=== PATIENT | female | born 1960 | race Caucasian/White ===

== ENCOUNTER 2016-04-30 11:23 | Observation (INO) | payer OTHER ==
[~2016-04-30] VITALS: Ht 152.4 cm; Wt 53.2 kg
[2016-04-30 11:53] LABS: BASO % 0.5 % (0.0-1.0); EOS # 0.1 K/mm3 (0.0-0.50); EOS % 1.7 % (0.0-3.0); LARGE UNSTAINED CELL # 0.1 K/mm3 (0.0-0.4); LARGE UNSTAINED CELL % 1.4 % (0.0-4.0); LYMPH # 1.2 K/mm3 (1.5-4.5); LYMPH % 18.7 % (24.0-44.0); MEAN CORPUSCULAR HEMOGLOBIN 29.9 pg (27.0-33.0); MEAN CORPUSCULAR HGB CONC 32.4 g/dl (32.0-36.5); MEAN CORPUSCULAR VOLUME 92.2 fl (80.0-96.0); MONO # 0.3 K/mm3 (0.0-0.8); MONO % 5.1 % (0.0-5.0); NEUTROPHILS # 4.5 K/mm3 (1.8-7.7); NEUTROPHILS % 72.6 % (36.0-66.0); PLATELET COUNT, AUTOMATED 282 k/mm3 (150-450); RED CELL DISTRIBUTION WIDTH 12.4 % (11.5-14.5); WHITE BLOOD COUNT 6.1 K/mm3 (4.0-10.0)
[2016-04-30 12:00] LABS: INR 0.95
--- NOTE | 2016-04-30 12:12 | REP ---
Clinical: Symptoms related to acute cerebrovascular accident . Comparison: 10/06/2014 . Findings: The ventricles, sulci, and cisterns are normal in position and appearance. Badillo-white differentiation is maintained. No acute intracranial hemorrhage, mass/mass effect, pathology or trauma/injury. No evidence for acute infarction. No extra-axial fluid collection. Calvarium is intact. Paranasal sinuses and mastoid air cells are clear. Impression: Normal noncontrast head CT. No evidence for acute intracranial pathology or trauma/injury. Signed by Sam Finch MD 04/30/2016 12:03 P
--- NOTE | 2016-04-30 12:14 | REP ---
Clinical: Acute cerebrovascular accident . Comparison: 05/12/2011 . Findings: The mediastinum and cardiac silhouette are stable and within normal limits for portable technique. The lung taylor are clear without acute consolidation, effusion, or pneumothorax. Skeletal structures are intact. Impression: Normal portable chest x-ray Signed by Sam Finch MD 04/30/2016 12:06 P
[2016-04-30 12:22] LABS: ANION GAP 7 MEQ/L (8-16); BLOOD UREA NITROGEN 17 MG/DL (7-18); CALCIUM LEVEL 9.5 MG/DL (8.5-10.1); CARBON DIOXIDE LEVEL 32 MEQ/L (21-32); CHLORIDE LEVEL 105 MEQ/L (98-107); CREATININE FOR GFR 0.88 MG/DL (0.55-1.02); GLOMERULAR FILTRATION RATE > 60.0 (>51); GLUCOSE, FASTING 80 MG/DL (70-105); SODIUM LEVEL 144 MEQ/L (136-145)
[2016-04-30 12:34] LABS: ALBUMIN 4.4 GM/DL (3.2-5.2); ALBUMIN/GLOBULIN RATIO 1.38 (1.00-1.93); ALKALINE PHOSPHATASE 96 U/L (45-117); ALT/SGPT 23 U/L (12-78); AST/SGOT 14 U/L (15-37); BILIRUBIN,DIRECT < 0.1 MG/DL (0.0-0.2); BILIRUBIN,TOTAL 0.3 MG/DL (0.2-1.0); TOTAL PROTEIN 7.6 GM/DL (6.4-8.2)
[2016-04-30] MEDS ORDERED: ACETAMINOPHEN 325 MG TAB As Ordered ONE (12:38)
[2016-04-30] MEDS ORDERED: METOCLOPRAMIDE INJ 10MG/2ML VIAL (J2765) As Ordered ONE (12:38)
[2016-04-30] MEDS ORDERED: FERR325T PO (13:23)
[2016-04-30] MEDS ORDERED: ASPI1TAB PO (13:23)
[2016-04-30] MEDS ORDERED: VITA-112 PO (13:23)
[2016-04-30] MEDS ORDERED: SALI0.653 (13:23)
[2016-04-30] MEDS ORDERED: AMLO5TAB2 PO (13:23)
[2016-04-30] MEDS ORDERED: LAMO25TA2 PO (13:23)
[2016-04-30] MEDS ORDERED: CLOP75TA2 PO (13:23)
[2016-04-30] MEDS ORDERED: PROB1TAB PO (13:23)
[2016-04-30] MEDS ORDERED: IBUPOTC PO (13:23)
[2016-04-30] MEDS ORDERED: OMEP20CA3 PO (13:23)
[2016-04-30] MEDS ORDERED: VITMTA PO (13:23)
[2016-04-30] MEDS ORDERED: NAPR220T8 PO (13:23)
[2016-04-30] MEDS ORDERED: TRAZ100T4 PO (13:23)
[2016-04-30] MEDS ORDERED: LISI40TAB PO (13:23)
[2016-04-30] MEDS ORDERED: BUPR300T34 PO (13:23)
[2016-04-30] MEDS ORDERED: DULO1CAP3 PO (13:23)
[2016-04-30] MEDS ORDERED: ACETAMINOPHEN 500 MG TAB PO PRN (13:30)
[2016-04-30] MEDS ORDERED: BISACODYL 5 MG TAB PO PRN (13:30)
[2016-04-30] MEDS ORDERED: ONDANSETRON 4MG/2ML VIAL (J2405) IV PRN (13:30)
--- NOTE | 2016-04-30 15:07 | REP ---
Clinical: Transient ischemic attack. Comparison: 01/18/2015. . Technique: Badillo scale and color Doppler evaluation using linear high frequency transducer Findings: Two-dimensional badillo scale and color images demonstrates intimal thickening and mild plaquing along the bilateral common carotid arteries extending to the carotid bulbs where moderate to significant mixed atheromatous plaque is appreciated extending into the bilateral internal carotid arteries and external carotid arteries. Appreciable narrowing is visualized on color images. Color Doppler interrogation demonstrates normal arterial wave patterns with moderate to significant spectral broadening and areas of elevated velocities. Normal flow direction is appreciated in the bilateral vertebral arteries. RIGHT (cm/s) LEFT (cm/s) ICA peak systolic velocity 205.9 103.2 ICA diastolic velocity 77.9 29.9 ECA peak systolic velocity 91.7 282.7 CCA peak systolic velocity 98.7 57.8 ICA/CCA ratio 2.1 1.8 Impression: Based on full osseous and set standards as well as visualization of atheromatous plaquing and spectral broadening: Narrowing of the right internal carotid artery is in the 50-69% range. Narrowing of the left internal carotid artery is at the 50% range. Narrowing of the left external carotid artery is at greater than 70% range. Signed by Sam Finch MD 04/30/2016 02:58 P
--- NOTE | 2016-04-30 15:18 | EDDOCDS ---
Nurse's Notes [facility] Name: Lucille Washington Age: 56 yrs Sex: Female : 1960 Arrival Date: 04/30/2016 Time: 11:23 Bed 1 Private MD: Veronica Khalil S Diagnosis: Transient cerebral ischemic attack, unspecified Presentation: 04/30 11:34 Presenting complaint: Patient states: right sided weakness started approximately 30 min ttb ago. No obvious weakness noted. Pt states hx of TIA's in the past. Started with pain in the back of her neck while looking at tablet. Risk Factors pt states "fuzzy feeling" and numb feeling. Adult Sepsis Screening: The patient does not have new or worsening altered mentation. Patient's respiratory rate is less than 22. Systolic blood pressure is greater than 100. Patient has a qSOFA score of 0- Negative Sepsis Screen. Suicide/Homicide risk assessment- the patient denies having any suicidal and/or homicidal ideations and does not present with any other emotional, behavioral or mental health complaints. Status: Patient is not a fast food services manager or dependent. Transition of care: patient was not received from another setting of care. 11:34 Acuity: CARLOS EDUARDO Level 2 ttb 11:34 Method Of Arrival: Walkin/Carried/Asstd ttb 11:35 Red Flag criteria, patient assessed and taken directly to a bed. ttb Triage Assessment: 11:34 HIV screening NA for this visit Offered previously. ttb 15:12 Musculoskeletal: Reports numbness in right side of face, right hand, right arm. aa3 Historical: - Allergies: no known allergies; - Home Meds: 1. Plavix 75 mg Oral tab 1 tab once daily 2. multivitamin Oral tab daily 3. naproxen sodium 220 mg Oral cap twice a day 4. ferrous sulfate 325 mg (65 mg iron) Oral cpER daily 5. amlodipine 5 mg Oral tab 1 tab once daily 6. omeprazole 20 mg Oral cpDR 1 cap once daily 7. Vitamin D Oral 1,000 unit daily 8. trazodone 50 mg Oral tab 2 times per day 9. aspirin 81 mg Oral TbEC 1 tab once daily 10. lisinopril 40 mg Oral tab 1 tab once daily 11. bupropion HCl 300 mg Oral Tb24 1 tab once daily 12. duloxetine 60 mg Oral cpDR 1 cap once daily 13. lamotrigine 25 mg Oral tab 2 tabs 2 times per day - PMHx: TIA's; Depression; Hypertension; - PSHx: Skin Graft; endarterectomy L-carotid; - Social history: Smoking status: Patient states was never smoker of tobacco. Patient/guardian denies using alcohol, street drugs, No barriers to communication noted, The patient speaks fluent Nigerian, Speaks appropriately for age. - Family history: Not pertinent. - : The pt / caregiver states he / she is on anticoagulants: Plavix. Home medication list is obtained from the patient. - Exposure Risk Screening:: None identified. Screenin:48 Screening information is obtained from the patient. Fall risk: No risks identified. aa3 Assistance ADL's: requires no assistance with activities of daily living. Abuse/DV Screen: The patient / caregiver reports he/she is: not in a situation that causes fear, pain or injury. Nutritional screening: No deficits noted. Advance Directives: Currently, there is a health care proxy, Zhou [place] [phone]. There is no active DNR order. There is no living will. home support is adequate. Assessment: 12:08 General: Appears in no apparent distress, comfortable, Behavior is appropriate for age, aa3 cooperative, Appears in no apparent distress, comfortable. Pain: Location: neck Pain currently is 7 out of 10 on a pain scale. Neurological: Level of Consciousness is awake, alert, Oriented to person, place, time, Hairspring Assembler are equal bilaterally Moves all extremities. Speech is normal, Facial symmetry appears normal, Reports numbness numbness in right hand. Cardiovascular: Capillary refill < 3 seconds Rhythm is sinus rhythm Chest pain is denied. Respiratory: Airway is patent Respiratory effort is even, unlabored, Respiratory pattern is regular, symmetrical. GI: Abdomen is non- distended. Derm: Skin is intact, is healthy with good turgor, Skin is pink, warm & dry. 12:25 Adult Sepsis Screening: The patient does not have new or worsening altered mentation. aa3 Patient's respiratory rate is less than 22. Systolic blood pressure is greater than 100. Patient has a qSOFA score of 0- Negative Sepsis Screen. 12:25 Neurological: No deficits noted. aa3 12:46 Neurological: No deficits noted. aa3 13:46 General: Appears in no apparent distress, comfortable, Behavior is appropriate for age, aa3 cooperative, Appears. Neurological: Level of Consciousness is awake, alert, Oriented to person, place, time, Hairspring Assembler are equal bilaterally Moves all extremities. Speech is normal, Facial symmetry appears normal. Respiratory: Airway is patent Respiratory effort is even, unlabored, Respiratory pattern is regular, symmetrical. Derm: Skin is intact, Skin is pink, warm & dry. 15:10 General: Appears in no apparent distress, comfortable, Behavior is appropriate for age, aa3 cooperative. Pain: Location: neck and head Pain currently is 3 out of 10 on a pain scale. Neurological: Level of Consciousness is awake, alert, Oriented to person, place, time, Hairspring Assembler are equal bilaterally Moves all extremities. Facial symmetry appears normal, no neurological deficit noted. Cardiovascular: Capillary refill < 3 seconds. Respiratory: Airway is patent Respiratory effort is even, unlabored, Respiratory pattern is regular, symmetrical. Derm: Skin is intact, is healthy with good turgor, Skin is pink, warm & dry. Vital Signs: 11:26 BP 155 / 70; Pulse 65; Resp 18; Temp 96.7(T); Pulse Ox 100% on R/A; Weight 52.16 kg jrd (R); Height 5 ft. 0 in. (152.40 cm) (R); Pain 5/10; 11:39 Weight 50.44 kg; aa3 12:03 BP 143 / 65 (auto/); aa3 12:05 Pulse 68 MON; Pulse Ox 100% ; aa3 12:14 Pulse 67 MON; Pulse Ox 100% ; aa3 12:15 BP 149 / 68 (auto/); aa3 12:29 Pulse 68 MON; Pulse Ox 99% ; aa3 12:30 BP 139 / 63 (auto/); aa3 12:43 Pulse 68 MON; Pulse Ox 100% ; aa3 12:44 Pulse 68 MON; Pulse Ox 99% ; aa3 12:45 BP 148 / 71 (auto/); aa3 12:59 Pulse 68 MON; Pulse Ox 100% ; aa3 13:00 BP 133 / 64 (auto/); aa3 13:14 Pulse 66 MON; Pulse Ox 98% ; aa3 13:15 BP 132 / 63 (auto/); aa3 13:29 Pulse 66 MON; Pulse Ox 99% ; aa3 13:30 BP 130 / 61 (auto/); aa3 13:41 Pulse 71 MON; Pulse Ox 97% ; aa3 13:45 BP 148 / 68 (auto/); aa3 13:59 Pulse 71 MON; aa3 14:00 BP 129 / 63 (auto/); aa3 14:01 Pulse 68 MON; aa3 14:15 BP 127 / 61 (auto/); aa3 14:30 BP 120 / 57 (auto/); aa3 14:30 Pulse 67 MON; Pulse Ox 84% ; aa3 14:44 Pulse 68 MON; Pulse Ox 98% ; aa3 14:45 BP 115 / 55 (auto/); aa3 14:59 Pulse 70 MON; Pulse Ox 99% ; aa3 15:00 BP 129 / 61 (auto/); Pulse 72; Resp 16; Temp 97.8(O); Pulse Ox 95% on R/A; Pain 4/10; aa3 11:39 Body Mass Index 21.72 (50.44 kg, 152.40 cm) aa3 Vitals: 11:26 Log In Time: April 30, 2016 at 11:20. jrd ED Course: 11:25 Patient visited by Edwin Proctor PCA. jrd 11:25 Patient moved to Waiting jrd 11:26 Veronica Khalil is Private Physician. jrd 11:28 Patient visited by Edwin Proctor PCA. jrd 11:28 Patient moved to Pre RCE jrd 11:35 Triage Initiated ttb 11:36 Patient moved to 1 ttb 11:38 Mary Carmen Dukes,RN is Primary Nurse. aa3 11:48 The patient / caregiver is instructed regarding the plan of care and ED course. Cardiac aa3 monitor on. Pulse ox on. NIBP on. 11:48 Inserted peripheral IV: 20gauge IV in right antecubital area Patient tolerated the aa3 procedure well. Labs drawn. (by ED staff). Sent per order to lab. EKG done. (by ED staff). 11:49 Patient visited by Mary Carmen Dukes RN. aa3 11:49 Basic Metabolic Profile Sent. aa3 11:49 CBC with Diff Sent. aa3 11:49 Partial Thromboplastin Time Sent. aa3 11:49 Prothrombin Time Profile\\E\\INR Sent. aa3 11:49 Type & Screen Sent. aa3 11:54 Patient visited by Mary Carmen Dukes RN. aa3 11:55 EKG done. (by ED staff). Reviewed by Casey Cobb MD. rn1 12:01 [facility] Ram[facility] Arrington [facility]. ke 12:01 Patient visited by Jose Ramon Arrington FNP. ke 12:01 Patient visited by Jose Ramon Arrington FNP. ke 12:10 Patient visited by Mary Carmen Dukes RN. aa3 12:10 Liver Profile Sent. aa3 12:19 Fingerstick Blood Sugar Sent. aa3 12:25 Patient visited by Mary Carmen Dukes RN. aa3 12:31 CT Head Without Contrast Returned. EDMS 12:31 Chest, 1 View Returned. EDMS 12:46 Patient visited by Mary Carmen Dukes RN. aa3 12:48 Betsey Maurice is Hospitalizing Provider. ke 13:47 Patient visited by Mary Carmen Dukes RN. aa3 14:04 [facility] [place] Payment Agreement was scanned into [employer] and attached to record. jp5 15:10 No procedures done that require assistance. aa3 Administered Medications: 12:45 Drug: Metoclopramide 10 mg [metoclopramide 5 mg/mL injection solution] Route: IV; Rate: aa3 40 mg/hr; Infused Over: 15 mins; Site: right antecubital; 13:13 Follow up: IV Status: Completed infusion kc3 12:45 Drug: Acetaminophen 975 mg [acetaminophen 325 mg tablet (3 tabs)] Route: PO; aa3 Point of Care Testing: Blood Glucose: 12:05 Blood Glucose: 90 mg/dL; aa3 Ranges: Order Results: Lab Order: Basic Metabolic Profile; SPEC'M 04/30/16 11:46 Test: GLUCOSE, FASTING; Value: 80; Range: 70-105; Units: MG/DL; Status: F Test: BLOOD UREA NITROGEN; Value: 17; Range: 7-18; Units: MG/DL; Status: F Test: CREATININE FOR GFR; Value: 0.88; Range: 0.55-1.02; Units: MG/DL; Status: F Test: GLOMERULAR FILTRATION RATE; Value: > 60.0; Range: >51; Status: F Test: SODIUM LEVEL; Value: 144; Range: 136-145; Units: MEQ/L; Status: F Test: POTASSIUM SERUM; Value: 4.0; Range: 3.5-5.1; Units: MEQ/L; Status: F Test: CHLORIDE LEVEL; Value: 105; Range: 98-107; Units: MEQ/L; Status: F Test: CARBON DIOXIDE LEVEL; Value: 32; Range: 21-32; Units: MEQ/L; Status: F Test: ANION GAP; Value: 7; Range: 8-16; Abnormal: Below low normal; Units: MEQ/L; Status: F Test: CALCIUM LEVEL; Value: 9.5; Range: 8.5-10.1; Units: MG/DL; Status: F Test Note: ; Units are mL/min/1.73 m2 Chronic Kidney Disease Staging per NKF: Stage I & II GFR >=60 Normal to Mildly Decreased Stage III GFR 30-59 Moderately Decreased Stage IV GFR 15-29 Severely Decreased Stage V GFR <15 Very Little GFR Left ESRD GFR <15 on [facility] Lab Order: CBC with Diff; SPEC'M 04/30/16 11:46 Test: WHITE BLOOD COUNT; Value: 6.1; Range: 4.0-10.0; Units: K/mm3; Status: F Test: RED BLOOD COUNT; Value: 4.54; Range: 4.00-5.40; Units: M/mm3; Status: F Test: HEMOGLOBIN; Value: 13.6; Range: 12.0-16.0; Units: g/dl; Status: F Test: HEMATOCRIT; Value: 41.9; Range: 36.0-47.0; Units: %; Status: F Test: MEAN CORPUSCULAR VOLUME; Value: 92.2; Range: 80.0-96.0; Units: fl; Status: F Test: MEAN CORPUSCULAR HEMOGLOBIN; Value: 29.9; Range: 27.0-33.0; Units: pg; Status: F Test: MEAN CORPUSCULAR HGB CONC; Value: 32.4; Range: 32.0-36.5; Units: g/dl; Status: F Test: RED CELL DISTRIBUTION WIDTH; Value: 12.4; Range: 11.5-14.5; Units: %; Status: F Test: PLATELET COUNT, AUTOMATED; Value: 282; Range: 150-450; Units: k/mm3; Status: F Test: NEUTROPHILS %; Value: 72.6; Range: 36.0-66.0; Abnormal: Above high normal; Units: %; Status: F Test: LYMPH %; Value: 18.7; Range: 24.0-44.0; Abnormal: Below low normal; Units: %; Status: F Test: MONO %; Value: 5.1; Range: 0.0-5.0; Abnormal: Above high normal; Units: %; Status: F Test: EOS %; Value: 1.7; Range: 0.0-3.0; Units: %; Status: F Test: BASO %; Value: 0.5; Range: 0.0-1.0; Units: %; Status: F Test: LARGE UNSTAINED CELL %; Value: 1.4; Range: 0.0-4.0; Units: %; Status: F Test: NEUTROPHILS #; Value: 4.5; Range: 1.8-7.7; Units: K/mm3; Status: F Test: LYMPH #; Value: 1.2; Range: 1.5-4.5; Abnormal: Below low normal; Units: K/mm3; Status: F Test: MONO #; Value: 0.3; Range: 0.0-0.8; Units: K/mm3; Status: F Test: EOS #; Value: 0.1; Range: 0.0-0.50; Units: K/mm3; Status: F Test: BASO #; Value: 0.0; Range: 0.0-0.2; Units: K/mm3; Status: F Test: LARGE UNSTAINED CELL #; Value: 0.1; Range: 0.0-0.4; Units: K/mm3; Status: F Lab Order: Partial Thromboplastin Time; SPEC'M 04/30/16 11:46 Test: PARTIAL THROMBOPLASTIN TIME; Value: 26.7; Range: 26.6-37.1; Units: SECONDS; Status: F Lab Order: Prothrombin Time Profile\\E\\INR; SPEC'M 04/30/16 11:46 Test: PROTHROMBIN TIME; Value: 12.8; Range: 12.3-14.5; Units: SECONDS; Status: F Test: INR; Value: 0.95; Status: F Test Note: ; THERAPUTIC HUMAN INR VALUES INDICATIONS NORMAL RANGES PROPHYLAXIS/TREATMENT OF: VENOUS THROMBOSIS 2.0-3.0 PULMONARY EMBOLISM 2.0-3.0 PREVENTION OF SYSTEMIC EMBOLISM FROM: TISSUE HEART VALVES 2.0-3.0 ACUTE MYOCARDIAL INFARCTION 2.0-3.0 VALVULAR HEART DISEASE 2.0-3.0 ATRIAL FIBRILLATION 2.0-3.0 MECHANICAL VALVES(HIGH RISK) 2.5-3.5 RECURRENT MYOCARDIAL INFARCTION 2.5-3.5 Lab Order: Type & Screen; [facility] 04/30/16 11:46 Test: BLOOD TYPE; Value: B NEG; Status: F Test: AB SCREEN (INDIRECT SHANNAN)VIS; Value: NEGATIVE; Status: F Lab Order: Liver Profile; [facility] 04/30/16 11:46 Test: AST/SGOT; Value: 14; Range: 15-37; Abnormal: Below low normal; Units: U/L; Status: F Test: ALT/SGPT; Value: 23; Range: 12-78; Units: U/L; Status: F Test: ALKALINE PHOSPHATASE; Value: 96; Range: 45-117; Units: U/L; Status: F Test: BILIRUBIN,TOTAL; Value: 0.3; Range: 0.2-1.0; Units: MG/DL; Status: F Test: BILIRUBIN,DIRECT; Value: < 0.1; Range: 0.0-0.2; Units: MG/DL; Status: F Test: TOTAL PROTEIN; Value: 7.6; Range: 6.4-8.2; Units: GM/DL; Status: F Test: ALBUMIN; Value: 4.4; Range: 3.2-5.2; Units: GM/DL; Status: F Test: ALBUMIN/GLOBULIN RATIO; Value: 1.38; Range: 1.00-1.93; Status: F Lab Order: Fingerstick Blood Sugar; [facility] 04/30/16 12:07 Test: BEDSIDE GLUCOSE; Value: 90; Range: 70-105; Units: MG/DL; Status: F Radiology Order: CT Head Without Contrast Test: CT Head Without Contrast REASON FOR EXAMINATION: CVA <4.5hrs; Clinical: Symptoms related to acute cerebrovascular accident .; ; Comparison: 10/06/2014 .; ; Findings:; The ventricles, sulci, and cisterns are normal in position and appearance.; Badillo-white differentiation is maintained. No acute intracranial hemorrhage,; mass/mass effect, pathology or trauma/injury. No evidence for acute infarction.; No extra-axial fluid collection. Calvarium is intact. Paranasal sinuses and; mastoid air cells are clear.; ; Impression:; Normal noncontrast head CT.; No evidence for acute intracranial pathology or trauma/injury.; ; ; Signed by; Sam Finch MD 04/30/2016 12:03 P; Radiology Order: Chest, 1 View Test: Chest, 1 View REASON FOR EXAMINATION: CVA <4.5hrs; Clinical: Acute cerebrovascular accident .; ; Comparison: 05/12/2011 .; ; Findings:; The mediastinum and cardiac silhouette are stable and within normal limits for; portable technique. The lung taylor are clear without acute consolidation,; effusion, or pneumothorax. Skeletal structures are intact.; ; Impression:; Normal portable chest x-ray; ; ; Signed by; Sam Finch MD 04/30/2016 12:06 P; Outcome: 12:48 Decision to Hospitalize by Provider. ke 15:10 Discharge Assessment: Patient awake and alert. Oriented to person, place and time. aa3 Patient verbalized understanding of disposition instructions. Patient has no functional deficits. patient administered narcotics - no. The following High Risk Discharge criteria are identified: None. Admitted to PCU accompanied by nurse, accompanied by tech, on monitor, with chart. Condition: good. CT Study completed. MRI Study completed. Admission hand-off: Report called to Marika Gray. Property :Personal belongings accompany Pt. 15:18 Patient left the ED. aa3 Signatures: Dispatcher [employer] EDJose Ramon Lai, Angelica Meeks RN RN ttb Mary Carmen DukesRN RN aa3 Edwin Proctor PCA PCA jrd Newman, Robert rn1 Graciela Price jp5 Salome Irving,MOHSEN RN kc3 MTDD
--- NOTE | 2016-04-30 15:18 | EDDOCDS ---
Physician Documentation [facility] Name: Lucille Washington Age: 56 yrs Sex: Female : 1960 Arrival Date: 04/30/2016 Time: 11:23 Bed 1 Private MD: Veronica Khalil S Disposition: 04/30/16 12:48 Hospitalization ordered by Bestey Maurice for Inpatient Admission. Preliminary diagnosis is Transient cerebral ischemic attack, unspecified. - Bed requested for PCU. - Status is Inpatient Admission. aa3 - Condition is Stable. - Problem is an acute exacerbation. - Symptoms have improved. Historical: - Allergies: no known allergies; - Home Meds: 1. Plavix 75 mg Oral tab 1 tab once daily 2. multivitamin Oral tab daily 3. naproxen sodium 220 mg Oral cap twice a day 4. ferrous sulfate 325 mg (65 mg iron) Oral cpER daily 5. amlodipine 5 mg Oral tab 1 tab once daily 6. omeprazole 20 mg Oral cpDR 1 cap once daily 7. Vitamin D Oral 1,000 unit daily 8. trazodone 50 mg Oral tab 2 times per day 9. aspirin 81 mg Oral TbEC 1 tab once daily 10. lisinopril 40 mg Oral tab 1 tab once daily 11. bupropion HCl 300 mg Oral Tb24 1 tab once daily 12. duloxetine 60 mg Oral cpDR 1 cap once daily 13. lamotrigine 25 mg Oral tab 2 tabs 2 times per day - PMHx: TIA's; Depression; Hypertension; - PSHx: Skin Graft; endarterectomy L-carotid; - Social history: Smoking status: Patient states was never smoker of tobacco. Patient/guardian denies using alcohol, street drugs, No barriers to communication noted, The patient speaks fluent Arabic, Speaks appropriately for age. - Family history: Not pertinent. - : The pt / caregiver states he / she is on anticoagulants: Plavix. Home medication list is obtained from the patient. - Exposure Risk Screening:: None identified. Vital Signs: 04/30 11:26 BP 155 / 70; Pulse 65; Resp 18; Temp 96.7(T); Pulse Ox 100% on R/A; Weight 52.16 kg / jrd 114.99 lbs (R); Height 5 ft. 0 in. (152.40 cm) (R); Pain 5/10; 11:39 Weight 50.44 kg / 111.2 lbs; aa3 12:03 BP 143 / 65 (auto/); aa3 12:05 Pulse 68 MON; Pulse Ox 100% ; aa3 12:14 Pulse 67 MON; Pulse Ox 100% ; aa3 12:15 BP 149 / 68 (auto/); aa3 12:29 Pulse 68 MON; Pulse Ox 99% ; aa3 12:30 BP 139 / 63 (auto/); aa3 12:43 Pulse 68 MON; Pulse Ox 100% ; aa3 12:44 Pulse 68 MON; Pulse Ox 99% ; aa3 12:45 BP 148 / 71 (auto/); aa3 12:59 Pulse 68 MON; Pulse Ox 100% ; aa3 13:00 BP 133 / 64 (auto/); aa3 13:14 Pulse 66 MON; Pulse Ox 98% ; aa3 13:15 BP 132 / 63 (auto/); aa3 13:29 Pulse 66 MON; Pulse Ox 99% ; aa3 13:30 BP 130 / 61 (auto/); aa3 13:41 Pulse 71 MON; Pulse Ox 97% ; aa3 13:45 BP 148 / 68 (auto/); aa3 13:59 Pulse 71 MON; aa3 14:00 BP 129 / 63 (auto/); aa3 14:01 Pulse 68 MON; aa3 14:15 BP 127 / 61 (auto/); aa3 14:30 BP 120 / 57 (auto/); aa3 14:30 Pulse 67 MON; Pulse Ox 84% ; aa3 14:44 Pulse 68 MON; Pulse Ox 98% ; aa3 14:45 BP 115 / 55 (auto/); aa3 14:59 Pulse 70 MON; Pulse Ox 99% ; aa3 15:00 BP 129 / 61 (auto/); Pulse 72; Resp 16; Temp 97.8(O); Pulse Ox 95% on R/A; Pain 4/10; aa3 11:39 Body Mass Index 21.72 (50.44 kg, 152.40 cm) aa3 MDM: 11:38 RN interventions must not delay CT ordered. br1 11:38 Dealer Sales Rep/Pulse Ox/q 15 min VS ordered. br1 11:38 Accucheck ordered. br1 11:38 IV Saline Lock ordered. br1 11:38 Neuro VS q 15 Minutes ordered. br1 11:38 Patient must be on CC stretcher and weighed via bed scale ordered. br1 11:38 Rhythm Strip to chart ordered. br1 11:39 Type & Screen Ordered. EDMS 11:40 Basic Metabolic Profile Ordered. EDMS 11:40 CBC with Diff Ordered. EDMS 11:40 Partial Thromboplastin Time Ordered. EDMS 11:40 Prothrombin Time Profile\E\INR Ordered. EDMS 11:40 Chest, 1 View Ordered. EDMS 11:40 CT Head Without Contrast Ordered. EDMS 11:40 ECG WITH READING ER PHYS+CARDIAG ordered. EDMS 12:09 Liver Profile Ordered. EDMS 12:18 Fingerstick Blood Sugar Ordered. EDMS 12:27 Basic Metabolic Profile Reviewed. ke 12:27 CBC with Diff Reviewed. ke 12:27 Partial Thromboplastin Time Reviewed. ke 12:27 Prothrombin Time Profile\E\INR Reviewed. ke 12:27 Fingerstick Blood Sugar Reviewed. ke 12:27 BED REQUEST+ADM ordered. EDMS 12:35 Metoclopramide 10 mg IV at 40 mg/hr once over 15 mins ordered. ke 12:35 Acetaminophen Tablet 975 mg PO once ordered. ke 12:46 Liver Profile Reviewed. ke 12:46 Type & Screen Reviewed. ke 12:46 CT Head Without Contrast Reviewed. ke 12:46 Chest, 1 View Reviewed. ke 13:21 Admission / Observation Status ordered. EDMS 13:21 REGULAR DIET ordered. EDMS 13:22 MRI Brain without Contrast Ordered. EDMS 13:22 Duplex,carotid (complete) Ordered. EDMS 14:04 [facility] Payment Agreement was scanned into [employer] and attached to record. jp5 14:04 Financial registration complete. jp5 Point of Care Testing: Blood Glucose: 12:05 Blood Glucose: 90 mg/dL; aa3 Ranges: Administered Medications: 12:45 Drug: Metoclopramide 10 mg [metoclopramide 5 mg/mL injection solution] Route: IV; Rate: aa3 40 mg/hr; Infused Over: 15 mins; Site: right antecubital; 13:13 Follow up: IV Status: Completed infusion kc3 12:45 Drug: Acetaminophen 975 mg [acetaminophen 325 mg tablet (3 tabs)] Route: PO; aa3 Signatures: Dispatcher [employer] EDMS Farrah Crawford, Anesthesiologists' Assistant Unit deg Elsner, Jose Ramon, WARD ATTENDANT WARD ATTENDANT Casey Brown MD MD br1 Angelica Manzanares, RN RN ttb Mary Carmen Dukes RN RN aa3 Graciela Price jp5 Salome Irving RN kc3 The chart was reviewed and I authenticate all verbal orders and agree with the evaluation and treatment provided.Attachments: 14:04 [facility] Payment Agreement jp5 MTDD
[2016-04-30 16:00] VITALS: BP 139/68
--- NOTE | 2016-04-30 17:29 | REP ---
Clinical: Transient ischemic attack. Technique: Standard noncontrast axial T1 and T2-weighted sequences with sagittal T1 sequence and Diffusion/ADC mapping sequence. Findings: Mild age-related atrophy and microvascular ischemic changes are suggested. There is no evidence for acute intracranial hemorrhage, mass or mass effect. No evidence for acute infarction. No extra-axial collection. Midbrain and midline structures are intact and symmetric. Orbits and sinuses are normal. Impression: Mild age-related changes. No evidence for acute intracranial hemorrhage, mass/mass effect or infarction. Signed by Sam Finch MD 04/30/2016 05:20 P
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
[2016-04-30 20:22] VITALS: BP 115/56
[2016-04-30] MEDS: SENOKOT S TAB PO SCH (20:34)
[2016-04-30] MEDS: lamoTRIgine 25 MG TAB PO SCH (20:34)
[2016-04-30] MEDS ORDERED: LISINOPRIL 40 MG TAB PO SCH (21:00)
[2016-04-30] MEDS ORDERED: traZODone 100 MG TAB PO SCH (21:00)
[2016-04-30] MEDS ORDERED: ASPIRIN 81 MG ENTERIC TAB PO SCH (21:00)
[2016-04-30] MEDS ORDERED: CLOPIDOGREL 75 MG TAB PO SCH (21:00)
[2016-05-01 00:20] VITALS: BP 124/62
[2016-05-01] MEDS ORDERED: SLF 3 ML SYR IV PRN (01:00)
[2016-05-01 05:25] VITALS: BP 127/59
[2016-05-01 05:36] LABS: BASO % 0.3 % (0.0-1.0); EOS # 0.1 K/mm3 (0.0-0.50); EOS % 2.5 % (0.0-3.0); LARGE UNSTAINED CELL # 0.2 K/mm3 (0.0-0.4); LARGE UNSTAINED CELL % 3.7 % (0.0-4.0); LYMPH # 1.3 K/mm3 (1.5-4.5); LYMPH % 29.3 % (24.0-44.0); MEAN CORPUSCULAR HEMOGLOBIN 29.6 pg (27.0-33.0); MEAN CORPUSCULAR HGB CONC 32.4 g/dl (32.0-36.5); MEAN CORPUSCULAR VOLUME 91.2 fl (80.0-96.0); MONO # 0.3 K/mm3 (0.0-0.8); MONO % 5.7 % (0.0-5.0); NEUTROPHILS # 2.7 K/mm3 (1.8-7.7); NEUTROPHILS % 58.5 % (36.0-66.0); PLATELET COUNT, AUTOMATED 220 k/mm3 (150-450); RED CELL DISTRIBUTION WIDTH 12.1 % (11.5-14.5); WHITE BLOOD COUNT 4.6 K/mm3 (4.0-10.0)
[2016-05-01] MEDS ORDERED: SLF 3 ML SYR IV SCH (06:00)
[2016-05-01 06:04] LABS: ANION GAP 8 MEQ/L (8-16); BLOOD UREA NITROGEN 16 MG/DL (7-18); CALCIUM LEVEL 8.6 MG/DL (8.5-10.1); CARBON DIOXIDE LEVEL 30 MEQ/L (21-32); CHLORIDE LEVEL 108 MEQ/L (98-107); CHOLESTEROL LEVEL 183 MG/DL (<200); CREATININE FOR GFR 0.98 MG/DL (0.55-1.02); GLOMERULAR FILTRATION RATE > 60.0 (>51); GLUCOSE, FASTING 88 MG/DL (70-105); POTASSIUM SERUM 4.2 MEQ/L (3.5-5.1); SODIUM LEVEL 146 MEQ/L (136-145); TRIGLYCERIDES LEVEL 76 MG/DL (<150)
--- NOTE | 2016-05-01 07:45 | ECGEPIP ---
Stationary ECG Study [facility] - ED Test Date: 2016-04-30 Pat Name: ELÍAS CARRASCO Department: Room: [place] [address] Gender: F Senior Oracle Developer: rn : 1960 Requested By: LENA Roman Order Number: [id number] Reading MD: Candace Cloud Measurements Intervals [place] Rate: 66 P: -3 SD: 140 QRS: 83 QRSD: 124 T: 13 QT: 407 QTc: 429 Interpretive Statements SINUS RHYTHM RIGHT BUNDLE BRANCH BLOCK DECREASED RATE 05/12/11 Electronically Signed On 05-01-2016 7:45:49 EST by Candace Cloud
[2016-05-01 08:00] VITALS: BP 155/80
[2016-05-01 08:55] VITALS: BP 155/80
[2016-05-01] MEDS: SENOKOT S TAB PO SCH (08:55)
[2016-05-01] MEDS: lamoTRIgine 25 MG TAB PO SCH (08:55)
[2016-05-01] MEDS ORDERED: amLODIPine 5 MG TAB PO SCH (09:00)
[2016-05-01] MEDS ORDERED: OMEPRAZOLE 20 MG CAP PO SCH (09:00)
[2016-05-01] MEDS ORDERED: FERROUS SULFATE 325MG TAB PO SCH (09:00)
[2016-05-01] MEDS ORDERED: ENOXAPARIN 40 MG/0.4 ML SYRINGE (J1650) SC SCH (09:00)
[2016-05-01] MEDS ORDERED: DULoxetine 30 MG CAP (CYMBALTA) PO SCH (09:00)
[2016-05-01] MEDS ORDERED: buPROPion **XL** TABLET 150MG (WELLBUTRIN XL) PO SCH (09:00)
[2016-05-01] MEDS ORDERED: ATOR1TAB21 PO (10:16)
[2016-05-01 12:00] VITALS: BP 138/63
--- NOTE | 2016-05-01 14:28 | DSES ---
DATE OF ADMISSION: 04/30/2016 DATE OF DISCHARGE: 05/01/2016 PRIMARY CARE PROVIDER: Veronica Khalil NEUROLOGIST: Dr. Bowen NEUROSCIENTIST: Dr. Lai VASCULAR SURGEON: Dr. Tillman FINAL DIAGNOSES: 1. Transient ischemic attack (TIA). 2. Carotid artery stenosis. 3. Hypertension. 4. Anxiety and depression. 5. Gastroesophageal reflux disease (GERD). 6. Degenerative disc disease. 7. Fibromyalgia. 8. Osteoarthritis. HISTORY OF PRESENT ILLNESS: This is a 56-year-old female patient with underlying medical history of TIA, history of carotid artery disease with left sided carotid endarterectomy, hypertension, anxiety, depression, gastroesophageal reflux disease, degenerative disc disease, fibromyalgia, and osteoarthritis who was in her usual state of health until the day before admission when she woke up in the morning with headache and neck pain at about 7:00 a.m. Around 10:30 a.m. when she noticed sudden onset of numbness of right upper extremity as well as right lower extremity and also right side of the patient's mouth. She described the sensation after she is given Novocain injection by her dentist. She did not have any weakness or any difficulty ambulating. She did not have any difficulty with speech or swallowing. She came to the emergency room. CT scan of the head was done. The patient was subsequently admitted for TIA. HOSPITAL COURSE: The patient was admitted for TIA. MRI was appreciated. Carotid Doppler was appreciated. CT of the head was appreciated. The patient was monitored overnight on telemetry. Carotid Doppler shows left external carotid artery was greater than 70% stenosis and left internal carotid was 50% and right internal carotid was 50-69%. The case was discussed with Dr. Rose who was covering for Dr. Bowen. Given patient's symptoms have resolved and able to ambulate as by nursing staff without any problems and tolerating oral and reported back to baseline, the patient could be discharged for further followup and care as an outpatient. The patient currently tolerating oral and able to ambulate. Reported back to baseline. No significant distress. Lipid panel appreciated. Lipitor has been added to the patient's regimen as well as aspirin and Plavix. Telemetry has been appreciated. VITAL SIGNS: Temperature 99.6, pulse 66, respirations 20, blood pressure 138/63, pulse oximetry 99% on room air. LABORATORY: WBC 4.6, hemoglobin and hematocrit (H and H) 11.2 over 34.5, platelets 220. Chemistries: Sodium 146, potassium 4.2, chloride 108, bicarbonate 30, BUN 16, creatinine 0.98. DISCHARGE MEDICATIONS: - Lipitor 40 mg by mouth at bedtime - Norvasc 5 mg by mouth daily - aspirin 81 mg by mouth daily - bupropion 300 mg by mouth daily - vitamin D 1000 units by mouth daily - Plavix 75 mg by mouth at bedtime - duloxetine 60 mg by mouth daily - ferrous sulfate 325 mg by mouth daily - ibuprofen 200 mg by mouth as needed - lamotrigine 25 mg by mouth twice a day - lisinopril 40 mg by mouth at bedtime - multivitamin one tablet by mouth twice a day - naproxen 220 mg by mouth twice a day - omeprazole 20 mg by mouth daily - Probiotics one tablet by mouth twice a day - nasal saline as needed - tramadol 100 mg by mouth at bedtime DISCHARGE INSTRUCTIONS: The patient is instructed to follow up with primary care provider in 7 days, urologist in 7-1- days and vascular surgeon Dr. Tillman in 7-10 days as well. Return to the hospital if symptoms return or worsen.
[2016-05-01] MEDS ORDERED: ATORVASTATIN 20 MG TAB PO SCH (21:00)
--- NOTE | 2016-05-02 16:20 | EDDOCDS ---
Physician Documentation [facility] Name: Lucille Washington Age: 56 yrs Sex: Female : 1960 Arrival Date: 04/30/2016 Time: 11:23 Bed 1 Private MD: Veronica Khalil S Disposition: 04/30/16 12:48 Hospitalization ordered by Betsey Maurice for Inpatient Admission. Preliminary diagnosis is Transient cerebral ischemic attack, unspecified. - Bed requested for PCU. - Status is Inpatient Admission. aa3 - Condition is Stable. - Problem is an acute exacerbation. - Symptoms have improved. Historical: - Allergies: no known allergies; - Home Meds: 1. Plavix 75 mg Oral tab 1 tab once daily 2. multivitamin Oral tab daily 3. naproxen sodium 220 mg Oral cap twice a day 4. ferrous sulfate 325 mg (65 mg iron) Oral cpER daily 5. amlodipine 5 mg Oral tab 1 tab once daily 6. omeprazole 20 mg Oral cpDR 1 cap once daily 7. Vitamin D Oral 1,000 unit daily 8. trazodone 50 mg Oral tab 2 times per day 9. aspirin 81 mg Oral TbEC 1 tab once daily 10. lisinopril 40 mg Oral tab 1 tab once daily 11. bupropion HCl 300 mg Oral Tb24 1 tab once daily 12. duloxetine 60 mg Oral cpDR 1 cap once daily 13. lamotrigine 25 mg Oral tab 2 tabs 2 times per day - PMHx: TIA's; Depression; Hypertension; - PSHx: Skin Graft; endarterectomy L-carotid; - Social history: Smoking status: Patient states was never smoker of tobacco. Patient/guardian denies using alcohol, street drugs, No barriers to communication noted, The patient speaks fluent Sami, Speaks appropriately for age. - Family history: Not pertinent. - : The pt / caregiver states he / she is on anticoagulants: Plavix. Home medication list is obtained from the patient. - Exposure Risk Screening:: None identified. Vital Signs: 04/30 11:26 BP 155 / 70; Pulse 65; Resp 18; Temp 96.7(T); Pulse Ox 100% on R/A; Weight 52.16 kg / jrd 114.99 lbs (R); Height 5 ft. 0 in. (152.40 cm) (R); Pain 5/10; 11:39 Weight 50.44 kg / 111.2 lbs; aa3 12:03 BP 143 / 65 (auto/); aa3 12:05 Pulse 68 MON; Pulse Ox 100% ; aa3 12:14 Pulse 67 MON; Pulse Ox 100% ; aa3 12:15 BP 149 / 68 (auto/); aa3 12:29 Pulse 68 MON; Pulse Ox 99% ; aa3 12:30 BP 139 / 63 (auto/); aa3 12:43 Pulse 68 MON; Pulse Ox 100% ; aa3 12:44 Pulse 68 MON; Pulse Ox 99% ; aa3 12:45 BP 148 / 71 (auto/); aa3 12:59 Pulse 68 MON; Pulse Ox 100% ; aa3 13:00 BP 133 / 64 (auto/); aa3 13:14 Pulse 66 MON; Pulse Ox 98% ; aa3 13:15 BP 132 / 63 (auto/); aa3 13:29 Pulse 66 MON; Pulse Ox 99% ; aa3 13:30 BP 130 / 61 (auto/); aa3 13:41 Pulse 71 MON; Pulse Ox 97% ; aa3 13:45 BP 148 / 68 (auto/); aa3 13:59 Pulse 71 MON; aa3 14:00 BP 129 / 63 (auto/); aa3 14:01 Pulse 68 MON; aa3 14:15 BP 127 / 61 (auto/); aa3 14:30 BP 120 / 57 (auto/); aa3 14:30 Pulse 67 MON; Pulse Ox 84% ; aa3 14:44 Pulse 68 MON; Pulse Ox 98% ; aa3 14:45 BP 115 / 55 (auto/); aa3 14:59 Pulse 70 MON; Pulse Ox 99% ; aa3 15:00 BP 129 / 61 (auto/); Pulse 72; Resp 16; Temp 97.8(O); Pulse Ox 95% on R/A; Pain 4/10; aa3 11:39 Body Mass Index 21.72 (50.44 kg, 152.40 cm) aa3 MDM: 11:38 RN interventions must not delay CT ordered. br1 11:38 Shoder Filler/Pulse Ox/q 15 min VS ordered. br1 11:38 Accucheck ordered. br1 11:38 IV Saline Lock ordered. br1 11:38 Neuro VS q 15 Minutes ordered. br1 11:38 Patient must be on CC stretcher and weighed via bed scale ordered. br1 11:38 Rhythm Strip to chart ordered. br1 11:39 Type & Screen Ordered. EDMS 11:40 Basic Metabolic Profile Ordered. EDMS 11:40 CBC with Diff Ordered. EDMS 11:40 Partial Thromboplastin Time Ordered. EDMS 11:40 Prothrombin Time Profile\E\INR Ordered. EDMS 11:40 Chest, 1 View Ordered. EDMS 11:40 CT Head Without Contrast Ordered. EDMS 11:40 ECG WITH READING ER PHYS+CARDIAG ordered. EDMS 12:09 Liver Profile Ordered. EDMS 12:18 Fingerstick Blood Sugar Ordered. EDMS 12:27 Basic Metabolic Profile Reviewed. ke 12:27 CBC with Diff Reviewed. ke 12:27 Partial Thromboplastin Time Reviewed. ke 12:27 Prothrombin Time Profile\E\INR Reviewed. ke 12:27 Fingerstick Blood Sugar Reviewed. ke 12:27 BED REQUEST+ADM ordered. EDMS 12:35 Metoclopramide 10 mg IV at 40 mg/hr once over 15 mins ordered. ke 12:35 Acetaminophen Tablet 975 mg PO once ordered. ke 12:46 Liver Profile Reviewed. ke 12:46 Type & Screen Reviewed. ke 12:46 CT Head Without Contrast Reviewed. ke 12:46 Chest, 1 View Reviewed. ke 13:21 Admission / Observation Status ordered. EDMS 13:21 REGULAR DIET ordered. EDMS 13:22 MRI Brain without Contrast Ordered. EDMS 13:22 Duplex,carotid (complete) Ordered. EDMS 14:04 [facility] Payment Agreement was scanned into [employer] and attached to record. jp5 14:04 Financial registration complete. jp5 05/01 09:28 T-Sheet-- Draft Copy was scanned into [employer] and attached to record. gb 16:25 ECG/EKG was scanned into [employer] and attached to record. gb 16:25 Trend VS was scanned into [employer] and attached to record. gb Point of Care Testing: Blood Glucose: 04/30 12:05 Blood Glucose: 90 mg/dL; aa3 Ranges: Administered Medications: 12:45 Drug: Metoclopramide 10 mg [metoclopramide 5 mg/mL injection solution] Route: IV; Rate: aa3 40 mg/hr; Infused Over: 15 mins; Site: right antecubital; 13:13 Follow up: IV Status: Completed infusion kc3 12:45 Drug: Acetaminophen 975 mg [acetaminophen 325 mg tablet (3 tabs)] Route: PO; aa3 Signatures: Dispatcher [employer] EDMS Farrah Crawford, Director Of [employer] Unit deg SyedtonyjayyChrissie sequeira, Reg Reg gb Jose Ramon Arrington, AIRCRAFT ARMORER [employer]CRA[employer] ARMORER Casey Brown MD MD br1 Angelica Manzanares RN RN ttb Mary Carmen Dukes RN RN aa3 Graciela Price jp5 Salome Irving RN kc3 The chart was reviewed and I authenticate all verbal orders and agree with the evaluation and treatment provided.Attachments: 14:04 [facility] Payment Agreement jp5 05/01 09:28 T-Sheet-- Draft Copy gb 16:25 ECG/EKG gb Chart Complete MTDD
--- NOTE | 2016-05-02 16:20 | EDDOCDS ---
Nurse's Notes [facility] Name: Lucille Washington Age: 56 yrs Sex: Female : 1960 Arrival Date: 04/30/2016 Time: 11:23 Bed 1 Private MD: Veronica Khalil S Diagnosis: Transient cerebral ischemic attack, unspecified Presentation: 04/30 11:34 Presenting complaint: Patient states: right sided weakness started approximately 30 min ttb ago. No obvious weakness noted. Pt states hx of TIA's in the past. Started with pain in the back of her neck while looking at tablet. Risk Factors pt states "fuzzy feeling" and numb feeling. Adult Sepsis Screening: The patient does not have new or worsening altered mentation. Patient's respiratory rate is less than 22. Systolic blood pressure is greater than 100. Patient has a qSOFA score of 0- Negative Sepsis Screen. Suicide/Homicide risk assessment- the patient denies having any suicidal and/or homicidal ideations and does not present with any other emotional, behavioral or mental health complaints. Status: Patient is not a service order dispatcher chief or dependent. Transition of care: patient was not received from another setting of care. 11:34 Acuity: CARLOS EDUARDO Level 2 ttb 11:34 Method Of Arrival: Walkin/Carried/Asstd ttb 11:35 Red Flag criteria, patient assessed and taken directly to a bed. ttb Triage Assessment: 11:34 HIV screening NA for this visit Offered previously. ttb 15:12 Musculoskeletal: Reports numbness in right side of face, right hand, right arm. aa3 Historical: - Allergies: no known allergies; - Home Meds: 1. Plavix 75 mg Oral tab 1 tab once daily 2. multivitamin Oral tab daily 3. naproxen sodium 220 mg Oral cap twice a day 4. ferrous sulfate 325 mg (65 mg iron) Oral cpER daily 5. amlodipine 5 mg Oral tab 1 tab once daily 6. omeprazole 20 mg Oral cpDR 1 cap once daily 7. Vitamin D Oral 1,000 unit daily 8. trazodone 50 mg Oral tab 2 times per day 9. aspirin 81 mg Oral TbEC 1 tab once daily 10. lisinopril 40 mg Oral tab 1 tab once daily 11. bupropion HCl 300 mg Oral Tb24 1 tab once daily 12. duloxetine 60 mg Oral cpDR 1 cap once daily 13. lamotrigine 25 mg Oral tab 2 tabs 2 times per day - PMHx: TIA's; Depression; Hypertension; - PSHx: Skin Graft; endarterectomy L-carotid; - Social history: Smoking status: Patient states was never smoker of tobacco. Patient/guardian denies using alcohol, street drugs, No barriers to communication noted, The patient speaks fluent Polish, Speaks appropriately for age. - Family history: Not pertinent. - : The pt / caregiver states he / she is on anticoagulants: Plavix. Home medication list is obtained from the patient. - Exposure Risk Screening:: None identified. Screenin:48 Screening information is obtained from the patient. Fall risk: No risks identified. aa3 Assistance ADL's: requires no assistance with activities of daily living. Abuse/DV Screen: The patient / caregiver reports he/she is: not in a situation that causes fear, pain or injury. Nutritional screening: No deficits noted. Advance Directives: Currently, there is a health care proxy, Zhou Washington [phone]. There is no active DNR order. There is no living will. home support is adequate. Assessment: 12:08 General: Appears in no apparent distress, comfortable, Behavior is appropriate for age, aa3 cooperative, Appears in no apparent distress, comfortable. Pain: Location: neck Pain currently is 7 out of 10 on a pain scale. Neurological: Level of Consciousness is awake, alert, Oriented to person, place, time, Paper Ruler are equal bilaterally Moves all extremities. Speech is normal, Facial symmetry appears normal, Reports numbness numbness in right hand. Cardiovascular: Capillary refill < 3 seconds Rhythm is sinus rhythm Chest pain is denied. Respiratory: Airway is patent Respiratory effort is even, unlabored, Respiratory pattern is regular, symmetrical. GI: Abdomen is non- distended. Derm: Skin is intact, is healthy with good turgor, Skin is pink, warm & dry. 12:25 Adult Sepsis Screening: The patient does not have new or worsening altered mentation. aa3 Patient's respiratory rate is less than 22. Systolic blood pressure is greater than 100. Patient has a qSOFA score of 0- Negative Sepsis Screen. 12:25 Neurological: No deficits noted. aa3 12:46 Neurological: No deficits noted. aa3 13:46 General: Appears in no apparent distress, comfortable, Behavior is appropriate for age, aa3 cooperative, Appears. Neurological: Level of Consciousness is awake, alert, Oriented to person, place, time, Paper Ruler are equal bilaterally Moves all extremities. Speech is normal, Facial symmetry appears normal. Respiratory: Airway is patent Respiratory effort is even, unlabored, Respiratory pattern is regular, symmetrical. Derm: Skin is intact, Skin is pink, warm & dry. 15:10 General: Appears in no apparent distress, comfortable, Behavior is appropriate for age, aa3 cooperative. Pain: Location: neck and head Pain currently is 3 out of 10 on a pain scale. Neurological: Level of Consciousness is awake, alert, Oriented to person, place, time, Paper Ruler are equal bilaterally Moves all extremities. Facial symmetry appears normal, no neurological deficit noted. Cardiovascular: Capillary refill < 3 seconds. Respiratory: Airway is patent Respiratory effort is even, unlabored, Respiratory pattern is regular, symmetrical. Derm: Skin is intact, is healthy with good turgor, Skin is pink, warm & dry. Vital Signs: 11:26 BP 155 / 70; Pulse 65; Resp 18; Temp 96.7(T); Pulse Ox 100% on R/A; Weight 52.16 kg jrd (R); Height 5 ft. 0 in. (152.40 cm) (R); Pain 5/10; 11:39 Weight 50.44 kg; aa3 12:03 BP 143 / 65 (auto/); aa3 12:05 Pulse 68 MON; Pulse Ox 100% ; aa3 12:14 Pulse 67 MON; Pulse Ox 100% ; aa3 12:15 BP 149 / 68 (auto/); aa3 12:29 Pulse 68 MON; Pulse Ox 99% ; aa3 12:30 BP 139 / 63 (auto/); aa3 12:43 Pulse 68 MON; Pulse Ox 100% ; aa3 12:44 Pulse 68 MON; Pulse Ox 99% ; aa3 12:45 BP 148 / 71 (auto/); aa3 12:59 Pulse 68 MON; Pulse Ox 100% ; aa3 13:00 BP 133 / 64 (auto/); aa3 13:14 Pulse 66 MON; Pulse Ox 98% ; aa3 13:15 BP 132 / 63 (auto/); aa3 13:29 Pulse 66 MON; Pulse Ox 99% ; aa3 13:30 BP 130 / 61 (auto/); aa3 13:41 Pulse 71 MON; Pulse Ox 97% ; aa3 13:45 BP 148 / 68 (auto/); aa3 13:59 Pulse 71 MON; aa3 14:00 BP 129 / 63 (auto/); aa3 14:01 Pulse 68 MON; aa3 14:15 BP 127 / 61 (auto/); aa3 14:30 BP 120 / 57 (auto/); aa3 14:30 Pulse 67 MON; Pulse Ox 84% ; aa3 14:44 Pulse 68 MON; Pulse Ox 98% ; aa3 14:45 BP 115 / 55 (auto/); aa3 14:59 Pulse 70 MON; Pulse Ox 99% ; aa3 15:00 BP 129 / 61 (auto/); Pulse 72; Resp 16; Temp 97.8(O); Pulse Ox 95% on R/A; Pain 4/10; aa3 11:39 Body Mass Index 21.72 (50.44 kg, 152.40 cm) aa3 Vitals: 11:26 Log In Time: April 30, 2016 at 11:20. jrd ED Course: 11:25 Patient visited by Edwin Proctor PCA. jrd 11:25 Patient moved to Waiting jrd 11:26 Veronica Khalil is Private Physician. jrd 11:28 Patient visited by Edwin Proctor PCA. jrd 11:28 Patient moved to Pre RCE jrd 11:35 Triage Initiated ttb 11:36 Patient moved to 1 ttb 11:38 Mary Carmen Dukes,RN is Primary Nurse. aa3 11:48 The patient / caregiver is instructed regarding the plan of care and ED course. Cardiac aa3 monitor on. Pulse ox on. NIBP on. 11:48 Inserted peripheral IV: 20gauge IV in right antecubital area Patient tolerated the aa3 procedure well. Labs drawn. (by ED staff). Sent per order to lab. EKG done. (by ED staff). 11:49 Patient visited by Mary Carmen Dukes RN. aa3 11:49 Basic Metabolic Profile Sent. aa3 11:49 CBC with Diff Sent. aa3 11:49 Partial Thromboplastin Time Sent. aa3 11:49 Prothrombin Time Profile\\E\\INR Sent. aa3 11:49 Type & Screen Sent. aa3 11:54 Patient visited by Mary Carmen Dukes RN. aa3 11:55 EKG done. (by ED staff). Reviewed by Casey Cobb MD. rn1 12:01 Jose Ramon Arrington FNP is PHCP. ke 12:01 Patient visited by Jose Ramon Arrington FNP. ke 12:01 Patient visited by Jose Ramon Arrington FNP. ke 12:10 Patient visited by Mary Carmen Dukes RN. aa3 12:10 Liver Profile Sent. aa3 12:19 Fingerstick Blood Sugar Sent. aa3 12:25 Patient visited by Mary Carmen Dukes RN. aa3 12:31 CT Head Without Contrast Returned. EDMS 12:31 Chest, 1 View Returned. EDMS 12:46 Patient visited by Mary Carmen Dukes RN. aa3 12:48 Betsey Maurice is Hospitalizing Provider. ke 13:47 Patient visited by Mary Carmen Dukes RN. aa3 14:04 [facility] [place] Agreement was scanned into [employer] and attached to record. jp5 15:10 No procedures done that require assistance. aa3 15:25 Duplex,carotid (complete) Returned. EDMS 05/01 09:28 T-Sheet-- Draft Copy was scanned into [employer] and attached to record. gb 16:25 ECG/EKG was scanned into [employer] and attached to record. gb 16:25 Trend VS was scanned into [employer] and attached to record. gb Administered Medications: 04/30 12:45 Drug: Metoclopramide 10 mg [metoclopramide 5 mg/mL injection solution] Route: IV; Rate: aa3 40 mg/hr; Infused Over: 15 mins; Site: right antecubital; 13:13 Follow up: IV Status: Completed infusion kc3 12:45 Drug: Acetaminophen 975 mg [acetaminophen 325 mg tablet (3 tabs)] Route: PO; aa3 Attachments: 16:25 Trend VS gb Point of Care Testing: Blood Glucose: 04/30 12:05 Blood Glucose: 90 mg/dL; aa3 Ranges: Order Results: Lab Order: Basic Metabolic Profile; SPEC'M 04/30/16 11:46 Test: GLUCOSE, FASTING; Value: 80; Range: 70-105; Units: MG/DL; Status: F Test: BLOOD UREA NITROGEN; Value: 17; Range: 7-18; Units: MG/DL; Status: F Test: CREATININE FOR GFR; Value: 0.88; Range: 0.55-1.02; Units: MG/DL; Status: F Test: GLOMERULAR FILTRATION RATE; Value: > 60.0; Range: >51; Status: F Test: SODIUM LEVEL; Value: 144; Range: 136-145; Units: MEQ/L; Status: F Test: POTASSIUM SERUM; Value: 4.0; Range: 3.5-5.1; Units: MEQ/L; Status: F Test: CHLORIDE LEVEL; Value: 105; Range: 98-107; Units: MEQ/L; Status: F Test: CARBON DIOXIDE LEVEL; Value: 32; Range: 21-32; Units: MEQ/L; Status: F Test: ANION GAP; Value: 7; Range: 8-16; Abnormal: Below low normal; Units: MEQ/L; Status: F Test: CALCIUM LEVEL; Value: 9.5; Range: 8.5-10.1; Units: MG/DL; Status: F Test Note: ; Units are mL/min/1.73 m2 Chronic Kidney Disease Staging per NKF: Stage I & II GFR >=60 Normal to Mildly Decreased Stage III GFR 30-59 Moderately Decreased Stage IV GFR 15-29 Severely Decreased Stage V GFR <15 Very Little GFR Left ESRD GFR <15 on ELECTRICAL CONTROLS ASSEMBLER Lab Order: CBC with Diff; SPEC'M 04/30/16 11:46 Test: WHITE BLOOD COUNT; Value: 6.1; Range: 4.0-10.0; Units: K/mm3; Status: F Test: RED BLOOD COUNT; Value: 4.54; Range: 4.00-5.40; Units: M/mm3; Status: F Test: HEMOGLOBIN; Value: 13.6; Range: 12.0-16.0; Units: g/dl; Status: F Test: HEMATOCRIT; Value: 41.9; Range: 36.0-47.0; Units: %; Status: F Test: MEAN CORPUSCULAR VOLUME; Value: 92.2; Range: 80.0-96.0; Units: fl; Status: F Test: MEAN CORPUSCULAR HEMOGLOBIN; Value: 29.9; Range: 27.0-33.0; Units: pg; Status: F Test: MEAN CORPUSCULAR HGB CONC; Value: 32.4; Range: 32.0-36.5; Units: g/dl; Status: F Test: RED CELL DISTRIBUTION WIDTH; Value: 12.4; Range: 11.5-14.5; Units: %; Status: F Test: PLATELET COUNT, AUTOMATED; Value: 282; Range: 150-450; Units: k/mm3; Status: F Test: NEUTROPHILS %; Value: 72.6; Range: 36.0-66.0; Abnormal: Above high normal; Units: %; Status: F Test: LYMPH %; Value: 18.7; Range: 24.0-44.0; Abnormal: Below low normal; Units: %; Status: F Test: MONO %; Value: 5.1; Range: 0.0-5.0; Abnormal: Above high normal; Units: %; Status: F Test: EOS %; Value: 1.7; Range: 0.0-3.0; Units: %; Status: F Test: BASO %; Value: 0.5; Range: 0.0-1.0; Units: %; Status: F Test: LARGE UNSTAINED CELL %; Value: 1.4; Range: 0.0-4.0; Units: %; Status: F Test: NEUTROPHILS #; Value: 4.5; Range: 1.8-7.7; Units: K/mm3; Status: F Test: LYMPH #; Value: 1.2; Range: 1.5-4.5; Abnormal: Below low normal; Units: K/mm3; Status: F Test: MONO #; Value: 0.3; Range: 0.0-0.8; Units: K/mm3; Status: F Test: EOS #; Value: 0.1; Range: 0.0-0.50; Units: K/mm3; Status: F Test: BASO #; Value: 0.0; Range: 0.0-0.2; Units: K/mm3; Status: F Test: LARGE UNSTAINED CELL #; Value: 0.1; Range: 0.0-0.4; Units: K/mm3; Status: F Lab Order: Partial Thromboplastin Time; SPEC'M 04/30/16 11:46 Test: PARTIAL THROMBOPLASTIN TIME; Value: 26.7; Range: 26.6-37.1; Units: SECONDS; Status: F Lab Order: Prothrombin Time Profile\\E\\INR; [facility] 04/30/16 11:46 Test: PROTHROMBIN TIME; Value: 12.8; Range: 12.3-14.5; Units: SECONDS; Status: F Test: INR; Value: 0.95; Status: F Test Note: ; THERAPUTIC HUMAN INR VALUES INDICATIONS NORMAL RANGES PROPHYLAXIS/TREATMENT OF: VENOUS THROMBOSIS 2.0-3.0 PULMONARY EMBOLISM 2.0-3.0 PREVENTION OF SYSTEMIC EMBOLISM FROM: TISSUE HEART VALVES 2.0-3.0 ACUTE MYOCARDIAL INFARCTION 2.0-3.0 VALVULAR HEART DISEASE 2.0-3.0 ATRIAL FIBRILLATION 2.0-3.0 MECHANICAL VALVES(HIGH RISK) 2.5-3.5 RECURRENT MYOCARDIAL INFARCTION 2.5-3.5 Lab Order: Type & Screen; [facility] 04/30/16 11:46 Test: BLOOD TYPE; Value: B NEG; Status: F Test: AB SCREEN (INDIRECT SHANNAN)VIS; Value: NEGATIVE; Status: F Lab Order: Liver Profile; [facility] 04/30/16 11:46 Test: AST/SGOT; Value: 14; Range: 15-37; Abnormal: Below low normal; Units: U/L; Status: F Test: ALT/SGPT; Value: 23; Range: 12-78; Units: U/L; Status: F Test: ALKALINE PHOSPHATASE; Value: 96; Range: 45-117; Units: U/L; Status: F Test: BILIRUBIN,TOTAL; Value: 0.3; Range: 0.2-1.0; Units: MG/DL; Status: F Test: BILIRUBIN,DIRECT; Value: < 0.1; Range: 0.0-0.2; Units: MG/DL; Status: F Test: TOTAL PROTEIN; Value: 7.6; Range: 6.4-8.2; Units: GM/DL; Status: F Test: ALBUMIN; Value: 4.4; Range: 3.2-5.2; Units: GM/DL; Status: F Test: ALBUMIN/GLOBULIN RATIO; Value: 1.38; Range: 1.00-1.93; Status: F Lab Order: Fingerstick Blood Sugar; [facility] 04/30/16 12:07 Test: BEDSIDE GLUCOSE; Value: 90; Range: 70-105; Units: MG/DL; Status: F Radiology Order: CT Head Without Contrast Test: CT Head Without Contrast REASON FOR EXAMINATION: CVA <4.5hrs; Clinical: Symptoms related to acute cerebrovascular accident .; ; Comparison: 10/06/2014 .; ; Findings:; The ventricles, sulci, and cisterns are normal in position and appearance.; Badillo-white differentiation is maintained. No acute intracranial hemorrhage,; mass/mass effect, pathology or trauma/injury. No evidence for acute infarction.; No extra-axial fluid collection. Calvarium is intact. Paranasal sinuses and; mastoid air cells are clear.; ; Impression:; Normal noncontrast head CT.; No evidence for acute intracranial pathology or trauma/injury.; ; ; Signed by; Sam Finch MD 04/30/2016 12:03 P; Radiology Order: Chest, 1 View Test: Chest, 1 View REASON FOR EXAMINATION: CVA <4.5hrs; Clinical: Acute cerebrovascular accident .; ; Comparison: 05/12/2011 .; ; Findings:; The mediastinum and cardiac silhouette are stable and within normal limits for; portable technique. The lung taylor are clear without acute consolidation,; effusion, or pneumothorax. Skeletal structures are intact.; ; Impression:; Normal portable chest x-ray; ; ; Signed by; Sam Finch MD 04/30/2016 12:06 P; Radiology Order: Duplex,carotid (complete) Test: Duplex,carotid (complete) REASON FOR EXAMINATION: tia; Clinical: Transient ischemic attack.; ; Comparison: 01/18/2015. .; ; Technique: Badillo scale and color Doppler evaluation using linear high frequency; transducer; ; Findings:; Two-dimensional badillo scale and color images demonstrates intimal thickening and; mild plaquing along the bilateral common carotid arteries extending to the; carotid bulbs where moderate to significant mixed atheromatous plaque is; appreciated extending into the bilateral internal carotid arteries and external; carotid arteries. Appreciable narrowing is visualized on color images. Color; Doppler interrogation demonstrates normal arterial wave patterns with moderate to; significant spectral broadening and areas of elevated velocities. Normal flow; direction is appreciated in the bilateral vertebral arteries.; ; RIGHT (cm/s) LEFT (cm/s); ; ICA peak systolic velocity 205.9 103.2; ICA diastolic velocity 77.9 29.9; ECA peak systolic velocity 91.7 282.7; CCA peak systolic velocity 98.7 57.8; ICA/CCA ratio 2.1 1.8; ; Impression:; Based on full osseous and set standards as well as visualization of atheromatous; plaquing and spectral broadening:; Narrowing of the right internal carotid artery is in the 50-69% range.; Narrowing of the left internal carotid artery is at the 50% range.; Narrowing of the left external carotid artery is at greater than 70% range.; ; ; Signed by; Sam Finch MD 04/30/2016 02:58 P; Outcome: 12:48 Decision to Hospitalize by Provider. ke 15:10 Discharge Assessment: Patient awake and alert. Oriented to person, place and time. aa3 Patient verbalized understanding of disposition instructions. Patient has no functional deficits. patient administered narcotics - no. The following High Risk Discharge criteria are identified: None. Admitted to PCU accompanied by nurse, accompanied by tech, on monitor, with chart. Condition: good. CT Study completed. MRI Study completed. Admission hand-off: Report called to Marika Gray. Property :Personal belongings accompany Pt. 15:18 Patient left the ED. aa3 Signatures: Dispatcher [employer] EDMS Chrissie Hines, Jose Ramon Buckley, NUMERICAL CONTROL LATHE OPERATOR NUMERICAL CONTROL LATHE OPERATOR Angelica Pinzon, RN RN ttb Mary Carmen Dukes,RN RN aa3 Edwin Proctor, PROFESSIONAL ORGANIZER PROFESSIONAL ORGANIZER Kobe Bhardwaj rn1 Graciela Price jp5 Salome Irving,RN RN kc3 Chart Complete [facility]
--- NOTE | 2016-05-02 16:20 | EDDOCDS ---
Physician Documentation [facility] Name: Lucille Washington Age: 56 yrs Sex: Female : 1960 Arrival Date: 04/30/2016 Time: 11:23 Bed 1 Private MD: Veronica Khalil S Disposition: 04/30/16 12:48 Hospitalization ordered by Betsey Maurice for Inpatient Admission. Preliminary diagnosis is Transient cerebral ischemic attack, unspecified. - Bed requested for PCU. - Status is Inpatient Admission. aa3 - Condition is Stable. - Problem is an acute exacerbation. - Symptoms have improved. Historical: - Allergies: no known allergies; - Home Meds: 1. Plavix 75 mg Oral tab 1 tab once daily 2. multivitamin Oral tab daily 3. naproxen sodium 220 mg Oral cap twice a day 4. ferrous sulfate 325 mg (65 mg iron) Oral cpER daily 5. amlodipine 5 mg Oral tab 1 tab once daily 6. omeprazole 20 mg Oral cpDR 1 cap once daily 7. Vitamin D Oral 1,000 unit daily 8. trazodone 50 mg Oral tab 2 times per day 9. aspirin 81 mg Oral TbEC 1 tab once daily 10. lisinopril 40 mg Oral tab 1 tab once daily 11. bupropion HCl 300 mg Oral Tb24 1 tab once daily 12. duloxetine 60 mg Oral cpDR 1 cap once daily 13. lamotrigine 25 mg Oral tab 2 tabs 2 times per day - PMHx: TIA's; Depression; Hypertension; - PSHx: Skin Graft; endarterectomy L-carotid; - Social history: Smoking status: Patient states was never smoker of tobacco. Patient/guardian denies using alcohol, street drugs, No barriers to communication noted, The patient speaks fluent Polish, Speaks appropriately for age. - Family history: Not pertinent. - : The pt / caregiver states he / she is on anticoagulants: Plavix. Home medication list is obtained from the patient. - Exposure Risk Screening:: None identified. Vital Signs: 04/30 11:26 BP 155 / 70; Pulse 65; Resp 18; Temp 96.7(T); Pulse Ox 100% on R/A; Weight 52.16 kg / jrd 114.99 lbs (R); Height 5 ft. 0 in. (152.40 cm) (R); Pain 5/10; 11:39 Weight 50.44 kg / 111.2 lbs; aa3 12:03 BP 143 / 65 (auto/); aa3 12:05 Pulse 68 MON; Pulse Ox 100% ; aa3 12:14 Pulse 67 MON; Pulse Ox 100% ; aa3 12:15 BP 149 / 68 (auto/); aa3 12:29 Pulse 68 MON; Pulse Ox 99% ; aa3 12:30 BP 139 / 63 (auto/); aa3 12:43 Pulse 68 MON; Pulse Ox 100% ; aa3 12:44 Pulse 68 MON; Pulse Ox 99% ; aa3 12:45 BP 148 / 71 (auto/); aa3 12:59 Pulse 68 MON; Pulse Ox 100% ; aa3 13:00 BP 133 / 64 (auto/); aa3 13:14 Pulse 66 MON; Pulse Ox 98% ; aa3 13:15 BP 132 / 63 (auto/); aa3 13:29 Pulse 66 MON; Pulse Ox 99% ; aa3 13:30 BP 130 / 61 (auto/); aa3 13:41 Pulse 71 MON; Pulse Ox 97% ; aa3 13:45 BP 148 / 68 (auto/); aa3 13:59 Pulse 71 MON; aa3 14:00 BP 129 / 63 (auto/); aa3 14:01 Pulse 68 MON; aa3 14:15 BP 127 / 61 (auto/); aa3 14:30 BP 120 / 57 (auto/); aa3 14:30 Pulse 67 MON; Pulse Ox 84% ; aa3 14:44 Pulse 68 MON; Pulse Ox 98% ; aa3 14:45 BP 115 / 55 (auto/); aa3 14:59 Pulse 70 MON; Pulse Ox 99% ; aa3 15:00 BP 129 / 61 (auto/); Pulse 72; Resp 16; Temp 97.8(O); Pulse Ox 95% on R/A; Pain 4/10; aa3 11:39 Body Mass Index 21.72 (50.44 kg, 152.40 cm) aa3 MDM: 11:38 RN interventions must not delay CT ordered. br1 11:38 Snowmaker/Pulse Ox/q 15 min VS ordered. br1 11:38 Accucheck ordered. br1 11:38 IV Saline Lock ordered. br1 11:38 Neuro VS q 15 Minutes ordered. br1 11:38 Patient must be on CC stretcher and weighed via bed scale ordered. br1 11:38 Rhythm Strip to chart ordered. br1 11:39 Type & Screen Ordered. EDMS 11:40 Basic Metabolic Profile Ordered. EDMS 11:40 CBC with Diff Ordered. EDMS 11:40 Partial Thromboplastin Time Ordered. EDMS 11:40 Prothrombin Time Profile\E\INR Ordered. EDMS 11:40 Chest, 1 View Ordered. EDMS 11:40 CT Head Without Contrast Ordered. EDMS 11:40 ECG WITH READING ER PHYS+CARDIAG ordered. EDMS 12:09 Liver Profile Ordered. EDMS 12:18 Fingerstick Blood Sugar Ordered. EDMS 12:27 Basic Metabolic Profile Reviewed. ke 12:27 CBC with Diff Reviewed. ke 12:27 Partial Thromboplastin Time Reviewed. ke 12:27 Prothrombin Time Profile\E\INR Reviewed. ke 12:27 Fingerstick Blood Sugar Reviewed. ke 12:27 BED REQUEST+ADM ordered. EDMS 12:35 Metoclopramide 10 mg IV at 40 mg/hr once over 15 mins ordered. ke 12:35 Acetaminophen Tablet 975 mg PO once ordered. ke 12:46 Liver Profile Reviewed. ke 12:46 Type & Screen Reviewed. ke 12:46 CT Head Without Contrast Reviewed. ke 12:46 Chest, 1 View Reviewed. ke 13:21 Admission / Observation Status ordered. EDMS 13:21 REGULAR DIET ordered. EDMS 13:22 MRI Brain without Contrast Ordered. EDMS 13:22 Duplex,carotid (complete) Ordered. EDMS 14:04 [facility] Payment Agreement was scanned into [employer] and attached to record. jp5 14:04 Financial registration complete. jp5 05/01 09:28 T-Sheet-- Draft Copy was scanned into [employer] and attached to record. gb 16:25 ECG/EKG was scanned into [employer] and attached to record. gb 16:25 Trend VS was scanned into [employer] and attached to record. gb Point of Care Testing: Blood Glucose: 04/30 12:05 Blood Glucose: 90 mg/dL; aa3 Ranges: Administered Medications: 12:45 Drug: Metoclopramide 10 mg [metoclopramide 5 mg/mL injection solution] Route: IV; Rate: aa3 40 mg/hr; Infused Over: 15 mins; Site: right antecubital; 13:13 Follow up: IV Status: Completed infusion kc3 12:45 Drug: Acetaminophen 975 mg [acetaminophen 325 mg tablet (3 tabs)] Route: PO; aa3 Signatures: Dispatcher [employer] EDMS Farrah Crawford, Field Marketing Specialist Unit deg SyedtonyjayyChrissie sequeira, Reg Reg gb Jose Ramon Arrington, ELECTRICAL AND INSTRUMENT TECHNICIAN ELECTRICAL AND INSTRUMENT TECHNICIAN Casey Brown MD MD br1 Angelica Manzanares RN RN ttb Mary Carmen Dukes RN RN aa3 Graciela Price jp5 Salome Irving RN kc3 The chart was reviewed and I authenticate all verbal orders and agree with the evaluation and treatment provided.Attachments: 14:04 [facility] Payment Agreement jp5 05/01 09:28 T-Sheet-- Draft Copy gb 16:25 ECG/EKG gb Chart Complete [facility]TDD
== END 2016-05-01 13:48 | disposition home or self-care (01) ==
LOC: M ED 11:23 → M ED INP 13:17 → M PCU 13:17
PROVIDERS: ADMIT Internal Medicine Nephrology; ATTEND Internal Medicine
DX: G45.9 Transient cerebral ischemic attack, unspecified (principal); I10 Essential (primary) hypertension; F41.9 Anxiety disorder, unspecified; F32.9 Major depressive disorder, single episode, unspecified; K21.9 Gastro-esophageal reflux disease without esophagitis; M51.9 Unspecified thoracic, thoracolumbar and lumbosacral intervertebral disc disorder; M79.7 Fibromyalgia; M19.90 Unspecified osteoarthritis, unspecified site; Z79.899 Other long term (current) drug therapy; Z79.82 Long term (current) use of aspirin; Z79.1 Long term (current) use of non-steroidal anti-inflammatories (NSAID)
CPT/HCPCS: 36415; 70450; 70551; 71010; 80048; 80061; 80076; 85025; 85610; 85730; 86850; 86900; 86901; 93005; 93041; 93880; 96365; 96372; 99285; J1650; J2765

== ENCOUNTER → 2016-09-12 | Outpatient (REF) | payer OTHER ==
[~2016-09-12] MED LIST: AMLO5TAB2 PO; ASPI1TAB PO; ATOR1TAB21 PO; BUPR300T34 PO; CLOP75TA2 PO; DULO1CAP3 PO; FERR1TAB8 PO; IBUPOTC PO; LAMO25TA2 PO; LISI40TAB PO; NAPR1TAB41 PO; OMEP20CA3 PO; PROB1TAB PO; SALI0.6523; TRAZ-136 PO; VITA-112 PO; VITMTA PO
[2016-09-12 13:00] LABS: MEAN CORPUSCULAR HEMOGLOBIN 31.6 pg (27.0-33.0); MEAN CORPUSCULAR HGB CONC 33.9 g/dl (32.0-36.5); WHITE BLOOD COUNT 5.3 K/mm3 (4.0-10.0)
[2016-09-12 13:49] LABS: CALCIUM LEVEL 9.2 MG/DL (8.5-10.1); CREATININE FOR GFR 1.12 MG/DL (0.55-1.02); GLOMERULAR FILTRATION RATE 53.4 (>51); POTASSIUM SERUM 4.1 MEQ/L (3.5-5.1)
== END ==
LOC: M LAB REF 12:34
PROVIDERS: ATTEND Nurse Practitioner Family
DX: I77.9 Disorder of arteries and arterioles, unspecified (principal); E55.9 Vitamin D deficiency, unspecified; Z86.73 Personal history of transient ischemic attack (TIA), and cerebral infarction without residual deficits

== ENCOUNTER → 2016-12-12 | Outpatient (REF) | payer OTHER ==
[2016-12-12 14:35] LABS: ANION GAP 3 MEQ/L (8-16); BLOOD UREA NITROGEN 18 MG/DL (7-18); CALCIUM LEVEL 9.3 MG/DL (8.5-10.1); CARBON DIOXIDE LEVEL 34 MEQ/L (21-32); CHLORIDE LEVEL 106 MEQ/L (98-107); CHOLESTEROL LEVEL 130 MG/DL (<200); CREATININE FOR GFR 0.93 MG/DL (0.55-1.02); GLOMERULAR FILTRATION RATE > 60.0 (>51); GLUCOSE, FASTING 91 MG/DL (70-105); POTASSIUM SERUM 4.2 MEQ/L (3.5-5.1); SODIUM LEVEL 143 MEQ/L (136-145); TRIGLYCERIDES LEVEL 58 MG/DL (<150)
== END ==
LOC: M LAB REF 12:47
PROVIDERS: ATTEND Nurse Practitioner Family
DX: E78.00 Pure hypercholesterolemia, unspecified (principal)

== ENCOUNTER → 2017-02-05 | Outpatient (REF) | payer OTHER | LOC: M LAB REF 13:26 | PROVIDERS: ATTEND Physician Assistant Medical | DX: H60.92 Unspecified otitis externa, left ear (principal) ==

== ENCOUNTER → 2017-07-18 | Outpatient (REF) | payer OTHER ==
[2017-07-18 13:03] LABS: BASO % 0.7 % (0.0-1.0); EOS # 0.1 10^3/uL (0.0-0.50); EOS % 1.3 % (0.0-3.0); HEMATOCRIT 43.7 % (36.0-47.0); HEMOGLOBIN 14.5 g/dl (12.0-15.5); IMMATURE GRANULOCYTE % 0.2 % (0-3.0); LYMPH # 1.5 10^3/uL (1.5-4.5); LYMPH % 26.7 % (24.0-44.0); MEAN CORPUSCULAR HEMOGLOBIN 29.7 pg (27.0-33.0); MEAN CORPUSCULAR HGB CONC 33.2 g/dl (32.0-36.5); MEAN CORPUSCULAR VOLUME 89.4 fl (80.0-96.0); MONO # 0.4 10^3/uL (0.0-0.8); MONO % 7.9 % (0.0-5.0); NEUTROPHILS # 3.5 10^3/uL (1.8-7.7); NEUTROPHILS % 63.2 % (36.0-66.0); PLATELET COUNT, AUTOMATED 263 10^3/uL (150-450); RED BLOOD COUNT 4.89 10^6/uL (4.00-5.40); RED CELL DISTRIBUTION WIDTH 12.5 % (11.5-14.5); WHITE BLOOD COUNT 5.6 10^3/uL (4.0-10.0)
[2017-07-18 13:23] LABS: TOTAL 25(OH) VITAMIN D 35.6 NG/ML (30.0-100.0)
[2017-07-18 13:28] LABS: ALBUMIN 4.5 GM/DL (3.2-5.2); ALBUMIN/GLOBULIN RATIO 1.32 (1.00-1.93); ALKALINE PHOSPHATASE 112 U/L (45-117); ALT/SGPT 30 U/L (12-78); ANION GAP 6 MEQ/L (8-16); AST/SGOT 22 U/L (7-37); BILIRUBIN,TOTAL 0.4 MG/DL (0.2-1.0); BLOOD UREA NITROGEN 18 MG/DL (7-18); CALCIUM LEVEL 9.9 MG/DL (8.5-10.1); CARBON DIOXIDE LEVEL 30 MEQ/L (21-32); CHLORIDE LEVEL 107 MEQ/L (98-107); CREATININE FOR GFR 1.07 MG/DL (0.55-1.30); GLOMERULAR FILTRATION RATE 56.1 (>51); GLUCOSE, FASTING 102 MG/DL (70-100); POTASSIUM SERUM 4.3 MEQ/L (3.5-5.1); SODIUM LEVEL 143 MEQ/L (136-145); TOTAL PROTEIN 7.9 GM/DL (6.4-8.2)
[2017-07-18 14:06] LABS: ESTIMATED AVERAGE GLUCOSE 108 MG/DL (60-110); HEMOGLOBIN A1c 5.4 %
== END ==
LOC: M LAB REF 12:17
DX: I10 Essential (primary) hypertension (principal)
CPT/HCPCS: 84443

== ENCOUNTER → 2018-01-09 | Outpatient (REF) | payer OTHER ==
[2018-01-09 13:25] LABS: BASO % 0.8 % (0.0-1.0); EOS # 0.1 10^3/uL (0.0-0.50); EOS % 1.4 % (0.0-3.0); HEMATOCRIT 40.3 % (36.0-47.0); HEMOGLOBIN 13.2 g/dl (12.0-15.5); LYMPH # 1.2 10^3/uL (1.5-4.5); LYMPH % 24.3 % (24.0-44.0); MEAN CORPUSCULAR HGB CONC 32.8 g/dl (32.0-36.5); MEAN CORPUSCULAR VOLUME 91.6 fl (80.0-96.0); MONO # 0.4 10^3/uL (0.0-0.8); MONO % 7.2 % (0.0-5.0); NEUTROPHILS # 3.3 10^3/uL (1.8-7.7); NEUTROPHILS % 66.3 % (36.0-66.0); PLATELET COUNT, AUTOMATED 263 10^3/uL (150-450); RED CELL DISTRIBUTION WIDTH 12.4 % (11.5-14.5)
[2018-01-09 13:41] LABS: ALBUMIN 3.9 GM/DL (3.2-5.2); ALBUMIN/GLOBULIN RATIO 1.26 (1.00-1.93); ALKALINE PHOSPHATASE 107 U/L (45-117); ALT/SGPT 39 U/L (12-78); ANION GAP 6 MEQ/L (8-16); AST/SGOT 24 U/L (7-37); BILIRUBIN,TOTAL 0.3 MG/DL (0.2-1.0); BLOOD UREA NITROGEN 16 MG/DL (7-18); CALCIUM LEVEL 8.8 MG/DL (8.5-10.1); CARBON DIOXIDE LEVEL 29 MEQ/L (21-32); CHLORIDE LEVEL 107 MEQ/L (98-107); CHOLESTEROL LEVEL 137 MG/DL (<200); CHOLESTEROL RISK RATIO 2.174 (<5); CREATININE FOR GFR 0.87 MG/DL (0.55-1.30); GLOMERULAR FILTRATION RATE > 60.0 (>51); GLUCOSE, FASTING 86 MG/DL (70-100); HDL CHOLESTEROL 63 MG/DL (>40); LDL CHOLESTEROL 61 MG/DL (<100); NON-HDL-C 74 MG/DL; POTASSIUM SERUM 4.4 MEQ/L (3.5-5.1); SODIUM LEVEL 142 MEQ/L (136-145); TRIGLYCERIDES LEVEL 63 MG/DL (<150)
[2018-01-09 14:00] LABS: ESTIMATED AVERAGE GLUCOSE 117 MG/DL (60-110); HEMOGLOBIN A1c 5.7 %
== END ==
LOC: M LAB REF 12:41
DX: E78.5 Hyperlipidemia, unspecified (principal); I10 Essential (primary) hypertension

== ENCOUNTER → 2018-06-27 | Outpatient (REF) | payer OTHER ==
[~2018-06-27] MED LIST changes: -AMLO5TAB2 PO; +AMLO5TAB6 PO; -ASPI1TAB PO; +ASPI81TA26 PO; -LAMO25TA2 PO; +LAMO25TA4 PO; +LISI40TA PO; -LISI40TAB PO; -SALI0.6523; +SALI0.6528; -TRAZ-136 PO; +TRAZ-163 PO
[2018-06-27 18:11] LABS: BASO % 0.5 % (0.0-1.0); EOS # 0.1 10^3/uL (0.0-0.50); EOS % 0.9 % (0.0-3.0); HEMATOCRIT 40.1 % (36.0-47.0); HEMOGLOBIN 13.1 g/dl (12.0-15.5); LYMPH # 1.1 10^3/uL (1.5-4.5); LYMPH % 19.1 % (24.0-44.0); MEAN CORPUSCULAR HEMOGLOBIN 29.8 pg (27.0-33.0); MEAN CORPUSCULAR HGB CONC 32.7 g/dl (32.0-36.5); MEAN CORPUSCULAR VOLUME 91.1 fl (80.0-96.0); MONO # 0.3 10^3/uL (0.0-0.8); MONO % 5.6 % (0.0-5.0); NEUTROPHILS # 4.2 10^3/uL (1.8-7.7); NEUTROPHILS % 73.7 % (36.0-66.0); PLATELET COUNT, AUTOMATED 248 10^3/uL (150-450); WHITE BLOOD COUNT 5.7 10^3/uL (4.0-10.0)
[2018-06-27 18:19] LABS: HEMOGLOBIN A1c 5.8 %
[2018-06-27 18:35] LABS: ALBUMIN 4.1 GM/DL (3.2-5.2); ALT/SGPT 26 U/L (12-78); BILIRUBIN,TOTAL 0.3 MG/DL (0.2-1.0); BLOOD UREA NITROGEN 21 MG/DL (7-18); CALCIUM LEVEL 8.8 MG/DL (8.5-10.1); CARBON DIOXIDE LEVEL 30 MEQ/L (21-32); CHLORIDE LEVEL 108 MEQ/L (98-107); CHOLESTEROL LEVEL 149 MG/DL (<200); CHOLESTEROL RISK RATIO 2.709 (<5); CREATININE FOR GFR 0.86 MG/DL (0.55-1.30); FERRITIN 14 NG/ML (8-252); GLOMERULAR FILTRATION RATE > 60.0 (>51); GLUCOSE, FASTING 91 MG/DL (70-100); HDL CHOLESTEROL 55 MG/DL (>40); IRON (FE) 76 UG/DL (50-170); LDL CHOLESTEROL 72.4 MG/DL (<100); NON-HDL-C 94 MG/DL; SODIUM LEVEL 141 MEQ/L (136-145); TRIGLYCERIDES LEVEL 108 MG/DL (<150)
[2018-06-27 18:37] LABS: VITAMIN B12 LEVEL 813 PG/ML
[2018-06-27 18:38] LABS: FOLATE > 24.0 NG/ML
== END ==
LOC: M LAB REF 17:11
PROVIDERS: ATTEND Nurse Practitioner Family
DX: I10 Essential (primary) hypertension (principal); E78.5 Hyperlipidemia, unspecified

== ENCOUNTER 2018-08-04 13:44 | Observation (INO) | payer OTHER ==
[~2018-08-04] VITALS: Ht 152.4 cm; Wt 59.3 kg
[2018-08-04] MEDS ORDERED: D3 H10002 PO (14:03)
[2018-08-04] MEDS ORDERED: ACETAMINOPHEN TAB 650MG DOSE (2X325MG) PO ONE (15:15)
[2018-08-04] MEDS ORDERED: ADACEL/BOOSTRIX VACCINE (DIPHTH/PERTUSS/ACELL/TETANUS)0.5ML SYR (90715) IM ONE (15:45)
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
[2018-08-04 18:03] LABS: BASO % 0.3 % (0.0-1.0); EOS % 0.3 % (0.0-3.0); HEMATOCRIT 36.2 % (36.0-47.0); HEMOGLOBIN 11.9 g/dl (12.0-15.5); LYMPH # 1.2 10^3/uL (1.5-4.5); LYMPH % 12.6 % (24.0-44.0); MEAN CORPUSCULAR HEMOGLOBIN 30.2 pg (27.0-33.0); MEAN CORPUSCULAR HGB CONC 32.9 g/dl (32.0-36.5); MEAN CORPUSCULAR VOLUME 91.9 fl (80.0-96.0); MONO # 0.6 10^3/uL (0.0-0.8); MONO % 6.6 % (0.0-5.0); NEUTROPHILS # 7.8 10^3/uL (1.8-7.7); NEUTROPHILS % 79.9 % (36.0-66.0); PLATELET COUNT, AUTOMATED 224 10^3/uL (150-450); RED BLOOD COUNT 3.94 10^6/uL (4.00-5.40); WHITE BLOOD COUNT 9.8 10^3/uL (4.0-10.0)
[2018-08-04 18:13] LABS: INR 1.01; PROTHROMBIN TIME 13.4 SECONDS (12.1-14.4)
[2018-08-04 18:14] LABS: PARTIAL THROMBOPLASTIN TIME 27.1 SECONDS (25.4-37.6)
[2018-08-04 18:30] LABS: ALBUMIN 3.5 GM/DL (3.2-5.2); ALT/SGPT 27 U/L (12-78); AMYLASE 98 U/L (25-115); BILIRUBIN,DIRECT < 0.1 MG/DL (0.0-0.2); BILIRUBIN,TOTAL 0.3 MG/DL (0.2-1.0); BLOOD UREA NITROGEN 15 MG/DL (7-18); CALCIUM LEVEL 8.4 MG/DL (8.5-10.1); CARBON DIOXIDE LEVEL 27 MEQ/L (21-32); CHLORIDE LEVEL 109 MEQ/L (98-107); CPK CREATINE PHOSPHOKINASE 130 U/L (26-192); CREATININE FOR GFR 0.67 MG/DL (0.55-1.30); GLOMERULAR FILTRATION RATE > 60.0 (>51); GLUCOSE, FASTING 98 MG/DL (70-100); LIPASE 185 U/L (73-393); MB/CK RELATIVE INDEX 1.38 (< OR =4); POTASSIUM SERUM 3.9 MEQ/L (3.5-5.1); SODIUM LEVEL 143 MEQ/L (136-145); TOTAL PROTEIN 6.8 GM/DL (6.4-8.2); TROPONIN I < 0.02 NG/ML (< 0.10)
--- NOTE | 2018-08-04 19:51 | ECGEPIP ---
[facility] - ED Test Date: 2018-08-04 Pat Name: ELÍAS CARRASCO Department: Room: - Gender: Female Adoption Counselor: : 1960 Requested By: Solo Moffett Order Number: [id number] Reading MD: Solo Moffett Measurements Intervals [place] Rate: 63 P: 14 AR: 149 QRS: 76 QRSD: 122 T: 16 QT: 422 QTc: 434 Interpretive Statements SINUS RHYTHM RIGHT BUNDLE BRANCH BLOCK 04/30/16 RATE DECREASED Electronically Signed on 08-04-2018 19:51:25 EDT by Solo Moffett
[2018-08-04] MEDS ORDERED: LISINOPRIL 40 MG TAB PO SCH (21:00)
[2018-08-04] MEDS ORDERED: CLOPIDOGREL 75 MG TAB PO SCH (21:00)
[2018-08-04] MEDS ORDERED: ATORVASTATIN 20 MG TAB PO SCH (21:00)
[2018-08-04] MEDS ORDERED: ASPIRIN 81 MG ENTERIC TAB PO SCH (21:00)
[2018-08-04] MEDS ORDERED: traZODone 100 MG TAB PO SCH (21:00)
[2018-08-04] MEDS ORDERED: MAALOX 30 ML SUSP *UDC PO PRN (21:45)
[2018-08-04] MEDS ORDERED: ACETAMINOPHEN TAB 650MG DOSE (2X325MG) PO PRN (21:45)
[2018-08-04] MEDS ORDERED: MOM 30ML SUSPENSION UDC PO PRN (21:45)
[2018-08-04] MEDS ORDERED: VITA200021 PO (21:59)
[2018-08-04] MEDS ORDERED: DULO30CA9 PO (21:59)
[2018-08-04] MEDS ORDERED: ATOR1TAB21 PO (21:59)
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
[2018-08-04 23:00] VITALS: BP 115/57
[2018-08-04] MEDS: HEPARIN SOD (PORCINE) 5000 UNITS/ML VIAL SC SCH (23:23)
[2018-08-04] MEDS: NAPROXEN 250 MG TAB PO SCH (23:24)
[2018-08-05 06:00] VITALS: BP 130/53
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
[2018-08-05] MEDS: HEPARIN SOD (PORCINE) 5000 UNITS/ML VIAL SC SCH (08:34)
[2018-08-05] MEDS: NAPROXEN 250 MG TAB PO SCH (08:35)
[2018-08-05 08:36] VITALS: BP 130/53
[2018-08-05] MEDS: PERCOCET 5MG/325MG TAB PO PRN ×2 (08:37→16:28)
[2018-08-05] MEDS ORDERED: amLODIPine 5 MG TAB PO SCH (09:00)
[2018-08-05] MEDS ORDERED: FERROUS SULFATE 325MG TAB PO SCH (09:00)
[2018-08-05] MEDS ORDERED: DULoxetine 30 MG CAP (CYMBALTA) PO SCH (09:00)
[2018-08-05] MEDS ORDERED: MULTIVITAMINS/MINERALS THERAP 1 TAB PO SCH (09:00)
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
[2018-08-05 14:00] VITALS: BP 107/53
== END 2018-08-05 18:20 | disposition home or self-care (01) ==
LOC: EDBD 13:44 → M ED 13:44 → M ED INP 21:36 → M MS5PR 23:05
PROVIDERS: ADMIT Internal Medicine; ATTEND Internal Medicine
DX: S82.002A Unspecified fracture of left patella, initial encounter for closed fracture (principal); M25.462 Effusion, left knee; S27.321A Contusion of lung, unilateral, initial encounter; V43.62XA Car passenger injured in collision with other type car in traffic accident, initial encounter; Y92.410 Unspecified street and highway as the place of occurrence of the external cause; I10 Essential (primary) hypertension; F41.9 Anxiety disorder, unspecified; F32.9 Major depressive disorder, single episode, unspecified; M50.30 Other cervical disc degeneration, unspecified cervical region; M79.7 Fibromyalgia; M19.90 Unspecified osteoarthritis, unspecified site; Z86.73 Personal history of transient ischemic attack (TIA), and cerebral infarction without residual deficits; I65.29 Occlusion and stenosis of unspecified carotid artery; R73.03 Prediabetes; K21.9 Gastro-esophageal reflux disease without esophagitis; Z79.899 Other long term (current) drug therapy; Z79.82 Long term (current) use of aspirin; Z79.02 Long term (current) use of antithrombotics/antiplatelets; Z79.1 Long term (current) use of non-steroidal anti-inflammatories (NSAID)

== ENCOUNTER 2018-08-12 16:33 | Emergency (ER) | payer OTHER ==
[~2018-08-12] VITALS: Ht 152.4 cm; Wt 61.4 kg
[~2018-08-12 16:33] MED LIST changes: +D3 H10002 PO; +DULO30CA9 PO; +VITA200021 PO
[2018-08-12 17:28] LABS: BASO # 0.1 10^3/uL (0.0-0.2); BASO % 0.5 % (0.0-1.0); EOS # 0.1 10^3/uL (0.0-0.50); EOS % 0.8 % (0.0-3.0); HEMATOCRIT 34.3 % (36.0-47.0); HEMOGLOBIN 11.2 g/dl (12.0-15.5); LYMPH # 0.5 10^3/uL (1.5-4.5); MEAN CORPUSCULAR HEMOGLOBIN 29.9 pg (27.0-33.0); MEAN CORPUSCULAR HGB CONC 32.7 g/dl (32.0-36.5); MEAN CORPUSCULAR VOLUME 91.5 fl (80.0-96.0); MONO # 0.6 10^3/uL (0.0-0.8); MONO % 5.7 % (0.0-5.0); NEUTROPHILS # 9.3 10^3/uL (1.8-7.7); NEUTROPHILS % 87.7 % (36.0-66.0); PLATELET COUNT, AUTOMATED 341 10^3/uL (150-450); RED BLOOD COUNT 3.75 10^6/uL (4.00-5.40); WHITE BLOOD COUNT 10.6 10^3/uL (4.0-10.0)
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
[2018-08-12 17:40] LABS: INR 0.99; PROTHROMBIN TIME 13.2 SECONDS (12.1-14.4)
[2018-08-12 17:41] LABS: PARTIAL THROMBOPLASTIN TIME 26.1 SECONDS (25.4-37.6)
[2018-08-12 17:54] LABS: ALBUMIN 3.2 GM/DL (3.2-5.2); ALT/SGPT 21 U/L (12-78); BILIRUBIN,DIRECT 0.2 MG/DL (0.0-0.2); BILIRUBIN,TOTAL 0.4 MG/DL (0.2-1.0); BLOOD UREA NITROGEN 19 MG/DL (7-18); CALCIUM LEVEL 8.7 MG/DL (8.5-10.1); CARBON DIOXIDE LEVEL 29 MEQ/L (21-32); CHLORIDE LEVEL 105 MEQ/L (98-107); CK-MB VALUE MASS < 1.0 NG/ML (<3.6); CPK CREATINE PHOSPHOKINASE 53 U/L (26-192); CREATININE FOR GFR 1.06 MG/DL (0.55-1.30); FREE T4 0.89 NG/DL (0.76-1.46); GLOMERULAR FILTRATION RATE 56.5 (>51); GLUCOSE, FASTING 173 MG/DL (70-100); MB/CK RELATIVE INDEX 1.89 (< OR =4); POTASSIUM SERUM 4.5 MEQ/L (3.5-5.1); SODIUM LEVEL 141 MEQ/L (136-145); TOTAL PROTEIN 7.2 GM/DL (6.4-8.2); TROPONIN I < 0.02 NG/ML (< 0.10)
[2018-08-12] MEDS ORDERED: NS 1,000 ML IV SCH (18:21)
[2018-08-12] MEDS ORDERED: ISOVUE-370 76% 100ML VIAL (Q9967) As Ordered ONE (18:25)
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
[2018-08-12 20:43] VITALS: BP 134/69
--- NOTE | 2018-08-13 08:09 | ECGEPIP ---
[facility] - ED Test Date: 2018-08-12 Pat Name: ELÍAS CARRASCO Department: Room: - Gender: Female Lead Ios Developer: : 1960 Requested By: LENA Roman Order Number: [id number] Reading MD: Eugenio Whitaker Measurements Intervals [place] Rate: 66 P: CA: 148 QRS: 68 QRSD: 126 T: 8 QT: 412 QTc: 434 Interpretive Statements SINUS RHYTHM RIGHT BUNDLE BRANCH BLOCK SIMILAR TO 08/04/18 Electronically Signed on 08-13-2018 8:09:36 EDT by Eugenio Whitaker
== END 2018-08-12 21:28 | disposition home or self-care (01) ==
LOC: EDBD 16:33 → M ED 16:33
DX: D86.0 Sarcoidosis of lung (principal); I45.10 Unspecified right bundle-branch block; I10 Essential (primary) hypertension; F33.9 Major depressive disorder, recurrent, unspecified; F41.9 Anxiety disorder, unspecified; K21.9 Gastro-esophageal reflux disease without esophagitis; M79.7 Fibromyalgia; M19.90 Unspecified osteoarthritis, unspecified site; Z79.899 Other long term (current) drug therapy; Z79.82 Long term (current) use of aspirin
CPT/HCPCS: 36415; 70450; 71046; 71260; 72125; 74177; 80048; 80076; 82550; 82553; 84439; 84443; 84484; 85025; 85610; 85730; 93005; 93041; 94760; 99285; Q9967

== ENCOUNTER → 2018-10-03 | Outpatient (CLI) | payer OTHER ==
[~2018-10-03] MED LIST changes: -DULO1CAP3 PO; +DULO1CAP6 PO; -OMEP20CA3 PO; +OMEP20CA4 PO
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
== END ==
LOC: M RAD 11:17
PROVIDERS: ATTEND Nurse Practitioner Family
DX: Z12.31 Encounter for screening mammogram for malignant neoplasm of breast (principal)

== ENCOUNTER → 2018-11-25 | Outpatient (REF) | payer OTHER ==
[2018-11-25 20:15] LABS: ALBUMIN 3.7 GM/DL (3.2-5.2); ALT/SGPT 23 U/L (12-78); BILIRUBIN,TOTAL 0.3 MG/DL (0.2-1.0); BLOOD UREA NITROGEN 15 MG/DL (7-18); CALCIUM LEVEL 9.4 MG/DL (8.5-10.1); CARBON DIOXIDE LEVEL 30 MEQ/L (21-32); CHLORIDE LEVEL 109 MEQ/L (98-107); CHOLESTEROL LEVEL 133 MG/DL (<200); CHOLESTEROL RISK RATIO 2.015 (<5); CREATININE FOR GFR 0.89 MG/DL (0.55-1.30); FERRITIN 16 NG/ML (8-252); GLOMERULAR FILTRATION RATE > 60.0 (>51); GLUCOSE, FASTING 90 MG/DL (70-100); HDL CHOLESTEROL 66 MG/DL (>40); IRON (FE) 46 UG/DL (50-170); LDL CHOLESTEROL 55 MG/DL (<100); MAGNESIUM LEVEL 2.3 MG/DL (1.8-2.4); NON-HDL-C 67 MG/DL; POTASSIUM SERUM 4.3 MEQ/L (3.5-5.1); SODIUM LEVEL 145 MEQ/L (136-145); TOTAL PROTEIN 6.5 GM/DL (6.4-8.2); TRIGLYCERIDES LEVEL 58 MG/DL (<150)
[2018-11-25 20:17] LABS: BASO % 0.5 % (0.0-1.0); EOS # 0.1 10^3/uL (0.0-0.5); EOS % 1.3 % (0.0-3.0); HEMATOCRIT 37.8 % (36.0-47.0); HEMOGLOBIN 12.1 g/dl (12.0-15.5); LYMPH # 1.4 10^3/uL (1.5-5.0); LYMPH % 22.4 % (24.0-44.0); MEAN CORPUSCULAR HEMOGLOBIN 29.9 pg (27.0-33.0); MEAN CORPUSCULAR VOLUME 93.3 fl (80.0-96.0); MONO # 0.3 10^3/uL (0.0-0.8); MONO % 5.2 % (0.0-5.0); NEUTROPHILS # 4.3 10^3/uL (1.5-8.5); NEUTROPHILS % 70.4 % (36.0-66.0); PLATELET COUNT, AUTOMATED 288 10^3/uL (150-450); RED BLOOD COUNT 4.05 10^6/uL (4.00-5.40); WHITE BLOOD COUNT 6.1 10^3/uL (4.0-10.0)
[2018-11-25 20:21] LABS: VITAMIN B12 LEVEL 950 PG/ML
[2018-11-25 20:23] LABS: FOLATE > 24.0 NG/ML
[2018-11-25 20:27] LABS: HEMOGLOBIN A1c 5.4 %
== END ==
LOC: M LAB REF 19:36
PROVIDERS: ATTEND Nurse Practitioner Family
DX: D64.9 Anemia, unspecified (principal); I10 Essential (primary) hypertension

== ENCOUNTER 2019-05-17 13:52 | Emergency (ER) | payer OTHER ==
[~2019-05-17] VITALS: Ht 152.4 cm; Wt 60.4 kg
[~2019-05-17 13:52] MED LIST changes: -BUPR300T34 PO; +BUPR300T92 PO; +OMEP1CAP73 PO; -OMEP20CA4 PO; -TRAZ-163 PO; +TRAZ-257 PO
[2019-05-17 15:57] VITALS: BP 154/86
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
== END 2019-05-17 16:00 | disposition home or self-care (01) ==
LOC: M ED 13:52
DX: S60.221A Contusion of right hand, initial encounter (principal); W22.09XA Striking against other stationary object, initial encounter; Y92.098 Other place in other non-institutional residence as the place of occurrence of the external cause; I10 Essential (primary) hypertension; M79.7 Fibromyalgia; Z86.73 Personal history of transient ischemic attack (TIA), and cerebral infarction without residual deficits; Z79.899 Other long term (current) drug therapy; Z79.02 Long term (current) use of antithrombotics/antiplatelets; Z79.1 Long term (current) use of non-steroidal anti-inflammatories (NSAID); Z79.82 Long term (current) use of aspirin

== ENCOUNTER → 2019-07-16 | Outpatient (REF) | payer OTHER ==
[2019-07-16 12:44] LABS: BASO % 0.7 % (0.0-1.0); EOS # 0.1 10^3/uL (0.0-0.5); EOS % 1.8 % (0.0-3.0); HEMOGLOBIN 13.3 g/dl (12.0-15.5); LYMPH # 1.2 10^3/uL (1.5-5.0); LYMPH % 27.4 % (24.0-44.0); MEAN CORPUSCULAR HEMOGLOBIN 30.4 pg (27.0-33.0); MEAN CORPUSCULAR HGB CONC 32.4 g/dl (32.0-36.5); MEAN CORPUSCULAR VOLUME 93.6 fl (80.0-96.0); MONO # 0.4 10^3/uL (0.0-0.8); MONO % 9.1 % (0.0-5.0); NEUTROPHILS # 2.7 10^3/uL (1.5-8.5); NEUTROPHILS % 60.8 % (36.0-66.0); PLATELET COUNT, AUTOMATED 250 10^3/uL (150-450); RED BLOOD COUNT 4.38 10^6/uL (4.00-5.40); WHITE BLOOD COUNT 4.5 10^3/uL (4.0-10.0)
[2019-07-16 12:51] LABS: ALBUMIN 3.8 GM/DL (3.2-5.2); ALT/SGPT 25 U/L (12-78); BILIRUBIN,TOTAL 0.4 MG/DL (0.2-1.0); BLOOD UREA NITROGEN 17 MG/DL (7-18); CALCIUM LEVEL 9.4 MG/DL (8.8-10.2); CARBON DIOXIDE LEVEL 31 MEQ/L (21-32); CHLORIDE LEVEL 107 MEQ/L (98-107); CHOLESTEROL LEVEL 246 MG/DL (<200); CHOLESTEROL RISK RATIO 4.392 (<5); CREATININE FOR GFR 0.96 MG/DL (0.55-1.30); FERRITIN 21 NG/ML (8-252); GLOMERULAR FILTRATION RATE > 60.0 (>45); GLUCOSE, FASTING 95 MG/DL (70-100); HDL CHOLESTEROL 56 MG/DL (>40); IRON (FE) 135 UG/DL (50-170); LDL CHOLESTEROL 165 MG/DL (<100); NON-HDL-C 190 MG/DL; PERCENT SATURATION 43.1 % (13.2-45.0); POTASSIUM SERUM 4.5 MEQ/L (3.5-5.1); SODIUM LEVEL 142 MEQ/L (136-145); TOTAL IRON BINDING CAPACITY 313 UG/DL (250-450); TOTAL PROTEIN 6.7 GM/DL (6.4-8.2); TRIGLYCERIDES LEVEL 124 MG/DL (<150)
[2019-07-16 12:57] LABS: FOLATE > 24.0 NG/ML; VITAMIN B12 LEVEL 1138 PG/ML
[2019-07-16 14:17] LABS: HEMOGLOBIN A1c 5.5 %
== END ==
LOC: M LAB REF 12:12
PROVIDERS: ATTEND Nurse Practitioner Family
DX: Z13.9 Encounter for screening, unspecified (principal); R73.03 Prediabetes; E78.5 Hyperlipidemia, unspecified; M19.90 Unspecified osteoarthritis, unspecified site; F41.9 Anxiety disorder, unspecified; F32.9 Major depressive disorder, single episode, unspecified; D64.9 Anemia, unspecified; I10 Essential (primary) hypertension

== ENCOUNTER → 2019-10-14 | Outpatient (REF) | payer OTHER ==
[~2019-10-14] MED LIST changes: +AMLO1TAB24 PO; -AMLO5TAB6 PO
[2019-11-16 10:39] LABS: BASO % 0.8 % (0.0-1.0); EOS # 0.1 10^3/uL (0.0-0.5); EOS % 1.6 % (0.0-3.0); HEMATOCRIT 40.1 % (36.0-47.0); HEMOGLOBIN 12.9 g/dl (12.0-15.5); LYMPH # 1.4 10^3/uL (1.5-5.0); LYMPH % 28.2 % (24.0-44.0); MEAN CORPUSCULAR HEMOGLOBIN 30.2 pg (27.0-33.0); MEAN CORPUSCULAR HGB CONC 32.2 g/dl (32.0-36.5); MEAN CORPUSCULAR VOLUME 93.9 fl (80.0-96.0); MONO # 0.4 10^3/uL (0.0-0.8); MONO % 8.3 % (0.0-5.0); NEUTROPHILS # 3.1 10^3/uL (1.5-8.5); NEUTROPHILS % 60.9 % (36.0-66.0); PLATELET COUNT, AUTOMATED 237 10^3/uL (150-450); RED BLOOD COUNT 4.27 10^6/uL (4.00-5.40)
[2019-12-09 03:55] LABS: HEMOGLOBIN A1c 5.2 %
[2019-12-09 03:59] LABS: FERRITIN 26 NG/ML (8-252); FOLATE > 24.0 NG/ML (>5.4); IRON (FE) 123 UG/DL (50-170); VITAMIN B12 LEVEL 1033 PG/ML (247-911)
== END ==
LOC: M LAB REF 15:00
PROVIDERS: ATTEND Nurse Practitioner Family
DX: Z13.9 Encounter for screening, unspecified (principal); R73.03 Prediabetes; E78.5 Hyperlipidemia, unspecified; I10 Essential (primary) hypertension; D64.9 Anemia, unspecified

== ENCOUNTER → 2020-01-12 | Outpatient (REF) | payer OTHER ==
[2020-01-12 13:32] LABS: BASO % 0.8 % (0.0-1.0); EOS # 0.1 10^3/uL (0.0-0.5); EOS % 1.4 % (0.0-3.0); HEMATOCRIT 41.5 % (36.0-47.0); HEMOGLOBIN 12.8 g/dl (12.0-15.5); LYMPH # 1.3 10^3/uL (1.5-5.0); LYMPH % 25.9 % (24.0-44.0); MEAN CORPUSCULAR HEMOGLOBIN 29.2 pg (27.0-33.0); MEAN CORPUSCULAR HGB CONC 30.8 g/dl (32.0-36.5); MEAN CORPUSCULAR VOLUME 94.7 fl (80.0-96.0); MONO # 0.4 10^3/uL (0.0-0.8); MONO % 8.6 % (0.0-5.0); NEUTROPHILS # 3.1 10^3/uL (1.5-8.5); NEUTROPHILS % 62.9 % (36.0-66.0); PLATELET COUNT, AUTOMATED 252 10^3/uL (150-450); RED BLOOD COUNT 4.38 10^6/uL (4.00-5.40); WHITE BLOOD COUNT 4.9 10^3/uL (4.0-10.0)
[2020-01-12 14:24] LABS: ALBUMIN 4.1 GM/DL (3.2-5.2); ALT/SGPT 32 U/L (12-78); BILIRUBIN,TOTAL 0.4 MG/DL (0.2-1.0); BLOOD UREA NITROGEN 15 MG/DL (7-18); CALCIUM LEVEL 9.4 MG/DL (8.8-10.2); CARBON DIOXIDE LEVEL 31 MEQ/L (21-32); CHLORIDE LEVEL 104 MEQ/L (98-107); CHOLESTEROL LEVEL 159 MG/DL (<200); CHOLESTEROL RISK RATIO 2.271 (<5); CREATININE FOR GFR 0.88 MG/DL (0.55-1.30); GLOMERULAR FILTRATION RATE > 60.0 (>45); GLUCOSE, FASTING 94 MG/DL (70-100); HDL CHOLESTEROL 70 MG/DL (>40); LDL CHOLESTEROL 78 MG/DL (<100); NON-HDL-C 89 MG/DL; POTASSIUM SERUM 4.3 MEQ/L (3.5-5.1); SODIUM LEVEL 141 MEQ/L (136-145); TOTAL PROTEIN 7.3 GM/DL (6.4-8.2); TRIGLYCERIDES LEVEL 55 MG/DL (<150)
[2020-01-12 15:28] LABS: HEMOGLOBIN A1c 5.3 %
== END ==
LOC: M LAB REF 12:17
PROVIDERS: ATTEND Nurse Practitioner Family
DX: R73.03 Prediabetes (principal); D64.9 Anemia, unspecified; E78.5 Hyperlipidemia, unspecified; I10 Essential (primary) hypertension

== ENCOUNTER → 2020-01-19 | Outpatient (REF) | payer OTHER ==
[2020-01-19 14:00] LABS: FREE T4 0.83 NG/DL (0.76-1.46); THYROID STIMULATING HORMONE 2.99 uIU/ML (0.358-3.740)
== END ==
LOC: M LAB REF 12:25
PROVIDERS: ATTEND Nurse Practitioner Family
DX: I10 Essential (primary) hypertension (principal); F32.9 Major depressive disorder, single episode, unspecified; R73.03 Prediabetes

== ENCOUNTER 2020-03-25 11:21 | Inpatient (IN) | payer OTHER ==
[~2020-03-25] VITALS: Ht 152.4 cm; Wt 61.8 kg
[~2020-03-25 11:21] MED LIST changes: -LISI40TA PO; +LISI40TA4 PO
--- OUTSIDE RECORDS SUMMARY | 2020-03-25 11:29 | CCD ---
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 Role Phone Valery Mccabe Unavailable Unavailable Allergies Code Code System Name Reaction Severity Status Onset NKDA Medications Name Status Start Date Stop Date Afluria Qd (36 mos up)(PF)60 mcg (15 mcg x4)/0.5 mL IM s yringe Active Not available amlodipine 5 mg tablet TK 1 T PO D Active Not available amoxicillin 500 mg tablet TK 4 TS PO 1 HOUR PRIOR TO PROCEDURE Completed atorvastatin 40 mg tablet TK 1 T PO QHS Active Not available clopidogrel 75 mg tablet TK 1 T PO HS Active Not available duloxetine 30 mg capsule,delayed release TK 1 C PO QD Active Not available ferrous sulfate 325 mg (65 mg iron) tabl et TK 1 T PO BID Active Not available lisinopril 40 mg tablet TK 1 T PO D Active Not available Shingrix (PF) 50 mcg/0.5 mL intramuscula r suspension, kit ADM 0.5ML IM UTD Active Not available trazodone 150 mg tablet TK 1 T PO HS Active Not available Problems Name Status Onset Date Source Vitamin D Deficiency Active 12/23/2012 History Depressive Disorder Active 12/23/2012 History Finding of Neck Region Active 12/23/2012 History Hyperlipidemia Active 01/22/2013 History Fibromyalgia Active 07/04/2013 History Heart Murmur Active 10/09/2013 History Clinical Finding Active 05/22/2014 History Anemia Active 03/02/2015 History Influenza Vaccine Needed Active 03/02/2015 History Body Measurement Finding Active 01/13/2016 History Disorder of Artery Active 05/09/2016 History At Risk - Finding Active 09/19/[address] Concept Active 01/03/2017 History Moderate Recurrent Major Depression Active 04/08/2018 History Prediabetes Active 06/27/2018 History Low Blood Pressure Active 08/12/2018 History Fracture of Patella Active 08/12/2018 History Breast Neoplasm Screening Status Active 09/26/2018 History Nasal Congestion Active 12/10/2018 History Cough Active 12/10/2018 History Patient Asked to Attend Active 07/23/2019 History Procedure by Method Active 07/23/2019 History Severe Recurrent Major Depression without Psychotic Features Act maria a 08/20/2019 History Mild Recurrent Major Depression Active 10/08/2019 History Hypertensive Disorder Active History Arthropathy Active History SNOMED CT Concept Active History Procedures Date Name Performed by Grafting to Skin of Extremit y Notes: left arm Information not available Results Lab Results Date Name Specimen Result Interpretation Description Value Range Status Address 01/12/2020 CBC W/ Auto Diff Blood venous Normal White Blood C ount 4.9 10 4.0-10.[address] [facility]: 83 0 [facility] Blood venous Normal Red Blood Count 4.38 10 4.00- 5.[address] [facility]: [address] [facility] Blood venous Normal Hemoglobin 12.8 g/dL 12.0-15. 5 g/dL [facility]: [address] [facility] Blood venous Normal Hematocrit 41.5 % 36.0-47.0 % [facility]: [address] [facility] Blood venous Normal Mean Corpuscular Volume 94.7 fL 80.0-96.[address] [facility]: [address] [facility] Blood venous Normal Mean Corpuscular Hemoglob in 29.2 pg 27.0-33.[address] [facility]: [address] [facility] Blood venous Low Mean Corpuscular HGB Conc 30.8 g/dL 32.0-36.5 g/dL [facility]: [address] [facility] Blood venous Normal Red Cell Distribution Wid th 12.4 % 11.5-14.5 % [facility]: [address] [facility] Blood venous Normal Platelet Count, Automated 252 10 150-[address] [facility]: [address] [facility] Blood venous Normal Neutrophils % 62.9 % 36.0-66. 0 % [facility]: [address] [facility] Blood venous Normal Lymph % 25.9 % 24.0-44.0 % Fi nal [facility]: [address] [place] [address] Blood venous High Long % 8.6 % 0.0-5.0 % [facility]: [address] [place] [address] Blood venous Normal Eos % 1.4 % 0.0-3.0 % [facility]: [address] [place] [address] Blood venous Normal Baso % 0.8 % 0.0-1.0 % [facility]: [address] [place] [address] Blood venous Normal Immature Granulocyte % 0.4 % 0-3.0 % [facility]: [address] [place] [address] Blood venous Normal Nucleated Red Blood Cell % 0. 0 % 0-0 % [facility]: [address] [place] [address] Blood venous Normal Neutrophils # 3.1 10 1.5-8.[address] [facility]: [address] [place] [address] Blood venous Low Lymph # 1.3 10 1.5-5.0 10 [facility]: [address] [place] [address] Blood venous Normal Long # 0.4 10 0.0-0.8 10 [facility]: [address] [place] [address] Blood venous Normal Eos # 0.1 10 0.0-0.[address] [facility]: [address] [place] [address] Blood venous Normal Baso # 0.0 10 0.0-0.2 10 [facility]: [address] [place] [address] 01/12/2020 CMP, Serum or Plasma Blood venous Normal Glu cose, Fasting 94 mg/dL 70-100 mg/dL [facility]: [address] [place] [address] Blood venous Normal Blood Urea Nitrogen 15 mg/dL 7-18 mg/dL [facility]: [address] [place] [address] Blood venous Normal Creatinine for GFR 0.88 mg/dL 0.55-1.30 mg/dL [facility]: [address] [place] [address] Blood venous Normal Glomerular Filtration Rate > 60.[address] >45 [facility]: [address] [place] [address] Blood venous Normal Sodium Level 141 mEq/L 136-14 5 mEq/L [facility]: [address] [facility] Blood venous Normal Potassium Serum 4.3 mEq/L 3.5 -5.1 mEq/L [facility]: 0 [facility] Blood venous Normal Chloride Level 104 mEq/L 98-1 07 mEq/L [facility]: [address] [place] [address] Blood venous Normal Carbon Dioxide Level 31 mEq/L 21-32 mEq/L [facility]: [address] [place] [address] Blood venous Low Anion Gap 6 mEq/L 8-16 mEq/L [facility]: [address] [place] [address] Blood venous Normal Calcium Level 9.4 mg/dL 8.8-1 0.2 mg/dL [facility]: [address] [place] [address] Blood venous Normal AST/SGOT 22 U/L 7-37 U/L [facility]: [address] [place] [address] Blood venous Normal ALT/SGPT 32 U/L 12-78 U/L [facility]: [address] [place] [address] Blood venous Normal Alkaline Phosphatase 95 U/L 4 5-117 U/L [facility]: 0 [facility] Blood venous Normal Bilirubin,total 0.4 mg/dL 0.2 -1.0 mg/dL [facility]: [address] [place] [address] Blood venous Normal Total Protein 7.3 gm/dL 6.4-8 .2 gm/dL [facility]: [address] [place] [address] Blood venous Normal Albumin 4.1 gm/dL 3.2-5.2 gm/ dL [facility]: [address] [place] [address] Blood venous Normal Albumin/globulin Ratio 1.3 1.2-2.2 [facility]: [address] [place] [address] 01/12/2020 Lipid Panel, Blood Blood venous Normal Trigl ycerides Level 55 mg/dL <150 mg/dL [facility]: [address] [place] [address] Blood venous Normal Cholesterol Level 159 mg/dL < 200 mg/dL [facility]: [address] [facility] Blood venous Normal HDL Cholesterol 70 mg/dL >40 mg/dL [facility]: [address] [facility] Blood venous Normal LDL Cholesterol 78 mg/dL <100 mg/dL [facility]: [address] [facility] Blood venous Normal Non-hdl-c 89 mg/dL Fin al [facility]: [address] [facility] Blood venous Normal Cholesterol Risk Ratio 2.[address] <5 [facility]: [address] [facility] 01/12/2020 HbA1C (Hemoglobin a1C), Blood Blood venous Normal Hemoglobin a1C 5.3 % [facility]: [address] [facility] Blood venous Normal Estimated Average Glucose 105 mg/dL 60-110 mg/dL [facility]: [address] [facility] Past Encounters 01/19/2020 Moderate Recurrent Major Depression; Hyperlipidemia; Patient Asked to Attend; Prediabetes; Hypertensive Disorder [facility]-: [address] [place] [address], Ph. 01/12/2020 [facility] [address] [place] [address], Ph. Social History Tobacco Smoking Status Never Smoker Vaccine List Vaccine Type Influenza, injectable, MDCK, preservativ e free, quadrivalent 03/20/20180.5 mL influenza, seasonal, injectable 03/02/20150.5 mL 04/23/20170.5 mL pneumococcal polysaccharide PPV23 03/02/20150.5 mL Notes: Pt states already had Flu vaccine and Shingles shot at [facility] Plan of Care Patient Instructions Lab results reviewed with you today . Please continue medication as prescribed. Please continue healthy diet and physical activities. Blood pressure at goal today. Please continue medications as prescribed. Please continue lifestyle changes to include healthy diet and physical activities. Please try to avoid processed foods. Please try to avoid added sodium in your diet. Reminders Provider Appointments None recorded. Lab None recorded. Referral None recorded. Procedures None recorded. Surgeries None recorded. Imaging None recorded. Vitals 01/19/2020 09:00AM ESTABLISHED [id number] Height Weight BMI Blood Pressure 60 in 136 lbs 2 oz 26.6 kg/m2 107/73 mm[Hg] 10/21/2019 Height Weight Blood Pressure 60 in 132 lbs 2.08 oz 106/56 mm[Hg] 07/23/2019 Height Weight Blood Pressure 60 in 131 lbs 3.04 oz 114/65 mm[Hg] 03/26/2019 Height Weight Blood Pressure 60 in 128 lbs 4 oz 122/77 mm[Hg] 12/10/2018 Height Weight Blood Pressure 60 in 129 lbs 92/58 mm[Hg] 11/07/2018 Height Weight Blood Pressure 60 in 130 lbs 132/70 mm[Hg] 09/26/2018 Height Weight Blood Pressure 60 in 128 lbs 2.08 oz 95/61 mm[Hg] 08/12/2018 Height Blood Pressure 60 in 69/45 mm[Hg] 06/27/2018 Height Weight Blood Pressure 60 in 132 lbs 4 oz 126/73 mm[Hg] 03/20/2018 Height Weight Blood Pressure 60 in 123 lbs 123/65 mm[Hg]
--- OUTSIDE RECORDS SUMMARY | 2020-03-25 11:29 | CCD ---
Author Author [facility] Organization [facility] Address Unknown Phone Unavailable Care Team Providers Care Speech Language Pathology Assistant Name Role Phone Dalia MccabeP Unavailable Unavailable Dalia MccabeP Unavailable Unavailable Eliot, A Valery THREAD GRINDER Unavailable Unavailable Eliot, A Valery THREAD GRINDER Unavailable Unavailable Sweetser, A Valeyr THREAD GRINDER Unavailable Unavailable Sweetser, A Valery THREAD GRINDER Unavailable Unavailable Sweetser, A Vaelry THREAD GRINDER Unavailable Unavailable Sweetser, A Valery THREAD GRINDER Unavailable Unavailable Sweetser, A Valery THREAD GRINDER Unavailable Unavailable Sweetser, A Valery THREAD GRINDER Unavailable Unavailable Sweetser, A Valery THREAD GRINDER Unavailable Unavailable Sweetser, A Valery THREAD GRINDER Unavailable Unavailable Sweetser, A Valery THREAD GRINDER Unavailable Unavailable Sweetser, A Valery THREAD GRINDER Unavailable Unavailable Sweetser, A Valery THREAD GRINDER Unavailable Unavailable Sweetser, A Valery THREAD GRINDER Unavailable Unavailable Sweetser, A Valery THREAD GRINDER Unavailable Unavailable Sweetser, A Valery THREAD GRINDER Unavailable Unavailable Sweetser, A Valery THREAD GRINDER Unavailable Unavailable Sweetser, A Valrey THREAD GRINDER Unavailable Unavailable Sweetser, A Valery THREAD GRINDER Unavailable Unavailable Sweetser, A Valery THREAD GRINDER Unavailable Unavailable Sweetser, A Valery THREAD GRINDER Unavailable Unavailable Sweetser, A Valery THREAD GRINDER Unavailable Unavailable Sweetser, A Valery THREAD GRINDER Unavailable Unavailable Sweetser, A Valery THREAD GRINDER Unavailable Unavailable Sweetser, A Valery THREAD GRINDER Unavailable Unavailable Sweetser, A Valery THREAD GRINDER Unavailable Unavailable Sweetser, A Valery THREAD GRINDER Unavailable Unavailable Sweetser, A Valery THREAD GRINDER Unavailable Unavailable Sweetser, A Valery THREAD GRINDER Unavailable Unavailable Sweetser, A Valery THREAD GRINDER Unavailable Unavailable Sweetser, A Valery THREAD GRINDER Unavailable Unavailable Sweetser, A Valery THREAD GRINDER Unavailable Unavailable Sweetser, A Valery THREAD GRINDER Unavailable Unavailable Sweetser, A Valery THREAD GRINDER Unavailable Unavailable Sweetser, A Valery THREAD GRINDER Unavailable Unavailable Sweetser, A Valery THREAD GRINDER Unavailable Unavailable Sweetser, A Valery THREAD GRINDER Unavailable Unavailable Sweetser, A Valery THREAD GRINDER Unavailable Unavailable Sweetser, A Valery THREAD GRINDER Unavailable Unavailable Sweetser, A Valery THREAD GRINDER Unavailable Unavailable Sweetser, A Valery THREAD GRINDER Unavailable Unavailable Sweetser, A Valery THREAD GRINDER Unavailable Unavailable Sweetser, A Valery THREAD GRINDER Unavailable Unavailable Sweetser, A Valery THREAD GRINDER Unavailable Unavailable Sweetser, A Valery THREAD GRINDER Unavailable Unavailable Sweetser, A Valery THREAD GRINDER Unavailable Unavailable Sweetser, A Valery THREAD GRINDER Unavailable Unavailable Sweetser, A Valery THREAD GRINDER Unavailable Unavailable Sweetser, A Valery THREAD GRINDER Unavailable Unavailable Sweetser, A Valery THREAD GRINDER Unavailable Unavailable Sweetser, A Valery THREAD GRINDER Unavailable Unavailable Eliot, A Valery THREAD GRINDER Unavailable Unavailable Johnson, C Aby PA Unavailable Unavailable Johnson, C Aby PA Unavailable Unavailable Johnson, C Aby PA Unavailable Unavailable Johnson, C Aby PA Unavailable Unavailable Johnson, C Aby PA Unavailable Unavailable Johnson, C Aby PA Unavailable Unavailable Johnson, C Aby PA Unavailable Unavailable Johnson, C Aby PA Unavailable Unavailable Johnson, C Aby PA Unavailable Unavailable Johnson, C Aby PA Unavailable Unavailable Johnson, C Aby PA Unavailable Unavailable Johnson, C Aby PA Unavailable Unavailable Johnson, C Aby PA Unavailable Unavailable Johnson, C Aby PA Unavailable Unavailable Johnson, C Aby PA Unavailable Unavailable Johnson, C Aby PA Unavailable Unavailable Johnson, C Aby PA Unavailable Unavailable Johnson, C Aby PA Unavailable Unavailable Johnson, C Aby PA Unavailable Unavailable Johnson, C Bay PA Unavailable Unavailable Johnson, C Aby PA Unavailable Unavailable Johnson, C Aby PA Unavailable Unavailable Johnson, C Aby PA Unavailable Unavailable Johnson, C Aby PA Unavailable Unavailable Johnson, C Aby PA Unavailable Unavailable Johnson, C Aby PA Unavailable Unavailable Johnson, C Aby PA Unavailable Unavailable Johnson, C Aby PA Unavailable Unavailable Johnson, C Aby PA Unavailable Unavailable Johnson, C Aby PA Unavailable Unavailable Johnson, C Aby PA Unavailable Unavailable Johnson, C Aby PA Unavailable Unavailable Johnson, C Aby PA Unavailable Unavailable Johnson, C Aby PA Unavailable Unavailable Johnson, C Aby PA Unavailable Unavailable Johnson, C Aby PA Unavailable Unavailable Johnson, C Aby PA Unavailable Unavailable Johnson, C Aby PA Unavailable Unavailable Johnson, C Aby PA Unavailable Unavailable Johnson, C Aby PA Unavailable Unavailable Johnson, C Aby PA Unavailable Unavailable Johnson, C Aby PA Unavailable Unavailable Johnson, C Aby PA Unavailable Unavailable Johnson, C Aby PA Unavailable Unavailable Johnson, C Aby PA Unavailable Unavailable Johnson, C Aby PA Unavailable Unavailable Johnson, C Aby PA Unavailable Unavailable Eliot, Valery THREAD GRINDER THREAD GRINDER Unavailable Unavailable Re-disclosure Warning The records that you are about to access may contain information from federally-assisted alcohol or drug abuse programs. If such information is present, then the following federally mandated warning applies: This information has been disclosed to you from records protected by federal confidentiality rules (42 CFR part 2). The federal rules prohibit you from making any further disclosure of this information unless further disclosure is expressly permitted by the written consent of the person to whom it pertains or as otherwise permitted by 42 CFR part 2. A general authorization for the release of medical or other information is NOT sufficient for this purpose. The Federal rules restrict any use of the information to criminally investigate or prosecute any alcohol or drug abuse patient.The records that you are about to access may contain highly sensitive health information, the redisclosure of which is protected by Article 27-F of the [facility] Public Health law. If you continue you may have access to information: Regarding HIV / AIDS; Provided by facilities licensed or operated by the [facility] Office of Mental Health; or Provided by the [facility] Office for People With Developmental Disabilities. If such information is present, then the following [facility] mandated warning applies: This information has been disclosed to you from confidential records which are protected by state law. State law prohibits you from making any further disclosure of this information without the specific written consent of the person to whom it pertains, or as otherwise permitted by law. Any unauthorized further disclosure in violation of state law may result in a fine or senior care sentence or both. A general authorization for the release of medical or other information is NOT sufficient authorization for further disc losure. Family History Family Member Name Family Member Gender Family Member Status Date o f Status Description Data Source(s) Unknown Unknown Problem [facility] ([facility], ) Encounters Encounter Providers Location Date Indications Data Source(s ) ZACH Perry: [address] [place] [address], Ph. Attender: Valery [facility]ENNAN [facility] Medical 01/19/2020 12:00:00 AM JOSEPHINE MICHAEL ([facility] [address] [place] [address], Ph. Attender: Valery BRENNAN [facility] Medical 01/12/2020 12:00:00 AM EST FERNANDA ([facility]) Outpatient Attender: MIKA BRENNAN FP 12/20/2019 03:09:01 P M EDT [facility] Outpatient Attender: Valery BRENNAN FP 12/20/2019 03:0 9:00 PM EDT [facility] Outpatient Attender: Valery BRENNAN FP 12/12/2019 11:3 3:03 AM EDT [facility] Outpatient Attender: Valery BRENNAN FP 12/06/2019 12:4 5:03 PM EDT [facility] Outpatient Attender: Valery BRENNAN FP 11/28/2019 04:4 5:03 PM EDT [facility] Outpatient Attender: Valery BRENNAN FP 11/23/2019 02:2 0:01 PM EDT [facility] Outpatient Attender: MIKA BRENNAN FP 11/23/2019 02:20:00 P M EDT [facility] Outpatient Attender: MIKA BRENNAN FP 11/05/2019 08:01:03 P M EDT [facility] Outpatient Attender: MIKA BRENNAN FP 11/05/2019 10:17:01 A M EDT [facility] Outpatient Attender: MIKA BRENNAN FP 11/05/2019 09:04:01 A M EDT [facility] Outpatient Attender: Valery BRENNAN FP 11/05/2019 08:5 1:01 AM EDT [facility] Outpatient Attender: MIKA BRENNAN FP 11/05/2019 08:51:00 A M EDT [facility] Outpatient Attender: Valery BRENNAN FP 10/28/2019 10:5 9:03 AM EDT [facility] Outpatient Attender: MIKA BRENNAN FP 10/22/2019 08:01:06 P M EDT [facility] Outpatient Attender: MIKA BRENNAN FP 10/22/2019 09:56:00 A M EDT [facility] Outpatient Attender: MIKA BRENNAN FP 10/21/2019 11:53:01 A M EDT [facility] Outpatient Attender: Valery Mccabe THREAD GRINDER FP 10/21/2019 11:3 7:01 AM EDT [facility] Outpatient Attender: MIKA Mccabe THREAD GRINDER FP 10/21/2019 10:12:00 A M EDT [facility] Outpatient Attender: Valery Mccabe THREAD GRINDER FP 10/15/2019 12:0 2:36 AM EDT [facility] Outpatient Attender: MIKA Mccabe THREAD GRINDER FP 10/14/2019 08:44:01 A M EDT [facility] Outpatient Attender: MIKA Mccabe THREAD GRINDER FP 10/09/2019 08:01:04 P M EDT [facility] Outpatient Attender: MIKA Mccabe THREAD GRINDER FP 10/08/2019 08:01:02 P M EDT [facility] Outpatient Attender: MIKA Mccabe THREAD GRINDER FP 09/18/2019 08:01:01 P M EDT [facility] Outpatient Attender: MIKA Mccabe THREAD GRINDER FP 09/18/2019 02:54:00 P M EDT [facility] Outpatient Attender: MIKA Mccabe THREAD GRINDER FP 09/03/2019 08:01:01 P M EDT [facility] Outpatient Attender: MIKA Mccabe THREAD GRINDER FP 09/03/2019 09:08:00 A M EDT [facility] Outpatient Attender: MIKA Mccabe THREAD GRINDER FP 09/02/2019 02:54:00 P M EDT [facility] Outpatient Attender: Valery Mccabe THREAD GRINDER FP 08/24/2019 04:4 1:00 PM EDT [facility] Outpatient Attender: MIKA Mccabe THREAD GRINDER FP 08/20/2019 08:01:01 P M EDT [facility] Outpatient Attender: Valery TALLEYP FP 08/20/2019 09:4 5:40 AM EDT [facility] Outpatient Attender: MIKA TALLEYP FP 08/20/2019 09:14:06 A M EDT [facility] Outpatient Attender: MIKA TALLEYP FP 08/20/2019 08:19:57 A M EDT [facility] Outpatient Attender: Valery TALLEYP FP 08/17/2019 09:1 6:01 PM EDT [facility] Outpatient Attender: Valery TALLEYP FP 07/28/2019 10:2 4:59 PM EDT [facility] Outpatient Attender: MIKA TALLEYP FP 07/24/2019 02:50:00 P M EDT [facility] Outpatient Attender: Valery TALLEYP FP 07/23/2019 12:3 4:01 PM EDT [facility]patient Attender: Valery TALLEYP FP 07/23/2019 12:3 3:02 PM EDT [facility] Outpatient Attender: MIKA TALLEYP FP 07/23/2019 12:33:01 P M EDT [facility] Outpatient Attender: MIKA TALLEYP FP 07/23/2019 12:32:03 P M EDT [facility] Outpatient Attender: Valery TALLEYP FP 07/23/2019 12:3 2:01 PM EDT [facility] Outpatient Attender: MIKA Mccabe THREAD GRINDER FP 07/23/2019 12:32:01 P M EDT [facility] Outpatient Attender: MIKA Mccabe THREAD GRINDER FP 07/16/2019 08:01:01 P M EDT [facility] Outpatient Attender: MIKA Mccabe THREAD GRINDER FP 07/16/2019 03:26:00 P M EDT [facility] Outpatient Attender: MIKA Mccbae THREAD GRINDER FP 07/16/2019 07:55:01 A M EDT [facility] Outpatient Attender: MIKA Mccabe THREAD GRINDER FP 07/10/2019 08:26:00 A M EDT [facility] Outpatient Attender: MIKA Mccabe THREAD GRINDER FP 06/17/2019 07:51:00 A M EDT [facility] Outpatient Referrer: Aby HERNANDEZ 06/11/2019 04:37:00 AM EDT [facility] Outpatient Attender: MIKA TALLEYP FP 06/04/2019 11:23:00 A M EDT [facility] Outpatient Attender: MIKA TALLEYP FP 06/03/2019 03:16:01 P M EDT [facility] Outpatient Attender: MIKA TALLEYP FP 06/02/2019 02:25:00 P M EDT [facility] Outpatient Attender: MIKA TALLEYP FP 05/30/2019 10:19:01 A M EDT [facility] Outpatient Attender: Valery TALLEYP FP 05/18/2019 12:3 0:00 PM EDT [facility] Outpatient Attender: MIKA TALLEYP FP 05/14/2019 08:01:03 P M EDT [facility] Outpatient Attender: Valery TALLEYP FP 05/14/2019 12:0 0:05 PM EDT [facility] Outpatient Attender: MIKA TALLEYP FP 05/14/2019 10:52:01 A M EDT [facility] Outpatient Attender: Valery TALLEYP FP 05/14/2019 08:3 9:01 AM EDT [facility] Outpatient Attender: MIKA TALLEYP FP 04/24/2019 11:42:00 A M [facility] Outpatient Attender: Valery TALLEYP FP 04/23/2019 02:5 0:01 PM [facility] Outpatient Attender: MIKA Mccabe THREAD GRINDER FP 04/18/2019 11:36:03 A M [facility] Outpatient Attender: Valery TALLEYP FP 04/18/2019 09:2 3:00 AM [facility] Outpatient Attender: MIKA Mccabe THREAD GRINDER FP 04/15/2019 08:01:03 P M [facility] Outpatient Attender: MIKA TALLEYP FP 04/15/2019 09:22:02 A M [facility] Outpatient Attender: MIKA Mccaeb THREAD GRINDER FP 04/15/2019 07:46:00 A M [facility] Outpatient Attender: MIKA Mccabe THREAD GRINDER FP 04/15/2019 07:44:00 A M [facility] Outpatient Attender: Valery TALLEYP FP 04/07/2019 03:4 1:02 PM [facility] Outpatient Attender: Valery TALLEYP FP 04/04/2019 08:1 6:01 AM [facility] Outpatient Attender: Valery TALLEYP FP 03/26/2019 08:0 1:07 PM [facility] Outpatient Attender: MIKA TALLEYP FP 03/26/2019 08:01:06 P M [facility] Outpatient Attender: MIKA TALLEYP FP 03/26/2019 12:38:00 P M [facility] Outpatient Attender: MIKA TALLEYP FP 03/26/2019 12:34:[address] [facility] Outpatient Attender: Valery BRENNAN FP 03/26/2019 11:1 5:03 AM [facility] Outpatient Attender: MIKA Eliot THREAD GRINDER FP 03/26/2019 10:25:03 A M [facility] Outpatient Attender: MIKA Eliot THREAD GRINDER FP 03/24/2019 12:26:[address] [facility] Outpatient Attender: MIKA TALLEYP FP 03/24/2019 10:44:01 A M [facility] Outpatient Attender: Valery BRENNAN FP 03/24/2019 10:4 2:59 AM [facility] Outpatient Attender: MIKA BRENNAN FP 03/24/2019 10:42:[address] [facility] Outpatient Attender: MIKA BRENNAN 03/16/2019 09:01:[address] [facility] Outpatient Attender: Valery BRENNAN 03/04/2019 07:5 8:01 AM [facility] Outpatient Attender: MIKA Mccabe THREAD GRINDER FP 02/20/2019 01:01:[address] [facility] Outpatient Attender: Valery Eliot TALLEYP FP 02/16/2019 06:4 7:00 PM [facility] Medications Medication Brand Name Start Date Product Form Dose Route Admi nistrative Instructions Pharmacy Instructions Status Indications Reaction Description Data Source(s) Amoxicillin 500 MG Oral Tablet amoxicill in 500 mg tablet TK 4 TS PO 1 HOUR PRIOR TO PROCEDURE amoxicillin 500 mg tablet TK 4 TS PO 1 HOUR PRIOR TO PROCEDURE completed amoxicillin 500 MG Ora l Tablet FER[facility]NDA ([facility]) Insurance Providers Payer name Policy type / Coverage type Policy ID Covered republican ID Covered republican's relationship to vargas Policy Vargas Plan Information [facility] [id number] SP [id number] [facility] P [id number] S [id number] [facility] [id number] S [id number] TATUM [id number] SP [id number] [facility] P [id number] S [id number] [facility] P [id number] S [id number] [place] [address] P [id number] S [id number] [place] S [id number] S [id number] GEICO INS NO FAULT [id number] SP [id number] GEICO INS NO FAULT [id number] SP [id number] Geico P [id number] S [id number] Cigna P [id number] S [id number] Cigna P [id number] S [id number] Cigna S [id number] S [id number] CIGNA HE[employer]CARE [id number] SP [id number] Cigna P [id number] S [id number] AETNA US HEALTHCARE [place] O [id number] P [id number] CIGNA/CONN GEN/MVP [id number] SP [id number] Cigna P [id number] S [id number] Cigna/Conn Gen/MVP Commercial [id number] Self [id number] Aetna PPO P [id number] S [id number] Cigna S UNAVAILABLE S UNAVAILA BLE AETNA US HEALTHCARE [place] [id number] [id number] Aetna PPO P [id number] S [id number] Self Pay O UNAVAILABLE S UNAVAILA BLE AETNA US HEALTHCARE [place] [id number] Aetna Commercial Family Dependent AETNA US HEALTHCARE [place] O [id number] P [id number] AARP S [id number] S [id number] Excellus BCYO S [id number] M HPE [id number] [place] BC/BS Exclusive Ppo Medigap Part B Family D ependent Aetna Commercial Family Dependent Blue Cross Blue Shield [place] P [id number] S [id number] EXCELLUS BCBS P [id number] S [id number] EXCELLUS BCBS [id number] Spo HPE [id number] Blue Cross Blue Shield [place] P [id number] S [id number] Blue Cross Blue Shield [place] P [id number] S [id number] [facility] 040 [id number] HU2 [id number] EXCELLUS BCBS P [id number] S [id number] OTHER WORKERS COMPENSATI P [id number] S [id number] Blue Cross Blue Shield [place] P [id number] S [id number] Blue Cross Blue Shield [place] P [id number] S [id number] Blue Cross Blue [facility] P [id number] S [id number] MAYTE W/C CLAIMS CLM#[id number] SP CLM#[id number] MAYTE W/C CLAIMS CLM#[id number] SP CLM#[id number] OTHER WORKERS COMPENSATION [id number] SP [id number] [facility] 040 [id number] HU2 [id number] Problems, Conditions, and Diagnoses Code Display Name Description Problem Type Effective Dates Data Source(s) 088302369 SNOMED CT Concept SNOMED CT Concept Problem 12/17 06:20:04 PM EDT [place] ([facility]) [id number] Arthropathy Arthropathy Problem 12/18/2019 06:20:04 PM EDT [facility]) 48530704 Hypertensive disorder Hypertensive Disorder Problem 12/18/2019 06:20:04 PM EDT [place] ([facility]) [id number] Mild recurrent major depression Mild Recurrent M ajor Depression Problem 10/08/2019 12:00:00 AM EDT [place] ([facility]) [id number] Severe recurrent major depression withou t psychotic features Severe Recurrent Major Depression without Psychotic Features Problem 08/20/2019 12:00:00 AM EDT [place] ([facility]) V70.0 Encounter for general adult medical exam ination with abnormal findings Encounter for general adult medical examination with abnormal findings 07/23/2019 12:31:20 PM EDT [facility] V65.8 Person consulting for explanation of exa mination or test findings Person consulting for explanation of examination or test findings 07/23/2019 12:31:20 PM EDT [facility] [id number] Procedure by method Procedure by Method Problem 0 07/23/2019 12:00:00 AM EDT [place] ([facility]) [id number] Patient asked to attend Patient Asked to Attend Proble 07/23/2019 12:00:00 AM EDT [place] ([facility]) Results ID Date Data Source [id number] 01/12/2020 08:00:00 AM EST [facility]DA ([facility]) Name Value Range Interpretation Code Description Data Sammie rce(s) Supporting Document(s) Hemoglobin A1c/Hemoglobin.total in Blood 5.3 % normal Hemoglobin a1C [facility] ([facility]) estimated average glucose 105 mg/dL 60-110 normal Estimated Average Glucose [place] ([facility]) ID Date Data Source [id number] 01/12/2020 08:00:00 AM EST [facility] ([facility]) Name Value Range Interpretation Code Description Data Sammie rce(s) Supporting Document(s) HDL cholesterol 70 mg/dL >40 normal HDL Cholesterol ATHE NA ([facility]) triglycerides level 55 mg/dL <150 normal Triglycerides Le tonya [facility] ([facility]) Cholesterol in LDL [Mass/volume] in Serum or Plasma 78 mg/dL <1 00 normal LDL Cholesterol [place] ([facility]) cholesterol level 159 mg/dL <200 normal Cholesterol Level [place] ([facility]) cholesterol risk ratio <5 normal Cholesterol R isk Ratio [place] ([facility]) non-HDL-C 89 mg/dL normal Non-hdl-c [place] ([facility]) ID Date Data Source [id number] 01/12/2020 08:00:00 AM EST [facility] ([facility]) Name Value Range Interpretation Code Description Data Sammie rce(s) Supporting Document(s) glucose, fasting 94 mg/dL 70-100 normal Glucose, Fasting AT [facility] ([facility]) creatinine for GFR 0.88 mg/dL 0.55-1.30 normal Creatinine for GF R [place] ([facility]) blood urea nitrogen 15 mg/dL 7-18 normal Blood Urea Nitro gen [facility] ([facility]) sodium level 141 mEq/L 136-145 normal Sodium Level [facility] ([facility]) glomerular filtration rate > 60.0 >45 normal Glomerula r Filtration Rate [facility] ([facility]) chloride level 104 mEq/L 98-107 normal Chloride Level [facility] ([facility]) potassium serum 4.3 mEq/L 3.5-5.1 normal Potassium Serum ATHE NA ([facility]) ALT/SGPT 32 U/L 12-78 normal ALT/SGPT [place] ([facility]) calcium level 9.4 mg/dL 8.8-10.2 normal Calcium Level [facility] ( [facility]) carbon dioxide level 31 mEq/L 21-32 normal Carbon Dioxide Level [facility] ([facility]) AST/SGOT 22 U/L 7-37 normal AST/SGOT [facility] ([facility]) anion gap 6 mEq/L 8-16 Below low normal Anion Gap [facility] ( [facility]) bilirubin,total 0.4 mg/dL 0.2-1.0 normal Bilirubin,total AT[facility] ([facility]) alkaline phosphatase 95 U/L 45-117 normal Alkaline Phosph atase [place] ([facility]) albumin 4.1 gm/dL 3.2-5.2 normal Albumin [facility] ([facility]) total protein 7.3 gm/dL 6.4-8.2 normal Total Protein [facility] ( [facility]) albumin/globulin ratio 1.2-2.2 normal Albumin/globu mary Ratio [facility] ([facility]) ID Date Data Source [id number] 01/12/2020 08:00:00 AM EST FERNANDA ([facility]) Name Value Range Interpretation Code Description Data Sammie rce(s) Supporting Document(s) white blood count 4.9 10 4.0-10.0 normal White Blood Count FERNANDA ([facility]) hemoglobin 12.8 g/dL 12.0-15.5 normal Hemoglobin FER[facility]NDA ([facility]) hematocrit 41.5 % 36.0-47.0 normal Hematocrit FERNANDA ([facility]) red blood count 4.38 10 4.00-5.40 normal Red Blood Count ATHE NA ([facility]) mean corpuscular volume 94.7 fL 80.0-96.0 normal Mean Corpusc ular Volume FERNANDA ([facility]) mean corpuscular HGB conc 30.8 g/dL 32.0-36.5 Below low pete l Mean Corpuscular HGB Conc FERNANDA ([facility]) mean corpuscular hemoglobin 29.2 pg 27.0-33.0 normal Mean Corpuscular Hemoglobin FERNANDA ([facility]) neutrophils % 62.9 % 36.0-66.0 normal Neutrophils % FERNANDA ( [facility]) red cell distribution width 12.4 % 11.5-14.5 normal Red Cell Distribution Width FERNANDA ([facility]) platelet count, automated 252 10 150-450 normal Platelet C ount, Automated FERNANDA ([facility]) lymph % 25.9 % 24.0-44.0 normal Lymph % FER[facility]NDA ([facility]) eos % 1.4 % 0.0-3.0 normal Eos % FERNANDA ([facility]) mono % 8.6 % 0.0-5.0 Above high normal [place] % FERNANDA ([facility]) baso % 0.8 % 0.0-1.0 normal Baso % FERNANDA ([facility]) neutrophils # 3.1 10 1.5-8.5 normal Neutrophils # FERNANDA ( [facility]) immature granulocyte % 0.4 % 0-3.0 normal Immature Gran ulocyte % FERNANDA ([facility]) lymph # 1.3 10 1.5-5.0 Below low normal Lymph # FERNANDA ( [facility]) nucleated red blood cell % 0.0 % 0-0 normal Nucleated Red Blood Cell % FER[facility]NDA ([facility]) mono # 0.4 10 0.0-0.8 normal [place] # FERNANDA ([facility]) eos # 0.1 10 0.0-0.5 normal Eos # FER[facility]DA ([facility]) baso # 0.0 10 0.0-0.2 normal Baso # FERNANDA ([facility]) ID Date Data Source [id number] 11/05/2019 08:50:13 AM EDT [facility] Name Value Range Interpretation Code Description Data Sammie rce(s) Supporting Document(s) HGBA1C 5.2 % [facility] ID Date Data Source [id number] 10/21/2019 10:44:45 AM EDT [facility] Measurements & CalculationsHeight: 60 inches (5 ft. 0 in.) 152.40 cm Weight: 132 pounds 2 oz. 60.06 kg Body Mass Index (BMI): 25.90BMI Interpretation: OverweightBody Surface Area (BSA): 1.57Weight Management Education Done (Nutrition/Physical Activity)Vital SignsTemperature: 98.4FPulse Rate: 71 beats/minuteRespiratory Rate: 14 respirations/minuteBlood Pressure: 106/56 O2 Saturation: 97% Vital Signs performed by: Ronit Arana LPN, October 21, 2019 10:45 AMVital Signs performed by: Ronit Arana LPN, October 21, 2019 10:45 AMInitial Intake Information From: patientRoom #: 12Infectious Disease / Travel ScreeningRecent travel for you or any close contacts? NoHave you had any close contact with anyone diagnosed with or under investigation for COVID-19 (coronavirus)? NoFever? NoRespiratory symptoms: cough, cold, congestion, shortness of breath, difficulty breathing? NoLoss of smell? NoLoss of taste? NoSmoking, Tobacco, Vaping or Smoke Exposure StatusSmoke Status: never smokerTobacco Use: NoDo you vape? NoPassive Smoke Exposure: NoMenstrual HistoryAny possibility of ? NoComments: menopauseHealthcare HistorySin ce your last office visit...Have you been admitted to the hospital? NoHave you been to an emergency room (ER) or urgent care clinic? NoHave you seen another healthcare provider? NoHave you seen a dentist? Yes - DR Turk Intake performed by: Ronit Arana LPN, October 21, 2019 10:48 AMRate Your HealthIn general, would you say your health is? GoodPain AssessmentAre you currently having any pain which... You would like your provider to address? No Affects your activity level? NoDepression Screening - PHQ-2Over the last two weeks, have you... Had little interest or pleasure in doing things? Not at all Been feeling down, depressed, or hopeless? Not at all PHQ-2 Score: 0Anxiety Screening - HARPREET-2Over the last two weeks, have you been... Feeling nervous, anxious, or on edge? Not at all Unable to stop or control worrying? Not at all HARPREET-2 Score: 0Food InsecurityWithin the past year...Did you worry whether your food would run out before you got money to buy more? NoWas there a time when the food you bought didn't last and you didn't have money to get more? NoScreening, Brief Intervention, & Referral to Treatment (SBIRT)Pre-Screening Questions How many times have you have 4 or more drinks in a day? 0How many times have you used an illegal drug or used a prescription medication for a non- medical reason? 0Performed by: Ronit Arana LPN, October 21, 2019 10:53 AMPatient History Medical History:Anxiety DisorderChronic Renal FailureHypertensionOsteoarthritisU T I-RecurrentFibromyalgiacarotid ectomy-mesh fractured left patella Surgical History:skin graft (L) armFamily History:Family History of AlcoholismFH of AnxietyFH DepressionFH DiabetesFH Heart DiseaseFH HypertensionFH High CholesterolFH StrokeFamily History Coronary Heart Disease male < 55Family History of MelanomaFH Psychiatric CareFH Weight DisorderFH P M SSocial/Personal History:Smoking History:Patient has never smoked. Chief Complaintfollow-up visit lab results room 12History of Present Illness (HPI)59 YO female here forfollow up visit and review of lab results. Pt states taking medications as prescribed. Pt states healthy diet and physical activities.Pt denies pain. Pt states feeling well. HPI performed by: Valery BRENNAN, October 21, 2019 11:37 AMTransitions of Care InboundProblem ReviewProblem List was reviewed and/or updated during this visit.Medication Reconciliation & ReviewMedication List was reviewed and/or updated during this visit, including review of any [id number] medications, herbal therapies, and/or supplements.Allergy ReviewAllergy List was reviewed and/or updated during this visit. Patient has no known allergies.Adult Preventive CareProvider Calculated and Reviewed all Clinical Protocols for patient today. Labs/Meds/Other Counseling-Nutrition and Physical Activity:BMI Interpretation: Overweight (10/21/2019) Counseling: Done (10/21/2019) Physical Activity: Done (10/21/2019)Cancer Screening Mammogram Reviewed: Previous Comments: Pt states she got one done at [facility] 2019 (07/23/2019)Today's Comments: Done at [facility] 2018Pap Smear/HPV TestingReviewed: Previous Comments: says not due for one right now (06/27/2018)Today's Comments: States not due Review of Systems General: Denies loss of appetite, chills, dizziness, fatigue, fever, continued fever, headache, feeling ill, sweats, night sweats, sleep disturbances, weight loss. Eyes: Denies blurring of vision, double vision, irritation, discharge, vision loss, eye pain, eye swelling, droopy eyelid, sensitivity to light, redness, itching. Ears/Nose/Throat: Denies earache, ear discharge, ringing in ears, decreased hearing, nasal congestion, nosebleeds, runny nose, sore throat, hoarseness, difficulty swallowing, dry mouth, tooth pain, bleeding gums, swollen glands. Cardiovascular: Denies chest pain, palpitations, feeling faint, trouble breathing w/exertion, SOB upon lying down, SOB at night, peripheral edema, elevated blood pressure, decreased heart rate. Respiratory: Denies cough, difficulty breathing, shortness of breath, excessive sputum, coughing up blood, wheezing, chest pain. Breast: Denies discoloration, tenderness, breast changes, breast lump, nipple discharge. Gastrointestinal: Denies nausea, vomiting, blee ding, burning, itching, irritation, cramps, diarrhea, constipation. Genitourinary: Denies urinary incontinence, pain with urination, burning with urination, urinary frequency, urinary hesitancy, urinary urgency, urinary urgency at night, incomplete emptying, blood in urine. Musculoskeletal: Denies back pain, joint pain, leg pain, other pain-see comments, joint swelling, body aches, muscle aches, muscle cramps, muscle weakness, stiffness, recent injury. Skin: Denies rash, hives, redness, itching, dryness, nail changes, suspicious lesions, athlete's foot, rash on palms, rash on bottom of feet. Neurologic: Denies muscle impairment, weakness, numbness/tingling, seizures, slurred speech, feeling faint, tremors, vertigo, paralysis on one side, paralysis on both sides. Psychiatric: Denies depression, anxiety, memory loss, mental disturbance, suicidal ideation, homicidal ideation, hallucinations, paranoia, feeling stressed, hearing voices. Endocrine: Denies cold intolerance, heat intolerance, excessive thirst, excessive hunger, excessive urination, weight loss, weight gain. Heme/Lymphatic: Denies abnormal bruising, bleeding, enlarged lymph nodes. Physical ExamGeneral Appearance: well nourished, well hydrated, no acute distressEyes, External: conjunctivae and lids normal, EOMIRespiratory, Auscultation: clear to auscultation bilaterally; no rales, rhonchi, or wheezesRespiratory, Effort: no intercostal retractions or use of accessory musclesCardiovascular, Auscultation: S1, S2 audible; no murmur, rub, or gallop; RRRPeripheral Circulation: no clubbing, cyanosis, edema, or varicositiesAbdomen: soft, non-tender, no masses, bowel sounds normalGait & Station: normalSkin, Inspection: left leg bruiseOrientation: oriented to time, place, and personMood & Affect: no depression, anxiety, or agitationJudgment & Insight: intactCare Management Plan Transitions of CareInboundRate Your HealthIn general, would you say your health is? GoodAssessment & Plan Problems:Assessed:Person consulting for explanation of examination or test findings (ICD-V65.8) (KDJ33-Q57.2) Assessment: Instructions: We have reviewed your lab results with you today.Please continue medications as prescribed. Please continue healthy diet and physical activities. Please try to maintain adequate intake of water daily.Anemia (ICD-285.9) (BCS88-U78.9) Assessment: Instructions: Iron levels improving appropriately. Please continue medications as prescribed. Please try to maintain good nutrition and adequate hydration.HYPERTENSION (ICD- 401.9) (AKA32-T74) Assessment: Instructions: Your Blood pressure is at goal today. Shaun continue medications as prescribed. Please continue lifestyle changes to include healthy diet and physical activities. Please try to avoid added sodium in your diet.Assessment not Saved Anemia (DQA72-I72.9): Patient Instructions/Care Plan: Person consulting for explanation of examination or test findings: We have reviewed your lab results with you today.Please continue medications as prescribed. Please continue healthy diet and physical activities. Please try to maintain adequate intake of water daily.Anemia: Iron levels improving appropriately. Please continue medications as prescribed. Please try to maintain good nutrition and adequate hydration.HYPERTENSION: Your Blood pressure is at goal today. Shaun continue medications as prescribed. Please continue lifestyle changes to include healthy diet and physical activities. Please try to avoid added sodium in your diet. Plan developed in collaboration with patient and/or familyMedications:D 1000 1000 UNIT ORAL TABLE TCLOPIDOGREL BISULFATE 75 MG ORAL TABLETFEOSOL 325 (65 Fe) MG ORAL TABLETATORVASTATIN CALCIUM 40 MG ORAL TABLETNORVASC 5 MG ORAL TABLETLISINOPRIL 40 MG ORAL TABLETASPIR-81 81 MG ORAL TABLET DELAYED RELEASEDULOXETINE HCL 30 MG ORAL CAPSULE DELAYED RELEASE PARTICLESTRAZODONE HCL 150 MG ORAL TABLETALEVE 220 MG ORAL CAPSULEMEGA MULTIVITAMIN FOR WOMEN ORAL TABLETAllergies:No Known Allergies (updated 10/21/2019) Orders:COMP METABOLIC PANEL [CPT-78286] CBC W/DIFF [CPT-94221] HgBA1c [CPT-63197] LIPID PANEL [CPT-36838] Adult - Ofc Vst, EST, Level IV [CPT-53076] Follow-Up Return to clinic: 3 months for follow up Clinical Visit Summary Completed Name Value Range Interpretation Code Description Data Sammie rce(s) Supporting Document(s) ID Date Data Source [id number] 10/14/2019 09:15:12 AM EDT [facility] Labs In-House Urine TestsDate/Time Colle cted: October 14, 2019 9:00 AMTest Result Reference Range Normal ValueLucille Bailey, October 14, 2019 9:15 AMBlood TestsDate/Time Collected: October 14, 2019 9:00 AMTest Result Reference Range Normal ValueComments: taken from right ac, tolerated well.Lucille Bailey, October 14, 2019 9:15 AMAssessment & Plan Orders:[id number] Vst-Est Level I [CPT-04196] 87294 - Venipuncture [CPT- 74246] Name Value Range Interpretation Code Description Data Sammie rce(s) Supporting Document(s) ID Date Data Source [id number] 10/14/2019 08:05:00 AM EDT [facility] Name Value Range Interpretation Code Description Data Sammie rce(s) Supporting Document(s) HGBA1C 5.2 % N [facility] ID Date Data Source [id number] 10/14/2019 08:05:00 AM EDT [facility] Name Value Range Interpretation Code Description Data Sammie rce(s) Supporting Document(s) BG FASTING TNP MG/DL mg/dL 70-100 N [facility] ID Date Data Source [id number] 10/14/2019 08:05:00 AM EDT [facility] Name Value Range Interpretation Code Description Data Sammie rce(s) Supporting Document(s) HCT 40.1 % 36.0-47.0 N [facility] HGB 12.9 g/dL 12.0-15.5 N [facility] MCH 32.2 G/DL pg 32.0-36.5 N [facility] MCHC 30.2 PG % 27.0-33.0 N [facility] PLATELETS 237 10 10*3/mm3 150-450 N [facility] RBC 4.27 10 10*6/mm3 4.00-5.40 [facility] RDW 12.3 % 11.5-14.5 N [facility] WBC TOTAL 5.0 4.0-10.0 N [facility] ID Date Data Source [id number] 07/23/2019 10:24:24 AM EDT [facility] Measurements & CalculationsHeight: 60 inches (5 ft. 0 in.) 152.40 cm Weight: 131 pounds 3 oz. 59.63 kg Body Mass Index (BMI): 25.71BMI Interpretation: OverweightBody Surface Area (BSA): 1.56Weight Management Education Done (Nutrition/Physical Activity)Vital SignsTemperature: 97.7F oral Pulse Rate: 72 beats/minuteRespiratory Rate: 18 respirations/minuteBlood Pressure: 114/65 left arm sitting automaticO2 Saturation: 98% room airVital Signs performed by: Emmanuel Mayer MA, July 23, 2019 10:42 AMInitial Intake Information From: patientRoom #: 14Infectious Disease / Travel ScreeningRecent travel for you or any close contacts? NoHave you had any close contact with anyone diagnosed with or under investigation for COVID-19 (coronavirus)? NoFever? NoRespiratory symptoms: cough, cold, congestion, shortness of breath, difficulty breathing? NoLoss of smell? NoLoss of taste? NoSmoking, Tobacco, Vaping or Smoke Exposure StatusSmoke Status: never smokerTobacco Use: NoDo you vape? NoPassive Smoke Exposure: NoMenstrual HistoryAge at Menopause: 47Any possibility of ? NoComments: Menopause Healthcare HistorySince your last office visit...Have you been admitted to the hospital? NoHave you been to an emergency room (ER) or urgent care clinic? NoHave you seen another healthcare provider? NoHave you seen a dentist? Yes - Dr. Causey Intake performed by: Emmanuel Mayer MA, July 23, 2019 10:29 AMRate Your HealthIn general, would you say your health is? GoodPain AssessmentAre you currently having any pain which... You would like your provider to address? Yes Affects your activity level? YesDepression Screening - PHQ-2Over the last two weeks, have you... Had little interest or pleasure in doing things? More than half the days Been feeling down, depressed, or hopeless? More than half the days PHQ-2 Score: 4Anxiety Screening - HARPREET-2Over the last two weeks, have you been... Feeling nervous, anxious, or on edge? More than half the days Unable to stop or control worrying? More than half the days HARPREET-2 Score: 4Food InsecurityWithin the past year...Did you worry whether your food would run out before you got money to buy more? NoWas there a time when the food you bought didn't last and you didn't have money to get more? NoGeneralized Anxiety Disorder 7-Item Screening (HARPREET-7)Answer Guide:0 = Not at all1 = Several days2 = Over half the days3 = Nearly every dayOver the last 2 weeks, how often have you been bothered by the following problems?Feeling nervous, anxious, or on edge: 2Not being able to stop or control worryinWorrying too much about different things: 2Trouble relaxinBeing so restless that it's hard to sit still: 0Becoming easily annoyed or irritable: 1Feeling afraid as if something awful might happen: 0Answer Guide:0 = Not difficult at all1 = Somewhat difficult2 = Very difficult3 = Extremely difficultHow difficult have these made it for you to do your work, take care of things at home, or get along with other people? 1GAD- 7 Screening Results HARPREET-2 Score: 4GAD-7 Score: 7Functional Impairment: Somewhat difficultRecommendation: Mild anxietyPHQ-9 1. Over the last 2 weeks, patient reports the following frequency of symptoms: a. Little interest or pleasure in doing things -More than half the days b. Feeling down, depressed, or hopeless -More than half the days c. Trouble falling asleep, staying asleep, or sleeping too much -Not at all d. Feeling tired or having little energy -More than half the days e. Poor appetite or overeating -Not at all f. Feeling bad about yourself, feeling that you are a failure, or feeling that you have let yourself or your family down -Several days g. Trouble concentrating on things such as reading the newspaper or watching television -Nearly every day h. Moving or speaking so slowly that other people could have noticed. Or being so fidgety or restless that you have been moving around a lot more than usual -Not at all i. Thinking that you would be better off or that you want to hurt yourself in some way -Not at all2. If you checked off any problems, how difficult have these problems made it for you to do your work, take care of things at home, or get along with other people? -Somewhat DifficultToday's PHQ-9 Results Score: 10 Severity: Moderate Diagnosis Recommendation: Other Depression Functional Impairment: Somewhat DifficultToday's Follow-Up Action Depression follow-up done. Follow-Up Action: already in therapy. going wellPain AssessmentPain ScaleNumeric Rating Scale: 10Location: neck Duration: chronicFrequency: daily Character/Quality: aching, pressure and pinchingIs the pain radiating? NoPRAPARE Sociodemographic Characteristics Race: White Ethnicity: Not or Preferred Language: EnglishFamily and Home Address: [address] [place] [address] What is your housing situation today? I have housing Are you worried about losing your housing? NoMoney and Resources What is the highest level of school that you have finished? associate's degree Employed? No Are you seeking work? No [facility]In the past year, have you or any family members you live with been unable to get any of the following when it was really needed? Denies Insecurity: food, utilities, clothing, child psychometrist, phone, legal services, otherWithin the past year did you worry whether your food would run out before you got money to buy more? NoWithin the past year was there a time when the food you bought didn't last and you didn't have money to get more? NoIn the past year, have you had trouble affording costs associated with health insurance (such as deductibles, co-payments, etc.)? NoSocial and Emotional Health How often do you see or talk to people that you care about and feel close to? More than 5 times a week How stressed are you? A little bitAdditional Optional Domains In the past 3 months, have you spent more than 2 nights in a row in a senior care, care home, halfway center or juvenile correctional facility? No Has lack of transportation kept you from medical appointments or from getting your medications? NoIn the past year, have you had trouble getting any of the following when it was really needed (check all that apply)?noneIn the past year, have you had trouble paying the costs associated with health care or medicine (such as co-payments, costs for services, prices of medicines)? NoHow confident are you that you can control and manage most of your health problems? Somewhat confident Are you a refugee? No (Country of origin: [facility]) Do you feel physically and emotionally safe where you live? Yes In the past year, have you been afraid of a partner, ex-partner? NoScreening, Brief Intervention, & Referral to Treatment (SBIRT)Pre-Screening Questions How many times have you have 4 or more drinks in a day? 0How many times have you used an illegal drug or used a prescription medication for a non- medical reason? 0Performed by: Emmanuel Mayer MA, July 23, 2019 10:33 AMPatient History Medical History:Anxiety DisorderChronic Renal FailureHypertensionOsteoarthritisU T I-RecurrentFibromyalgiacarotid ectomy-mesh fractured left patella Surgical History:skin graft (L) armFamily History:Family History of AlcoholismFH of AnxietyFH DepressionFH DiabetesFH Heart DiseaseFH HypertensionFH High CholesterolFH StrokeFamily History Coronary Heart Disease male < 55Family History of MelanomaFH Psychiatric CareFH Weight DisorderFH P M SSocial/Personal History:Smoking History:Patient has never smoked. Chief Complaintannual exam RM 14 History of Present Illness (HPI)59 yr old female PT here today for an annual exam. Pt states she is currently having neck pain that she states is chronic. PT states she is taking her medications with no issues or side effects. Pt states was off her Lipitor for about one month. 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 Pt stattes Therapy is going well. HPI performed by: Valery BRENNAN, July 23, 2019 12:08 PMTransitions of Care InboundProblem ReviewProblem List was reviewed and/or updated during this visit.Medication Reconciliation & ReviewMedication List was reviewed and/or updated during this visit, including review of any [id number] medications, herbal therapies, and/or supplements.Allergy ReviewAllergy List was reviewed and/or updated during this visit.Adult Preventive CareProvider Calculated and Reviewed all Clinical Protocols for patient today. Labs/Meds/Other Counseling-Nutrition and Physical Activity:BMI Interpretation: Overweight (07/23/2019) Counseling: Done (07/23/2019) Physical Activity: Done (07/23/2019)Cancer Screening Mammogram Reviewed: Previous Comments: Pt states she had one done 10/2018 @ [facility] (03/26/2019)Today's Comments: Pt states she got one done at [facility] 2019Review of Systems General: Denies loss of appetite, chills, dizziness, fatigue, fever, continued fever, headache, feeling ill, sweats, night sweats, sleep disturbances, weight loss. Eyes: Denies blurring of vision, double vision, irritation, discharge, vision loss, eye pain, eye swelling, droopy eyelid, sensi tivity to light, redness, itching. Ears/Nose/Throat: Denies earache, ear discharge, ringing in ears, decreased hearing, nasal congestion, nosebleeds, runny nose, sore throat, hoarseness, difficulty swallowing, dry mouth, tooth pain, bleeding gums, swollen glands. Cardiovascular: Denies chest pain, palpitations, feeling faint, trouble breathing w/exertion, SOB upon lying down, SOB at night, peripheral edema, elevated blood pressure, decreased heart rate. Respiratory: Denies cough, difficulty breathing, shortness of breath, excessive sputum, coughing up blood, wheezing, chest pain. Breast: Denies discoloration, tenderness, breast changes, breast lump, nipple discharge. Gastrointestinal: Denies nausea, vomiting, bleeding, burning, itching, irritation, cramps, diarrhea. Genitourinary: Denies urinary incontinence, pain with urination, burning with urination, urinary frequency, urinary hesitancy, urinary urgency, urinary urgency at night, incomplete emptying, blood in urine. Musculoskeletal: Denies back pain, joint pain, leg pain, other pain-see comments, joint swelling, body aches, muscle aches, muscle cramps, muscle weakness, stiffness, recent injury. Skin: Denies rash, hives, redness, itching, dryness, nail changes, suspicious lesions, athlete's foot, rash on palms, rash on bottom of feet. Neurologic: Denies muscle impairment, weakness, numbness/tingling, seizures, slurred speech, feeling faint, tremors, vertigo, paralysis on one side, paralysis on both sides. Psychiatric: Denies depression, anxiety, memory loss, mental disturbance, suicidal ideation, homicidal ideation, hallucinations, paranoia, feeling stressed, hearing voices. Endocrine: Denies cold intolerance, heat intolerance, excessive thirst, excessive hunger, excessive urination, weight loss, weight gain. Physical ExamGeneral Appearance: well nourished, well hydrated, no acute distressEyes, External: conjunctivae and lids normal, EOMIRespiratory, Auscultation: clear to auscultation bilaterally; no rales, rhonchi, or wheezesRespiratory, Effort: no intercostal retractions or use of accessory musclesCardiovascular, Auscultation: S1, S2 audible; no murmur, rub, or gallop; RRRPeripheral Circulation: no clubbing, cyanosis, edema, or varicositiesAbdomen: soft, non-tender, no masses, bowel sounds normalGait & Station: normalSkin, Inspection: no rashes, lesions, or ulcerationsOrientation: oriented to time, place, and personMood & Affect: no depression, anxiety, or agitationJudgment & Insight: intactCare Management Plan Transitions of CareInboundRate Your HealthIn general, would you say your health is? GoodAss essment & Plan Problems:Added: Person consulting for explanation of examination or test findings (ICD-V65.8) (NGJ76-K64.2) Assessment: Instructions: We have reviewed your lab results with you today.Encounter for general adult medical examination with abnormal findings (ICD-V70.0) (GLF62-N22.01) Assessment: Instructions: You have had your annual physical exam done today. Please continue medications as prescribed. Please continue healthy diet and physical activities. Please try to maintain adequate intake of water daily. Shingles vaccines are available at your local pharmacy. Please make an appointment to have one done.Assessed:Prediabetes (NWB14-T73.03) Assessment: Instructions: Your blood glucose is within normal range.Hyperlipidemia (ICD- 272.4) (KCN12-B38.5) Assessment: Instructions: Please continue medication as prescribed. Please continue lifestyle changes to nclude healthy diet and physical activities. Please try to avoid processed foods.Anemia (ICD-285.9) (BLT60-D24.9) Assessment: Instructions: Please continue medications as prescribed. Please try to maintain good nutrition and adequate hydration.Health Screening (ICD-V70.0) (EBO62-I91.9) Assessment: Instructions: Fasting labs ordered today.Patient Instructions/Care Plan: Person consulting for explanation of examination or test findings: We have reviewed your lab results with you today.Encounter for general adult medical examination with abnormal findings: You have had your annual physical exam done today. Please continue medications as prescribed. Please continue healthy diet and physical activities. Please try to maintain adequate intake of water daily. Shingles vaccines are available at your local pharmacy. Please make an appointment to have one done.Prediabetes: Your blood glucose is within normal range.Hyperlipidemia: Please continue medication as prescribed. Please continue lifestyle changes to nclude healthy diet and physical activities. Please try to avoid processed foods.Anemia: Pleas e continue medications as prescribed. Please try to maintain good nutrition and adequate hydration.Health Screening: Fasting labs ordered today. Plan developed in collaboration with patient and/or familyMedications:D 1000 1000 UNIT ORAL TABLETCLOPIDOGREL BISULFATE 75 MG ORAL TABLETFEOSOL 325 (65 Fe) MG ORAL TABLETATORVASTATIN CALCIUM 40 MG ORAL TABLETNORVASC 5 MG ORAL TABLETLISINOPRIL 40 MG ORAL TABLETASPIR-81 81 MG ORAL TABLET DELAYED RELEASEDULOXETINE HCL 30 MG ORAL CAPSULE DELAYED RELEASE PARTICLESTRAZODONE HCL 150 MG ORAL TABLETALEVE 220 MG ORAL CAPSULEMEGA MULTIVITAMIN FOR WOMEN ORAL T ABLETAllergies:No Known Allergies (updated 07/23/2017) Orders:COMP METABOLIC PANEL [CPT-30997] CBC W/DIFF [CPT-98961] LIPID PANEL [CPT-65049] URINALYSIS [CPT-56059] IRON [CPT-71283] VITAMIN B-12 [CPT-35012] FERRITIN [CPT-37076] Folate (Folic Acid Serum) [CPT-55841] HgBA1c [CPT-32185] Adult - Ofc Vst, EST, Level IV [CPT-24531] Follow-Up Return to clinic: 3 months for follow up Clinical Visit Summary CompletedVaccines Administered/Entered:Vaccination Group: InfluenzaHistorical Source: Historical information - from patientSeries: 1 NOT GIVENVaccination: Flucelvax Quadrivalent PF (4y+) AdultReason Not Given: Patient decisionEntered Date: 07/23/2019 12:00 AMComments: Pt recieved at pharmacyEntered by: Emmanuel Mayer MA Name Value Range Interpretation Code Description Data Sammie rce(s) Supporting Document(s) ID Date Data Source [id number] 07/16/2019 08:01:41 AM EDT [facility] In-House Blood TestsDate/Time Colle cted: July 16, 2019 8:02 AMTest Result Reference Range Normal ValueComments: blood draw done in offcie done in the right ac tolerated well John Trejo MA, July 16, 2019 8:02 AMAssessment & Plan Orders:[id number] Vst-Est Level I [CPT-74801] 05491 - Venipuncture [CPT-13521] Name Value Range Interpretation Code Description Data Sammie rce(s) Supporting Document(s) ID Date Data Source [id number] 07/16/2019 08:00:00 AM EDT [facility] Name Value Range Interpretation Code Description Data Sammie rce(s) Supporting Document(s) HGBA1C 5.5 % N [facility] ID Date Data Source [id number] 07/16/2019 08:00:00 AM EDT [facility] Name Value Range Interpretation Code Description Data Sammie rce(s) Supporting Document(s) HCT 41.0 % 36.0-47.0 N [facility] HGB 13.3 g/dL 12.0-15.5 N [facility] MCH 32.4 G/DL pg 32.0-36.5 N [facility] MCHC 30.4 PG % 27.0-33.0 N [facility] PLATELETS 250 10 10*3/mm3 150-450 N [facility] RBC 4.38 10 10*6/mm3 4.00-5.40 N [facility] RDW 11.9 % 11.5-14.5 N [facility] WBC TOTAL 4.5 4.0-10.0 N [facility] ID Date Data Source [id number] 07/16/2019 08:00:00 AM EDT [facility] Name Value Range Interpretation Code Description Data Sammie rce(s) Supporting Document(s) BG FASTING 95 mg/dL 70-100 N [facility] ID Date Data Source [id number] 03/26/2019 10:30:09 AM EST [facility] Measurements & CalculationsHeight: 60 inches (5 ft. 0 in.) 152.40 cm Weight: 128 pounds 4 oz. 58.30 kg Body Mass Index (BMI): 25.14BMI Interpretation: OverweightBody Surface Area (BSA): 1.55Weight Management Education Done (Nutrition/Physical Activity)Vital SignsTemperature: 97.5F oral Pulse Rate: 64 beats/minuteRespiratory Rate: 16 respirations/minuteBlood Pressure: 122/77 left arm sitting automaticO2 Saturation: 99% room airVital Signs performed by: Steve Vargas LPN, March 26, 2019 10:40 AMInitial Intake Information from: patientRoom #: 13Infectious Disease- Travel Have you or your sexual partner travelled outside of the country recently? NoSmoking, Tobacco or Smoke Exposure StatusSmoke Status: never smokerTobacco Use: NoPassive Smoke Exposure: NoMenstrual HistoryAny possibility of ? NoComments: MenopauseHealthcare HistorySince your last office visit...Have you been admitted to the hospital? NoHave you been to an emergency room (ER) or urgent care clinic? NoHave you seen another healthcare provider? NoHave you seen a dentist? Yes - Dr. Francis performed by: Steve Vargas LPN, March 26, 2019 10:31 AMRate Your HealthIn general, would you say your health is? FairPain AssessmentAre you currently having any pain which... You would like your provider to address? No Affects your activity level? NoDepression Screening - PHQ-2Over the last two weeks, have you... Had little interest or pleasure in doing things? Not at all Been feeling down, depressed, or hopeless? Not at all PHQ-2 Score: 0Anxiety Screening - HARPREET-2Over the last two weeks, have you been... Feeling nervous, anxious, or on edge? Not at all Unable to stop or control worrying? Not at all HARPREET-2 Score: 0Infectious Disease- Travel Cont. Any possibility of ? NoScreening, Brief Intervention, & Referral to Treatment (SBIRT)Pre-Screening Questions How many times have you have 4 or more drinks in a day? 0How many times have you used an illegal drug or used a prescription medication for a non-medical reason? 0Performed by: Steve Vargas LPN, March 26, 2019 10:31 AMPatient History Medical History:Anxiety DisorderChronic Renal FailureHypertensionOsteoarthritisU T I- RecurrentFibromyalgiacarotid ectomy-mesh fractured left patella Surgical History:skin graft (L) armFamily History:Family History of AlcoholismFH of AnxietyFH DepressionFH DiabetesFH Heart DiseaseFH HypertensionFH High CholesterolFH StrokeFamily History Coronary Heart Disease male < 55Family History of MelanomaFH Psychiatric CareFH Weight DisorderFH P M SSocial/Personal History:Smoking History:Patient has never smoked. Smoking Status: never smokerChief Complaint3 mo f/u General health History of Present Illness (HPI)59 yo female here today for three months follow up visit. Pt staes mediation compliance. Pt states healthy diet and physical activities. Pt states have b een feeling a little down lately. Pt states had some renovation done at home so a bit of financial stress. Pt states have seen Sarah for therapy in the past. Pt states would like to be set up for therapy again. Pt states no other concerns today. HPI performed by: Valery TALLEYP, March 26, 2019 10:50 AMTransitions of Care InboundProblem ReviewProblem List was reviewed and/or updated during this visit.Medication Reconciliation & ReviewMedication List was reviewed and/or updated during this visit, including review of any [id number] medications, herbal therapies, and/or supplements.Allergy ReviewAllergy List was reviewed and/or updated during this visit.Adult Preventive CareProvider Calculated and Reviewed all Clinical Protocols for patient today. Labs/Meds/Other Counseling-Nutrition and Physical Activity:BMI Interpretation: Overweight (03/26/2019) Counseling: Done (03/26/2019) Physical Activity: Done (03/26/2019)Cancer Screening Mammogram Reviewed: Previous Comments: Pt states she had one done 10/03/18 @ [facility] (11/07/2018)Today's Comments: [facility] General: Denies loss of appetite, chills, dizziness, fatigue, fever, continued fever, headache, feeling ill, sweats, night sweats, sleep disturbances, weight loss. Eyes: Denies blurring of vision, double vision, irritation, discharge, vision loss, eye pain, eye swelling, droopy eyelid, sensitivity to light, redness, itching. Ears/Nose/Throat: Denies earache, ear discharge, ringing in ears, decreased hearing, nasal congestion, nosebleeds, runny nose, sore throat, hoarseness, difficulty swallowing, dry mouth, tooth pain, bleeding gums, swollen glands. Cardiovascular: Denies chest pain, palpitations, feeling faint, trouble breathing w/exertion, SOB upon lying down, SOB at night, peripheral edema, elevated blood pressure, decreased heart rate. Respiratory: Denies cough, difficulty breathing, shortness of breath, excessive sputum, coughing up blood, wheezing, chest pain. Gastrointestinal: Denies nausea, vomiting, bleeding, burning, itching, irritation, cramps, diarrhea, constipation. Genitourinary: Denies urinary incontinence, pain with urination, burning with urination, urinary frequency, urinary hesitancy, urinary urgency, urinary urgency at night, incomplete emptying, blood in urine, pelvic pain. Musculoskeletal: Denies back pain, joint pain, leg pain, joint swelling, body aches, muscle aches, muscle cramps, muscle weakness, stiffness, recent injury. Skin: Denies rash, hives, redness, itching, dryness, nail changes, suspicious lesions, athlete's foot, rash on palms, rash on bottom of feet. Neurologic: Denies muscle impairment, weakness, numbness/tingling, seizures, slurred speech, feeling faint, tremors, vertigo, paralysis on one side, paralysis on both sides. Psychiatric: Complains of depression, feeling stressed. Denies anxiety, memory loss, mental disturbance, suicidal ideation, homicidal ideation, hallucinations, paranoia, hearing voices. Endocrine: Denies cold intolerance, heat intolerance, excessive thirst, excessive hunger, excessive urination, weight loss, weight gain. Physical ExamGeneral Appearance: well nourished, well hydrated, no acute distressEyes, External: conjunctivae and lids normal, EOMIRespiratory, Auscultation: clear to auscultation bilaterally; no rales, rhonchi, or wheezesRespiratory, Effort: no intercostal retractions or use of accessory muscl esCardiovascular, Auscultation: S1, S2 audible; no murmur, rub, or gallop; RRRPeripheral Circulation: no clubbing, cyanosis, edema, or varicositiesAbdomen: soft, non-tender, no masses, bowel sounds normalGait & Station: normalSkin, Inspection: no rashes, lesions, or ulcerationsOrientation: oriented to time, place, and personMood & Affect: no depression, anxiety, or agitationJudgment & Insight: intactCare Management Plan Transitions of CareInboundRate Your HealthIn general, would you say your health is? FairAssessment & Plan Problems:Assessed:HYPERTENSION (ICD-401.9) (TLS57-I58) Assessment: Instructions: Your Blood pressure is at goal today. Wendell continue medications as prescribed. Please continue lifestyle changes to include healthy diet and physical activities. Please try to avoid added sodium in your diet.Health Screening (ICD-V70.0) (QMK16-C18.9) Assessment: Instructions: We have ordered fasting labs for you today.DEPRESSION (ICD-311) (OXI60-Y89.9) Assessment: Instructions: We have made a referral for you today. We will contact you to set this up.Please continue medications as prescribed. Please continue to monitor and avoid triggers causing increased depression.Anemia (ICD- 285.9) (LDA16-H50.9) Assessment: Instructions: Please continue medications as prescribed. Please try to maintain good nutrition and adequate hydration.Hyperlipidemia (ICD-272.4) (OAO05-T96.5) Assessment: Instructions: Please continue medication as prescribed. Please continue lifestyle changes to nclude healthy diet and physical activities. Please try to avoid processed foods.Patient Instructions/Care Plan: HYPERTENSION: Your Blood pressure is at goal today. Wendell continue medications as prescribed. Please continue lifestyle changes to include healthy diet and physical activities. Please try to avoid added sodium in your diet.Health Screening: We have ordered fasting labs for you today.DEPRESSION: We have made a referral for you today. We will contact you to set this up.Please continue medications as prescribed. Please continue to monitor and avoid triggers causing increased depression.Anemia: Please continue medications as prescribed. Please try to maintain good nutrition and adequate hydration.Hyperlipidemia: Please continue medication as prescribed. Please continue lifestyle changes to nclude healthy diet and physical activities. Please try to avoid processed foods. Plan developed in collaboration with patient and/or familyMedications:D 1000 1000 UNIT ORAL TABLETCLOPIDOGREL BISULFATE 75 MG ORAL TABLETFEOSOL 325 (65 Fe) MG ORAL TABLETATORVASTATIN CALCIUM 40 MG ORAL TABLETNORVASC 5 MG ORAL TABLETLISINOPRIL 40 MG ORAL TABLETASPIR-81 81 MG ORAL TABLET DELAYED RELEASEDULOXETINE HCL 30 MG ORAL CAPSULE DELAYED RELEASE PARTICLESTRAZODONE HCL 150 MG ORAL TABLETALEVE 220 MG ORAL CAPSULEMEGA MULTIVITAMIN FOR WOMEN ORAL TABLETMedication Changes:Removed:MUCINEX 600 MG ORAL TABLET EXTENDED RELEASE 12 HOUR-take one tablet by mouth twice daily for 7 days. Qty: 14[Tablet] Refills: 0, * WELLBUTRIN SR 300 MG ORAL [id number] (BUPROPION HCL)-1 pill po dailyAllergies:No Known Allergies (updated 07/23/2017) Orders:COMP METABOLIC PANEL [CPT-40945] CBC W/DIFF [CPT-07829] HgBA1c [CPT-47224] LIPID PANEL [CPT- 77564] VITAMIN B-12 [CPT-56423] FERRITIN [CPT-43130] Folate (Folic Acid Serum) [CPT-21791] IRON [CPT-03978] TIBC [CPT-40159] Mental Health Consult [CPT-69162] Adult - Ofc Vst, EST, Level IV [CPT-53458] Follow-Up Return to clinic: 3-4 months for follow up Clinical Visit Summary Completed Name Value Range Interpretation Code Description Data Sammie rce(s) Supporting Document(s) Procedure Vital Signs ID Date Data Source UNK Name Value Range Interpretation Code Description Data Source(s) Body weight 2178 [oz_av] 2178 [oz_av] FERNANDA ([facility]) Systolic blood pressure 107 mm[Hg] 107 mm[Hg] A [facility] ([facility]) Body mass index (BMI) [Ratio] 26.6 kg/m2 26.6 k g/m2 FERNANDA ([facility]) Body height 60 [in_i] 60 [in_i] FERNANDA ([facility]) Diastolic blood pressure 73 mm[Hg] 73 mm[Hg] FERNANDA ([facility]) Body weight 2114.08 [oz_av] 2114.08 [oz_av] ATH MANDEEP ([facility]) Systolic blood pressure 106 mm[Hg] 106 mm[Hg] A [facility] ([facility]) Body height 60 [in_i] 60 [in_i] FERNANDA ([facility]) Diastolic blood pressure 56 mm[Hg] 56 mm[Hg] FERNANDA ([facility]) Body weight 2099.04 [oz_av] 2099.04 [oz_av] ATH MANDEEP ([facility]) Systolic blood pressure 114 mm[Hg] 114 mm[Hg] A [facility] ([facility]) Body height 60 [in_i] 60 [in_i] FERNANDA ([facility]) Diastolic blood pressure 65 mm[Hg] 65 mm[Hg] FERNANDA ([facility]) Body weight 2051 [oz_av] 205 [oz_av] FERNANDA ([facility]) Systolic blood pressure 122 mm[Hg] 122 mm[Hg] A ARLENE ([facility]) Body height 60 [in_i] 60 [in_i] FERNANDA ([facility]) Diastolic blood pressure 77 mm[Hg] 77 mm[Hg] FERNANDA ([facility]) Patient Treatment Plan of Care Planned Activity Planned Date Details Description Data Source (s) Amoxicillin 500 MG Oral Tablet FERNANDA ([facility])
--- NOTE | 2020-03-25 11:58 | REP ---
INDICATION: CVA - Nursing interventions must not delay CT. COMPARISON: August 12, 2018.. TECHNIQUE: Helical scanning is acquired. 5 mm axial images were reformatted. Coronal MPR images were generated. FINDINGS: Bone window settings demonstrate an intact bony calvarium. There is no evidence of skull fracture or incidental bony calvarial lesion. The visualized paranasal sinuses appear clear. No intraorbital abnormality is seen. On soft tissue window setting images; the lateral, third, and fourth ventricles are normal in size and position. Badillo-white differentiation pattern is normal above and below the tentorium. There are is no evidence of intracranial hemorrhage. No mass, edema, infarction, or midline shift is seen. No extra-axial fluid collection is appreciated. Vascular calcification is noted. The patient is edentulous. Mild small vessel atherosclerotic changes are seen in the periventricular white matter of the frontal lobes as before. IMPRESSION: Vascular calcification and mild small vessel changes. No acute intracranial abnormality.. <Electronically signed by Andres Correa > 03/25/20 3512
--- NOTE | 2020-03-25 12:11 | REP ---
INDICATION: CVA. COMPARISON: 08/12/2018. TECHNIQUE: SINGLE PORTABLE AP VIEW OF THE CHEST WAS PERFORMED. FINDINGS: THERE IS NO ACUTE INFILTRATE OR PULMONARY EDEMA. LUNGS ARE CLEAR. HEART IS NOT SIGNIFICANTLY ENLARGED. MEDIASTINAL SILHOUETTE IS UNREMARKABLE. THE VISUALIZED OSSEOUS STRUCTURES ARE INTACT. IMPRESSION: NO ACUTE PULMONARY DISEASE. <Electronically signed by Joseph Badillo > 03/25/20 5546
[2020-03-25 12:12] LABS: BASO # 0.1 10^3/uL (0.0-0.2); EOS # 0.1 10^3/uL (0.0-0.5); HEMATOCRIT 39.2 % (36.0-47.0); LYMPH # 1.2 10^3/uL (1.5-5.0); LYMPH % 23.8 % (24.0-44.0); MEAN CORPUSCULAR HEMOGLOBIN 29.8 pg (27.0-33.0); MEAN CORPUSCULAR HGB CONC 33.2 g/dl (32.0-36.5); MEAN CORPUSCULAR VOLUME 89.9 fl (80.0-96.0); MONO # 0.4 10^3/uL (0.0-0.8); MONO % 7.5 % (0.0-5.0); NEUTROPHILS # 3.3 10^3/uL (1.5-8.5); NEUTROPHILS % 65.3 % (36.0-66.0); PLATELET COUNT, AUTOMATED 225 10^3/uL (150-450); RED BLOOD COUNT 4.36 10^6/uL (4.00-5.40); WHITE BLOOD COUNT 5.1 10^3/uL (4.0-10.0)
--- OUTSIDE RECORDS SUMMARY | 2020-03-25 12:12 | CCD ---
Author Author [facility] Organization [facility] Address Unknown Phone Unavailable Care Team Providers Care Community Facilitator Name Role Phone Dalia MccabeP Unavailable Unavailable Dalia MccabeP Unavailable Unavailable Eliot, A Valery POSTDOCTORAL RESEARCH ASSOCIATE Unavailable Unavailable Eliot, A Valery POSTDOCTORAL RESEARCH ASSOCIATE Unavailable Unavailable [place], A Valery POSTDOCTORAL RESEARCH ASSOCIATE Unavailable Unavailable [place], A Valery POSTDOCTORAL RESEARCH ASSOCIATE Unavailable Unavailable [place], A Valery POSTDOCTORAL RESEARCH ASSOCIATE Unavailable Unavailable [place], A Valery POSTDOCTORAL RESEARCH ASSOCIATE Unavailable Unavailable [place], A Valery POSTDOCTORAL RESEARCH ASSOCIATE Unavailable Unavailable [place], A Valery POSTDOCTORAL RESEARCH ASSOCIATE Unavailable Unavailable [place], A Valery POSTDOCTORAL RESEARCH ASSOCIATE Unavailable Unavailable [place], A Valery POSTDOCTORAL RESEARCH ASSOCIATE Unavailable Unavailable [place], A Valery POSTDOCTORAL RESEARCH ASSOCIATE Unavailable Unavailable [place], A Valery POSTDOCTORAL RESEARCH ASSOCIATE Unavailable Unavailable [place], A Valery POSTDOCTORAL RESEARCH ASSOCIATE Unavailable Unavailable [place], A Valery POSTDOCTORAL RESEARCH ASSOCIATE Unavailable Unavailable [place], A Valery POSTDOCTORAL RESEARCH ASSOCIATE Unavailable Unavailable [place], A Valery POSTDOCTORAL RESEARCH ASSOCIATE Unavailable Unavailable [place], A Valery POSTDOCTORAL RESEARCH ASSOCIATE Unavailable Unavailable [place], A Valery POSTDOCTORAL RESEARCH ASSOCIATE Unavailable Unavailable [place], A Valery POSTDOCTORAL RESEARCH ASSOCIATE Unavailable Unavailable [place], A Valery POSTDOCTORAL RESEARCH ASSOCIATE Unavailable Unavailable [place], A Valery POSTDOCTORAL RESEARCH ASSOCIATE Unavailable Unavailable [place], A Valery POSTDOCTORAL RESEARCH ASSOCIATE Unavailable Unavailable [place], A Valery POSTDOCTORAL RESEARCH ASSOCIATE Unavailable Unavailable [place], A Valery POSTDOCTORAL RESEARCH ASSOCIATE Unavailable Unavailable [place], A Valery POSTDOCTORAL RESEARCH ASSOCIATE Unavailable Unavailable [place], A Valery POSTDOCTORAL RESEARCH ASSOCIATE Unavailable Unavailable [place], A Valery POSTDOCTORAL RESEARCH ASSOCIATE Unavailable Unavailable [place], A Valery POSTDOCTORAL RESEARCH ASSOCIATE Unavailable Unavailable [place], A Valery POSTDOCTORAL RESEARCH ASSOCIATE Unavailable Unavailable [place], A Valery POSTDOCTORAL RESEARCH ASSOCIATE Unavailable Unavailable [place], A Valery POSTDOCTORAL RESEARCH ASSOCIATE Unavailable Unavailable [place], A Valery POSTDOCTORAL RESEARCH ASSOCIATE Unavailable Unavailable [place], A Valery POSTDOCTORAL RESEARCH ASSOCIATE Unavailable Unavailable [place], A Valery POSTDOCTORAL RESEARCH ASSOCIATE Unavailable Unavailable [place], A Valery POSTDOCTORAL RESEARCH ASSOCIATE Unavailable Unavailable [place], A Valery POSTDOCTORAL RESEARCH ASSOCIATE Unavailable Unavailable [place], A Valery POSTDOCTORAL RESEARCH ASSOCIATE Unavailable Unavailable [place], A Valery POSTDOCTORAL RESEARCH ASSOCIATE Unavailable Unavailable [place], A Valery POSTDOCTORAL RESEARCH ASSOCIATE Unavailable Unavailable [place], A Valery POSTDOCTORAL RESEARCH ASSOCIATE Unavailable Unavailable [place], A Valery POSTDOCTORAL RESEARCH ASSOCIATE Unavailable Unavailable [place], A Valery POSTDOCTORAL RESEARCH ASSOCIATE Unavailable Unavailable [place], A Valery POSTDOCTORAL RESEARCH ASSOCIATE Unavailable Unavailable [place], A Valery POSTDOCTORAL RESEARCH ASSOCIATE Unavailable Unavailable [place], A Valery POSTDOCTORAL RESEARCH ASSOCIATE Unavailable Unavailable [place], A Valery POSTDOCTORAL RESEARCH ASSOCIATE Unavailable Unavailable [place], A Valery POSTDOCTORAL RESEARCH ASSOCIATE Unavailable Unavailable [place], A Valery POSTDOCTORAL RESEARCH ASSOCIATE Unavailable Unavailable [place], A Valery POSTDOCTORAL RESEARCH ASSOCIATE Unavailable Unavailable [place], A Valery POSTDOCTORAL RESEARCH ASSOCIATE Unavailable Unavailable [place], A Valery POSTDOCTORAL RESEARCH ASSOCIATE Unavailable Unavailable Eliot, A Valery POSTDOCTORAL RESEARCH ASSOCIATE Unavailable Unavailable Johnson, C Aby PA Unavailable [...] C Aby PA Unavailable Unavailable Eliot, Valery POSTDOCTORAL RESEARCH ASSOCIATE POSTDOCTORAL RESEARCH ASSOCIATE Unavailable Unavailable Re-disclosure Warning The records that [...] is protected by Article 27-F of the [facility] Public Health law. If you continue you may have access to information: Regarding HIV / AIDS; Provided by facilities licensed or operated by the [facility] Office of Mental Health; or Provided by the [facility] Office for People With Developmental Disabilities. If such information is present, then the following [facility] mandated warning applies: This information has been [...] law may result in a fine or penitentiary sentence or both. A general authorization for the release of medical or other information is NOT sufficient authorization for further disc losure. Family History Family Member Name Family Member Gender Family Member Status Date o f Status Description Data Source(s) Unknown Unknown Problem MEDENT ([facility], ) Encounters Encounter Providers Location Date Indications Data Source(s ) ZACH Perry: [address] [place] [address], Ph. Attender: Valery BRENNAN [facility] Medical 01/19/2020 12:00:00 AM JOSEPHINE MICHAEL ([facility] [address] [place] [address], Ph. Attender: Valery BRENNAN [facility] Medical 01/12/2020 12:00:00 AM EST FERNANDA ([facility]) Outpatient Attender: MIKA BRENNAN FP 12/20/2019 03:09:01 P M EDT [facility] Outpatient Attender: Valery BRENNAN FP 12/20/2019 03:0 9:[address] [facility] Outpatient Attender: Valery BRENNAN FP 12/12/2019 11:3 3:[address] [facility] Outpatient Attender: Valery BRENNAN FP 12/06/2019 12:4 5:03 PM EDT [facility] Outpatient Attender: Valery BRENNAN FP 11/28/2019 04:4 5:03 PM EDT [facility] Outpatient Attender: Valery BRENNAN FP 11/23/2019 02:2 0:01 PM EDT [facility] Outpatient Attender: MIKA BRENNAN FP 11/23/2019 02:20:[address] [facility] Outpatient Attender: MIKA BRENNAN FP 11/05/2019 08:01:[address] [facility] Outpatient Attender: MIKA BRENNAN FP 11/05/2019 10:17:[address] [facility] Outpatient Attender: MIKA BRENNAN FP 11/05/2019 09:04:[address] [facility] Outpatient Attender: Valery BRENNAN FP 11/05/2019 08:5 1:[address] [facility] Outpatient Attender: MIKA BRENNAN FP 11/05/2019 08:51:[address] [facility] Outpatient Attender: Valery BRENNAN FP 10/28/2019 10:5 9:[address] [facility] Outpatient Attender: MIKA BRENNAN FP 10/22/2019 08:01:[address] [facility] Outpatient Attender: MIKA BRENNAN FP 10/22/2019 09:56:[address] [facility] Outpatient Attender: MIKA BRENNAN FP 10/21/2019 11:53:[address] [facility] Outpatient Attender: Valery Mccabe POSTDOCTORAL RESEARCH ASSOCIATE FP 10/21/2019 11:3 7:[address] [facility] Outpatient Attender: MIKA Mccabe POSTDOCTORAL RESEARCH ASSOCIATE FP 10/21/2019 10:12:[address] [facility] Outpatient Attender: Valery Mccabe POSTDOCTORAL RESEARCH ASSOCIATE FP 10/15/2019 12:0 2:[address] [facility] Outpatient Attender: MIKA Mccabe POSTDOCTORAL RESEARCH ASSOCIATE FP 10/14/2019 08:44:[address] [facility] Outpatient Attender: MIKA Mccabe POSTDOCTORAL RESEARCH ASSOCIATE FP 10/09/2019 08:01:[address] [facility] Outpatient Attender: MIKA Mccabe POSTDOCTORAL RESEARCH ASSOCIATE FP 10/08/2019 08:01:[address] [facility] Outpatient Attender: MIKA Mccabe POSTDOCTORAL RESEARCH ASSOCIATE FP 09/18/2019 08:01:[address] [facility] Outpatient Attender: MIKA Mccabe POSTDOCTORAL RESEARCH ASSOCIATE FP 09/18/2019 02:54:[address] [facility] Outpatient Attender: MIKA Mccabe POSTDOCTORAL RESEARCH ASSOCIATE FP 09/03/2019 08:01:[address] [facility] Outpatient Attender: MIKA Mccabe POSTDOCTORAL RESEARCH ASSOCIATE FP 09/03/2019 09:08:[address] [facility] Outpatient Attender: MIKA Mccabe POSTDOCTORAL RESEARCH ASSOCIATE FP 09/02/2019 02:54:[address] [facility] Outpatient Attender: Valery Mccabe POSTDOCTORAL RESEARCH ASSOCIATE FP 08/24/2019 04:4 1:[address] [facility] Outpatient Attender: MIKA Mccabe POSTDOCTORAL RESEARCH ASSOCIATE FP 08/20/2019 08:01:[address] [facility] Outpatient Attender: Valery TALLEYP FP 08/20/2019 09:4 5:[address] [facility] Outpatient Attender: MIKA TALLEYP FP 08/20/2019 09:14:[address] [facility] Outpatient Attender: MIKA TALLEYP FP 08/20/2019 08:19:[address] [facility] Outpatient Attender: Valery TALLEYP FP 08/17/2019 09:1 6:[address] [facility] Outpatient Attender: Valery TALLEYP FP 07/28/2019 10:2 4:59 PM EDT [facility] Outpatient Attender: MIKA TALLEYP FP 07/24/2019 02:50:00 P M EDT [facility] Outpatient Attender: Valery TALLEYP FP 07/23/2019 12:3 4:01 PM EDT [facility] Outpatient Attender: Valery TALLEYP FP 07/23/2019 12:3 3:02 PM EDT [facility] Outpatient Attender: MIKA TALLEYP FP 07/23/2019 12:33:01 P M EDT [facility] Outpatient Attender: MIKA TALLEYP FP 07/23/2019 12:32:03 P M EDT [facility] Outpatient Attender: Valery TALLEYP FP 07/23/2019 12:3 2:01 PM EDT [facility] Outpatient Attender: MIKA Mccabe POSTDOCTORAL RESEARCH ASSOCIATE FP 07/23/2019 12:32:01 P M EDT [facility] Outpatient Attender: MIKA Mccabe POSTDOCTORAL RESEARCH ASSOCIATE FP 07/16/2019 08:01:01 P M EDT [facility] Outpatient Attender: MIKA Mccabe POSTDOCTORAL RESEARCH ASSOCIATE FP 07/16/2019 03:26:00 P M EDT [facility] Outpatient Attender: MIKA Mccabe POSTDOCTORAL RESEARCH ASSOCIATE FP 07/16/2019 07:55:01 A M EDT [facility] Outpatient Attender: MIKA Mccabe POSTDOCTORAL RESEARCH ASSOCIATE FP 07/10/2019 08:26:00 A M EDT [facility] Outpatient Attender: MIKA Mccabe POSTDOCTORAL RESEARCH ASSOCIATE FP 06/17/2019 07:51:00 A M EDT [facility] Outpatient Referrer: Aby HERNANDEZ 06/11/2019 04:37:00 AM EDT [facility] Outpatient Attender: MIKA TALLEYP FP 06/04/2019 11:23:00 A M EDT [facility] Outpatient Attender: MIKA TALLEYP FP 06/03/2019 03:16:01 P M EDT [facility] Outpatient Attender: MIKA TALLEYP FP 06/02/2019 02:25:00 P M EDT [facility] Outpatient Attender: MIKA TALLEYP FP 05/30/2019 10:19:01 A M EDT [facility] Outpatient Attender: Valery TALLEYP FP 05/18/2019 12:3 0:[address] [facility] Outpatient Attender: MIKA TALLEYP FP 05/14/2019 08:01:[address] [facility] Outpatient Attender: Valery TALLEYP FP 05/14/2019 12:0 0:[address] [facility] Outpatient Attender: MIKA TALLEYP FP 05/14/2019 10:52:[address] [facility] Outpatient Attender: Valery TALLEYP FP 05/14/2019 08:3 9:[address] [facility] Outpatient Attender: MIKA TALLEYP FP 04/24/2019 11:42:00 A M [facility] Outpatient Attender: Valery TALLEYP FP 04/23/2019 02:5 0:01 PM [facility] Outpatient Attender: MIKA Mccabe POSTDOCTORAL RESEARCH ASSOCIATE FP 04/18/2019 11:36:03 A M [facility] Outpatient Attender: Valery TALLEYP FP 04/18/2019 09:2 3:00 AM [facility] Outpatient Attender: MIKA Mccabe POSTDOCTORAL RESEARCH ASSOCIATE FP 04/15/2019 08:01:03 P M [facility] Outpatient Attender: MIKA TALLEYP FP 04/15/2019 09:22:02 A M [facility] Outpatient Attender: MIKA Mccabe POSTDOCTORAL RESEARCH ASSOCIATE FP 04/15/2019 07:46:00 A M [facility] Outpatient Attender: MIKA Mccabe POSTDOCTORAL RESEARCH ASSOCIATE FP 04/15/2019 07:44:00 A M [facility] Outpatient Attender: Valery TALLEYP FP 04/07/2019 03:4 1:02 PM [facility] Outpatient Attender: Valery TALLEYP FP 04/04/2019 08:1 6:01 AM [facility] Outpatient Attender: Valery TALLEYP FP 03/26/2019 08:0 1:07 PM [facility] Outpatient Attender: MIKA TALLEYP FP 03/26/2019 08:01:06 P M [facility] Outpatient Attender: MIKA TALLEYP FP 03/26/2019 12:38:00 P M [facility] Outpatient Attender: MIKA TALLEYP FP 03/26/2019 12:34:01 P [facility] Outpatient Attender: Valery BRENANN FP 03/26/2019 11:1 5:03 AM [facility] Outpatient Attender: MIKA Eliot POSTDOCTORAL RESEARCH ASSOCIATE FP 03/26/2019 10:25:03 A M [facility] Outpatient Attender: MIKA Eliot POSTDOCTORAL RESEARCH ASSOCIATE FP 03/24/2019 12:26:00 P [facility] Outpatient Attender: MIKA TALLEYP FP 03/24/2019 10:44:01 A M [facility] Outpatient Attender: Valery BRENNAN FP 03/24/2019 10:4 2:59 AM [facility] Outpatient Attender: MIKA BRENNAN FP 03/24/2019 10:42:01 A [facility] Outpatient Attender: MIKA BRENNAN 03/16/2019 09:01:02 P [facility] Outpatient Attender: Valery BRENNAN 03/04/2019 07:5 8:01 AM [facility] Outpatient Attender: MIKA Mccabe POSTDOCTORAL RESEARCH ASSOCIATE FP 02/20/2019 01:01:00 P [facility] Outpatient Attender: Valery Eliot TALLEYP FP 02/16/2019 06:4 7:00 PM [facility] Medications Medication Brand Name Start Date Product Form Dose Route Admi nistrative Instructions Pharmacy Instructions Status Indications Reaction Description Data Source(s) Amoxicillin 500 MG Oral Tablet amoxicill in 500 mg tablet TK 4 TS PO 1 HOUR PRIOR TO PROCEDURE amoxicillin 500 mg tablet TK 4 TS PO 1 HOUR PRIOR TO PROCEDURE completed amoxicillin 500 MG Ora l Tablet FERNANDA ([facility]) Insurance Providers Payer name Policy type / Coverage type Policy ID Covered alliance party ID Covered alliance party's relationship to vargas Policy Vargas Plan Information [facility] [id number] SP [id number] [facility] P [id number] S [id number] [facility] [id number] S [id number] TATUM [id number] SP [id number] [facility] P [id number] S [id number] [facility] P [id number] S [id number] [place] [address] P [id number] S [id number] [employer] S [id number] S [id number] GEICO INS NO FAULT [id number] SP [id number] GE[employer] INS NO FAULT [id number] SP [id number] [employer] P [id number] S [id number] Cigna P [id number] S [id number] Cigna P [id number] S [id number] Cigna S [id number] S [id number] [employer] [id number] SP [id number] Cigna P [id number] S [id number] AETNA [place] HE[place] O [id number] P [id number] CIGNA/CONN GEN/MVP [id number] SP [id number] Cigna P [id number] S [id number] Cigna/Conn Gen/MVP Commercial [id number] Self [id number] Aetna PPO P [id number] S [id number] Cigna S UNAVAILABLE S UNAVAILA BLE AETNA US HEALTHCARE [place] [id number] Aetna PPO P [id number] S [id number] Self Pay O UNAVAILABLE S UNAVAILA BLE AETNA US HEALTHCARE TX [id number] HU2 [id number] Aetna Commercial Family Dependent AETNA [place] HEALTHCARE [place] O [id number] P [id number] AARP S [id number] S [id number] Excellus BCYO S [id number] M [id number] [id number] [place] BC/BS Exclusive Ppo Medigap Part B Family D ependent Aetna Commercial Family Dependent Blue Cross Blue Shield [place] P [id number] S [id number] EXCELLUS BCBS P [id number] S [id number] EXCELLUS BCBS [id number] Spo HPE [id number] Blue Cross Blue Shield [place] P [id number] S [id number] Blue Cross Blue Shield [place] P [id number] S [id number] [facility] 040 [id number] EXCELLUS BCBS P [id number] S [id number] OTHER WORKERS COMPENSATI P [id number] S [id number] Blue Cross [employer] Shield [place] P [id number] S [id number] Blue Cross [employer] Shield [place] P [id number] S [id number] Blue Cross Blue [facility] P [id number] S [id number] MAYTE W/C CLAIMS CLM#[id number] SP CLM#[id number] MAYTE W/C CLAIMS CLM#[id number] SP CLM#[id number] OTHER WORKERS COMPENSATION [id number] SP [id number] [facility] 040 [id number] Problems, Conditions, and Diagnoses Code Display Name Description Problem Type Effective Dates Data Source(s) 533750997 SNOMED CT Concept SNOMED CT Concept Problem 12/17 06:20:04 PM EDT KATY ([facility]) 343237226 Arthropathy Arthropathy Problem 12/18/2019 06:20:04 PM EDT [facility]) 82300474 Hypertensive disorder Hypertensive Disorder Problem 12/18/2019 06:20:04 PM EDT KATY ([facility]) 61080710 Mild recurrent major depression Mild Recurrent M ajor Depression Problem 10/08/2019 12:00:00 AM EDT KATY ([facility]) 99305594 Severe recurrent major depression withou t psychotic features Severe Recurrent Major Depression without Psychotic Features Problem 08/20/2019 12:00:00 AM EDT KATY ([facility]) V70.0 Encounter for general adult medical exam ination with abnormal findings Encounter for general adult medical examination with abnormal findings 07/23/2019 12:31:20 PM EDT [facility] V65.8 Person consulting for explanation of exa mination or test findings Person consulting for explanation of examination or test findings 07/23/2019 12:31:20 PM EDT [facility] [id number] Procedure by method Procedure by Method Problem 0 07/23/2019 12:00:00 AM EDT KATY ([facility]) [id number] Patient asked to attend Patient Asked to Attend Proble 07/23/2019 12:00:00 AM EDT FERNANDA ([facility]) Results ID Date Data Source [id number] 01/12/2020 08:00:00 AM EST FERNANDA ([facility]) Name Value Range Interpretation Code Description Data Sammie rce(s) Supporting Document(s) Hemoglobin A1c/Hemoglobin.total in Blood 5.3 % normal Hemoglobin a1C FERNANDA ([facility]) estimated average glucose 105 mg/dL 60-110 normal Estimated Average Glucose KATY ([facility]) ID Date Data Source [id number] 01/12/2020 08:00:00 AM EST FERNANDA ([facility]) Name Value Range Interpretation Code Description Data Sammie rce(s) Supporting Document(s) HDL cholesterol 70 mg/dL >40 normal HDL Cholesterol ATHE NA ([facility]) triglycerides level 55 mg/dL <150 normal Triglycerides Le tonya FERNANDA ([facility]) Cholesterol in LDL [Mass/volume] in Serum or Plasma 78 mg/dL <1 00 normal LDL Cholesterol KATY ([facility]) cholesterol level 159 mg/dL <200 normal Cholesterol Level KATY ([facility]) cholesterol risk ratio <5 normal Cholesterol R isk Ratio KATY ([facility]) non-HDL-C 89 mg/dL normal Non-hdl-c KATY ([facility]) ID Date Data Source [id number] 01/12/2020 08:00:00 AM EST FERNANDA ([facility]) Name Value Range Interpretation Code Description Data Sammie rce(s) Supporting Document(s) glucose, fasting 94 mg/dL 70-100 normal Glucose, Fasting AT [facility] ([facility]) creatinine for GFR 0.88 mg/dL 0.55-1.30 normal Creatinine for GF R KATY ([facility]) blood urea nitrogen 15 mg/dL 7-18 normal Blood Urea Nitro gen FERNANDA ([facility]) sodium level 141 mEq/L 136-145 normal Sodium Level FERNANDA ([facility]) glomerular filtration rate > 60.0 >45 normal Glomerula r Filtration Rate FERNANDA ([facility]) chloride level 104 mEq/L 98-107 normal Chloride Level FERNANDA ([facility]) potassium serum 4.3 mEq/L 3.5-5.1 normal Potassium Serum ATHE NA ([facility]) ALT/SGPT 32 U/L 12-78 normal ALT/SGPT FERNANDA ([facility]) calcium level 9.4 mg/dL 8.8-10.2 normal Calcium Level FERNANDA ( [facility]) carbon dioxide level 31 mEq/L 21-32 normal Carbon Dioxide Level FERNANDA ([facility]) AST/SGOT 22 U/L 7-37 normal AST/SGOT FERNANDA ([facility]) anion gap 6 mEq/L 8-16 Below low normal Anion Gap FERNANDA ( [facility]) bilirubin,total 0.4 mg/dL 0.2-1.0 normal Bilirubin,total ATHE ([facility]) alkaline phosphatase 95 U/L 45-117 normal Alkaline Phosph atase FERNANDA ([facility]) albumin 4.1 gm/dL 3.2-5.2 normal Albumin FERNANDA ([facility]) total protein 7.3 gm/dL 6.4-8.2 normal Total Protein FERNANDA ( [facility]) albumin/globulin ratio 1.2-2.2 normal Albumin/globu mary Ratio FERNANDA ([facility]) ID Date Data Source [id number] 01/12/2020 08:00:00 AM EST FERNANDA ([facility]) Name Value Range Interpretation Code Description Data Sammie rce(s) Supporting Document(s) white blood count 4.9 10 4.0-10.0 normal White Blood Count FERNANDA ([facility]) hemoglobin 12.8 g/dL 12.0-15.5 normal Hemoglobin FERNANDA ([facility]) hematocrit 41.5 % 36.0-47.0 normal Hematocrit FERNANDA ([facility]) red blood count 4.38 10 4.00-5.40 normal Red Blood Count ATHE NA ([facility]) mean corpuscular volume 94.7 fL 80.0-96.0 normal Mean Corpusc ular Volume FERNANDA ([facility]) mean corpuscular HGB conc 30.8 g/dL 32.0-36.5 Below low pete l Mean Corpuscular HGB Conc FERNANDA ([facility]) mean corpuscular hemoglobin 29.2 pg 27.0-33.0 normal Mean Corpuscular Hemoglobin FERNANDA ([facility]) neutrophils % 62.9 % 36.0-66.0 normal Neutrophils % FERNANDA ( [facility]) red cell distribution width 12.4 % 11.5-14.5 normal Red Cell Distribution Width FERNANDA ([facility]) platelet count, automated 252 10 150-450 normal Platelet C ount, Automated FERNANDA ([facility]) lymph % 25.9 % 24.0-44.0 normal Lymph % FERNANDA ([facility]) eos % 1.4 % 0.0-3.0 normal Eos % FERNANDA ([facility]) mono % 8.6 % 0.0-5.0 Above high normal [place] % FERNANDA ([facility]) baso % 0.8 % 0.0-1.0 normal Baso % FERNANDA ([facility]) neutrophils # 3.1 10 1.5-8.5 normal Neutrophils # [facility]ERNA[facility]DA ( [facility] [facility] immature granulocyte % 0.4 % 0-3.0 normal Immature Gran ulocyte % [place] ([facility]) lymph # 1.3 10 1.5-5.0 Below low normal Lymph # [place] ( [facility]) nucleated red blood cell % 0.0 % 0-0 normal Nucleated Red Blood Cell % [place] ([facility]) mono # 0.4 10 0.0-0.8 normal [place] # [place] ([facility]) eos # 0.1 10 0.0-0.5 normal Eos # [place] ([facility]) baso # 0.0 10 0.0-0.2 normal Baso # [place] ([facility]) ID Date Data Source [id number] 11/05/2019 08:50:13 AM EDT [facility] Name Value Range Interpretation Code Description Data Sammie rce(s) Supporting Document(s) HGBA1C 5.2 % [facility] ID Date Data Source [id number] 10/21/2019 10:44:45 AM EDT [facility] Measurements & CalculationsHeight: 60 inches (5 [...] during this visit, including review of any zjwt-frh-aavwrwr medications, herbal therapies, and/or supplements.Allergy ReviewAllergy List was reviewed and/or updated during this visit. Patient has no known allergies.Adult Preventive CareProvider Calculated and Reviewed all Clinical Protocols for patient today. Labs/Meds/Other Counseling-Nutrition and Physical Activity:BMI Interpretation: Overweight (10/21/2019) Counseling: Done (10/21/2019) Physical Activity: Done (10/21/2019)Cancer Screening Mammogram Reviewed: Previous Comments: Pt states she got one done at [facility] 2019 (07/23/2019)Today's Comments: Done at [facility] 2018Pap Smear/HPV TestingReviewed: Previous Comments: says not [...] explanation of examination or test findings (ICD-V65.8) (HJP06-D05.2) Assessment: Instructions: We have reviewed your lab results with you today.Please continue medications as prescribed. Please continue healthy diet and physical activities. Please try to maintain adequate intake of water daily.Anemia (ICD-285.9) (KLH64-N57.9) Assessment: Instructions: Iron levels improving appropriately. Please continue medications as prescribed. Please try to maintain good nutrition and adequate hydration.HYPERTENSION (ICD- 401.9) (KUH88-S61) Assessment: Instructions: Your Blood pressure is at goal today. Shaun continue medications as prescribed. Please continue lifestyle changes to include healthy diet and physical activities. Please try to avoid added sodium in your diet.Assessment not Saved Anemia (RLA17-S12.9): Patient Instructions/Care Plan: Person consulting for explanation [...] Known Allergies (updated 10/21/2019) Orders:COMP METABOLIC PANEL [CPT-12895] CBC W/DIFF [CPT-16476] HgBA1c [CPT-87115] LIPID PANEL [CPT-49754] Adult - Ofc Vst, EST, Level IV [CPT-51259] Follow-Up Return to clinic: 3 months for follow up Clinical Visit Summary Completed Name Value Range Interpretation Code Description Data Sammie rce(s) Supporting Document(s) ID Date Data Source [id number] 10/14/2019 09:15:12 AM EDT [facility] Labs In-House Urine TestsDate/Time Colle cted: October 14, 2019 9:00 AMTest Result Reference Range Normal ValueLucille Bailey, October 14, 2019 9:15 AMBlood TestsDate/Time Collected: October 14, 2019 9:00 AMTest Result Reference Range Normal ValueComments: taken from right ac, tolerated well.Lucille Bailey, October 14, 2019 9:15 AMAssessment & Plan Orders:[id number] Vst-Est Level I [CPT-94515] 89511 - Venipuncture [CPT- 22010] Name Value Range Interpretation Code Description Data Sammie rce(s) Supporting Document(s) ID Date Data Source [id number] 10/14/2019 08:05:00 AM EDT [facility] Name Value Range Interpretation Code Description Data Sammie rce(s) Supporting Document(s) HGBA1C 5.2 % N [facility] ID Date Data Source [id number] 10/14/2019 08:05:00 AM EDT [facility] Name Value Range Interpretation Code Description Data Sammie rce(s) Supporting Document(s) BG FASTING TNP MG/DL mg/dL 70-100 N [facility] ID Date Data Source [id number] 10/14/2019 08:05:00 AM EDT [facility] Name Value Range Interpretation Code Description Data Sammie rce(s) Supporting Document(s) HCT 40.1 % 36.0-47.0 N [facility] HGB 12.9 g/dL 12.0-15.5 N [facility] MCH 32.2 G/DL pg 32.0-36.5 N [facility] MCHC 30.2 PG % 27.0-33.0 N [facility] PLATELETS 237 10 10*3/mm3 150-450 N [facility] RBC 4.27 10 10*6/mm3 4.00-5.40 [facility] RDW 12.3 % 11.5-14.5 N [facility] WBC TOTAL 5.0 4.0-10.0 N [facility] ID Date Data Source [id number] 07/23/2019 10:24:24 AM EDT [facility] Measurements & CalculationsHeight: 60 inches (5 [...] or Preferred Language: EnglishFamily and Home Address: [address] [place] [address] What is your housing situation today? I have housing Are you worried about losing your housing? NoMoney and Resources What is the highest level of school that you have finished? associate's degree Employed? No Are you seeking work? No [facility] past year, have you or any family members you live with been unable to get any of the following when it was really needed? Denies Insecurity: food, utilities, clothing, child support case officer, phone, legal services, otherWithin the past year [...] 2 nights in a row in a penitentiary, senior care, [place] [facility] [place] center or juvenile correctional facility? No Has [...] you a refugee? No (Country of origin: [facility]) Do you feel physically and emotionally [...] for about one month. 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 Pt stattes Therapy is going well. HPI performed by: Valery BRENNAN, July 23, 2019 12:08 PMTransitions of Care InboundProblem ReviewProblem List was reviewed and/or updated during this visit.Medication Reconciliation & ReviewMedication List was reviewed and/or updated during this visit, including review of any vsqu-bjv-mydtglt medications, herbal therapies, and/or supplements.Allergy ReviewAllergy List was reviewed and/or updated during this visit.Adult Preventive CareProvider Calculated and Reviewed all Clinical Protocols for patient today. Labs/Meds/Other Counseling-Nutrition and Physical Activity:BMI Interpretation: Overweight (07/23/2019) Counseling: Done (07/23/2019) Physical Activity: Done (07/23/2019)Cancer Screening Mammogram Reviewed: Previous Comments: Pt states she had one done 10/2018 @ [facility] (03/26/2019)Today's Comments: Pt states she got one done at [facility] 2019Review of Systems General: Denies loss of [...] explanation of examination or test findings (ICD-V65.8) (WLO99-N90.2) Assessment: Instructions: We have reviewed your lab results with you today.Encounter for general adult medical examination with abnormal findings (ICD-V70.0) (OTH38-G79.01) Assessment: Instructions: You have had your annual physical exam done today. Please continue medications as prescribed. Please continue healthy diet and physical activities. Please try to maintain adequate intake of water daily. Shingles vaccines are available at your local pharmacy. Please make an appointment to have one done.Assessed:Prediabetes (QYH26-B09.03) Assessment: Instructions: Your blood glucose is within normal range.Hyperlipidemia (ICD- 272.4) (TJB47-S59.5) Assessment: Instructions: Please continue medication as prescribed. Please continue lifestyle changes to nclude healthy diet and physical activities. Please try to avoid processed foods.Anemia (ICD-285.9) (DXU30-N47.9) Assessment: Instructions: Please continue medications as prescribed. Please try to maintain good nutrition and adequate hydration.Health Screening (ICD-V70.0) (FLM61-J10.9) Assessment: Instructions: Fasting labs ordered today.Patient Instructions/Care [...] Known Allergies (updated 07/23/2017) Orders:COMP METABOLIC PANEL [CPT-21725] CBC W/DIFF [CPT-54743] LIPID PANEL [CPT-05824] URINALYSIS [CPT-58973] IRON [CPT-86590] VITAMIN B-12 [CPT-60593] FERRITIN [CPT-65620] Folate (Folic Acid Serum) [CPT-40437] HgBA1c [CPT-74787] Adult - Ofc Vst, EST, Level IV [CPT-37101] Follow-Up Return to clinic: 3 months for follow up Clinical Visit Summary CompletedVaccines Administered/Entered:Vaccination Group: InfluenzaHistorical Source: Historical information - from patientSeries: 1 NOT GIVENVaccination: Flucelvax Quadrivalent PF (4y+) AdultReason Not Given: Patient decisionEntered Date: 07/23/2019 12:00 AMComments: Pt recieved at pharmacyEntered by: Emmanuel Mayer MA Name Value Range Interpretation Code Description Data Sammie rce(s) Supporting Document(s) ID Date Data Source [id number] 07/16/2019 08:01:41 AM EDT [facility] Labs In-House Blood TestsDate/Time Colle cted: July 16, 2019 8:02 AMTest Result Reference Range Normal ValueComments: blood draw done in offcie done in the right ac tolerated well John Trejo MA, July 16, 2019 8:02 AMAssessment & Plan Orders:[id number] Vst-Est Level I [CPT-35394] 92083 - Venipuncture [CPT-33243] Name Value Range Interpretation Code Description Data Sammie rce(s) Supporting Document(s) ID Date Data Source [id number] 07/16/2019 08:00:00 AM EDT [facility] Name Value Range Interpretation Code Description Data Sammie rce(s) Supporting Document(s) HGBA1C 5.5 % N [facility] ID Date Data Source [id number] 07/16/2019 08:00:00 AM EDT [facility] Name Value Range Interpretation Code Description Data Sammie rce(s) Supporting Document(s) HCT 41.0 % 36.0-47.[address] [facility] HGB 13.3 g/dL 12.0-15.[address] [facility] MCH 32.4 G/DL pg 32.0-36.5 N [facility] MCHC 30.4 PG % 27.0-33.[address] [facility] PLATELETS 250 10 10*3/mm3 150-[address] [facility] RBC 4.38 10 10*6/mm3 4.00-5.40 N [facility] RDW 11.9 % 11.5-14.5 N [facility] WBC TOTAL 4.5 4.0-10.0 N [facility] ID Date Data Source [id number] 07/16/2019 08:00:00 AM EDT [facility] Name Value Range Interpretation Code Description Data Sammie rce(s) Supporting Document(s) BG FASTING 95 mg/dL 70-[address] [facility] ID Date Data Source [id number] 03/26/2019 10:30:[address] [facility] Measurements & CalculationsHeight: 60 [...] during this visit, including review of any xizz-bun-vmhjhyg medications, herbal therapies, and/or supplements.Allergy ReviewAllergy List [...] states [facility] General: Denies loss of appetite, [...] health is? FairAssessment & Plan Problems:Assessed:HYPERTENSION (ICD-401.9) (YKX41-S15) Assessment: Instructions: Your Blood pressure is at goal today. [place] continue medications as prescribed. Please continue lifestyle changes to include healthy diet and physical activities. Please try to avoid added sodium in your diet.Health Screening (ICD-V70.0) (PRR95-W35.9) Assessment: Instructions: We have ordered fasting labs for you today.DEPRESSION (ICD-311) (TDU51-O55.9) Assessment: Instructions: We have made a referral for you today. We will contact you to set this up.Please continue medications as prescribed. Please continue to monitor and avoid triggers causing increased depression.Anemia (ICD- 285.9) (NWX68-L12.9) Assessment: Instructions: Please continue medications as prescribed. Please try to maintain good nutrition and adequate hydration.Hyperlipidemia (ICD-272.4) (OOX88-X54.5) Assessment: Instructions: Please continue medication as prescribed. Please continue lifestyle changes to nclude healthy diet and physical activities. Please try to avoid processed foods.Patient Instructions/Care Plan: HYPERTENSION: Your Blood pressure is at goal today. [place] continue medications as prescribed. Please continue lifestyle [...] 0, * WELLBUTRIN SR 300 MG ORAL [id number] (BUPROPION HCL)-1 pill po dailyAllergies:No Known Allergies (updated 07/23/2017) Orders:COMP METABOLIC PANEL [CPT-94098] CBC W/DIFF [CPT-38009] HgBA1c [CPT-79278] LIPID PANEL [CPT- 88537] VITAMIN B-12 [CPT-69863] FERRITIN [CPT-60911] Folate (Folic Acid Serum) [CPT-50937] IRON [CPT-47648] TIBC [CPT-18457] Mental Health Consult [CPT-15329] Adult - Ofc Vst, EST, Level IV [CPT-40197] Follow-Up Return to clinic: 3-4 months for follow up Clinical Visit Summary Completed Name Value Range Interpretation Code Description Data Sammie rce(s) Supporting Document(s) Procedure Vital Signs ID Date Data Source UNK Name Value Range Interpretation Code Description Data Source(s) Body weight 2178 [oz_av] 2178 [oz_av] [place] ([facility]) Systolic blood pressure 107 mm[Hg] 107 mm[Hg] A [facility] ([facility]) Body mass index (BMI) [Ratio] 26.6 kg/m2 26.6 k g/m2 [place] ([facility]) Body height 60 [in_i] 60 [in_i] [place] ([facility]) Diastolic blood pressure 73 mm[Hg] 73 mm[Hg] [place] ([facility]) Body weight 2114.08 [oz_av] 2114.08 [oz_av] ATH [facility] ([facility]) Systolic blood pressure 106 mm[Hg] 106 mm[Hg] A [facility] ([facility]) Body height 60 [in_i] 60 [in_i] [place] ([facility]) Diastolic blood pressure 56 mm[Hg] 56 mm[Hg] [place] ([facility]) Body weight 2099.04 [oz_av] 2099.04 [oz_av] ATH [facility] ([facility]) Systolic blood pressure 114 mm[Hg] 114 mm[Hg] A [facility] ([facility]) Body height 60 [in_i] 60 [in_i] [place] ([facility]) Diastolic blood pressure 65 mm[Hg] 65 mm[Hg] [place] ([facility]) Body weight 2051 [oz_av] 205 [oz_av] [place] ([facility]) Systolic blood pressure 122 mm[Hg] 122 mm[Hg] A [place] ([facility]) Body height 60 [in_i] 60 [in_i] [place] ([facility]) Diastolic blood pressure 77 mm[Hg] 77 mm[Hg] [place] ([facility]) Patient Treatment Plan of Care Planned Activity Planned Date Details Description Data Source (s) Amoxicillin 500 MG Oral Tablet [place] ([facility])
[2020-03-25 12:37] LABS: CK-MB VALUE MASS < 1.0 NG/ML (<3.6); CPK CREATINE PHOSPHOKINASE 56 U/L (26-192); MB/CK RELATIVE INDEX 1.79 (< OR =4); TROPONIN I < 0.02 NG/ML (< 0.10)
--- NOTE | 2020-03-25 14:18 | ECGEPIP ---
[facility] - ED Test Date: 2020-03-25 Pat Name: ELÍAS CARRASCO Department: Room: - Gender: Female [employer] Operator: : 1960 Requested By: SAMUEL MURPHY Order Number: [id number] Reading MD: Arturo Jimenez Measurements Intervals [place] Rate: 61 P: -5 FL: 161 QRS: 74 QRSD: 126 T: 3 QT: 425 QTc: 429 Interpretive Statements SINUS RHYTHM RIGHT BUNDLE BRANCH BLOCK Similar to tracing done 08-12-18 Electronically Signed on 03-25-2020 14:17:36 EST by Arturo Jimenez
[2020-03-25 14:26] LABS: RSV AMPLIFICATION NEGATIVE (NEGATIVE)
[2020-03-25] MEDS ORDERED: PROBCAP14 PO (14:43)
[2020-03-25] MEDS ORDERED: D31000TA2 PO (14:43)
[2020-03-25] MEDS ORDERED: ATOR40TA75 PO (14:43)
[2020-03-25] MEDS ORDERED: TRAZ1TAB14 PO (14:43)
[2020-03-25] MEDS ORDERED: ACETAMINOPHEN TAB 650MG DOSE (2X325MG) PO PRN (15:00)
[2020-03-25] MEDS ORDERED: ASPIRIN 81 MG CHEW TABLET PO ONE (15:00)
--- NOTE | 2020-03-25 15:03 | HPEPDOC ---
General Date of Admission 03/25/20 Date of Service: Mar 25, 2020 Chief Complaint The patient is a 60-year-old female admitted with a reason for visit of Head And Neck Pain. Source: Patient Exam Limitations: No limitations, Clinical conditions Timing/Duration: 4-6 hours Severity: Moderate History of Present Illness Patient is 60 years old female with past history of hypertension, previous TIA, hyperlipidemia, fibromyalgia presented hospital with right-sided weakness. Patient stated that she woke up around 9 AM with right-sided weakness of her leg and arm, when she started to walk she noticed problems with balance. On arrival to ER patient was found to have a right mouth droop. CT head was done and was negative. EKG showed normal sinus rhythm. When I saw patient she stated that all her symptoms resolved except right facial droop. Home Medications Scheduled Amlodipine Besylate (Amlodipine Besylate) 5 Mg Tab, 5 MG PO DAILY, (Reported) Aspirin (Aspirin EC) 81 Mg Tab, 81 MG PO QHS, (Reported) Atorvastatin Calcium (Atorvastatin Calcium) 40 Mg Tablet, 40 MG PO QHS, (Reported) Cholecalciferol (Vitamin D3) (Vitamin D3) 1,000 Unit Tablet, 2,000 UNITS PO DAILY, (Reported) Clopidogrel Bisulfate (Clopidogrel) 75 Mg Tab, 75 MG PO QHS, (Reported) Duloxetine Hcl (Duloxetine HCl) 30 Mg Capsule.dr, 30 MG PO DAILY, (Reported) Ferrous Sulfate (Ferrous Sulfate) 325 Mg Tab, 325 MG PO DAILY, (Reported) Lactobacillus Acidophilus (Probiotic) 1 Each Capsule, 1 CAP PO BID, (Reported) Lisinopril (Lisinopril) 40 Mg Tab, 40 MG PO QHS, (Reported) Multivitamins (Thera M Plus Tablet) 1 Tab Tab, 1 TAB PO BID, (Reported) Naproxen Sodium (Naproxen Sodium) 220 Mg Tab, 220 MG PO BID, (Reported) Trazodone HCl (Trazodone HCl) 150 Mg Tablet, 150 MG PO QHS, (Reported) Allergies Coded Allergies: No Known Allergies (Unverified , 12/11/14) Past Medical History Medical History 1. Transient ischemic attack (TIA). 2. History of carotid artery disease, status post carotid endarterectomy on the left. 3. Hypertension. 4. Anxiety and depression. 5. Gastroesophageal reflux disease (GERD). 6. Multilevel degenerative disc disease in the cervical region. 7. Fibromyalgia. 8. Osteoarthritis. Surgical History Left carotid endarterectomy, Skin graft Family History Both parents had stroke Social History * Smoker: Denies Alcohol: Denies Drugs: denies A-FIB/CHADSVASC A-FIB History Current/History of A-Fib/PAF?: No Current PO Anticoag Therapy: No Review of Systems Constitutional: Denies: Chills, Fever Eyes: Denies: Pain, Vision change ENT: Denies: Head Aches Skin: Denies: Rash, Lesions Pulmonary: Denies: Dyspnea, Cough Cardiovascular: Denies: Chest Pain Gastrointestinal: Denies: Nausea, Vomiting Genitourinary: Denies: Dysuria, Frequency Hematologic: Denies: Bruising Endocrine: Denies: Polydipsia Musculoskeletal: Denies: Neck Pain Neurological: Reports: Weakness, Incoordination Psych: Reports: Mood Normal Physical Examination General Exam: Positive: Alert, Cooperative Eye Exam: Positive: PERRLA ENT Exam: Positive: Atraumatic Neck Exam: Positive: Supple; Negative: JVD Chest Exam: Positive: Clear to auscultation Heart Exam: Positive: Rate Normal Telemetry: Positive: No significant arrhythmia Abdomen Exam: Positive: Normal bowel sounds Extremity Exam: Negative: Clubbing, Cyanosis Skin Exam: Positive: Nl turgor and temperature Neuro Exam: Negative: Cranial Nerves 3-12 NL (right facial droop) Psych Exam: Positive: Oriented x 3 Vital Signs Vital Signs Date Time Temp Pulse Resp B/P (MAP) Pulse Ox O2 Delivery O2 Flow Rate FiO2 03/25/20 11:37 03/25/20 11:22 97.0 77 20 98 Room Air Laboratory Data Labs 24H Laboratory Tests 2 03/25/20 11:53: Immature Granulocyte % (Auto) 0.4, Neutrophils (%) (Auto) 65.3, Lymphocytes (%) (Auto) 23.8L, Monocytes (%) (Auto) 7.5H, Eosinophils (%) (Auto) 2.0, Basophils (%) (Auto) 1.0, Neutrophils # (Auto) 3.3, Lymphocytes # (Auto) 1.2L, Monocytes # (Auto) 0.4, Eosinophils # (Auto) 0.1, Basophils # (Auto) 0.1, Nucleated Red Blood Cells % (auto) 0.0, Activated Partial Thromboplast Time 28.5, Total Creatine Kinase 56, Creatine Kinase MB < 1.0, Creatine Kinase MB Relative Index 1.79, Troponin I < 0.02 03/25/20 11:54: POC Glucose (Misc Panel) 98, POC Sodium (Misc Panel) 143, POC Potassium (Misc P chey) 3.9, POC Chloride (Misc Panel) 105, POC Total CO2 (Misc Panel) 31.0H, POC Blood Urea Nitrogen (Misc Panel 17, POC Ionized Calcium (Misc Panel) 4.9, POC Creatinine (Misc Panel) 0.8, POC Hematocrit (Misc Panel) 39.0 03/25/20 11:57: POC Prothrombin Time (Misc) 12.3, POC INR (Misc) 1.0 03/25/20 11:59: Bedside Glucose (Misc Panel) 96 03/25/20 13:25: Coronavirus (COVID-19)(PCR) NEGATIVE, Influenza Type A (RT-PCR) NEGATIVE, Influenza Type B (RT-PCR) NEGATIVE, Respiratory Syncytial Virus (PCR) NEGATIVE CBC/BMP Laboratory Tests 03/25/20 11:53 Assessment/Plan Patient is 60 years old female with past history of hypertension, previous TIA, hyperlipidemia, fibromyalgia presented hospital with right-sided weakness. Patient stated that she woke up around 9 AM with right-sided weakness of her leg and arm, when she started to walk she noticed problems with balance. On arrival to ER patient was found to have a right mouth droop. CT head was done and was negative. EKG showed normal sinus rhythm. When I saw patient she stated that all her symptoms resolved except right facial droop. Problems (1) TIA (transient ischemic attack) Status: Acute Problem Text: CT head negative Patient had multiple risk factors for stroke including previous TIA, hyperlipidemia, hypertension MRI, MRA, echo, carotid ultrasound Continue Plavix, aspirin (2) Hyperlipidemia Status: Chronic Problem Text: Continue statins (3) Hypertension Status: Chronic Problem Text: Blood pressures under control Continue home cardioprotective medications (4) Fibromyalgia Status: Chronic Problem Text: Continue duloxetine Plan / VTE VTE Prophylaxis Ordered?: Yes JESUSITA URIARTE DO Mar 25, 2020 15:03
--- OUTSIDE RECORDS SUMMARY | 2020-03-25 15:15 | CCD ---
Author Author [facility] Organization [facility] Address Unknown Phone Unavailable Care Team Providers Care Warp Hauler Name Role Phone Dalia MccabeP Unavailable Unavailable Dalia MccabeP Unavailable Unavailable Eliot, A Valery URGENT CARE PHYSICIAN ASSISTANT Unavailable Unavailable Eliot, A Valery URGENT CARE PHYSICIAN ASSISTANT Unavailable Unavailable Fieldale, A Valery URGENT CARE PHYSICIAN ASSISTANT Unavailable Unavailable [place], A Valery URGENT CARE PHYSICIAN ASSISTANT Unavailable Unavailable [place], A Valery URGENT CARE PHYSICIAN ASSISTANT Unavailable Unavailable [place], A Valery URGENT CARE PHYSICIAN ASSISTANT Unavailable Unavailable [place], A Valery URGENT CARE PHYSICIAN ASSISTANT Unavailable Unavailable [place], A Valery URGENT CARE PHYSICIAN ASSISTANT Unavailable Unavailable [place], A Valery URGENT CARE PHYSICIAN ASSISTANT Unavailable Unavailable [place], A Valery URGENT CARE PHYSICIAN ASSISTANT Unavailable Unavailable [place], A Valery URGENT CARE PHYSICIAN ASSISTANT Unavailable Unavailable [place], A Valery URGENT CARE PHYSICIAN ASSISTANT Unavailable Unavailable [place], A Valery URGENT CARE PHYSICIAN ASSISTANT Unavailable Unavailable [place], A Valery URGENT CARE PHYSICIAN ASSISTANT Unavailable Unavailable [place], A Valery URGENT CARE PHYSICIAN ASSISTANT Unavailable Unavailable [place], A Valery URGENT CARE PHYSICIAN ASSISTANT Unavailable Unavailable [place], A Valery URGENT CARE PHYSICIAN ASSISTANT Unavailable Unavailable [place], A Valery URGENT CARE PHYSICIAN ASSISTANT Unavailable Unavailable [place], A Valery URGENT CARE PHYSICIAN ASSISTANT Unavailable Unavailable [place], A Valery URGENT CARE PHYSICIAN ASSISTANT Unavailable Unavailable [place], A Valery URGENT CARE PHYSICIAN ASSISTANT Unavailable Unavailable [place], A Valery URGENT CARE PHYSICIAN ASSISTANT Unavailable Unavailable [place], A Valery URGENT CARE PHYSICIAN ASSISTANT Unavailable Unavailable [place], A Valery URGENT CARE PHYSICIAN ASSISTANT Unavailable Unavailable [place], A Valery URGENT CARE PHYSICIAN ASSISTANT Unavailable Unavailable [place], A Valery URGENT CARE PHYSICIAN ASSISTANT Unavailable Unavailable [place], A Valery URGENT CARE PHYSICIAN ASSISTANT Unavailable Unavailable [place], A Valery URGENT CARE PHYSICIAN ASSISTANT Unavailable Unavailable [place], A Valery URGENT CARE PHYSICIAN ASSISTANT Unavailable Unavailable [place], A Valery URGENT CARE PHYSICIAN ASSISTANT Unavailable Unavailable [place], A Valery URGENT CARE PHYSICIAN ASSISTANT Unavailable Unavailable [place], A Valery URGENT CARE PHYSICIAN ASSISTANT Unavailable Unavailable [place], A Valery URGENT CARE PHYSICIAN ASSISTANT Unavailable Unavailable [place], A Valery URGENT CARE PHYSICIAN ASSISTANT Unavailable Unavailable [place], A Valery URGENT CARE PHYSICIAN ASSISTANT Unavailable Unavailable [place], A Valery URGENT CARE PHYSICIAN ASSISTANT Unavailable Unavailable [place], A Valery URGENT CARE PHYSICIAN ASSISTANT Unavailable Unavailable [place], A Valery URGENT CARE PHYSICIAN ASSISTANT Unavailable Unavailable [place], A Valery URGENT CARE PHYSICIAN ASSISTANT Unavailable Unavailable [place], A Valery URGENT CARE PHYSICIAN ASSISTANT Unavailable Unavailable [place], A Valery URGENT CARE PHYSICIAN ASSISTANT Unavailable Unavailable [place], A Valery URGENT CARE PHYSICIAN ASSISTANT Unavailable Unavailable [place], A Valery URGENT CARE PHYSICIAN ASSISTANT Unavailable Unavailable [place], A Valery URGENT CARE PHYSICIAN ASSISTANT Unavailable Unavailable [place], A Valery URGENT CARE PHYSICIAN ASSISTANT Unavailable Unavailable [place], A Valery URGENT CARE PHYSICIAN ASSISTANT Unavailable Unavailable [place], A Valery URGENT CARE PHYSICIAN ASSISTANT Unavailable Unavailable [place], A Valery URGENT CARE PHYSICIAN ASSISTANT Unavailable Unavailable [place], A Valery URGENT CARE PHYSICIAN ASSISTANT Unavailable Unavailable [place], A Valery URGENT CARE PHYSICIAN ASSISTANT Unavailable Unavailable [place], A Valery URGENT CARE PHYSICIAN ASSISTANT Unavailable Unavailable Eliot, A Valery URGENT CARE PHYSICIAN ASSISTANT Unavailable Unavailable Johnson, C Aby PA Unavailable [...] C Aby PA Unavailable Unavailable Johnson, C Ayb PA Unavailable Unavailable Johnson, C Aby PA [...] C Aby PA Unavailable Unavailable Eliot, Valery URGENT CARE PHYSICIAN ASSISTANT URGENT CARE PHYSICIAN ASSISTANT Unavailable Unavailable Re-disclosure Warning The records that [...] is protected by Article 27-F of the [facility] Public Health law. If you continue you may have access to information: Regarding HIV / AIDS; Provided by facilities licensed or operated by the [facility] Office of Mental Health; or Provided by the [facility] Office for People With Developmental Disabilities. If such information is present, then the following [facility] mandated warning applies: This information has [...] law may result in a fine or fpc sentence or both. A general authorization for the release of medical or other information is NOT sufficient authorization for further disc losure. Family History Family Member Name Family Member Gender Family Member Status Date o f Status Description Data Source(s) Unknown Unknown Problem MEDENT ([facility], ) Encounters Encounter Providers Location Date Indications Data Source(s ) ZACH Perry: [address] [place] [address], Ph. Attender: Valery BRENNAN [facility] Medical 01/19/2020 12:00:00 AM JOSEPHINE MICHAEL ([facility]) [facility] [address] [place] [address], Ph. Attender: Valery BRENNAN [facility] Medical 01/12/2020 12:00:00 AM EST FERNANDA ([facility]) Outpatient Attender: MIKA BRENNAN FP 12/20/2019 03:09:01 P M EDT [facility] Outpatient Attender: Valery BRENNAN FP 12/20/2019 03:0 9:00 PM EDT [facility] Outpatient Attender: Valery BRENNAN FP 12/12/2019 11:3 3:03 AM EDT [facility] Outpatient Attender: Valery BRENNAN FP 12/06/2019 12:4 5:03 PM EDT [facility] Outpatient Attender: Valery BRENNAN FP 11/28/2019 04:4 5:03 PM EDT [facility] Outpatient Attender: Valery BRENNAN FP 11/23/2019 02:2 0:01 PM EDT [facility] Outpatient Attender: MIKA BRENNAN FP 11/23/2019 02:20:00 P M EDT [facility] Outpatient Attender: MIKA BRENNAN FP 11/05/2019 08:01:03 P M EDT [facility] Outpatient Attender: MIKA BRENNAN FP 11/05/2019 10:17:01 A M EDT [facility] Outpatient Attender: MIKA BRENNAN FP 11/05/2019 09:04:01 A M EDT [facility] Outpatient Attender: Valery BRENNAN FP 11/05/2019 08:5 1:01 AM EDT [facility] Outpatient Attender: MIKA BRENNAN FP 11/05/2019 08:51:00 A M EDT [facility] Outpatient Attender: Valery BRENNAN FP 10/28/2019 10:5 9:03 AM EDT [facility] Outpatient Attender: MIKA BRENNAN FP 10/22/2019 08:01:06 P M EDT [facility] Outpatient Attender: MIKA BRENNAN FP 10/22/2019 09:56:00 A M EDT [facility] Outpatient Attender: MIKA BRENNAN FP 10/21/2019 11:53:01 A M EDT [facility] Outpatient Attender: Valery Mccabe URGENT CARE PHYSICIAN ASSISTANT FP 10/21/2019 11:3 7:01 AM EDT [facility] Outpatient Attender: MIKA Mccabe URGENT CARE PHYSICIAN ASSISTANT FP 10/21/2019 10:12:00 A M EDT [facility] Outpatient Attender: Valery Mccabe URGENT CARE PHYSICIAN ASSISTANT FP 10/15/2019 12:0 2:36 AM EDT [facility] Outpatient Attender: MIKA Mccabe URGENT CARE PHYSICIAN ASSISTANT FP 10/14/2019 08:44:01 A M EDT [facility] Outpatient Attender: MIKA Mccabe URGENT CARE PHYSICIAN ASSISTANT FP 10/09/2019 08:01:04 P M EDT [facility] Outpatient Attender: MIKA Mccabe URGENT CARE PHYSICIAN ASSISTANT FP 10/08/2019 08:01:02 P M EDT [facility] Outpatient Attender: MIKA Mccabe URGENT CARE PHYSICIAN ASSISTANT FP 09/18/2019 08:01:01 P M EDT [facility] Outpatient Attender: MIKA Mccabe URGENT CARE PHYSICIAN ASSISTANT FP 09/18/2019 02:54:00 P M EDT [facility] Outpatient Attender: MIKA Mccabe URGENT CARE PHYSICIAN ASSISTANT FP 09/03/2019 08:01:01 P M EDT [facility] Outpatient Attender: MIKA Mccabe URGENT CARE PHYSICIAN ASSISTANT FP 09/03/2019 09:08:00 A M EDT [facility] Outpatient Attender: MIKA Mccabe URGENT CARE PHYSICIAN ASSISTANT FP 09/02/2019 02:54:00 P M EDT [facility] Outpatient Attender: Valery Mccabe URGENT CARE PHYSICIAN ASSISTANT FP 08/24/2019 04:4 1:00 PM EDT [facility] Outpatient Attender: MIKA Mccabe URGENT CARE PHYSICIAN ASSISTANT FP 08/20/2019 08:01:01 P M EDT [facility] Outpatient Attender: Valery TALLEYP FP 08/20/2019 09:4 5:40 AM EDT [facility] Outpatient Attender: MIKA TALLEYP FP 08/20/2019 09:14:06 A M EDT [facility] Outpatient Attender: MIKA TALLEYP FP 08/20/2019 08:19:57 A M EDT [facility] Outpatient Attender: Valery TALELYP FP 08/17/2019 09:1 6:01 PM EDT [facility] Outpatient Attender: Valery TALLEYP FP 07/28/2019 10:2 4:59 PM EDT [facility] Outpatient Attender: MIKA TALLEYP FP 07/24/2019 02:50:00 P M EDT [facility] Outpatient Attender: Valery TALLEYP FP 07/23/2019 12:3 4:01 PM EDT [facility] Outpatient Attender: Valery TALLEYP FP 07/23/2019 12:3 3:02 PM EDT [facility] Outpatient Attender: MIKA TALLEYP FP 07/23/2019 12:33:01 P M EDT [facility] Outpatient Attender: MIKA TALLEYP FP 07/23/2019 12:32:03 P M EDT [facility] Outpatient Attender: Valery TALLEYP FP 07/23/2019 12:3 2:01 PM EDT [facility] Outpatient Attender: MIKA Mccabe URGENT CARE PHYSICIAN ASSISTANT FP 07/23/2019 12:32:01 P M EDT [facility] Outpatient Attender: MIKA Mccabe URGENT CARE PHYSICIAN ASSISTANT FP 07/16/2019 08:01:01 P M EDT [facility] Outpatient Attender: MIKA Mccabe URGENT CARE PHYSICIAN ASSISTANT FP 07/16/2019 03:26:00 P M EDT [facility] Outpatient Attender: MIKA Mccabe URGENT CARE PHYSICIAN ASSISTANT FP 07/16/2019 07:55:01 A M EDT [facility]patient Attender: MIKA Mccabe URGENT CARE PHYSICIAN ASSISTANT FP 07/10/2019 08:26:00 A M EDT [facility] Outpatient Attender: MIKA Mccabe URGENT CARE PHYSICIAN ASSISTANT FP 06/17/2019 07:51:00 A M EDT [facility] Outpatient Referrer: Aby HERNANDEZ 06/11/2019 04:37:00 AM EDT [facility] Outpatient Attender: MIKA TALLEYP FP 06/04/2019 11:23:00 A M EDT [facility] Outpatient Attender: MIKA TALLEYP FP 06/03/2019 03:16:01 P M EDT [facility] Outpatient Attender: MIKA TALLEYP FP 06/02/2019 02:25:00 P M EDT [facility] Outpatient Attender: MIKA TALLEYP FP 05/30/2019 10:19:01 A M EDT [facility] Outpatient Attender: Valery TALLEYP FP 05/18/2019 12:3 0:00 PM EDT [facility] Outpatient Attender: MIKA TALLEYP FP 05/14/2019 08:01:03 P M EDT [facility] Outpatient Attender: Valery TALLEYP FP 05/14/2019 12:0 0:05 PM EDT [facility] Outpatient Attender: MIKA TALLEYP FP 05/14/2019 10:52:01 A M EDT [facility] Outpatient Attender: Valery TALLEYP FP 05/14/2019 08:3 9:01 AM EDT [facility] Outpatient Attender: MIKA TALLEYP FP 04/24/2019 11:42:00 A M [facility] Outpatient Attender: Valery TALLEYP FP 04/23/2019 02:5 0:01 PM [facility] Outpatient Attender: MIKA Mccabe URGENT CARE PHYSICIAN ASSISTANT FP 04/18/2019 11:36:03 A M [facility] Outpatient Attender: Valery TALLEYP FP 04/18/2019 09:2 3:00 AM [facility] Outpatient Attender: MIKA Mccabe URGENT CARE PHYSICIAN ASSISTANT FP 04/15/2019 08:01:03 P M [facility] Outpatient Attender: MIKA TALLEYP FP 04/15/2019 09:22:02 A M [facility] Outpatient Attender: MIKA Mccabe URGENT CARE PHYSICIAN ASSISTANT FP 04/15/2019 07:46:00 A M [facility] Outpatient Attender: MIKA Mccabe URGENT CARE PHYSICIAN ASSISTANT FP 04/15/2019 07:44:00 A M [facility] Outpatient Attender: Valery TALLEYP FP 04/07/2019 03:4 1:02 PM [facility] Outpatient Attender: Valery TALLEYP FP 04/04/2019 08:1 6:01 AM [facility] Outpatient Attender: Valery TALLEYP FP 03/26/2019 08:0 1:07 PM [facility] Outpatient Attender: MIKA TALLEYP FP 03/26/2019 08:01:06 P M [facility] Outpatient Attender: MIKA TALLEYP FP 03/26/2019 12:38:00 P M [facility] Outpatient Attender: MIKA TALLEYP FP 03/26/2019 12:34:01 P [facility] Outpatient Attender: Valery BRENNAN FP 03/26/2019 11:1 5:03 AM [facility] Outpatient Attender: MIKA Eliot URGENT CARE PHYSICIAN ASSISTANT FP 03/26/2019 10:25:03 A M [facility] Outpatient Attender: MIKA Eliot URGENT CARE PHYSICIAN ASSISTANT FP 03/24/2019 12:26:00 P [facility] Outpatient Attender: MIKA TALLEYP FP 03/24/2019 10:44:01 A M [facility] Outpatient Attender: Valery BRENNAN FP 03/24/2019 10:4 2:59 AM [facility] Outpatient Attender: MIKA BRENNAN FP 03/24/2019 10:42:01 A [facility] Outpatient Attender: MIKA BRENNAN 03/16/2019 09:01:02 P [facility] Outpatient Attender: Valery BRENNAN 03/04/2019 07:5 8:01 AM [facility] Outpatient Attender: MIKA Mccabe URGENT CARE PHYSICIAN ASSISTANT FP 02/20/2019 01:01:00 P [facility] Outpatient Attender: Valery Eliot TALLEYP FP 02/16/2019 06:4 7:00 PM [facility] Medications Medication Brand Name Start Date Product Form Dose Route Admi nistrative Instructions Pharmacy Instructions Status Indications Reaction Description Data Source(s) Amoxicillin 500 MG Oral Tablet amoxicill in 500 mg tablet TK 4 TS PO 1 HOUR PRIOR TO PROCEDURE amoxicillin 500 mg tablet TK 4 TS PO 1 HOUR PRIOR TO PROCEDURE completed amoxicillin 500 MG Ora l Tablet FERNANDA ([facility]) Insurance Providers Payer name Policy type / Coverage type Policy ID Covered green party ID Covered green party's relationship to vargas Policy Vargas Plan Information [facility] [id number] SP [id number] [facility] P [id number] S [id number] [facility] [id number] S [id number] TAUTM [id number] SP [id number] [facility] P [id number] S [id number] [facility] P [id number] S [id number] [place] [address] P [id number] S [id number] [employer] S [id number] S [id number] GEICO INS NO FAULT [id number] SP [id number] GEICO INS NO FAULT [id number] SP [id number] Ge[employer] P [id number] S [id number] Cigna P [id number] S [id number] Cigna P [id number] S [id number] Cigna S [id number] S [id number] CIGNA HE[employer]CARE [id number] SP [id number] Cigna P [id number] S [id number] AETNA US HEALTHCARE [place] O [id number] P [id number] CIGNA/CONN GEN/MVP [id number] SP [id number] Cigna P [id number] S [id number] Cigna/Conn Gen/MVP Commercial [id number] Self [id number] Aetna PPO P [id number] S [id number] Cigna S UNAVAILABLE S UNAVAILA BLE AETNA US HEALTHCARE [place] [id number] Aetna PPO P [id number] S [id number] Self Pay O UNAVAILABLE S UNAVAILA BLE AETNA US HEALTHCARE TX [id number] HU2 [id number] Aetna Commercial Family Dependent AETNA US HEALTHCARE [place] O [id number] P [id number] AARP S [id number] S [id number] Excellus BCYO S [id number] M HPE [id number] [place] BC/BS Exclusive Ppo Medigap Part B Family D ependent Aetna Commercial Family Dependent Blue Cross [place] Shield [place] P [id number] S [id number] EXCELLUS BCBS P [id number] S [id number] EXCELLUS BCBS [id number] Spo [id number] Blue Cross [employer] [place] P [id number] S [id number] Blue Cross [employer] [place] P [id number] S [id number] [facility]LY [facility] [id number] HU2 [id number] EXCELLUS BCBS P [id number] S [id number] OTHER WORKERS COMPENSATI P [id number] S [id number] Blue Cross [employer] [place] P [id number] S [id number] Blue Cross [employer] [place] P [id number] S [id number] Blue Cross Blue [facility] P [id number] S [id number] MAYTE W/C CLAIMS CLM#[id number] SP CLM#[id number] MAYTE W/C CLAIMS CLM#[id number] SP CLM#[id number] OTHER WORKERS COMPENSATION [id number] SP [id number] FOR[facility]LY [facility] 040 [id number] Problems, Conditions, and Diagnoses Code Display Name Description Problem Type Effective Dates Data Source(s) 708787808 SNOMED CT Concept SNOMED CT Concept Problem 12/17 06:20:04 PM EDT COMFREY ([facility]) 167580353 Arthropathy Arthropathy Problem 12/18/2019 06:20:04 PM EDT [facility]) 14593403 Hypertensive disorder Hypertensive Disorder Problem 12/18/2019 06:20:04 PM EDT COMFREY ([facility]) 79473508 Mild recurrent major depression Mild Recurrent M ajor Depression Problem 10/08/2019 12:00:00 AM EDT COM[facility]REY ([facility]) 06587064 Severe recurrent major depression withou t psychotic features Severe Recurrent Major Depression without Psychotic Features Problem 08/20/2019 12:00:00 AM EDT [facility] ([facility]) V70.0 Encounter for general adult medical exam ination with abnormal findings Encounter for general adult medical examination with abnormal findings 07/23/2019 12:31:20 PM EDT [facility] V65.8 Person consulting for explanation of exa mination or test findings Person consulting for explanation of examination or test findings 07/23/2019 12:31:20 PM EDT [facility] [id number] Procedure by method Procedure by Method Problem 0 07/23/2019 12:00:00 AM EDT COMFREY ([facility]) [id number] Patient asked to attend Patient Asked to Attend Proble 07/23/2019 12:00:00 AM EDT FERNANDA ([facility]) Results ID Date Data Source [id number] 01/12/2020 08:00:00 AM EST FERNANDA ([facility]) Name Value Range Interpretation Code Description Data Sammie rce(s) Supporting Document(s) Hemoglobin A1c/Hemoglobin.total in Blood 5.3 % normal Hemoglobin a1C FERNANDA ([facility]) estimated average glucose 105 mg/dL 60-110 normal Estimated Average Glucose COMFREY ([facility]) ID Date Data Source [id number] 01/12/2020 08:00:00 AM EST FERNANDA ([facility]) Name Value Range Interpretation Code Description Data Sammie rce(s) Supporting Document(s) HDL cholesterol 70 mg/dL >40 normal HDL Cholesterol ATHE NA ([facility]) triglycerides level 55 mg/dL <150 normal Triglycerides Le tonya FERNANDA ([facility]) Cholesterol in LDL [Mass/volume] in Serum or Plasma 78 mg/dL <1 00 normal LDL Cholesterol COMFREY ([facility]) cholesterol level 159 mg/dL <200 normal Cholesterol Level COMFREY ([facility]) cholesterol risk ratio <5 normal Cholesterol R isk Ratio COMFREY ([facility]) non-HDL-C 89 mg/dL normal Non-hdl-c COMFREY ([facility]) ID Date Data Source [id number] 01/12/2020 08:00:00 AM EST FERNANDA ([facility]) Name Value Range Interpretation Code Description Data Sammie rce(s) Supporting Document(s) glucose, fasting 94 mg/dL 70-100 normal Glucose, Fasting AT [facility] ([facility]) creatinine for GFR 0.88 mg/dL 0.55-1.30 normal Creatinine for GF R COMFREY ([facility]) blood urea nitrogen 15 mg/dL 7-18 normal Blood Urea Nitro gen FERNANDA ([facility]) sodium level 141 mEq/L 136-145 normal Sodium Level FERNANDA (No [facility]) glomerular filtration rate > 60.0 >45 normal Glomerula r Filtration Rate FERNANDA ([facility]) chloride level 104 mEq/L 98-107 normal Chloride Level FERNANDA ([facility]) potassium serum 4.3 mEq/L 3.5-5.1 normal Potassium Serum ATHE NA ([facility]) ALT/SGPT 32 U/L 12-78 normal ALT/SGPT FERNANDA ([facility]) calcium level 9.4 mg/dL 8.8-10.2 normal Calcium Level FERNANDA ( [facility]) carbon dioxide level 31 mEq/L 21-32 normal Carbon Dioxide Level FERNANDA ([facility]) AST/SGOT 22 U/L 7-37 normal AST/SGOT FERNANDA ([facility]) anion gap 6 mEq/L 8-16 Below low normal Anion Gap FERNANDA ( [facility]) bilirubin,total 0.4 mg/dL 0.2-1.0 normal Bilirubin,total ATHE ([facility]) alkaline phosphatase 95 U/L 45-117 normal Alkaline Phosph atase FERNANDA ([facility]) albumin 4.1 gm/dL 3.2-5.2 normal Albumin FERNANDA ([facility]) total protein 7.3 gm/dL 6.4-8.2 normal Total Protein FERNANDA ( [facility]) albumin/globulin ratio 1.2-2.2 normal Albumin/globu mary Ratio FERNANDA ([facility]) ID Date Data Source [id number] 01/12/2020 08:00:00 AM EST FERNANDA ([facility]) Name Value Range Interpretation Code Description Data Sammie rce(s) Supporting Document(s) white blood count 4.9 10 4.0-10.0 normal White Blood Count FERNANDA ([facility]) hemoglobin 12.8 g/dL 12.0-15.5 normal Hemoglobin FERNANDA ([facility]) hematocrit 41.5 % 36.0-47.0 normal Hematocrit FERNANDA ([facility]) red blood count 4.38 10 4.00-5.40 normal Red Blood Count ATHE NA ([facility]) mean corpuscular volume 94.7 fL 80.0-96.0 normal Mean Corpusc ular Volume FERNANDA ([facility]) mean corpuscular HGB conc 30.8 g/dL 32.0-36.5 Below low pete l Mean Corpuscular HGB Conc FERNANDA ([facility]) mean corpuscular hemoglobin 29.2 pg 27.0-33.0 normal Mean Corpuscular Hemoglobin FERNANDA ([facility]) neutrophils % 62.9 % 36.0-66.0 normal Neutrophils % FERNANDA ( [facility]) red cell distribution width 12.4 % 11.5-14.5 normal Red Cell Distribution Width FERNANDA ([facility]) platelet count, automated 252 10 150-450 normal Platelet C ount, Automated FERNANDA ([facility]) lymph % 25.9 % 24.0-44.0 normal Lymph % FERNANDA ([facility]) eos % 1.4 % 0.0-3.0 normal Eos % FERNANDA ([facility]) mono % 8.6 % 0.0-5.0 Above high normal Green % FERNANDA ([facility]) baso % 0.8 % 0.0-1.0 normal Baso % FERNANDA ([facility]) neutrophils # 3.1 10 1.5-8.5 normal Neutrophils # FERNANDA ( [facility]) immature granulocyte % 0.4 % 0-3.0 normal Immature Gran ulocyte % [place] ([facility]) lymph # 1.3 10 1.5-5.0 Below low normal Lymph # [place] ( [facility]) nucleated red blood cell % 0.0 % 0-0 normal Nucleated Red Blood Cell % [place] ([facility]) mono # 0.4 10 0.0-0.8 normal Green # [place] ([facility]) eos # 0.1 10 0.0-0.5 normal Eos # [place] ([facility]) baso # 0.0 10 0.0-0.2 normal Baso # [place] ([facility]) ID Date Data Source [id number] 11/05/2019 08:50:13 AM EDT [facility] Name Value Range Interpretation Code Description Data Sammie rce(s) Supporting Document(s) HGBA1C 5.2 % [facility] ID Date Data Source [id number] 10/21/2019 10:44:45 AM EDT [facility] Measurements & CalculationsHeight: 60 inches (5 [...] during this visit, including review of any pprx-qpd-ptuwiiz medications, herbal therapies, and/or supplements.Allergy ReviewAllergy List was reviewed and/or updated during this visit. Patient has no known allergies.Adult Preventive CareProvider Calculated and Reviewed all Clinical Protocols for patient today. Labs/Meds/Other Counseling-Nutrition and Physical Activity:BMI Interpretation: Overweight (10/21/2019) Counseling: Done (10/21/2019) Physical Activity: Done (10/21/2019)Cancer Screening Mammogram Reviewed: Previous Comments: Pt states she got one done at [facility] 2019 (07/23/2019)Today's Comments: Done at [facility] 2018Pap Smear/HPV TestingReviewed: Previous Comments: says not [...] explanation of examination or test findings (ICD-V65.8) (PSW84-E54.2) Assessment: Instructions: We have reviewed your lab results with you today.Please continue medications as prescribed. Please continue healthy diet and physical activities. Please try to maintain adequate intake of water daily.Anemia (ICD-285.9) (ZZA73-W43.9) Assessment: Instructions: Iron levels improving appropriately. Please continue medications as prescribed. Please try to maintain good nutrition and adequate hydration.HYPERTENSION (ICD- 401.9) (QGW25-N45) Assessment: Instructions: Your Blood pressure is at goal today. Shaun continue medications as prescribed. Please continue lifestyle changes to include healthy diet and physical activities. Please try to avoid added sodium in your diet.Assessment not Saved Anemia (HSB38-R51.9): Patient Instructions/Care Plan: Person consulting for explanation [...] Known Allergies (updated 10/21/2019) Orders:COMP METABOLIC PANEL [CPT-08297] CBC W/DIFF [CPT-17281] HgBA1c [CPT-18279] LIPID PANEL [CPT-64445] Adult - Ofc Vst, EST, Level IV [CPT-37752] Follow-Up Return to clinic: 3 months for follow up Clinical Visit Summary Completed Name Value Range Interpretation Code Description Data Sammie rce(s) Supporting Document(s) ID Date Data Source [id number] 10/14/2019 09:15:12 AM EDT [facility] Labs In-House Urine TestsDate/Time Colle cted: October 14, 2019 9:00 AMTest Result Reference Range Normal ValueLucille Bailey, October 14, 2019 9:15 AMBlood TestsDate/Time Collected: October 14, 2019 9:00 AMTest Result Reference Range Normal ValueComments: taken from right ac, tolerated well.Lucille Bailey, October 14, 2019 9:15 AMAssessment & Plan Orders:[id number] Vst-Est Level I [CPT-77821] 80515 - Venipuncture [CPT- 72061] Name Value Range Interpretation Code Description Data Sammie rce(s) Supporting Document(s) ID Date Data Source [id number] 10/14/2019 08:05:00 AM EDT [facility] Name Value Range Interpretation Code Description Data Sammie rce(s) Supporting Document(s) HGBA1C 5.2 % N [facility] ID Date Data Source [id number] 10/14/2019 08:05:00 AM EDT [facility] Name Value Range Interpretation Code Description Data Sammie rce(s) Supporting Document(s) BG FASTING TNP MG/DL mg/dL 70-100 N [facility] ID Date Data Source [id number] 10/14/2019 08:05:00 AM EDT [facility] Name Value Range Interpretation Code Description Data Sammie rce(s) Supporting Document(s) HCT 40.1 % 36.0-47.0 N [facility] HGB 12.9 g/dL 12.0-15.5 N [facility] MCH 32.2 G/DL pg 32.0-36.5 N [facility] MCHC 30.2 PG % 27.0-33.0 N [facility] PLATELETS 237 10 10*3/mm3 150-450 N [facility] RBC 4.27 10 10*6/mm3 4.00-5.40 [facility] RDW 12.3 % 11.5-14.5 N [facility] WBC TOTAL 5.0 4.0-10.0 N [facility] ID Date Data Source [id number] 07/23/2019 10:24:24 AM EDT [facility] Measurements & CalculationsHeight: 60 inches (5 [...] or Preferred Language: EnglishFamily and Home Address: [address] [place] [address] What is your housing situation today? I have housing Are you worried about losing your housing? NoMoney and Resources What is the highest level of school that you have finished? associate's degree Employed? No Are you seeking work? No Insurance: [facility] HospitalIn the past year, have you or any family members you live with been unable to get any of the following when it was really needed? Denies Insecurity: food, utilities, clothing, manager child, phone, legal services, otherWithin the past year [...] 2 nights in a row in a fpc, usp, longterm center or juvenile correctional facility? No Has [...] you a refugee? No (Country of origin: [facility]) Do you feel physically and emotionally safe [...] for about one month. 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 Pt stattes Therapy is going well. HPI performed by: Valery BRENNAN, July 23, 2019 12:08 PMTransitions of Care InboundProblem ReviewProblem List was reviewed and/or updated during this visit.Medication Reconciliation & ReviewMedication List was reviewed and/or updated during this visit, including review of any oxjz-qtw-ihkgjwm medications, herbal therapies, and/or supplements.Allergy ReviewAllergy List was reviewed and/or updated during this visit.Adult Preventive CareProvider Calculated and Reviewed all Clinical Protocols for patient today. Labs/Meds/Other Counseling-Nutrition and Physical Activity:BMI Interpretation: Overweight (07/23/2019) Counseling: Done (07/23/2019) Physical Activity: Done (07/23/2019)Cancer Screening Mammogram Reviewed: Previous Comments: Pt states she had one done 10/2018 @ [facility] (03/26/2019)Today's Comments: Pt states she got one done at [facility] 2019Review of Systems General: Denies loss of [...] explanation of examination or test findings (ICD-V65.8) (HKB26-S00.2) Assessment: Instructions: We have reviewed your lab results with you today.Encounter for general adult medical examination with abnormal findings (ICD-V70.0) (VPE69-C39.01) Assessment: Instructions: You have had your annual physical exam done today. Please continue medications as prescribed. Please continue healthy diet and physical activities. Please try to maintain adequate intake of water daily. Shingles vaccines are available at your local pharmacy. Please make an appointment to have one done.Assessed:Prediabetes (CTY34-Q95.03) Assessment: Instructions: Your blood glucose is within normal range.Hyperlipidemia (ICD- 272.4) (BGA53-U56.5) Assessment: Instructions: Please continue medication as prescribed. Please continue lifestyle changes to nclude healthy diet and physical activities. Please try to avoid processed foods.Anemia (ICD-285.9) (FYK53-B65.9) Assessment: Instructions: Please continue medications as prescribed. Please try to maintain good nutrition and adequate hydration.Health Screening (ICD-V70.0) (IDI45-D64.9) Assessment: Instructions: Fasting labs ordered today.Patient Instructions/Care [...] Known Allergies (updated 07/23/2017) Orders:COMP METABOLIC PANEL [CPT-41018] CBC W/DIFF [CPT-56550] LIPID PANEL [CPT-82274] URINALYSIS [CPT-83032] IRON [CPT-04486] VITAMIN B-12 [CPT-49176] FERRITIN [CPT-59599] Folate (Folic Acid Serum) [CPT-16322] HgBA1c [CPT-03252] Adult - Ofc Vst, EST, Level IV [CPT-77406] Follow-Up Return to clinic: 3 months for follow up Clinical Visit Summary CompletedVaccines Administered/Entered:Vaccination Group: InfluenzaHistorical Source: Historical information - from patientSeries: 1 NOT GIVENVaccination: Flucelvax Quadrivalent PF (4y+) AdultReason Not Given: Patient decisionEntered Date: 07/23/2019 12:00 AMComments: Pt recieved at pharmacyEntered by: Emmanuel Mayer MA Name Value Range Interpretation Code Description Data Sammie rce(s) Supporting Document(s) ID Date Data Source [id number] 07/16/2019 08:01:41 AM EDT [facility] Labs In-House Blood TestsDate/Time Colle cted: July 16, 2019 8:02 AMTest Result Reference Range Normal ValueComments: blood draw done in offcie done in the right ac tolerated well John Trejo MA, July 16, 2019 8:02 AMAssessment & Plan Orders:[id number] Vst-Est Level I [CPT-94999] 40839 - Venipuncture [CPT-95422] Name Value Range Interpretation Code Description Data Sammie rce(s) Supporting Document(s) ID Date Data Source [id number] 07/16/2019 08:00:00 AM EDT [facility] Name Value Range Interpretation Code Description Data Sammie rce(s) Supporting Document(s) HGBA1C 5.5 % N [facility] ID Date Data Source [id number] 07/16/2019 08:00:00 AM EDT [facility] Name Value Range Interpretation Code Description Data Sammie rce(s) Supporting Document(s) HCT 41.0 % 36.0-47.0 N [facility] HGB 13.3 g/dL 12.0-15.5 N [facility] MCH 32.4 G/DL pg 32.0-36.5 N [facility] MCHC 30.4 PG % 27.0-33.0 N [facility] PLATELETS 250 10 10*3/mm3 150-450 N [facility] RBC 4.38 10 10*6/mm3 4.00-5.40 N [facility] RDW 11.9 % 11.5-14.5 N [facility] WBC TOTAL 4.5 4.0-10.0 N [facility] ID Date Data Source [id number] 07/16/2019 08:00:00 AM EDT [facility] Name Value Range Interpretation Code Description Data Sammie rce(s) Supporting Document(s) BG FASTING 95 mg/dL 70-100 N [facility] ID Date Data Source [id number] 03/26/2019 10:30:09 AM EST [facility] Measurements & CalculationsHeight: [...] during this visit, including review of any cavg-wgi-nzdzcfb medications, herbal therapies, and/or supplements.Allergy ReviewAllergy List was reviewed and/or updated during this visit.Adult Preventive CareProvider Calculated and Reviewed all Clinical Protocols for patient today. Labs/Meds/Other Counseling-Nutrition and Physical Activity:BMI Interpretation: Overweight (03/26/2019) Counseling: Done (03/26/2019) Physical Activity: Done (03/26/2019)Cancer Screening Mammogram Reviewed: Previous Comments: Pt states she had one done 10/03/18 @ [facility] (11/07/2018)Today's Comments: Pt states [facility] General: Denies loss of appetite, [...] health is? FairAssessment & Plan Problems:Assessed:HYPERTENSION (ICD-401.9) (RSM80-J64) Assessment: Instructions: Your Blood pressure is at goal today. [place] continue medications as prescribed. Please continue lifestyle changes to include healthy diet and physical activities. Please try to avoid added sodium in your diet.Health Screening (ICD-V70.0) (PBC68-R41.9) Assessment: Instructions: We have ordered fasting labs for you today.DEPRESSION (ICD-311) (TWE52-F32.9) Assessment: Instructions: We have made a referral for you today. We will contact you to set this up.Please continue medications as prescribed. Please continue to monitor and avoid triggers causing increased depression.Anemia (ICD- 285.9) (PTL25-N57.9) Assessment: Instructions: Please continue medications as prescribed. Please try to maintain good nutrition and adequate hydration.Hyperlipidemia (ICD-272.4) (DVG25-N14.5) Assessment: Instructions: Please continue medication as prescribed. Please continue lifestyle changes to nclude healthy diet and physical activities. Please try to avoid processed foods.Patient Instructions/Care Plan: HYPERTENSION: Your Blood pressure is at goal today. [place] continue medications as prescribed. Please continue lifestyle [...] 0, * WELLBUTRIN SR 300 MG ORAL [id number] (BUPROPION HCL)-1 pill po dailyAllergies:No Known Allergies (updated 07/23/2017) Orders:COMP METABOLIC PANEL [CPT-73937] CBC W/DIFF [CPT-61862] HgBA1c [CPT-22529] LIPID PANEL [CPT- 28358] VITAMIN B-12 [CPT-24764] FERRITIN [CPT-11573] Folate (Folic Acid Serum) [CPT-44868] IRON [CPT-85773] TIBC [CPT-04033] Mental Health Consult [CPT-82463] Adult - Ofc Vst, EST, Level IV [CPT-36067] Follow-Up Return to clinic: 3-4 months for follow up Clinical Visit Summary Completed Name Value Range Interpretation Code Description Data Sammie rce(s) Supporting Document(s) Procedure Vital Signs ID Date Data Source UNK Name Value Range Interpretation Code Description Data Source(s) Body weight 2178 [oz_av] 2178 [oz_av] [place] ([facility]) Systolic blood pressure 107 mm[Hg] 107 mm[Hg] A [facility] ([facility]) Body mass index (BMI) [Ratio] 26.6 kg/m2 26.6 k g/m2 [place] ([facility]) Body height 60 [in_i] 60 [in_i] [place] ([facility]) Diastolic blood pressure 73 mm[Hg] 73 mm[Hg] [place] ([facility]) Body weight 2114.08 [oz_av] 2114.08 [oz_av] A[facility] [place] ([facility]) Systolic blood pressure 106 mm[Hg] 106 mm[Hg] A [facility] ([facility]) Body height 60 [in_i] 60 [in_i] [place] ([facility]) Diastolic blood pressure 56 mm[Hg] 56 mm[Hg] [place] ([facility]) Body weight 2099.04 [oz_av] 2099.04 [oz_av] ATH [place] ([facility]) Systolic blood pressure 114 mm[Hg] 114 mm[Hg] A [facility] ([facility]) Body height 60 [in_i] 60 [in_i] [place] ([facility]) Diastolic blood pressure 65 mm[Hg] 65 mm[Hg] [place] ([facility]) Body weight 2051 [oz_av] 205 [oz_av] [place] ([facility]) Systolic blood pressure 122 mm[Hg] 122 mm[Hg] A [place] ([facility]) Body height 60 [in_i] 60 [in_i] [place] ([facility]) Diastolic blood pressure 77 mm[Hg] 77 mm[Hg] [place] ([facility]) Patient Treatment Plan of Care Planned Activity Planned Date Details Description Data Source (s) Amoxicillin 500 MG Oral Tablet [place] ([facility])
[2020-03-25 16:31] VITALS: BP 167/79
--- NOTE | 2020-03-25 20:10 | REPVR ---
PROCEDURE INFORMATION: Exam: US Duplex Bilateral Extracranial Arteries Exam date and time: 03/25/2020 6:42 PM Age: 60 years old Clinical indication: Other: Possible CVA; Additional info: Possible CVA history of TIA TECHNIQUE: Imaging protocol: Real-time Duplex ultrasound scan of the bilateral carotid and vertebral arteries combining quinn scale, color Doppler and spectral waveform analysis. Bilateral exam. COMPARISON: US Duplex,carotid (complete) 04/30/2016 2:12 PM FINDINGS: Right common carotid artery: Atherosclerosis. Elevated velocities. No occlusion. Waveforms are normal. Right internal carotid artery: Moderate atherosclerosis. No occlusion or stenosis. Waveforms are normal. Right ICA/CCA ratio: elevated 4.1:1. Right external carotid artery: No stenosis in the origin. Right vertebral artery: Unremarkable. Antegrade flow. Left common carotid artery: Atherosclerosis. No occlusion or stenosis. Waveforms are normal. Left internal carotid artery: Occluded. Left ICA/CCA ratio: n/a. Left external carotid artery: High grade stenosis at the origin. Left vertebral artery: Unremarkable. Antegrade flow. IMPRESSION: 1. Occluded proximal left internal carotid artery. High-grade stenosis right internal carotid artery. 2. Bidirectional flow. REFERENCES: SRU CRITERIA. The degree of internal carotid artery stenosis is based on criteria defined by the Society of Radiologists in Ultrasound (SRU). Normal is no stenosis. Mild is less than 50% stenosis. Moderate is 50-69% stenosis. Severe is greater than 69% stenosis to near occlusion. Near occlusion is a markedly narrowed lumen. Total occlusion is no detectable patent lumen. Electronically signed by: Chema Echols On 03/25/2020 20:09:58 PM
--- NOTE | 2020-03-25 20:41 | REPVR ---
PROCEDURE INFORMATION: Exam: MR Angiogram Head Without Contrast, Arteries Exam date and time: 03/25/2020 2:37 PM Age: 60 years old Clinical indication: Weakness; Patient HX: HX left carotid stent in 2014; Additional info: Possible CVA TECHNIQUE: Imaging protocol: MR angiogram head without contrast. Exam focused on the arteries. COMPARISON: CT Head without contrast 03/25/2020 11:41 AM FINDINGS: ANTERIOR CIRCULATION: Right internal carotid artery: Intracranial segment is patent with no significant stenosis. No aneurysm. Right middle cerebral artery: No occlusion or significant stenosis. No aneurysm. Right anterior cerebral artery: Left anterior cerebral artery fills via collateral flow from the right anterior cerebral artery through the anterior communicating artery. Left internal carotid artery: Occluded left internal carotid artery. Left middle cerebral artery: Left middle cerebral artery branches fill via collateral flow. Left anterior cerebral artery: No occlusion or significant stenosis. No aneurysm. POSTERIOR CIRCULATION: Right vertebral artery: No occlusion or significant stenosis. No aneurysm. Left vertebral artery: No occlusion or significant stenosis. No aneurysm. Basilar artery: No occlusion or significant stenosis. No aneurysm. Right posterior cerebral artery: No occlusion or significant stenosis. No aneurysm. Left posterior cerebral artery: No occlusion or significant stenosis. No aneurysm. IMPRESSION: 1. Occluded left internal carotid artery. 2. Left middle cerebral artery branches fill via collateral flow. Electronically signed by: Chema Echols On 03/25/2020 20:41:10 PM
--- NOTE | 2020-03-25 20:44 | REPVR ---
PROCEDURE INFORMATION: Exam: MR Head Without Contrast Exam date and time: 03/25/2020 2:37 PM Age: 60 years old Clinical indication: Weakness, extremity; Right; Additional info: Possible CVA TECHNIQUE: Imaging protocol: MR of the head without contrast. COMPARISON: CT Head without contrast 03/25/2020 11:41 AM FINDINGS: Brain: Multiple foci of T2 lengthening are demonstrated in the subcortical, periventricular and centrum semiovale white matter consistent with age-related small vessel gliosis. Several foci oriented perpendicular to the long axis of the ventricles which may signify the presence of a demyelinating disorder. Clinical correlation needed. Mild parenchymal atrophy. Cerebral ventricles: Mild enlargement related to underlying atrophy. Bones/joints: Unremarkable. Paranasal sinuses: Normal as visualized. No acute sinusitis. Mastoid air cells: Normal as visualized. No mastoid effusion. Orbital cavity: Unremarkable. Soft tissues: Unremarkable. IMPRESSION: 1. Multiple foci of T2 lengthening are demonstrated in the subcortical, periventricular and centrum semiovale white matter consistent with age-related small vessel gliosis. Several foci oriented perpendicular to the long axis of the ventricles which may signify the presence of a demyelinating disorder. Clinical correlation needed. 2. Mild parenchymal atrophy. Electronically signed by: Chema Echols On 03/25/2020 20:44:28 PM
[2020-03-25] MEDS: ATORVASTATIN 20 MG TAB PO SCH (21:24)
[2020-03-25] MEDS: CLOPIDOGREL 75 MG TAB PO SCH (21:24)
[2020-03-25] MEDS: traZODone 50 MG TAB PO SCH (21:24)
[2020-03-25] MEDS: lisinopriL 40 MG TAB PO SCH (21:25)
[2020-03-25] MEDS: ASPIRIN 81 MG ENTERIC TAB PO SCH (21:25)
[2020-03-25 22:00] VITALS: BP 133/61
[2020-03-26 06:00] VITALS: BP 145/62
[2020-03-26 07:07] LABS: HEMOGLOBIN 12.6 g/dl (12.0-15.5); MEAN CORPUSCULAR HEMOGLOBIN 30.1 pg (27.0-33.0); MEAN CORPUSCULAR HGB CONC 33.2 g/dl (32.0-36.5); MEAN CORPUSCULAR VOLUME 90.7 fl (80.0-96.0); PLATELET COUNT, AUTOMATED 201 10^3/uL (150-450); RED BLOOD COUNT 4.19 10^6/uL (4.00-5.40); WHITE BLOOD COUNT 5.1 10^3/uL (4.0-10.0)
[2020-03-26 07:35] LABS: ALBUMIN 3.3 GM/DL (3.2-5.2); ALT/SGPT 24 U/L (12-78); BILIRUBIN,TOTAL 0.3 MG/DL (0.2-1.0); BLOOD UREA NITROGEN 18 MG/DL (7-18); CALCIUM LEVEL 9.1 MG/DL (8.8-10.2); CARBON DIOXIDE LEVEL 30 MEQ/L (21-32); CHLORIDE LEVEL 106 MEQ/L (98-107); CREATININE FOR GFR 0.83 MG/DL (0.55-1.30); GLOMERULAR FILTRATION RATE > 60.0 (>45); GLUCOSE, FASTING 90 MG/DL (70-100); MAGNESIUM LEVEL 2.1 MG/DL (1.8-2.4); POTASSIUM SERUM 4.2 MEQ/L (3.5-5.1); SODIUM LEVEL 141 MEQ/L (136-145); TOTAL PROTEIN 6.1 GM/DL (6.4-8.2)
[2020-03-26] MEDS ORDERED: ISOVUE-370 76% 100ML VIAL As Ordered ONE (07:54)
[2020-03-26] MEDS: VITAMIN D 1,000 INTERNATIONAL UNITS TABLET PO SCH (08:52)
[2020-03-26] MEDS: DULoxetine 30 MG CAP (CYMBALTA) PO SCH (08:52)
[2020-03-26] MEDS: FERROUS SULFATE 325MG TAB PO SCH (08:52)
[2020-03-26] MEDS: ENOXAPARIN 40MG/0.4ML SYRINGE (J1650 PER 10MG) SC SCH (08:53)
[2020-03-26] MEDS: amLODIPine 5 MG TAB PO SCH (08:53)
--- NOTE | 2020-03-26 09:00 | REP ---
INDICATION: left carotid occlusion, right carotid stenosis COMPARISON: Comparison is made with MR angiography of the brain and duplex carotid sonography from 25 March 2020. These studies showed occlusion of the left internal carotid artery and high-grade stenosis was seen on ultrasound in the right ICA. TECHNIQUE: Contrast enhancement dose is 100 mL of intravenous Isovue 370. Helical scanning is acquired. 2 mm axial images are re-formatted. Coronal and sagittal MPR images are generated. Coronal and sagittal MIP and oblique MPR images are generated. 3D surface rendered images are generated and viewed rotationally. FINDINGS: There is good luminal opacifications the arterial tree. Aortic arch is unremarkable. The left common carotid artery shows a moderate 60% stenosis just beyond its origin within the superior mediastinum. There is another elongate tapered stenosis of the left common carotid artery again 60-75% at the level of the upper pole of the left thyroid. This is several cm below the level of the bifurcation. There is a surgical clip at the level of the bifurcation lateral to the CCA. There is a pinpoint stenosis of the distal CCA at the origin of the external carotid artery on the left side and the internal carotid artery is occluded. Reconstituted flow is observed in the left carotid siphon. The right common carotid artery is unremarkable from its origin to its bifurcation. There is heavy calcific plaquing at the origin of the ICA on the left and a high-grade stenosis is confirmed at the origin of the ICA on the right. This is greater than 75%. The cervical segment of the internal carotid artery on the right is unremarkable. Vertebral arteries are widely patent and codominant. There are low-density areas in both lobes of the thyroid consistent with cysts. The largest of these measures 10 mm in greatest diameter. There is no evidence of neck mass or adenopathy. The lung apices are clear. No bony destructive lesion is seen. There are degenerative spondylosis changes in the cervical spine. IMPRESSION: The left internal carotid artery is occluded with reconstitution via collaterals at the level of the carotid siphons. Multifocal tapered stenoses are seen in the left common carotid artery. There is a surgical clip next to the location of the left bifurcation. The pinpoint stenosis is seen in the left distal common carotid artery at the origin of the external carotid. There is a greater than 75% stenosis at the origin of the ICA on the right as observed by ultrasound. Vertebral arteries are unremarkable. <Electronically signed by Andres Correa > 03/26/20 2616
--- NOTE | 2020-03-26 12:25 | CR.PDOC ---
General Date of Consultation: Mar 26, [address] Rai. HISTORY OF PRESENT ILLNESS: The pt is a 60 yo female who presented hospital with right-sided weakness. Patient stated that she woke up around 9 AM 03/25/20 with right-sided weakness of her leg and arm, when she started to walk she noticed problems with balance. On arrival to ER patient was found to have a right facial droop. CTH was negative. At the time of admission by Hospitalist, her symptoms resolved except right facial droop. Vascular Surgery is consulted re carotid stenosis. ALLERGIES: Please see below. HOME MEDICATIONS: Please see below. PMH/PSH Transient ischemic attack (TIA). History of carotid artery disease, status post carotid endarterectomy on the left. Hypertension. Anxiety and depression. Gastroesophageal reflux disease (GERD). Multilevel degenerative disc disease in the cervical region. Fibromyalgia. Osteoarthritis. Left carotid endarterectomy, Skin graft FAMILY HISTORY: H/O CVA SOCIAL HISTORY: non smoker REVIEW OF SYSTEMS: As noted in HPI otherwise 10 pt ROS unremarkable. PHYSICAL EXAMINATION: VITAL SIGNS: Please see below. GENERAL APPEARANCE: Sitting up in bed HEENT: Moist mucous membranes RESPIRATORY: No wheezing CARDIOVASCULAR: Regular rate and rhythm ABDOMEN: Soft nontender EXTREMITIES: No edema NEUROLOGICAL: Equal labor relations consultant strength bilaterally. No dysarthria PROCEDURE INFORMATION: Exam: US Duplex Bilateral Extracranial Arteries Exam date and time: 03/25/2020 6:42 PM Age: 60 years old Clinical indication: Other: Possible CVA; Additional info: Possible CVA history of TIA TECHNIQUE: Imaging protocol: Real-time Duplex ultrasound scan of the bilateral carotid and vertebral arteries combining quinn scale, color Doppler and spectral waveform analysis. Bilateral exam. COMPARISON: US Duplex,carotid (complete) 04/30/2016 2:12 PM FINDINGS: Right common carotid artery: Atherosclerosis. Elevated velocities. No occlusion. Waveforms are normal. Right internal carotid artery: Moderate atherosclerosis. No occlusion or stenosis. Waveforms are normal. Right ICA/CCA ratio: elevated 4.1:1. Right external carotid artery: No stenosis in the origin. Right vertebral artery: Unremarkable. Antegrade flow. Left common carotid artery: Atherosclerosis. No occlusion or stenosis. Waveforms are normal. Left internal carotid artery: Occluded. Left ICA/CCA ratio: n/a. Left external carotid artery: High grade stenosis at the origin. Left vertebral artery: Unremarkable. Antegrade flow. IMPRESSION: 1. Occluded proximal left internal carotid artery. High-grade stenosis right internal carotid artery. 2. Bidirectional flow. Electronically signed by: Chema Fontenot On 03/25/2020 20:09:58 PM MRI Brain IMPRESSION: 1. Multiple foci of T2 lengthening are demonstrated in the subcortical, periventricular and centrum semiovale white matter consistent with age-related small vessel gliosis. Several foci oriented perpendicular to the long axis of the ventricles which may signify the presence of a demyelinating disorder. Clinical correlation needed. 2. Mild parenchymal atrophy. Electronically signed by: Chema Fontenot On 03/25/2020 20:44:28 PM DD: CHEMA FONTENOT MD 03/25/20 2657 ASSESSMENT/PLAN: 1. Carotid stenosis. The pt was noted to have Rt sided weakness and Rt sided facial droop on admission. Carotid US is reviewed indicating LICA is occluded. EAN velocities 318/107 ICA/CCA ratio 2.5. Antegrade vertebrals. Continue best medical management with ASA/Plavix/statin. Will review further with Dr Rai for further recommendations. Addendum. The patient is reviewed and examined as per Dr. Rai 1320 03/26/20. The patient's imaging is reviewed as per Dr. Rai. The patient's symptoms on admission are possibly related to left ICA occlusion. The patient is noted to have significant stenosis in the right ICA however this is asymptomatic at this time. Discussed with the patient that we can proceed with right carotid endarterectomy non-emergently. Would recommend to schedule follow-up with vascular surgery as outpatient and we can review and discuss right carotid endarterectomy further and also obtain medical, cardiac clearance and stress study to proceed. We will plan to proceed with right carotid endarterectomy within the next few months and this will give the patient more time to recover from her recent symptoms. The patient verbalizes understanding and agreement. In the meantime would recommend to continue with best medical management including aspirin, Plavix, statin. Vital Signs/I&O Vital Signs Date Time Temp Pulse Resp B/P (MAP) Pulse Ox O2 Delivery O2 Flow Rate FiO2 03/26/20 08:53 72 161/74 03/26/20 06:00 97.5 17 95 Room Air I&O- Last 24 Hours up to 6 AM 03/26/20 06:00 Intake Total 300 ml Balance 300 ml Laboratory Data Labs 24H Laboratory Tests 2 03/25/20 13:25: Coronavirus (COVID-19)(PCR) NEGATIVE, Influenza Type A (RT-PCR) NEGATIVE, Influenza Type B (RT-PCR) NEGATIVE, Respiratory Syncytial Virus (PCR) NEGATIVE 03/26/20 06:27: Nucleated Red Blood Cells % (auto) 0.0, Anion Gap 5L, Glomerular Filtration Rate > 60.0, Calcium Level 9.1, Magnesium Level 2.1, Total Bilirubin 0.3, Aspartate Amino Transf (AST/SGOT) 17, Alanine Aminotransferase (ALT/SGPT) 24, Alkaline Phosphatase 83, Total Protein 6.1L, Albumin 3.3, Albumin/Globulin Ratio 1.2 CBC/BMP Laboratory Tests 03/26/20 06:27 Allergies Coded Allergies: No Known Allergies (Unverified , 12/11/14) Home Medications Scheduled Amlodipine Besylate (Amlodipine Besylate) 5 Mg Tab, 5 MG PO DAILY, (Reported) Aspirin (Aspirin EC) 81 Mg Tab, 81 MG PO QHS, (Reported) Atorvastatin Calcium (Atorvastatin Calcium) 40 Mg Tablet, 40 MG PO QHS, (Reported) Cholecalciferol (Vitamin D3) (Vitamin D3) 1,000 Unit Tablet, 2,000 UNITS PO DAILY, (Reported) Clopidogrel Bisulfate (Clopidogrel) 75 Mg Tab, 75 MG PO QHS, (Reported) Duloxetine Hcl (Duloxetine HCl) 30 Mg Capsule.dr, 30 MG PO DAILY, (Reported) Ferrous Sulfate (Ferrous Sulfate) 325 Mg Tab, 325 MG PO DAILY, (Reported) Lactobacillus Acidophilus (Probiotic) 1 Each Capsule, 1 CAP PO BID, (Reported) Lisinopril (Lisinopril) 40 Mg Tab, 40 MG PO QHS, (Reported) Multivitamins (Thera M Plus Tablet) 1 Tab Tab, 1 TAB PO BID, (Reported) Naproxen Sodium (Naproxen Sodium) 220 Mg Tab, 220 MG PO BID, (Reported) Trazodone HCl (Trazodone HCl) 150 Mg Tablet, 150 MG PO QHS, (Reported) Elke Rooney Mar 26, 2020 12:25
--- NOTE | 2020-03-26 13:06 | IPNPDOC ---
Text Note Date of Service The patient was seen on 03/26/20. NOTE Subjective: No any acute events overnight. Right-sided weakness completely re solved Objective: GENERAL APPEARANCE: NAD HEENT: no scleral icterus, no JVD, EOMI CARDIOVASCULAR: S1S2 LUNGS: CTA ABDOMEN: soft & not tender w palpitation MUSCULOSKELETAL: no cyanosis, no swelling INTEGUMENT: no generalized pallor NEUROLOGICAL: cranial nerve function from 2-12 intact intact, follows commands, speech not dysarthric Patient is 60 years old female with past history of hypertension, previous TIA, hyperlipidemia, fibromyalgia presented hospital with right-sided weakness. Patient stated that she woke up around 9 AM with right-sided weakness of her leg and arm, when she started to walk she noticed problems with balance. On arrival to ER patient was found to have a right mouth droop. CT head was done and was negative. EKG showed normal sinus rhythm. When I saw patient she stated that all her symptoms resolved except right facial droop. Problems (1) TIA (transient ischemic attack) CT head negative Patient had multiple risk factors for stroke including previous TIA, hyperlip idemia, hypertension MRI negative for stroke CTA The left internal carotid artery is occluded with reconstitution via collaterals at the level of the carotid siphons. Multifocal tapered stenoses are seen in the left common carotid artery. There is a surgical clip next to the location of the left bifurcation. The pinpoint stenosis is seen in the left distal common carotid artery at the origin of the external carotid. There is a greater than 75% stenosis at the origin of the ICA on the right as observed by ultrasound. Vertebral arteries are unremarkable. Appreciate/agree with vascular surgeon consult Continue Plavix, aspirin (2) Hyperlipidemia Continue statins (3) Hypertension Blood pressures under control Continue home cardioprotective medications (4) Fibromyalgia Continue duloxetine VS,Fishbone, I+O VS, Fishbone, I+O Laboratory Tests 03/26/20 06:27 Vital Signs Date Time Temp Pulse Resp B/P (MAP) Pulse Ox O2 Delivery O2 Flow Rate FiO2 03/26/20 08:53 72 161/74 03/26/20 06:00 97.5 17 95 Room Air I&O- Last 24 Hours up to 6 AM 03/26/20 06:00 Intake Total 300 ml Balance 300 ml JESUSITA URIARTE DO Mar 26, 2020 13:06
[2020-03-26 14:00] VITALS: BP 104/58
[2020-03-26] MEDS: CLOPIDOGREL 75 MG TAB PO SCH (21:23)
[2020-03-26] MEDS: ATORVASTATIN 20 MG TAB PO SCH (21:23)
[2020-03-26] MEDS: ASPIRIN 81 MG ENTERIC TAB PO SCH (21:23)
[2020-03-26] MEDS: lisinopriL 40 MG TAB PO SCH (21:25)
[2020-03-26] MEDS: traZODone 50 MG TAB PO SCH (21:26)
[2020-03-26 22:00] VITALS: BP 136/72
[2020-03-27 06:00] VITALS: BP 123/90
[2020-03-27] MEDS: VITAMIN D 1,000 INTERNATIONAL UNITS TABLET PO SCH (09:01)
[2020-03-27] MEDS: FERROUS SULFATE 325MG TAB PO SCH (09:01)
[2020-03-27] MEDS: ENOXAPARIN 40MG/0.4ML SYRINGE (J1650 PER 10MG) SC SCH (09:01)
[2020-03-27 09:02] VITALS: BP 128/69
[2020-03-27] MEDS: DULoxetine 30 MG CAP (CYMBALTA) PO SCH (09:02)
[2020-03-27] MEDS: amLODIPine 5 MG TAB PO SCH (09:02)
--- NOTE | 2020-03-27 12:05 | DS.PDOC ---
Discharge Summary General Date of Admission Mar 25, 2020 at 14:53 Date of Discharge 03/27/20 Discharge Summary PROCEDURES PERFORMED DURING STAY: [None]. ADMITTING DIAGNOSES: TIA (transient ischemic attack) Hyperlipidemia Hypertension Fibromyalgia DISCHARGE DIAGNOSES: TIA (transient ischemic attack) Hyperlipidemia Hypertension Fibromyalgia COMPLICATIONS/CHIEF COMPLAINT: TIA. HISTORY OF PRESENT ILLNESS: Patient is 60 years old female with past history of hypertension, previous TIA, hyperlipidemia, fibromyalgia presented hospital with right-sided weakness. Patient stated that she woke up around 9 AM with right- sided weakness of her leg and arm, when she started to walk she noticed problems with balance. On arrival to ER patient was found to have a right mouth droop. CT head was done and was negative. EKG showed normal sinus rhythm. When I saw patient she stated that all her symptoms resolved except right facial droop. HOSPITAL COURSE: During hospital stay the following issues addressed DISCHARGE MEDICATIONS: Please see below. (1) TIA (transient ischemic attack) CT head negative Patient had multiple risk factors for stroke including previous TIA, hyperlipidemia, hypertension MRI negative for stroke CTA The left internal carotid artery is occluded with reconstitution via collaterals at the level of the carotid siphons. Multifocal tapered stenoses are seen in the left common carotid artery. There is a surgical clip next to the location of the left bifurcation. The pinpoint stenosis is seen in the left distal common carotid artery at the origin of the external carotid. There is a greater than 75% stenosis at the origin of the ICA on the right as observed by ultrasound. Vertebral arteries are unremarkable. vascular surgeon recommended follow-up in the outpatient settings for right carotid endarterectomy Continue Plavix, aspirin (2) Hyperlipidemia Continue statins (3) Hypertension Blood pressures under control Continue home cardioprotective medications (4) Fibromyalgia Continue duloxetine ALLERGIES: Please see below. PHYSICAL EXAMINATION ON DISCHARGE: VITAL SIGNS: Please see below. GENERAL APPEARANCE: NAD HEENT: no scleral icterus, no JVD, EOMI CARDIOVASCULAR: S1S2 LUNGS: CTA ABDOMEN: soft & not tender w palpitation MUSCULOSKELETAL: no cyanosis, no swelling INTEGUMENT: no generalized pallor NEUROLOGICAL: cranial nerve function from 2-12 intact intact, follows commands, speech not dysarthric LABORATORY DATA: Please see below. IMAGING: see above PROGNOSIS: fair ACTIVITY: [As tolerated]. DIET: Cardiac ITEMS TO FOLLOWUP ON ON OUTPATIENT: Follow-up with recovery manager, vascular surgeon and neurologist DISCHARGE CONDITION: [Stable]. TIME SPENT ON DISCHARGE: Greater than 40 minutes. Vital Signs/I&Os Vital Signs Date Time Temp Pulse Resp B/P (MAP) Pulse Ox O2 Delivery O2 Flow Rate FiO2 03/27/20 09:02 75 128/69 03/27/20 06:00 96.6 14 96 Room Air I&O- Last 24 Hours up to 6 AM 03/27/20 06:00 Intake Total 1050 ml Output Total 300 ml Balance 750 ml Discharge Medications Scheduled Amlodipine Besylate (Amlodipine Besylate) 5 Mg Tab, 5 MG PO DAILY, (Reported) Aspirin (Aspirin EC) 81 Mg Tab, 81 MG PO QHS, (Reported) Atorvastatin Calcium (Atorvastatin Calcium) 40 Mg Tablet, 40 MG PO QHS, (Reported) Cholecalciferol (Vitamin D3) (Vitamin D3) 1,000 Unit Tablet, 2,000 UNITS PO DAILY, (Reported) Clopidogrel Bisulfate (Clopidogrel) 75 Mg Tab, 75 MG PO QHS, (Reported) Duloxetine Hcl (Duloxetine HCl) 30 Mg Capsule.dr, 30 MG PO DAILY, (Reported) Ferrous Sulfate (Ferrous Sulfate) 325 Mg Tab, 325 MG PO DAILY, (Reported) Lactobacillus Acidophilus (Probiotic) 1 Each Capsule, 1 CAP PO BID, (Reported) Lisinopril (Lisinopril) 40 Mg Tab, 40 MG PO QHS, (Reported) Multivitamins (Thera M Plus Tablet) 1 Tab Tab, 1 TAB PO BID, (Reported) Trazodone HCl (Trazodone HCl) 150 Mg Tablet, 150 MG PO QHS, (Reported) Allergies Coded Allergies: No Known Allergies (Unverified , 12/11/14) JESUSITA URIARTE DO Mar 27, 2020 12:05
--- NOTE | 2020-03-29 08:22 | ECHO ---
DATE OF PROCEDURE: 03/26/2020 Age: 60 Gender: Female REFERRING PHYSICIAN: Dmitri Monreal DO PATIENT LOCATION: Room 4225 REASON FOR STUDY: Cerebrovascular accident (CVA). 2D MEASUREMENTS: IVS 0.74 cm LV 4.2 cm LVPW 0.8 cm LA 3.6 cm Aorta 2.6 cm IVC 1.35 cm DOPPLER MEASUREMENT Peak velocity across the aortic valve 2.6 m/s Peak velocity across the LVOT 1.4 m/s Mitral E 1.0 Mitral A 1.1 with a ratio of 0.9 Maximum tricuspid valve velocity 2.7 m/s 2D COMMENTS: 1. Normal left ventricular size, wall thickness, and normal global left ventricular systolic function. The estimated left ventricular systolic ejection fraction is 65% to 70%. 2. Normal left atrium. Normal right atrium and right ventricle. 3. The atrial septum appeared to be normal without evidence of defect or shunt. Normal aortic root. 4. Trace pericardial effusion noted. No evidence of cardiac tamponade. 5. Mildly calcified aortic valve with normal leaflet excursion. Mildly calcified mitral annulus with normal anterior mitral valve leaflet motion. Normal tricuspid valve. The pulmonic valve and proximal pulmonary artery branches were not well visualized. 6. The inferior vena cava was normal in size, central venous pressure is most likely normal. DOPPLER: It detects [id number] aortic regurgitation, mild mitral regurgitation, and mild tricuspid regurgitation. The calculated pulmonary artery systolic pressure varies between 30 to 40 mmHg. Abnormal relaxation pattern was noted across the mitral valve leaflets, as well as the mitral valve annulus consistent with features of grade 1 left ventricular diastolic dysfunction. IMPRESSION: 1. Normal global left ventricular systolic function. There are features of grade 1 left ventricular diastolic dysfunction manifested by abnormal relaxation. 2. Aortic valve sclerosis with mild aortic stenosis and [id number] aortic regurgitation. 3. Mitral annular calcification with mild mitral regurgitation. 4. Mild tricuspid regurgitation with mild pulmonary hypertension. 5. Trace pericardial effusion, no evidence of cardiac tamponade. 6. This was compared with most recent study in the system on 08/04/2018, and there were no remarkable changes. [facility]
== END 2020-03-27 13:20 | disposition home or self-care (01) | DRG 46 ==
LOC: M ED 11:21 → M ED INP 14:53 → M MSPAV 16:33
PROVIDERS: ADMIT Internal Medicine; ATTEND Internal Medicine
DX: I65.23 Occlusion and stenosis of bilateral carotid arteries (principal); I10 Essential (primary) hypertension; E78.5 Hyperlipidemia, unspecified; M79.7 Fibromyalgia; R29.810 Facial weakness; K21.9 Gastro-esophageal reflux disease without esophagitis; F41.9 Anxiety disorder, unspecified; F32.9 Major depressive disorder, single episode, unspecified; M50.30 Other cervical disc degeneration, unspecified cervical region; Z11.52 Encounter for screening for COVID-19; Z79.82 Long term (current) use of aspirin; Z79.02 Long term (current) use of antithrombotics/antiplatelets; Z79.899 Other long term (current) drug therapy; Z79.1 Long term (current) use of non-steroidal anti-inflammatories (NSAID)

== ENCOUNTER 2020-06-21 14:07 | Emergency (ER) | payer BC, OTHER ==
[~2020-06-21] VITALS: Ht 152.4 cm; Wt 61.4 kg
[~2020-06-21 14:07] MED LIST changes: +ATOR40TA75 PO; +D31000TA2 PO; +PROBCAP14 PO; +TRAZ1TAB14 PO
[2020-06-21] MEDS ORDERED: FERR325T20 (14:34)
[2020-06-21] MEDS ORDERED: DULO1CAP5 (14:34)
--- NOTE | 2020-06-21 14:35 | REP ---
INDICATION: TRAUMA. COMPARISON: None. TECHNIQUE: Axial CT images with multiplanar reformations. FINDINGS: No acute fracture or malalignment. Craniovertebral junction is unremarkable. Prevertebral soft tissues appear within normal limits. There is degenerative change with loss of disc space C4-5 through C6-7 levels. Anterior osteophytic spurring also noted. Bridging anterior osteophyte noted at the C7-T1 level. IMPRESSION: No acute findings. <Electronically signed by Jermaine Carmona > 06/21/20 [id number]
--- NOTE | 2020-06-21 14:36 | REP ---
INDICATION: TRAUMA. COMPARISON: None. TECHNIQUE: Axial CT images with multiplanar reformations. FINDINGS: No acute bleed or acute large vessel territorial infarct. Ventricles, cisterns and sulci are within normal limits. No mass effect or midline shift. No abnormal fluid collections. Scattered ill-defined hypodensities seen throughout the white matter is most consistent with sequelae of chronic microvascular ischemic disease. Paranasal sinuses and mastoid air cells are clear IMPRESSION: No acute findings. <Electronically signed by Jermaine Carmona > 06/21/20 1106
--- NOTE | 2020-06-21 16:20 | REP ---
INDICATION: left knee pain; s/p fall COMPARISON: None. TECHNIQUE: AP, lateral, bilateral oblique and sunrise views. FINDINGS: Anterior and sunrise views demonstrate significant prepatellar soft tissue swelling. AP and oblique views raise the possibility of subtle patellar injury/fracture and correlation is required. The visualized distal femur and proximal tibia/fibula appear intact. IMPRESSION: Anterior/prepatellar soft tissue swelling. Cannot exclude injury to the patella. <Electronically signed by Sam Fnich > 06/21/20 [id number]
[2020-06-21 18:25] VITALS: O2SAT 99
[2020-06-21 18:26] VITALS: BP 151/72
== END 2020-06-21 18:54 | disposition home or self-care (01) ==
LOC: M ED 14:07
DX: S80.02XA Contusion of left knee, initial encounter (principal); S09.90XA Unspecified injury of head, initial encounter; W18.39XA Other fall on same level, initial encounter; Y92.410 Unspecified street and highway as the place of occurrence of the external cause; I10 Essential (primary) hypertension; F90.9 Attention-deficit hyperactivity disorder, unspecified type; K21.9 Gastro-esophageal reflux disease without esophagitis; M79.7 Fibromyalgia; Z79.899 Other long term (current) drug therapy; Z79.82 Long term (current) use of aspirin; Z79.01 Long term (current) use of anticoagulants

== ENCOUNTER → 2020-07-14 | Outpatient (REF) | payer BC ==
[~2020-07-14] MED LIST changes: +DULO1CAP5; +FERR325T19
[2020-07-14 12:52] LABS: BASO # 0.1 10^3/uL (0.0-0.2); BASO % 0.9 % (0.0-1.0); EOS # 0.1 10^3/uL (0.0-0.5); HEMATOCRIT 35.2 % (36.0-47.0); HEMOGLOBIN 10.5 g/dl (12.0-15.5); LYMPH # 1.4 10^3/uL (1.5-5.0); LYMPH % 24.6 % (24.0-44.0); MEAN CORPUSCULAR HEMOGLOBIN 29.6 pg (27.0-33.0); MEAN CORPUSCULAR HGB CONC 29.8 g/dl (32.0-36.5); MEAN CORPUSCULAR VOLUME 99.2 fl (80.0-96.0); MONO # 0.4 10^3/uL (0.0-0.8); MONO % 7.7 % (2.0-8.0); NEUTROPHILS # 3.6 10^3/uL (1.5-8.5); NEUTROPHILS % 64.6 % (36.0-66.0); PLATELET COUNT, AUTOMATED 307 10^3/uL (150-450); RED BLOOD COUNT 3.55 10^6/uL (4.00-5.40); WHITE BLOOD COUNT 5.6 10^3/uL (4.0-10.0)
[2020-07-14 13:09] LABS: HEMOGLOBIN A1c 4.5 %
[2020-07-14 13:25] LABS: ALBUMIN 3.9 GM/DL (3.2-5.2); ALT/SGPT 23 U/L (12-78); BILIRUBIN,TOTAL 0.2 MG/DL (0.2-1.0); BLOOD UREA NITROGEN 14 MG/DL (7-18); CALCIUM LEVEL 9.5 MG/DL (8.8-10.2); CARBON DIOXIDE LEVEL 28 MEQ/L (21-32); CHLORIDE LEVEL 109 MEQ/L (98-107); CHOLESTEROL LEVEL 149 MG/DL (<200); CHOLESTEROL RISK RATIO 2.159 (<5); CREATININE FOR GFR 0.89 MG/DL (0.55-1.30); GLOMERULAR FILTRATION RATE > 60.0 (>45); GLUCOSE, FASTING 104 MG/DL (70-100); HDL CHOLESTEROL 69 MG/DL (>40); LDL CHOLESTEROL 70 MG/DL (<100); NON-HDL-C 80 MG/DL; POTASSIUM SERUM 4.4 MEQ/L (3.5-5.1); SODIUM LEVEL 143 MEQ/L (136-145); TOTAL PROTEIN 6.9 GM/DL (6.4-8.2); TRIGLYCERIDES LEVEL 52 MG/DL (<150)
[2020-07-14 13:31] LABS: TOTAL 25(OH) VITAMIN D 54.9 NG/ML (30.0-100.0)
== END ==
LOC: M LAB REF 12:18
PROVIDERS: ATTEND Nurse Practitioner Family
DX: F32.9 Major depressive disorder, single episode, unspecified (principal); R73.03 Prediabetes

== ENCOUNTER 2020-09-22 08:51 | Inpatient (IN) | payer BC ==
[~2020-09-22] VITALS: Ht 152.4 cm; Wt 65.6 kg
[~2020-09-22 08:51] MED LIST changes: -DULO1CAP5; +DULO1CAP5 PO
[2020-09-22] MEDS: MULTIVITAMINS/MINERALS THERAP 1 TAB PO SCH ×2 (09:00→21:54)
[2020-09-22] MEDS ORDERED: D31000TA2 PO (09:25)
[2020-09-22 09:27] LABS: BASO % 0.3 % (0.0-1.0); EOS % 0.3 % (0.0-3.0); LYMPH # 1.3 10^3/uL (1.5-5.0); LYMPH % 11.1 % (24.0-44.0); MEAN CORPUSCULAR HEMOGLOBIN 30.9 pg (27.0-33.0); MEAN CORPUSCULAR VOLUME 99.5 fl (80.0-96.0); MONO # 0.6 10^3/uL (0.0-0.8); MONO % 5.2 % (2.0-8.0); NEUTROPHILS # 9.4 10^3/uL (1.5-8.5); NEUTROPHILS % 82.7 % (36.0-66.0); PLATELET COUNT, AUTOMATED 253 10^3/uL (150-450); RED BLOOD COUNT 2.04 10^6/uL (4.00-5.40); WHITE BLOOD COUNT 11.3 10^3/uL (4.0-10.0)
[2020-09-22 09:31] LABS: HEMATOCRIT 20.3 % (36.0-47.0); HEMOGLOBIN 6.3 g/dl (12.0-15.5)
[2020-09-22 10:14] LABS: ALBUMIN 3.1 GM/DL (3.2-5.2); ALT/SGPT 24 U/L (12-78); BILIRUBIN,DIRECT < 0.1 MG/DL (0.0-0.2); BILIRUBIN,TOTAL 0.1 MG/DL (0.2-1.0); BLOOD UREA NITROGEN 23 MG/DL (7-18); CALCIUM LEVEL 8.4 MG/DL (8.8-10.2); CARBON DIOXIDE LEVEL 28 MEQ/L (21-32); CHLORIDE LEVEL 110 MEQ/L (98-107); CK-MB VALUE MASS < 1.0 NG/ML (<3.6); CPK CREATINE PHOSPHOKINASE 30 U/L (26-192); CREATININE FOR GFR 0.87 MG/DL (0.55-1.30); GLOMERULAR FILTRATION RATE > 60.0 (>45); GLUCOSE, FASTING 130 MG/DL (70-100); LIPASE 122 U/L (73-393); MB/CK RELATIVE INDEX 3.33 (< OR =4); POTASSIUM SERUM 4.1 MEQ/L (3.5-5.1); SODIUM LEVEL 143 MEQ/L (136-145); TOTAL PROTEIN 5.8 GM/DL (6.4-8.2); TROPONIN I < 0.02 NG/ML (< 0.10)
--- NOTE | 2020-09-22 10:27 | REP ---
INDICATION: trauma. COMPARISON: 06/21/2020. TECHNIQUE: CT cervical spine performed in the axial plane, with sagittal and coronal reconstruction images performed. FINDINGS: There is no acute compression fracture or malalignment. There is stable trace retrolisthesis of C4 on C5 and C5 on C6. There is no prevertebral soft tissue swelling. There is moderate disc space narrowing with subchondral sclerosis and spurring at the C4-5 and C5-6 levels. There is diffuse sclerosis and spurring at the posterior facet joints. There is normal cervical lordosis. There is no abnormal density in the spinal canal.Right carotid artery stent is noted. IMPRESSION: No evidence of acute fracture or dislocation.Stable degenerative changes. <Electronically signed by Joseph Badillo > 09/22/20 1026
--- NOTE | 2020-09-22 10:27 | REP ---
INDICATION: trauma. COMPARISON: None. TECHNIQUE: CT BRAIN PERFORMED IN THE AXIAL PLANE. CORONAL RECONSTRUCTION IMAGES ARE PERFORMED. FINDINGS: THE VENTRICLES ARE NORMAL IN SIZE AND POSITION. THERE IS NO MIDLINE SHIFT OR MASS EFFECT. THERE ARE SCATTERED HETEROGENEOUS HYPODENSE WHITE MATTER CHANGES BILATERALLY SUGGESTING SMALL VESSEL ISCHEMIC DISEASE. BASAL GANGLIA SHOW 1 HYPODENSE FOCUS IN THE RIGHT EXTERNAL CAPSULE UNCHANGED. COOPER-WHITE DIFFERENTIATION IS WELL MAINTAINED. THERE IS NO ACUTE INTRACRANIAL HEMORRHAGE OR EXTRA-AXIAL FLUID COLLECTION. BONE WINDOW EXAMINATION IS UNREMARKABLE. VISUALIZED MASTOID AIR CELLS AND PARANASAL SINUSES ARE CLEAR. IMPRESSION: 1. CHRONIC SMALL VESSEL WHITE MATTER ISCHEMIC CHANGES SEEN BEFORE WITHOUT EVIDENCE OF ACUTE INFARCT, INTRACRANIAL HEMORRHAGE, MASS OR MASS EFFECT. SKULL BASE, CALVARIUM, MASTOIDS VISIBLE SINUSES UNREMARKABLE. NO ACUTE FINDING. <Electronically signed by Kishan Yun > 09/22/20 1020
--- NOTE | 2020-09-22 10:59 | REP ---
INDICATION: trauma. COMPARISON: Comparison right knee radiographs are from October 06, 2014.. TECHNIQUE: Five views of the right knee are presented. FINDINGS: Five views of the right knee demonstrate diffuse osteopenia mild in degree. There is superior pole non articular spurring of the patella visible on the lateral radiograph at the quadriceps tendon insertion site. There is some soft tissue swelling anteromedially on the sunrise view. No fracture or subluxation is seen.. . No opaque foreign body noted. IMPRESSION: No fracture noted. Diffuse osteopenia. Superior pole patellar spurring. Anteromedial prepatellar soft tissue swelling.. <Electronically signed by Andres Correa > 09/22/20 1055
--- NOTE | 2020-09-22 11:03 | REP ---
INDICATION: trauma COMPARISON: Chest 03/25/2020. TECHNIQUE: Two views right humerus. FINDINGS: There is no evidence of acute fracture, dislocation, or intrinsic bone disease.Mild chronic elevation of the distal end of the right clavicle unchanged since the prior chest radiograph 03/25/2020. IMPRESSION: No acute fracture or dislocation. <Electronically signed by Joseph Badillo > 09/22/20 1100
--- NOTE | 2020-09-22 11:07 | REP ---
INDICATION: weakness COMPARISON: 03/25/2020 as well as other prior exams. TECHNIQUE: PA/Lateral FINDINGS: Lungs: Clear, no infiltrate. Heart: Normal in size. Mediastinum: Mediastinal silhouette unremarkable. Pleural angles: Unremarkable.. Bones and soft tissues: There are degenerative changes of the spine without compression deformity.. IMPRESSION: No acute pulmonary disease. <Electronically signed by Joseph Badillo > 09/22/20 1102
[2020-09-22] MEDS ORDERED: ATOR1TAB21 PO (11:10)
[2020-09-22] MEDS ORDERED: XARE15TA PO (11:11)
[2020-09-22 12:37] LABS: RSV AMPLIFICATION NEGATIVE (NEGATIVE)
[2020-09-22] MEDS ORDERED: ACETAMINOPHEN TAB 650MG DOSE (2X325MG) PO PRN (12:45)
[2020-09-22] MEDS ORDERED: XARE20TA PO (13:36)
[2020-09-22 14:35] VITALS: BP 116/50
--- NOTE | 2020-09-22 17:29 | ECGEPIP ---
[facility] - ED Test Date: 2020-09-22 Pat Name: ELÍAS CARRASCO Department: Room: - Gender: Female Knowledge Manager: LR : 1960 Requested By: LENA Roman Order Number: [id number] Reading MD: Eugenio Whitaker Measurements Intervals [place] Rate: 79 P: 12 WV: 130 QRS: 77 QRSD: 114 T: 22 QT: 392 QTc: 449 Interpretive Statements Normal sinus rhythm Low voltage QRS Right bundle branch block SIMILAR TO 03/25/20 Electronically Signed on 09-22-2020 17:29:35 EDT by Eugenio Whitaker
--- NOTE | 2020-09-22 19:17 | HPEPDOC ---
[facility] Medical History & Physical Date of Admission Sep 22, 2020 Date of Service: Sep 22, 2020 Attending Physician: EDILIA SAMUEL MD History and Physical CHIEF COMPLAINT: Weakness, syncope x 2 HISTORY OF PRESENT ILLNESS: 60 years old W, who is Oriental orthodox, with a history of hypertension, previous TIAs, hyperlipidemia, fibromyalgia, who was admitted in 03/[address] [facility] for TIA and was found to have advanced bilateral carotid disease and the plan was for follow up outpatient with vascular surgery and discharged on ASA/plavix and more recently per ED physician, had a L carotid stent placed by Dr. Jones in [place] on 08/27 that was c/b LE DVT after femoral access and so was started on xarelto and discharged home on ASA/plavix/xarelto who now presents to the ED with two syncopal episodes within 24h while walking from the bathroom within her home with no injury to her head and is frankly pale and weak. On evaluation in the ED, she was normotensive, not orthostatic and on lab evaluation was noted to be anemic to a Hgb of 6.3 from a recent 10.5 earlier in the year, WBC of 11.3, platelets of 253, troponin negative, ED POC guaiac negative, CT head without acute pathology, CXR wnl, CT of C-spine without acute fractures, dislocation or subluxation. She is now being admitted for symptomatic anemia and syncope i/s/o triple therapy with DAPT and full anticoagulation. Of note, on history taking, it appears she may have been taking her plavix twice daily as well and therefore taking even beyond the standard triple therapy. On ROS she otherwise denies any noted hematochezia, hematemesis, hemoptysis. She is on iron supplementation and her stool is dark colored at baseline therefore melena was difficult to corroborate. She has easy bruising at baseline given her DAPT and now also anticoagulation. PAST MEDICAL HISTORY: 1. Transient ischemic attack (TIA). 2. History of carotid artery disease, status post carotid endarterectomy on the left and now also stenting. 3. Hypertension. 4. Anxiety and depression. 5. Gastroesophageal reflux disease (GERD). 6. Multilevel degenerative disc disease in the cervical region. 7. Fibromyalgia. 8. Osteoarthritis. Surgical History: Recent L carotid stenting Left carotid endarterectomy Skin graft Family History: CVAs in both her parents SOCIAL HISTORY: Non smoker No alcohol No illicit drug use Oriental orthodox, and does not accept blood transfusions REVIEW OF SYSTEMS: 10 point ROS was completed was otherwise negative except as noted in the HPI above HOME MEDICATIONS: Please see below. PHYSICAL EXAMINATION: VITAL SIGNS: see below GENERAL APPEARANCE: NAD, pale HEENT: NCAT, EOMI, has conjunctival pallor, MMM, anicteric CARDIOVASCULAR: RRR, no m/r/g LUNGS: CTAB ABDOMEN: Normoactive sounds, soft, NTND MUSCULOSKELETAL: moving all extremities with full strength EXTREMITIES: WWP, 1+ edema bilaterally NEUROLOGICAL: CN3-12 intact, clear speech, no droops or asymmetrical weakness PSYCHIATRIC: AOx3 LABORATORY DATA and IMAGING: Summarized above, see below for full details MICROBIOLOGY: Please see below. ASSESSMENT: 60 years old W, who is Oriental orthodox, with a history of hypertension, previous TIAs, hyperlipidemia, fibromyalgia, who recently had a L carotid stent placed in [place] on 08/27 that was c/b LE DVT after femoral access and so was started on xarelto and discharged home on ASA/plavix/xarelto who now presented to the ED with two syncopal episodes and admitted for syncope and symptomatic anemia. PLAN: Syncope likely 2/2 acute on chronic, now symptomatic anemia: -Likely 2/2 symptomatic anemia: Pale, anemic i/s/o ASA/plavix BID/xarelto -Glucose was wnl -CT head was without acute pathology -EKG was stable from prior without acute ischemic changes, troponin was negative -TTE for completion of syncope workup -Telemetry -Is Oriental orthodox so will not give blood transfusion -will check Fe, TIB, ferritin, B12, folate, retic -will hold off peripheral smear as this most likely 2/2 blood loss i/s/o of the above therapies with worsening MARK -for now will plan on continuing ferrous sulfate daily, but may opt for venofer IV depending on degree of MARK -FOBT -If H/H is stable tomorrow will tentative plan to attempt restarting xarelto at the reduced dose of 20mg daily since she is now past 21d of starting xarelto for DVT and can de-escalate from 15mg BID -In the meantime, am holding the plavix with plan for ASA/xarelto for this peripheral stent and recent DVT. Hyperlipidemia -Continue statin Hypertension -hold meds for now. Is normotensive but weak, anemic with blood loss suspected and recently syncopized Fibromyalgia -Continue duloxetine DVT ppx: TEDs Vital Signs Vital Signs Date Time Temp Pulse Resp B/P (MAP) Pulse Ox O2 Delivery O2 Flow Rate FiO2 09/22/20 12:30 76 110/51 (70) 100 Room Air 09/22/20 09:45 16 09/22/20 09:18 96.1 Laboratory Data Labs 24H Laboratory Tests 2 09/22/20 08:56: Immature Granulocyte % (Auto) 0.4, Neutrophils (%) (Auto) 82.7H, Lymphocytes (%) (Auto) 11.1L, Monocytes (%) (Auto) 5.2, Eosinophils (%) (Auto) 0.3, Basophils (%) (Auto) 0.3, Neutrophils # (Auto) 9.4H, Lymphocytes # (Auto) 1.3L, Monocytes # (Auto) 0.6, Eosinophils # (Auto) 0.0, Basophils # (Auto) 0.0, Nucleated Red Blood Cells % (auto) 0.0, Anion Gap 5L, Glomerular Filtration Rate > 60.0, Calcium Level 8.4L, Total Bilirubin 0.1L, Direct Bilirubin < 0.1, Aspartate Amino Transf (AST/SGOT) 19, Alanine Aminotransferase (ALT/SGPT) 24, Alkaline Phosphatase 75, Total Creatine Kinase 30, Creatine Kinase MB < 1.0, Creatine Kinase MB Relative Index 3.33, Troponin I < 0.02, Total Protein 5.8L, Albumin 3.1L, Albumin/Globulin Ratio 1.1L, Lipase 122 09/22/20 11:49: Coronavirus (COVID-19)(PCR) NEGATIVE, Influenza Type A (RT-PCR) NEGATIVE, I nfluenza Type B (RT-PCR) NEGATIVE, Respiratory Syncytial Virus (PCR) NEGATIVE CBC/BMP Laboratory Tests 09/22/20 08:56 Home Medications Scheduled Amlodipine Besylate (Amlodipine Besylate) 5 Mg Tab, 5 MG PO DAILY Aspirin (Aspirin EC) 81 Mg Tab, 81 MG PO QHS Atorvastatin Calcium (Atorvastatin Calcium) 20 Mg Tablet, 20 MG PO QHS Cholecalciferol (Vitamin D3) (Vitamin D3) 1,000 Unit Tablet, 1,000 UNITS PO DAILY Clopidogrel Bisulfate (Clopidogrel) 75 Mg Tab, 75 MG PO QHS Duloxetine Hcl (Duloxetine HCl) 30 Mg Capsule.dr, 30 MG PO DAILY Ferrous Sulfate (Ferrous Sulfate) 325 Mg Tab, 325 MG PO DAILY Lisinopril (Lisinopril) 40 Mg Tab, 40 MG PO QHS Multivitamins (Thera M Plus Tablet) 1 Tab Tab, 1 TAB PO BID Rivaroxaban (Xarelto) 20 Mg Tablet, 20 MG PO DAILY Trazodone HCl (Trazodone HCl) 150 Mg Tablet, 150 MG PO QHS Allergies Coded Allergies: No Known Allergies (Unverified , 12/11/14) A-FIB/CHADSVASC A-FIB History Current/History of A-Fib/PAF?: No Current PO Anticoag Therapy: No Age/Risk Factor Scoring CHADSVASC: CHADSVASC Response (Comments) Value Age Risk Factor Age < 65 years old 0 Gender Risk Factor Female 1 Hx of CHF No 0 Hx of HTN Yes 1 Hx of Stroke/TIA/or VTE Yes 2 Hx of Diabetes No 0 Hx of Vascular Disease Yes 1 Total 5 Treatment Treatment ordered: Rivaroxaban Reason Anticoagulant not given: Other Other reason anticoagulant not: currently with symptomatic severe anemia, with plan to restart xarelto EDILIA Obando MD Sep 22, 2020 19:17
[2020-09-22] MEDS ORDERED: lisinopriL 40 MG TAB PO SCH (21:00)
[2020-09-22] MEDS: ASPIRIN 81MG ENTERIC TABLET PO SCH (21:54)
[2020-09-22] MEDS: traZODone 50 MG TAB PO SCH (21:54)
[2020-09-22] MEDS: ATORVASTATIN 20 MG TAB PO SCH (21:54)
[2020-09-22 22:01] VITALS: BP 144/67
[2020-09-23 06:00] VITALS: BP 104/59
[2020-09-23 07:06] LABS: MEAN CORPUSCULAR HEMOGLOBIN 31.3 pg (27.0-33.0); MEAN CORPUSCULAR HGB CONC 30.6 g/dl (32.0-36.5); MEAN CORPUSCULAR VOLUME 102.2 fl (80.0-96.0); PLATELET COUNT, AUTOMATED 220 10^3/uL (150-450); RED BLOOD COUNT 1.82 10^6/uL (4.00-5.40); WHITE BLOOD COUNT 7.1 10^3/uL (4.0-10.0)
[2020-09-23 07:07] LABS: HEMATOCRIT 18.6 % (36.0-47.0)
[2020-09-23 07:15] LABS: HEMOGLOBIN 5.7 g/dl (12.0-15.5)
[2020-09-23 07:30] LABS: BLOOD UREA NITROGEN 14 MG/DL (7-18); CALCIUM LEVEL 8.4 MG/DL (8.8-10.2); CARBON DIOXIDE LEVEL 28 MEQ/L (21-32); CHLORIDE LEVEL 112 MEQ/L (98-107); CREATININE FOR GFR 0.75 MG/DL (0.55-1.30); FERRITIN 26 NG/ML (8-252); GLOMERULAR FILTRATION RATE > 60.0 (>45); GLUCOSE, FASTING 102 MG/DL (70-100); IRON (FE) 17 UG/DL (50-170); MAGNESIUM LEVEL 2.4 MG/DL (1.8-2.4); PERCENT SATURATION 6.4 % (13.2-45.0); POTASSIUM SERUM 4.3 MEQ/L (3.5-5.1); SODIUM LEVEL 145 MEQ/L (136-145); TOTAL IRON BINDING CAPACITY 267 UG/DL (250-450)
[2020-09-23] MEDS ORDERED: FERROUS SULFATE 325MG TAB PO SCH (09:00)
[2020-09-23] MEDS ORDERED: IRON SUCROSE 100MG 5ML VIAL (J1756 PER 1MG) IV SCH (09:00)
[2020-09-23] MEDS: MULTIVITAMINS/MINERALS THERAP 1 TAB PO SCH ×2 (09:53→20:08)
[2020-09-23] MEDS: VITAMIN D 1,000 INTERNATIONAL UNITS TABLET PO SCH (09:54)
[2020-09-23] MEDS: DULoxetine 30 MG CAP (CYMBALTA) PO SCH (09:54)
--- NOTE | 2020-09-23 10:27 | IPNPDOC ---
Text Note Date of Service The patient was seen on 09/23/20. NOTE SUBJECTIVE: -No acute complaints VITAL SIGNS: see below GENERAL APPEARANCE: NAD, pale HEENT: NCAT, EOMI, has conjunctival pallor, MMM, anicteric CARDIOVASCULAR: RRR, no m/r/g LUNGS: CTAB ABDOMEN: Normoactive sounds, soft, NTND MUSCULOSKELETAL: moving all extremities with full strength EXTREMITIES: WWP, 1+ edema bilaterally NEUROLOGICAL: CN3-12 intact, clear speech, no droops or asymmetrical weakness PSYCHIATRIC: AOx3 LABORATORY DATA: reviewed Hgb 5.7 Ferritin 26 MICROBIOLOGY: Please see below. ASSESSMENT: 60 years old W, who is Lutheran, with a history of hypertension, previous TIAs, hyperlipidemia, fibromyalgia, who recently had a L carotid stent placed in [place] on 08/27 that was c/b LE DVT after femoral access and so was started on xarelto and discharged home on ASA/plavix/xarelto who now presented to the ED with two syncopal episodes and admitted for syncope and symptomatic anemia. PLAN: Syncope likely 2/2 acute on chronic, now symptomatic anemia: -Likely 2/2 symptomatic anemia: Pale, anemic i/s/o ASA/plavix BID/xarelto -Glucose was wnl -CT head was without acute pathology -EKG was stable from prior without acute ischemic changes, troponin was negative -TTE for completion of syncope workup -Telemetry -Is Lutheran so will not give blood transfusion -follow up B12, folate, retic -severe iron deficient likely from losses most likely GI though no acute evidence of severe brisk bleeding -Will give venofer and hold PO iron -will hold off peripheral smear as this most likely 2/2 blood loss i/s/o of the above therapies with worsening MARK -FOBT -Check H/H this mid PM -In the meantime, am holding the plavix and Noac with eventual plan for ASA/xarelto for this peripheral stent and recent DVT. Severe MARK: likely driven by slow losses likely via GI tract -will ask her about colonoscopy history and consult surgery for potential colo because she actually needs the Noac and ASA but if bleeding, need source control --Will give venofer x 3 doses and hold PO iron to resume at home discharge Hyperlipidemia -Continue statin Hypertension -hold meds for now. Is normotensive but weak, anemic with blood loss suspected and recently syncopized Fibromyalgia -Continue duloxetine DVT ppx: TEDs VS,Fishbone, I+O VS, Fishbone, I+O Laboratory Tests 09/22/20 08:56 09/23/20 06:50 Vital Signs Date Time Temp Pulse Resp B/P (MAP) Pulse Ox O2 Delivery O2 Flow Rate FiO2 09/23/20 06:00 98.9 88 16 104/59 (74) 96 Room Air I&O- Last 24 Hours up to 6 AM 09/23/20 06:00 Intake Total 50 ml Output Total 0 ml Balance 50 ml EDILIA SAMUEL MD Sep 23, 2020 08:36
--- NOTE | 2020-09-23 11:10 | REPVR ---
PROCEDURE INFORMATION: Exam: CT Head Without Contrast Exam date and time: 09/23/2020 10:25 AM Age: 60 years old Clinical indication: Altered mental status/memory loss; Additional info: AMS TECHNIQUE: Imaging protocol: Computed tomography of the head without contrast. Radiation optimization: All CT scans at this facility use at least one of these dose optimization techniques: automated exposure control; mA and/or kV adjustment per patient size (includes targeted exams where dose is matched to clinical indication); or iterative reconstruction. COMPARISON: CT Head without contrast 09/22/2020 9:51 AM FINDINGS: Brain: There is mild ill-defined patchy hypodensity within the bilateral cerebral periventricular white matter, consistent with chronic microvascular ischemic changes. There is mild diffuse cerebral atrophy present, consistent with this patient's age. Cerebral ventricles: The ventricular system demonstrates mild diffuse compensatory enlargement. Paranasal sinuses: Visualized sinuses are unremarkable. No fluid levels. Mastoid air cells: Visualized mastoid air cells are well aerated. Bones/joints: Unremarkable. No acute fracture. Soft tissues: Unremarkable. IMPRESSION: 1. No acute infarction, masses or hemorrhage is seen. No acute intracranial abnormality is identified. 2. Diffuse age-related cerebral atrophy and mild chronic microvascular white matter ischemic changes. 3. [place] Stroke Program Early CT Score (ASPECTS) = 10 Electronically signed by: Alvaro Pimentel On 09/23/2020 11:09:46 AM
[2020-09-23 11:21] LABS: FOLATE > 24.0 NG/ML (>5.4); VITAMIN B12 LEVEL 705 PG/ML (247-911)
[2020-09-23 12:27] LABS: HEMOGLOBIN 6.4 g/dl (12.0-15.5)
[2020-09-23] MEDS: IRON SUCROSE 100 MG in NS 100 ML OVER 1 HR IV SCH (12:31)
[2020-09-23 14:00] VITALS: BP 118/56
[2020-09-23 14:06] LABS: HEMATOCRIT 20.1 % (36.0-47.0); HEMOGLOBIN 6.1 g/dl (12.0-15.5)
[2020-09-23] MEDS: NS 1,000 ML IV SCH (16:18)
[2020-09-23] MEDS ORDERED: RIVAROXABAN 20 MG TAB (XARELTO) PO SCH (18:00)
[2020-09-23] MEDS: traZODone 50 MG TAB PO SCH (20:08)
[2020-09-23] MEDS: ATORVASTATIN 20 MG TAB PO SCH (20:08)
[2020-09-23] MEDS: ASPIRIN 81MG ENTERIC TABLET PO SCH (20:08)
[2020-09-23 22:00] VITALS: BP 130/56
--- NOTE | 2020-09-23 23:18 | CR ---
CONSULTATION DATE: 09/23/2020 CHIEF COMPLAINT: GI bleed/anemia. BRIEF HISTORY OF PRESENT ILLNESS: The patient is a 60-year-old Jehovah Witness who had essentially a carotid stenosis, ended up having a stent placed and then was put on anticoagulation for this. She presents with severe anemia and syncope. Essentially it sounds as though she was on Aspirin, Plavix twice a day and Xarelto. She does have some dark stools reportedly but has not had any bright red blood per rectum. She essentially was admitted with this history and was stable overnight, however today during the day she had an episode of questionable CVA/transient ischemic attack but definitely some confusion and carotid studies were ordered on her with a CT angio, etc. She has had a colonoscopy in the past which reportedly was normal, she states. PAST MEDICAL HISTORY: The patient's past medical history is significant for: 1. History of TIAs. 2. History of carotid disease, status post carotid endarterectomy and history of stenting. 3. History of hypertension. 4. Anxiety. 5. Depression. 6. GE reflux. 7. Degenerative disk disease. 8. Fibromyalgia. 9. Osteoarthritis. 10. Skin grafting. PHYSICAL EXAMINATION: GENERAL APPEARANCE: A 60-year-old who looks stated age. NEUROLOGICAL: She is definitely neurologically having difficulty with some sort of an expressive aphasia and has a slight droop to her right side of her lip and decreased strength in her right arm. IMPRESSION AND PLAN: The patient has anemia and at this point it is very concerning for symptomatic disease and obviously the question is whether the anemia is causing the neurologic symptoms alone or whether there is a progression of disease/the stent is clotted, etc., all of which are going to be addressed with CAT scans, CTAs, etc. She is still anticoagulated and has not been reversed and thus it is still in her system at this point and thus I do not feel as though this itself is a need for aggressive additional anticoagulation. That I will defer to the Medicine's standpoint. Her hematocrit has been stable overnight and given a benign abdominal exam, lungs are clear, heart is regular, I feel that she has anemia, most likely a GI bleed, most likely an upper GI source, i.e., peptic ulcer disease of some type that is the etiology for this. Other etiologies also are possible but with a negative colonoscopy reportedly, then it is less likely. Given that it is most likely an upper source, I would recommend continuing with the proton pump inhibitor, Carafate, and it is reasonable to proceed with an upper GI as an alternative to an upper endoscopy. Specifically, I would like to avoid any sedation in her, given that that might drop her blood pressure, and if she is already having neurologic symptoms, this might exacerbate issues and create a full significant stroke in this individual. I do feel we need to be extremely vigilant in this issue, and see if there are other options first, prior to interventions that require sedation/potential hypotensive episodes. Thus, please contact the surgeon ping pong table assembler if you would like this issue re-addressed, but obviously there are some ongoing neurologic issues that need to be figured out first.
--- NOTE | 2020-09-24 00:03 | ECHO ---
ECHOCARDIOGRAM DATE OF PROCEDURE: 09/22/2020 Age: 60 Gender: Female Height: 152 cm Weight: 61 kg REFERRING PHYSICIAN: Dr. Neema Arellano INDICATION: Syncope 2D MEASUREMENTS: Left atrium 3.3 cm Intraventricular septum 0.71 cm Posterior wall 0.95 cm Left ventricle diastolic 4.1 cm Aortic root 2.3 cm Aortic regurgitation pressure half-time 304 ms Left atrial volume index 25 Inferior vena cava 1.6 cm (normal respiratory variation) Doppler Measurements: Moderate aortic regurgitation No aortic stenosis Aortic valve velocity 273 cm/s Peak aortic valve gradient 30 mmHg Mean aortic valve gradient 14 mmHg Aortic valve VTI 48.7 cm LVOT velocity 181 cm/s LVOT VTI 34.9 cm/s No mitral regurgitation No mitral stenosis Mitral E velocity 130 cm/s Mitral A velocity 124 cm/s Mitral deceleration time 173 msec Mild tricuspid regurgitation Estimated right ventricle systolic pressure 38-43 mmHg Estimated right atrial pressure of 5-10 mmHg No pulmonic regurgitation Pulmonary artery acceleration time 92 msec MITRAL ANNULAR TISSUE DOPPLER Not performed DESCRIPTION: Rhythm was sinus. This was a moderately technically difficult echocardiogram. No pericardial effusion. This was a 2D, M-mode, color flow Doppler and pulsed wave Doppler examination including mitral annular tissue Doppler. CONCLUSIONS: 1. Normal left ventricle internal dimensions and wall thickness. No regional LV wall motion abnormalities. Hyperdynamic LV systolic function. LVEF 80% by visual assessment. Normal LV diastolic function. 2. Mild aortic valve sclerosis of a 3-cuspid aortic valve. Moderate aortic regurgitation. No aortic stenosis. 3. Mild mitral annular calcification. No mitral regurgitation. 4. Suggestive of mild-moderate elevation of estimated right ventricle systolic pressure. Mild tricuspid regurgitation. Normal right ventricle size and systolic function. 5. No pericardial effusion. MTDD
[2020-09-24] MEDS: NS 1,000 ML IV SCH ×3 (03:02→21:00)
[2020-09-24 04:12] LABS: APPEARANCE, URINE CLEAR (CLEAR); BACTERIA, URINE AUTO NEGATIVE (NEGATIVE); BILIRUBIN, URINE AUTO NEGATIVE (NEGATIVE); BLOOD, URINE BLOOD NEGATIVE (NEGATIVE); COLOR, URINE YELLOW (YELLOW); GLUCOSE, URINE (UA) AUTO NEGATIVE (NEGATIVE); KETONE, URINE AUTO NEGATIVE (NEGATIVE); LEUKOCYTE ESTERASE, URINE AUTO NEGATIVE (NEGATIVE); MUCUS, URINE SMALL (NEGATIVE); NITRITE, URINE AUTO NEGATIVE (NEGATIVE); PROTEIN, URINE AUTO NEGATIVE (NEGATIVE); RBC, URINE AUTO 0 /HPF (0-3); SPECIFIC GRAVITY URINE AUTO 1.014 (1.002-1.035); SQUAMOUS EPITHELIAL CELL UR AU 0 /HPF (0-6); UROBILINOGEN, URINE AUTO 0.2 mg/dL (0.0-2.0); WBC, URINE AUTO 0 /HPF (0-3)
[2020-09-24 06:00] VITALS: BP 120/55
[2020-09-24 06:36] LABS: MEAN CORPUSCULAR HEMOGLOBIN 31.3 pg (27.0-33.0); MEAN CORPUSCULAR HGB CONC 30.8 g/dl (32.0-36.5); MEAN CORPUSCULAR VOLUME 101.6 fl (80.0-96.0); PLATELET COUNT, AUTOMATED 220 10^3/uL (150-450); RED BLOOD COUNT 1.82 10^6/uL (4.00-5.40); WHITE BLOOD COUNT 8.3 10^3/uL (4.0-10.0)
[2020-09-24 06:41] LABS: HEMATOCRIT 18.5 % (36.0-47.0); HEMOGLOBIN 5.7 g/dl (12.0-15.5)
[2020-09-24 06:56] LABS: BLOOD UREA NITROGEN 8 MG/DL (7-18); CARBON DIOXIDE LEVEL 29 MEQ/L (21-32); CHLORIDE LEVEL 110 MEQ/L (98-107); CREATININE FOR GFR 0.65 MG/DL (0.55-1.30); GLOMERULAR FILTRATION RATE > 60.0 (>45); GLUCOSE, FASTING 117 MG/DL (70-100); POTASSIUM SERUM 4.2 MEQ/L (3.5-5.1); SODIUM LEVEL 144 MEQ/L (136-145)
[2020-09-24] MEDS: DULoxetine 30 MG CAP (CYMBALTA) PO SCH (09:09)
[2020-09-24] MEDS: IRON SUCROSE 100 MG in NS 100 ML OVER 1 HR IV SCH (09:09)
[2020-09-24] MEDS: MULTIVITAMINS/MINERALS THERAP 1 TAB PO SCH ×2 (09:10→21:01)
[2020-09-24] MEDS: VITAMIN D 1,000 INTERNATIONAL UNITS TABLET PO SCH (09:10)
--- NOTE | 2020-09-24 13:00 | IPNPDOC ---
Text Note Date of Service The patient was seen on 09/24/20. NOTE SUBJECTIVE: -Continues to be confused and unable to articulate herself. Also had some urinary retention overnight requiring straight cath x 1 Interval events: -Due to the new confusion and word finding difficulty in a high risk vasculopath I was very worried about potential CVA vs. delirium and ordered for MRI brain, MRA brain and MRA neck but unfortunately family did not have information on her latest carotid stent and we are trying to quickly get that information from [place]. In the meantime, I had consulted surgery for potential scoping for potential GI blood losses with goal to restart anticoagulation but now that there is c/f CVA that will have to be deferred until that is investigated. For now H/H remains stable and she is only on ASA 81. VITAL SIGNS: see below GENERAL APPEARANCE: NAD, pale HEENT: NCAT, EOMI, has conjunctival pallor, MMM, anicteric CARDIOVASCULAR: RRR, no m/r/g LUNGS: CTAB ABDOMEN: Normoactive sounds, soft, NTND MUSCULOSKELETAL: moving all extremities with full strength EXTREMITIES: WWP, 1+ edema bilaterally NEUROLOGICAL: CN3-12 intact, clear speech, no droops or asymmetrical weakness PSYCHIATRIC: Unable to corroborate clear answers with word finding difficulty and confusion. LABORATORY DATA: reviewed Hgb remains 5.7 Cr 0.65 MICROBIOLOGY: Please see below. ASSESSMENT: 60 years old W, who is [employer], with a history of hypertension, previous TIAs, hyperlipidemia, fibromyalgia, who recently had a L carotid stent placed in [place] on 08/27 that was c/b LE DVT after femoral access and so was started on xarelto and discharged home on ASA/plavix/xarelto who now presented to the ED with two syncopal episodes and admitted for syncope and symptomatic anemia with course c/b confusion and word finding difficulty with ongoing evaluation for CVA given high risk vasculopath with a history of multiple TIAs, currently only on ASA with severe anemia. PLAN: Syncope likely 2/2 acute on chronic, now symptomatic anemia: -Likely 2/2 symptomatic anemia: Pale, anemic i/s/o ASA/plavix BID/xarelto -Glucose was wnl -CT head was without acute pathology -EKG was stable from prior without acute ischemic changes, troponin was negative -f/u TTE for completion of syncope workup -Telemetry -Is [employer]ar[employer] so will not give blood transfusion -follow up B12, folate, retic -continue venofer, holding PO iron -In the meantime, am holding the plavix and Noac with eventual plan for ASA/xarelto for this peripheral stent and recent DVT. - I had consulted surgery for potential scoping for potential GI blood losses with goal to restart anticoagulation but now that there is c/f CVA that will have to be deferred until that is investigated. For now H/H remains stable and she is only on ASA 81. Severe MARK: likely driven by slow losses likely via GI tract -Will give venofer x 3 doses, day 2, holding PO iron to resume at home discharge - I had consulted surgery for potential scoping for potential GI blood losses with goal to restart anticoagulation but now that there is c/f CVA that will have to be deferred until that is investigated. For now H/H remains stable and she is only on ASA 81. Encephalopathy vs. potential CVA -Developed acute worsening on subacute (per has had some difficulty expressing herself at home) confusion and word finding difficulty in a high risk vasculopath. I was very worried about potential CVA vs. encephalopathy and ordered for MRI brain, MRA brain and MRA neck but unfortunately family did not have information on her latest carotid stent and we are trying to quickly get that information from [place]. -For now H/H remains stable and she is only on ASA 81 and deferring heparin gtt until MRI can confirm potential intracranial process. -CT head was negative for acute progress. -UA negative Hyperlipidemia -Continue statin Hypertension -hold meds for now. Is normotensive but weak, anemic with blood loss suspected and recently syncopized Fibromyalgia -Continue duloxetine DVT ppx: TEDs VS,Fishbone, I+O VS, Fishbone, I+O Laboratory Tests 09/23/20 12:04 09/23/20 13:51 09/24/20 06:25 Vital Signs Date Time Temp Pulse Resp B/P (MAP) Pulse Ox O2 Delivery O2 Flow Rate FiO2 09/24/20 06:00 97.1 82 17 120/55 (76) 96 Room Air I&O- Last 24 Hours up to 6 AM 09/24/20 06:00 Intake Total 1820 ml Output Total 1400 ml Balance 420 ml EDILIA SAMUEL MD Sep 24, 2020 09:15
[2020-09-24 16:00] VITALS: BP 122/56
--- NOTE | 2020-09-24 16:16 | REPVR ---
PROCEDURE INFORMATION: Exam: MR Head Without Contrast Exam date and time: 09/24/2020 2:46 PM Age: 60 years old Clinical indication: Altered mental status/memory loss and speech disturbance; Confusion or disorientation; Aphasia; Patient HX: AMS with word finding difficulty in a high risk vasculopath TECHNIQUE: Imaging protocol: MR of the head without contrast. COMPARISON: CT Head without contrast 09/23/2020 10:51 AM FINDINGS: Brain: Multiple acute infarcts in the left plunkett radiata and left parietal lobe. Cerebral ventricles: Normal. No ventriculomegaly. Bones/joints: Unremarkable. Paranasal sinuses: Normal as visualized. No acute sinusitis. Mastoid air cells: Normal as visualized. No mastoid effusion. Orbital cavity: Unremarkable. Soft tissues: Unremarkable. IMPRESSION: Multiple acute infarcts in the left plunkett radiata and left parietal lobe. No hemorrhage. Electronically signed by: Quinn Smith On 09/24/2020 16:16:29 PM
--- NOTE | 2020-09-24 16:40 | REPVR ---
PROCEDURE INFORMATION: Exam: MRA Neck Without Contrast Exam date and time: 09/24/2020 2:46 PM Age: 60 years old Clinical indication: Cognitive deficit and speech disturbance; Altered mental status; Aphasia; Patient HX: AMS with word finding difficulty in a high risk vasculopath TECHNIQUE: Imaging protocol: Magnetic resonance angiography of the neck without contrast. COMPARISON: CT ANGIO NECK 03/26/2020 8:32 AM FINDINGS: Right common carotid artery: No stenosis. No dissection or occlusion. Right internal carotid artery: There is approximately 62% stenosis of the right internal carotid artery. Right external carotid artery: No stenosis. No dissection or occlusion of the origin. Right vertebral artery: No stenosis. No dissection or occlusion. Left common carotid artery: No stenosis. No dissection or occlusion. Left internal carotid artery: The left internal carotid artery not visualized in the neck. Left external carotid artery: No stenosis. No dissection or occlusion of the origin. Left vertebral artery: No stenosis. No dissection or occlusion. Other findings: Suboptimal examination secondary to motion artifact. IMPRESSION: Suboptimal examination secondary to motion artifact. Right: Approximately 62% stenosis of the right internal carotid artery. Vertebral artery is patent. Left: Left internal carotid artery not visualized in the neck and is likely occluded with no significant change from prior study. Vertebral artery is patent. REFERENCES: NASCET CRITERIA. The degree of internal carotid artery stenosis is based on NASCET criteria. Normal is no stenosis. Mild is less than 50% stenosis. Moderate is 50-69% stenosis. Severe is 70% to 99% stenosis. Total occlusion is no detectable patent lumen. Electronically signed by: Quinn Smith On 09/24/2020 16:39:37 PM
--- NOTE | 2020-09-24 16:43 | REPVR ---
PROCEDURE INFORMATION: Exam: MRA Head Without Contrast; Arteriography Exam date and time: 09/24/2020 2:46 PM Age: 60 years old Clinical indication: Cognitive deficit and speech disturbance; Altered mental status; Aphasia; Patient HX: AMS with word finding difficulty in a high risk vasculopath TECHNIQUE: Imaging protocol: Magnetic resonance angiography head without contrast. Exam focused on the arteries. COMPARISON: MRA BRAIN W/O CONTRAST 03/25/2020 8:03 PM FINDINGS: ANTERIOR CIRCULATION: Right internal carotid artery: Intracranial segment is patent with no significant stenosis. No aneurysm. Right middle cerebral artery: No occlusion or significant stenosis. No aneurysm. Right anterior cerebral artery: No occlusion or significant stenosis. No aneurysm. Left internal carotid artery: String like left internal carotid artery. Left middle cerebral artery: Left middle cerebral artery is normal in caliber. Left anterior cerebral artery: No occlusion or significant stenosis. No aneurysm. POSTERIOR CIRCULATION: Right vertebral artery: No occlusion or significant stenosis. No aneurysm. Left vertebral artery: No occlusion or significant stenosis. No aneurysm. Basilar artery: No occlusion or significant stenosis. No aneurysm. Right posterior cerebral artery: No occlusion or significant stenosis. No aneurysm. Left posterior cerebral artery: No occlusion or significant stenosis. No aneurysm. IMPRESSION: Left internal carotid artery is string like/severely narrowed with no significant change from prior study. Electronically signed by: Quinn Smith On 09/24/2020 16:42:47 PM
[2020-09-24] MEDS ORDERED: CLOPIDOGREL 75 MG TAB PO ONE (17:50)
[2020-09-24] MEDS ORDERED: ISOVUE-370 76% 100ML VIAL As Ordered ONE (18:24)
--- NOTE | 2020-09-24 19:20 | REPVR ---
PROCEDURE INFORMATION: Exam: CT Abdomen And Pelvis With Contrast Exam date and time: 09/24/2020 6:53 PM Age: 60 years old Clinical indication: Condition or disease; Other: Anemic; Additional info: R/O rp bleed in anemic patient TECHNIQUE: Imaging protocol: Computed tomography of the abdomen and pelvis with contrast. Radiation optimization: All CT scans at this facility use at least one of these dose optimization techniques: automated exposure control; mA and/or kV adjustment per patient size (includes targeted exams where dose is matched to clinical indication); or iterative reconstruction. Contrast material: ISOVUE 370; Contrast volume: 100 ml; Contrast route: INTRAVENOUS (IV); COMPARISON: CT ABD/PEL W/IV CONTRAST ONLY 08/12/2018 6:29 PM FINDINGS: Liver: Normal. No mass. Gallbladder and bile ducts: Normal. No calcified stones. No ductal dilation. Pancreas: Normal. No ductal dilation. Spleen: Normal. No splenomegaly. Adrenal glands: Normal. No mass. Kidneys and ureters: Multiple nonobstructing calculus in the left kidney with the largest measuring 3 mm at the lower pole. Stomach and bowel: Unremarkable. No obstruction. No mucosal thickening. Appendix: No evidence of appendicitis. Intraperitoneal space: Unremarkable. No free air. No significant fluid collection. Vasculature: Unremarkable. No abdominal aortic aneurysm. Lymph nodes: Unremarkable. No enlarged lymph nodes. Urinary bladder: Unremarkable as visualized. Reproductive: Unremarkable as visualized. Bones/joints: Unremarkable. No acute fracture. Soft tissues: There is some fat stranding in the right lateral lower abdominal wall and in the anterior right thigh. No fluid collections. IMPRESSION: No acute abdominal or pelvic abnormality. Fat stranding in the right lateral lower abdominal wall and in the anterior right thigh. No fluid collections. Findings may suggest inflammation/infection. Electronically signed by: Quinn Smith On 09/24/2020 19:20:11 PM
[2020-09-24 19:53] VITALS: BP 164/71
[2020-09-24] MEDS: ATORVASTATIN 20 MG TAB PO SCH (21:00)
[2020-09-24] MEDS: traZODone 50 MG TAB PO SCH (21:01)
--- NOTE | 2020-09-24 23:21 | REPVR ---
PROCEDURE INFORMATION: Exam: US Duplex Lower Extremity Veins, Bilateral Exam date and time: 09/24/2020 11:13 PM Age: 60 years old Clinical indication: Edema, localized; Lower extremity, bilateral; Additional info: Recent le dvt for eval for iv filter TECHNIQUE: Imaging protocol: Real-time duplex ultrasound of the extremities with 2-D quinn scale, color Doppler flow and spectral waveform analysis with image documentation. Complete exam focused on the bilateral lower extremity veins. COMPARISON: CT ABD/PEL W/IV CONTRAST ONLY 09/24/2020 6:52 PM FINDINGS: Right deep veins: Unremarkable. The common femoral, femoral, proximal profunda femoral and popliteal veins are patent without thrombus. Normal Doppler waveforms. Normal compressibility and/or augmentation response. Right superficial veins: Saphenofemoral junction is patent without thrombus. Left deep veins: Unremarkable. The common femoral, femoral, proximal profunda femoral and popliteal veins are patent without thrombus. Normal Doppler waveforms. Normal compressibility and/or augmentation response. Left superficial veins: Saphenofemoral junction is patent without thrombus. Soft tissues: Unremarkable. IMPRESSION: No evidence of deep vein thrombosis. Electronically signed by: Quinn Smith On 09/24/2020 23:20:45 PM
[2020-09-25] VITALS: BP 155/69
[2020-09-25 04:00] VITALS: BP 140/64
[2020-09-25 06:16] LABS: MEAN CORPUSCULAR HEMOGLOBIN 30.6 pg (27.0-33.0); MEAN CORPUSCULAR HGB CONC 30.3 g/dl (32.0-36.5); PLATELET COUNT, AUTOMATED 249 10^3/uL (150-450); RED BLOOD COUNT 1.96 10^6/uL (4.00-5.40); WHITE BLOOD COUNT 7.8 10^3/uL (4.0-10.0)
[2020-09-25 06:27] LABS: HEMATOCRIT 19.8 % (36.0-47.0)
[2020-09-25 06:32] LABS: BLOOD UREA NITROGEN 5 MG/DL (7-18); CALCIUM LEVEL 7.9 MG/DL (8.8-10.2); CARBON DIOXIDE LEVEL 27 MEQ/L (21-32); CHLORIDE LEVEL 111 MEQ/L (98-107); CREATININE FOR GFR 0.58 MG/DL (0.55-1.30); GLOMERULAR FILTRATION RATE > 60.0 (>45); GLUCOSE, FASTING 109 MG/DL (70-100); POTASSIUM SERUM 3.9 MEQ/L (3.5-5.1); SODIUM LEVEL 143 MEQ/L (136-145)
[2020-09-25] MEDS: NS 1,000 ML IV SCH ×2 (07:52→20:28)
[2020-09-25 08:00] VITALS: BP 119/53
[2020-09-25] MEDS: MULTIVITAMINS/MINERALS THERAP 1 TAB PO SCH ×2 (09:01→20:22)
[2020-09-25] MEDS: DULoxetine 30 MG CAP (CYMBALTA) PO SCH (09:01)
[2020-09-25] MEDS: VITAMIN D 1,000 INTERNATIONAL UNITS TABLET PO SCH (09:01)
[2020-09-25] MEDS: CLOPIDOGREL 75 MG TAB PO SCH (09:01)
[2020-09-25] MEDS: ASPIRIN 81 MG CHEW TABLET PO SCH (09:01)
[2020-09-25] MEDS: IRON SUCROSE 100 MG in NS 100 ML OVER 1 HR IV SCH (09:02)
--- NOTE | 2020-09-25 11:01 | IPNPDOC ---
Text Note Date of Service The patient was seen on 09/25/20. NOTE SUBJECTIVE: -Doing much better today, confusion is dramatically improved and expressive aphasia is resolving. -She is experiencing some urinary retention. Interim events: -MRI confirmed multiple acute L plunkett radiata and L parietal lobe infarcts with no evidence of hemorrhage --> L IC remains completed occluded while R IC has stenosis. I consulted Dr. Bowen, called [facility] stroke pilot knob to which they declined transfer and instead recommended continued antiplatelet therapy with switch to at least plavix while evaluating for either DAPT + IVC filter or ASA + NoAC if bleeding has stopped. -Ordered CT A/P to investigate possible RP bleed given recent femoral approach in her vascular surgery at [place] on 08/27. No evidence of bleeding. - I called Dr. Vizcarra (vascular surgery) who recommended getting LE dopplers to evaluate clot burden and position as we weigh the possibility of an IVC filter. Of note, given her history of TIAs, she has had several TTEs with negative bubble studies. - I have updated the of these new findings and the plan as well as ongoing investigations and new consultations. Interval events: -Due to the new confusion and word finding difficulty in a high risk vasculopath I was very worried about potential CVA vs. delirium and ordered for MRI brain, MRA brain and MRA neck but unfortunately family did not have information on her latest carotid stent and we are trying to quickly get that information from [place]. In the meantime, I had consulted surgery for potential scoping for potential GI blood losses with goal to restart anticoagulation but now that there is c/f CVA that will have to be deferred until that is investigated. For now H/H remains stable and she is only on ASA 81. VITAL SIGNS: see below GENERAL APPEARANCE: NAD, pale HEENT: NCAT, EOMI, has conjunctival pallor, MMM, anicteric CARDIOVASCULAR: RRR, no m/r/g LUNGS: CTAB ABDOMEN: Normoactive sounds, soft, NTND MUSCULOSKELETAL: moving all extremities with full strength EXTREMITIES: WWP, 1+ edema bilaterally NEUROLOGICAL: CN3-12 intact, clear speech, no asymmetrical weakness PSYCHIATRIC: AOx3 LABORATORY DATA: reviewed Hgb 6 MICROBIOLOGY: Please see below. IMAGING: LE venous doppler US: Right deep veins: Unremarkable. The common femoral, femoral, proximal profunda femoral and popliteal veins are patent without thrombus. Normal Doppler waveforms. Normal compressibility and/or augmentation response. Right superficial veins: Saphenofemoral junction is patent without thrombus. Left deep veins: Unremarkable. The common femoral, femoral, proximal profunda femoral and popliteal veins are patent without thrombus. Normal Doppler waveforms. Normal compressibility and/or augmentation response. Left superficial veins: Saphenofemoral junction is patent without thrombus. Soft tissues: Unremarkable. IMPRESSION: No evidence of deep vein thrombosis. CT A/P with IV contrast: Liver: Normal. No mass. Gallbladder and bile ducts: Normal. No calcified stones. No ductal dilation. Pancreas: Normal. No ductal dilation. Spleen: Normal. No splenomegaly. Adrenal glands: Normal. No mass. Kidneys and ureters: Multiple nonobstructing calculus in the left kidney with the largest measuring 3 mm at the lower pole. Stomach and bowel: Unremarkable. No obstruction. No mucosal thickening. Appendix: No evidence of appendicitis. Intraperitoneal space: Unremarkable. No free air. No significant fluid collection. Vasculature: Unremarkable. No abdominal aortic aneurysm. Lymph nodes: Unremarkable. No enlarged lymph nodes. Urinary bladder: Unremarkable as visualized. Reproductive: Unremarkable as visualized. Bones/joints: Unremarkable. No acute fracture. Soft tissues: There is some fat stranding in the right lateral lower abdominal wall and in the anterior right thigh. No fluid collections. IMPRESSION: No acute abdominal or pelvic abnormality. Fat stranding in the right lateral lower abdominal wall and in the anterior right thigh. No fluid collections. Findings may suggest inflammation/infection. Neck MRA: FINDINGS: Right common carotid artery: No stenosis. No dissection or occlusion. Right internal carotid artery: There is approximately 62% stenosis of the right internal carotid artery. Right external carotid artery: No stenosis. No dissection or occlusion of the origin. Right vertebral artery: No stenosis. No dissection or occlusion. Left common carotid artery: No stenosis. No dissection or occlusion. Left internal carotid artery: The left internal carotid artery not visualized in the neck. Left external carotid artery: No stenosis. No dissection or occlusion of the origin. Left vertebral artery: No stenosis. No dissection or occlusion. Other findings: Suboptimal examination secondary to motion artifact. IMPRESSION: Suboptimal examination secondary to motion artifact. Right: Approximately 62% stenosis of the right internal carotid artery. Vertebral artery is patent. Left: Left internal carotid artery not visualized in the neck and is likely occluded with no significant change from prior study. Vertebral artery is patent. REFERENCES: NASCET CRITERIA. The degree of internal carotid artery stenosis is based on NASCET criteria. Normal is no stenosis. Mild is less than 50% stenosis. Moderate is 50-69% stenosis. Severe is 70% to 99% stenosis. Total occlusion is no detectable patent lumen. Brain MRI: Brain: Multiple acute infarcts in the left plunkett radiata and left parietal lobe. Cerebral ventricles: Normal. No ventriculomegaly. Bones/joints: Unremarkable. Paranasal sinuses: Normal as visualized. No acute sinusitis. Mastoid air cells: Normal as visualized. No mastoid effusion. Orbital cavity: Unremarkable. Soft tissues: Unremarkable. IMPRESSION: Multiple acute infarcts in the left plunkett radiata and left parietal lobe. No hemorrhage. Brain MRA: ANTERIOR CIRCULATION: Right internal carotid artery: Intracranial segment is patent with no significant stenosis. No aneurysm. Right middle cerebral artery: No occlusion or significant stenosis. No aneurysm. Right anterior cerebral artery: No occlusion or significant stenosis. No aneurysm. Left internal carotid artery: String like left internal carotid artery. Left middle cerebral artery: Left middle cerebral artery is normal in caliber. Left anterior cerebral artery: No occlusion or significant stenosis. No aneurysm. POSTERIOR CIRCULATION: Right vertebral artery: No occlusion or significant stenosis. No aneurysm. Left vertebral artery: No occlusion or significant stenosis. No aneurysm. Basilar artery: No occlusion or significant stenosis. No aneurysm. Right posterior cerebral artery: No occlusion or significant stenosis. No aneurysm. Left posterior cerebral artery: No occlusion or significant stenosis. No aneurysm. IMPRESSION: Left internal carotid artery is string like/severely narrowed with no significant change from prior study. ASSESSMENT: 60 years old W, who is W[employer], with a history of hypertension, previous TIAs, hyperlipidemia, fibromyalgia, who recently had a L carotid stent placed in [place] on 08/27 that was c/b LE DVT after femoral access and so was started on xarelto and discharged home on ASA/plavix/xarelto who now presented to the ED with two syncopal episodes and admitted for syncope and symptomatic anemia with course c/b L plunkett radiata and L parietal mutiple non-hemorrhagic infarcts, now placed on plavix. PLAN: Syncope likely 2/2 acute on chronic, now symptomatic anemia: -Likely 2/2 symptomatic anemia: Pale, anemic i/s/o ASA/plavix BID/xarelto -Glucose was wnl -CT head was without acute pathology -EKG was stable from prior without acute ischemic changes, troponin was negative -f/u TTE for completion of syncope workup -Telemetry -Is W[employer] so will not give blood transfusion -follow up B12, folate, retic -continue venofer, holding PO iron -In the meantime, switched her to plavix and holding ASA and Noac with eventual plan for ASA/Noac now that DVT US found no DVT at this time. - I had consulted surgery for potential scoping for potential GI blood losses with goal to restart anticoagulation but now that she had a CVA and no clot was found and Hgb is stable, will plan on DAPT therapy instead. Severe MARK: likely driven by slow losses likely via GI tract, no evidence of RP bleed -Will give venofer x 3 doses, day 3, holding PO iron to resume at home discharge - I had consulted surgery for potential scoping for potential GI blood losses with goal to restart anticoagulation but now that she had a CVA and no clot was found and Hgb is stable, will plan on DAPT therapy instead. L plunkett radiata and L parietal non-hemorrhagic infarcts: -Developed acute worsening on subacute (per has had some difficulty expressing herself at home) confusion and word finding difficulty in a high risk vasculopath. I was very worried about potential CVA vs. encephalopathy and ordered for MRI brain, MRA brain and MRA jairo confirmed the multiple infarcts -For now H/H remains stable and have switched her to plavix. Will restart her ASA as well. -DVT scan was negative for LE DVT that was diagnosed at [place] last month. Will plan to not resume NoAC -neurology consulted -called [facility] stroke pilot knob to which they declined transfer and instead recommended continued antiplatelet therapy with switch to at least plavix while evaluating for either DAPT + IVC filter or ASA + NoAC if bleeding has stopped. At this time however no DVT was seen, will place on DAPT and monitor. Hyperlipidemia -Continue statin Hypertension -hold meds for now. Is normotensive but weak, anemic with blood loss suspected and recently syncopized Fibromyalgia -Continue duloxetine DVT ppx: TEDs VS,Fishbone, I+O VS, Fishbone, I+O Laboratory Tests 09/25/20 05:53 Vital Signs Date Time Temp Pulse Resp B/P (MAP) Pulse Ox O2 Delivery O2 Flow Rate FiO2 09/25/20 04:00 97.5 93 16 140/64 (89) 96 Room Air I&O- Last 24 Hours up to 6 AM 09/25/20 06:00 Intake Total 2520 ml Output Total 1200 ml Balance 1320 ml EDILIA SAMUEL MD Sep 25, 2020 08:43
[2020-09-25] MEDS: TAMSULOSIN 0.4 MG CAP PO SCH (11:57)
[2020-09-25 12:00] VITALS: BP 150/65
[2020-09-25 16:00] VITALS: BP 129/58
[2020-09-25 20:00] VITALS: BP 115/57
--- NOTE | 2020-09-25 20:02 | CR ---
CONSULTATION DATE: 09/25/2020 REASON FOR CONSULTATION: Stroke, GI bleed and DVT REQUESTING PHYSICIAN: Dr. Manuel Arellano CONSULTING PHYSICIAN: Dr. Andrés Anton HISTORY OF PRESENT ILLNESS: Lucille Washington is a 50-year-old woman who is a [employer] with a history of hypertension, TIAs, fibromyalgia, dyslipidemia, who was admitted at [facility] in March 2020 for a TIA. She is known to have left internal carotid artery occlusion. She also has advanced right carotid artery stenosis as well. The patient had a coronary artery stent placement as [facility] within the last one month. The patient states that they attempted to put a stent in the right internal carotid artery. She started noticing right leg weakness at that time. She did not have any trouble with speech or right arm weakness. She went back to see her surgeon last week and due to right leg weakness they ordered an ultrasound of the leg to rule out DVT. Per history, she was found to have a blood clot in one of her femoral veins. She was started on Xarelto. She passed out on Sunday. She started turning pale on Sunday. She again fell down and could not get up off the ground on Sunday and came to [facility]. She denies any known GI bleed or blood in stool. She has been taking iron supplement and did not notice any changes in her bowel habits, color or consistency. She was found to have hemoglobin of 6.2 while it was 10.5 earlier this year. She declined packed cells transfusion. She did have trouble finding words yesterday. She denies aphasia, diplopia, urinary incontinence, falls, other than earlier this week. She denies any head injuries. DIAGNOSTIC STUDIES: MRI scan of the brain was reviewed and showed multiple left frontal, parietal and occipital ischemic strokes. MRA brain and neck showed occlusion of left internal carotid artery and 62% right internal carotid artery stenosis. Vertebral arteries were unremarkable. Ultrasound of the legs did not reveal deep vein thrombosis. Hemoglobin was 5.7 this morning, platelet count 2.9 with normal metabolic profile. PAST MEDICAL HISTORY: The patient's past medical history is significant for: 1. TIA. 2. Coronary artery disease, status post carotid endarterectomy and stenting with known left internal carotid artery occlusion. 3. Hypertension. 4. Anxiety. 5. Depression. 6. Acid reflux. 7. Fibromyalgia. 8. Osteoarthritis. 9. Skin graft. FAMILY HISTORY: History of stroke. SOCIAL HISTORY: She is . She denies smoking, alcohol or illicit drugs. REVIEW OF SYSTEMS: All systems were reviewed and found to be noncontributory except as mentioned in the history of present illness. HOME MEDICATIONS: 1. Amlodipine 5 mg p.o. daily. 2. Aspirin 81 mg p.o. daily. 3. Atorvastatin 200 mg p.o. daily. 4. Plavix 75 mg p.o. daily. 5. Cymbalta 30 mg p.o. daily. 6. Ferrous Sulfate 325 mg p.o. daily. 7. Lisinopril 40 mg p.o. daily. 8. Xarelto 20 mg p.o. daily. 9. Trazodone 150 mg p.o. q. h.s. ALLERGIES: None. PHYSICAL EXAMINATION: VITAL SIGNS: Temperature 97.5, pulse 88, respiratory rate 16, blood pressure 119/53, 100% saturation on room air. HEART: Regular rate and rhythm. LUNGS: Clear to auscultation. ABDOMEN: Soft, nontender, nondistended. EXTREMITIES: No pedal edema. MUSCULOSKELETAL: No abnormalities. SKIN: No rash. No signs of meningeal irritation. NEUROLOGICAL: The patient is awake, alert, oriented to place, person and time. Normal speech, comprehension and repetition. The extraocular muscles are intact. No facial weakness. Tongue and uvula are midline. 5/5 strength in all four extremities. Deep tendon reflexes are 2+ throughout. Normal sensation throughout. Gait was not tested. There is no dysmetria. ASSESSMENT: 1. Multiple left frontal, parietal and occipital acute ischemic stroke. 2. History of left internal carotid artery occlusion. 3. Recent carotid artery stenting which the patient states was right sided. 4. Suspected GI bleed with drop of hemoglobin from 10.5 to 5.7. 5. Questionable DVT in femoral vein but her Doppler ultrasound here was unremarkable. PLAN: 1. We had requested transfer to [facility] where the patient's vascular surgeons are located. They did not have any beds available. [facility] [place] denied transfer and stated that they would not be able to add anything more than which is being done here. 2. Get report of her Doppler ultrasound of legs from [facility] for comparison. Consult a vascular surgeon for best course of action if the patient would need inferior vena cava filter. 3. Monitor hemoglobin and hematocrit. 4. The patient has restarted on Aspirin 81 mg p.o. daily and Plavix 75 mg p.o. daily. She will be a high risk patient to start anticoagulation due to concern for current GI bleed. 5. Protonix 40 mg p.o. daily. 6. Physical and occupational therapy. 7. Follow up with our office in 1-2 weeks after hospital discharge. She should closely follow with Vascular Surgery. VIKASH
[2020-09-25] MEDS: traZODone 50 MG TAB PO SCH (20:22)
[2020-09-25] MEDS: ATORVASTATIN 20 MG TAB PO SCH (20:22)
[2020-09-26] VITALS: BP_SYST 140; BP_SYST 166; BP_DIAS 68; BP_DIAS 70
[2020-09-26 04:00] VITALS: BP 113/53
[2020-09-26] MEDS: NS 1,000 ML IV SCH ×2 (04:59→15:36)
[2020-09-26 05:10] LABS: MEAN CORPUSCULAR HEMOGLOBIN 30.5 pg (27.0-33.0); MEAN CORPUSCULAR HGB CONC 29.8 g/dl (32.0-36.5); MEAN CORPUSCULAR VOLUME 102.3 fl (80.0-96.0); PLATELET COUNT, AUTOMATED 240 10^3/uL (150-450); RED BLOOD COUNT 1.77 10^6/uL (4.00-5.40)
[2020-09-26 05:17] LABS: HEMATOCRIT 18.1 % (36.0-47.0)
[2020-09-26 05:18] LABS: HEMOGLOBIN 5.4 g/dl (12.0-15.5)
[2020-09-26 05:35] LABS: BLOOD UREA NITROGEN 6 MG/DL (7-18); CALCIUM LEVEL 7.8 MG/DL (8.8-10.2); CARBON DIOXIDE LEVEL 28 MEQ/L (21-32); CHLORIDE LEVEL 115 MEQ/L (98-107); CREATININE FOR GFR 0.67 MG/DL (0.55-1.30); GLOMERULAR FILTRATION RATE > 60.0 (>45); GLUCOSE, FASTING 103 MG/DL (70-100); SODIUM LEVEL 147 MEQ/L (136-145)
[2020-09-26 08:00] VITALS: BP 137/59
[2020-09-26] MEDS: CLOPIDOGREL 75 MG TAB PO SCH (08:03)
[2020-09-26] MEDS: ASPIRIN 81 MG CHEW TABLET PO SCH (08:03)
[2020-09-26] MEDS: MULTIVITAMINS/MINERALS THERAP 1 TAB PO SCH ×2 (08:03→20:20)
[2020-09-26] MEDS: TAMSULOSIN 0.4 MG CAP PO SCH (08:03)
[2020-09-26] MEDS: VITAMIN D 1,000 INTERNATIONAL UNITS TABLET PO SCH (08:03)
[2020-09-26] MEDS: DULoxetine 30 MG CAP (CYMBALTA) PO SCH (08:03)
[2020-09-26 11:31] VITALS: BP 122/58
--- NOTE | 2020-09-26 14:14 | IPNPDOC ---
Text Note Date of Service The patient was seen on 09/26/20. NOTE SUBJECTIVE: -No acute complaints this morning Interim events: -Spoke with PT, OK'd working with her with a Hgb between 5-6 because it will stay so for a long time until her bone marrow generates more RBCs since she cannot have blood products and needs PT/OT given the recent stroke. VITAL SIGNS: see below GENERAL APPEARANCE: NAD, pale HEENT: NCAT, EOMI, has conjunctival pallor, MMM, anicteric CARDIOVASCULAR: RRR, no m/r/g LUNGS: CTAB ABDOMEN: Normoactive sounds, soft, NTND MUSCULOSKELETAL: moving all extremities with full strength EXTREMITIES: WWP, 1+ edema bilaterally NEUROLOGICAL: CN3-12 intact, clear speech, no asymmetrical weakness PSYCHIATRIC: AOx3 LABORATORY DATA: reviewed Hgb 5.4 MICROBIOLOGY: Please see below. IMAGING: LE venous doppler US: Right deep veins: Unremarkable. The common femoral, femoral, proximal profunda femoral and popliteal veins are patent without thrombus. Normal Doppler waveforms. Normal compressibility and/or augmentation response. Right superficial veins: Saphenofemoral junction is patent without thrombus. Left deep veins: Unremarkable. The common femoral, femoral, proximal profunda femoral and popliteal veins are patent without thrombus. Normal Doppler waveforms. Normal compressibility and/or augmentation response. Left superficial veins: Saphenofemoral junction is patent without thrombus. Soft tissues: Unremarkable. IMPRESSION: No evidence of deep vein thrombosis. CT A/P with IV contrast: Liver: Normal. No mass. Gallbladder and bile ducts: Normal. No calcified stones. No ductal dilation. Pancreas: Normal. No ductal dilation. Spleen: Normal. No splenomegaly. Adrenal glands: Normal. No mass. Kidneys and ureters: Multiple nonobstructing calculus in the left kidney with the largest measuring 3 mm at the lower pole. Stomach and bowel: Unremarkable. No obstruction. No mucosal thickening. Appendix: No evidence of appendicitis. Intraperitoneal space: Unremarkable. No free air. No significant fluid collection. Vasculature: Unremarkable. No abdominal aortic aneurysm. Lymph nodes: Unremarkable. No enlarged lymph nodes. Urinary bladder: Unremarkable as visualized. Reproductive: Unremarkable as visualized. Bones/joints: Unremarkable. No acute fracture. Soft tissues: There is some fat stranding in the right lateral lower abdominal wall and in the anterior right thigh. No fluid collections. IMPRESSION: No acute abdominal or pelvic abnormality. Fat stranding in the right lateral lower abdominal wall and in the anterior right thigh. No fluid collections. Findings may suggest inflammation/infection. Neck MRA: FINDINGS: Right common carotid artery: No stenosis. No dissection or occlusion. Right internal carotid artery: There is approximately 62% stenosis of the right internal carotid artery. Right external carotid artery: No stenosis. No dissection or occlusion of the origin. Right vertebral artery: No stenosis. No dissection or occlusion. Left common carotid artery: No stenosis. No dissection or occlusion. Left internal carotid artery: The left internal carotid artery not visualized in the neck. Left external carotid artery: No stenosis. No dissection or occlusion of the origin. Left vertebral artery: No stenosis. No dissection or occlusion. Other findings: Suboptimal examination secondary to motion artifact. IMPRESSION: Suboptimal examination secondary to motion artifact. Right: Approximately 62% stenosis of the right internal carotid artery. Vertebral artery is patent. Left: Left internal carotid artery not visualized in the neck and is likely occluded with no significant change from prior study. Vertebral artery is patent. REFERENCES: NASCET CRITERIA. The degree of internal carotid artery stenosis is based on NASCET criteria. Normal is no stenosis. Mild is less than 50% stenosis. Moderate is 50-69% stenosis. Severe is 70% to 99% stenosis. Total occlusion is no detectable patent lumen. Brain MRI: Brain: Multiple acute infarcts in the left plunkett radiata and left parietal lobe. Cerebral ventricles: Normal. No ventriculomegaly. Bones/joints: Unremarkable. Paranasal sinuses: Normal as visualized. No acute sinusitis. Mastoid air cells: Normal as visualized. No mastoid effusion. Orbital cavity: Unremarkable. Soft tissues: Unremarkable. IMPRESSION: Multiple acute infarcts in the left plunkett radiata and left parietal lobe. No hemorrhage. Brain MRA: ANTERIOR CIRCULATION: Right internal carotid artery: Intracranial segment is patent with no significant stenosis. No aneurysm. Right middle cerebral artery: No occlusion or significant stenosis. No aneurysm. Right anterior cerebral artery: No occlusion or significant stenosis. No aneurysm. Left internal carotid artery: String like left internal carotid artery. Left middle cerebral artery: Left middle cerebral artery is normal in caliber. Left anterior cerebral artery: No occlusion or significant stenosis. No aneurysm. POSTERIOR CIRCULATION: Right vertebral artery: No occlusion or significant stenosis. No aneurysm. Left vertebral artery: No occlusion or significant stenosis. No aneurysm. Basilar artery: No occlusion or significant stenosis. No aneurysm. Right posterior cerebral artery: No occlusion or significant stenosis. No aneurysm. Left posterior cerebral artery: No occlusion or significant stenosis. No aneurysm. IMPRESSION: Left internal carotid artery is string like/severely narrowed with no significant change from prior study. ASSESSMENT: 60 years old W, who is Christianity, with a history of hypertension, previous TIAs, hyperlipidemia, fibromyalgia, who recently had a L carotid stent placed in [place] on 08/27 that was c/b LE DVT after femoral access and so was started on xarelto and discharged home on ASA/plavix/xarelto who now presented to the ED with two syncopal episodes and admitted for syncope and symptomatic anemia with course c/b L plunkett radiata and L parietal multiple non-hemorrhagic infarcts, now placed on ASA/plavix. PLAN: Syncope likely 2/2 acute on chronic, now symptomatic anemia: -Likely 2/2 symptomatic anemia: Pale, anemic i/s/o ASA/plavix BID/xarelto -Glucose was wnl -CT head was without acute pathology -EKG was stable from prior without acute ischemic changes, troponin was negative -f/u TTE for completion of syncope workup -Telemetry -Is Christianity so will not give blood transfusion -B12, folate wnl. Check MMA -Her retic index is appropriate -continue venofer, holding PO iron -Now that DVT US found no DVT at this time placed her back on ASA/plavix and monitoring CBC daily. - I had consulted surgery for potential scoping for potential GI blood losses with goal to restart anticoagulation but now that she had a CVA and no clot was found and Hgb is stable, will plan on DAPT therapy instead. Severe MARK: likely driven by slow losses likely via GI tract, no evidence of RP bleed -s/p venofer x 3 doses, will now resume PO iron - I had consulted surgery for potential scoping for potential GI blood losses with goal to restart anticoagulation but now that she had a CVA and no clot was found and Hgb is stable, will plan on DAPT therapy instead. L plunkett radiata and L parietal non-hemorrhagic infarcts: -Developed acute worsening on subacute (per has had some difficulty expressing herself at home) confusion and word finding difficulty in a high risk vasculopath. I was very worried about potential CVA vs. encephalopathy and orde red for MRI brain, MRA brain and MRA jairo confirmed the multiple infarcts -For now H/H remains relatively stable and started her on ASA/plavix and monitoring CBC daily -DVT scan was negative for LE DVT that was diagnosed at [place] last month. Will plan to not resume NoAC -neurology consulted -called [facility] [place] to which they declined transfer and instead recommended continued antiplatelet therapy with switch to at least plavix while evaluating for either DAPT + IVC filter or ASA + NoAC if bleeding has stopped. At this time however no DVT was seen, and so I placed her on DAPT and monitoring CBC closely. Hyperlipidemia -Continue statin Hypertension -hold meds for now. Is normotensive but weak, anemic with blood loss suspected and recently syncopized Fibromyalgia -Continue duloxetine DVT ppx: TEDs VS,Fishbone, I+O VS, Fishbone, I+O Laboratory Tests 09/26/20 04:49 Vital Signs Date Time Temp Pulse Resp B/P (MAP) Pulse Ox O2 Delivery O2 Flow Rate FiO2 09/26/20 08:00 98.2 93 16 137/59 (85) 98 Room Air I&O- Last 24 Hours up to 6 AM 09/26/20 06:00 Intake Total 2855 ml Output Total 600 ml Balance 2255 ml EDILIA SAMUEL MD Sep 26, 2020 08:57
[2020-09-26 16:00] VITALS: BP 126/58
[2020-09-26 20:10] VITALS: BP 118/56
[2020-09-26] MEDS: ATORVASTATIN 20 MG TAB PO SCH (20:20)
[2020-09-26] MEDS: traZODone 50 MG TAB PO SCH (20:20)
[2020-09-27 00:10] VITALS: BP 162/67
[2020-09-27] MEDS: NS 1,000 ML IV SCH (01:43)
[2020-09-27 04:10] VITALS: BP 145/62
[2020-09-27 06:20] LABS: MEAN CORPUSCULAR HEMOGLOBIN 31.1 pg (27.0-33.0); MEAN CORPUSCULAR VOLUME 103.6 fl (80.0-96.0); PLATELET COUNT, AUTOMATED 270 10^3/uL (150-450); RED BLOOD COUNT 1.93 10^6/uL (4.00-5.40); WHITE BLOOD COUNT 9.2 10^3/uL (4.0-10.0)
[2020-09-27 06:43] LABS: BLOOD UREA NITROGEN 5 MG/DL (7-18); CALCIUM LEVEL 7.5 MG/DL (8.8-10.2); CARBON DIOXIDE LEVEL 26 MEQ/L (21-32); CHLORIDE LEVEL 113 MEQ/L (98-107); GLOMERULAR FILTRATION RATE > 60.0 (>45); GLUCOSE, FASTING 108 MG/DL (70-100); SODIUM LEVEL 142 MEQ/L (136-145)
[2020-09-27 08:00] VITALS: BP 154/66
[2020-09-27] MEDS: TAMSULOSIN 0.4 MG CAP PO SCH (09:06)
[2020-09-27] MEDS: ASPIRIN 81 MG CHEW TABLET PO SCH (09:06)
[2020-09-27] MEDS: MULTIVITAMINS/MINERALS THERAP 1 TAB PO SCH ×2 (09:07→20:45)
[2020-09-27] MEDS: CLOPIDOGREL 75 MG TAB PO SCH (09:07)
[2020-09-27] MEDS: VITAMIN D 1,000 INTERNATIONAL UNITS TABLET PO SCH (09:07)
[2020-09-27] MEDS: DULoxetine 30 MG CAP (CYMBALTA) PO SCH (09:07)
[2020-09-27] MEDS: FERROUS SULFATE 325MG TAB PO SCH (09:50)
[2020-09-27 12:00] VITALS: BP 150/67
--- NOTE | 2020-09-27 13:40 | IPNPDOC ---
Text Note Date of Service The patient was seen on 09/27/20. NOTE SUBJECTIVE: -No acute complaints this morning, stably doing well VITAL SIGNS: see below GENERAL APPEARANCE: NAD, pale HEENT: NCAT, EOMI, has conjunctival pallor, MMM, anicteric CARDIOVASCULAR: RRR, no m/r/g LUNGS: CTAB ABDOMEN: Normoactive sounds, soft, NTND MUSCULOSKELETAL: moving all extremities with full strength EXTREMITIES: WWP, 1+ edema bilaterally NEUROLOGICAL: CN3-12 intact, clear speech, no asymmetrical weakness PSYCHIATRIC: AOx3 LABORATORY DATA: reviewed Hgb 6 MICROBIOLOGY: Please see below. IMAGING: LE venous doppler US: Right deep veins: Unremarkable. The common femoral, femoral, proximal profunda femoral and popliteal veins are patent without thrombus. Normal Doppler waveforms. Normal compressibility and/or augmentation response. Right superficial veins: Saphenofemoral junction is patent without thrombus. Left deep veins: Unremarkable. The common femoral, femoral, proximal profunda femoral and popliteal veins are patent without thrombus. Normal Doppler waveforms. Normal compressibility and/or augmentation response. Left superficial veins: Saphenofemoral junction is patent without thrombus. Soft tissues: Unremarkable. IMPRESSION: No evidence of deep vein thrombosis. CT A/P with IV contrast: Liver: Normal. No mass. Gallbladder and bile ducts: Normal. No calcified stones. No ductal dilation. Pancreas: Normal. No ductal dilation. Spleen: Normal. No splenomegaly. Adrenal glands: Normal. No mass. Kidneys and ureters: Multiple nonobstructing calculus in the left kidney with the largest measuring 3 mm at the lower pole. Stomach and bowel: Unremarkable. No obstruction. No mucosal thickening. Appendix: No evidence of appendicitis. Intraperitoneal space: Unremarkable. No free air. No significant fluid collection. Vasculature: Unremarkable. No abdominal aortic aneurysm. Lymph nodes: Unremarkable. No enlarged lymph nodes. Urinary bladder: Unremarkable as visualized. Reproductive: Unremarkable as visualized. Bones/joints: Unremarkable. No acute fracture. Soft tissues: There is some fat stranding in the right lateral lower abdominal wall and in the anterior right thigh. No fluid collections. IMPRESSION: No acute abdominal or pelvic abnormality. Fat stranding in the right lateral lower abdominal wall and in the anterior right thigh. No fluid collections. Findings may suggest inflammation/infection. Neck MRA: FINDINGS: Right common carotid artery: No stenosis. No dissection or occlusion. Right internal carotid artery: There is approximately 62% stenosis of the right internal carotid artery. Right external carotid artery: No stenosis. No dissection or occlusion of the origin. Right vertebral artery: No stenosis. No dissection or occlusion. Left common carotid artery: No stenosis. No dissection or occlusion. Left internal carotid artery: The left internal carotid artery not visualized in the neck. Left external carotid artery: No stenosis. No dissection or occlusion of the origin. Left vertebral artery: No stenosis. No dissection or occlusion. Other findings: Suboptimal examination secondary to motion artifact. IMPRESSION: Suboptimal examination secondary to motion artifact. Right: Approximately 62% stenosis of the right internal carotid artery. Vertebral artery is patent. Left: Left internal carotid artery not visualized in the neck and is likely occluded with no significant change from prior study. Vertebral artery is patent. REFERENCES: NASCET CRITERIA. The degree of internal carotid artery stenosis is based on NASCET criteria. Normal is no stenosis. Mild is less than 50% stenosis. Moderate is 50-69% stenosis. Severe is 70% to 99% stenosis. Total occlusion is no detectable patent lumen. Brain MRI: Brain: Multiple acute infarcts in the left plunkett radiata and left parietal lobe. Cerebral ventricles: Normal. No ventriculomegaly. Bones/joints: Unremarkable. Paranasal sinuses: Normal as visualized. No acute sinusitis. Mastoid air cells: Normal as visualized. No mastoid effusion. Orbital cavity: Unremarkable. Soft tissues: Unremarkable. IMPRESSION: Multiple acute infarcts in the left plunkett radiata and left parietal lobe. No hemorrhage. Brain MRA: ANTERIOR CIRCULATION: Right internal carotid artery: Intracranial segment is patent with no significant stenosis. No aneurysm. Right middle cerebral artery: No occlusion or significant stenosis. No aneurysm. Right anterior cerebral artery: No occlusion or significant stenosis. No aneurysm. Left internal carotid artery: String like left internal carotid artery. Left middle cerebral artery: Left middle cerebral artery is normal in caliber. Left anterior cerebral artery: No occlusion or significant stenosis. No aneurysm. POSTERIOR CIRCULATION: Right vertebral artery: No occlusion or significant stenosis. No aneurysm. Left vertebral artery: No occlusion or significant stenosis. No aneurysm. Basilar artery: No occlusion or significant stenosis. No aneurysm. Right posterior cerebral artery: No occlusion or significant stenosis. No aneurysm. Left posterior cerebral artery: No occlusion or significant stenosis. No aneurysm. IMPRESSION: Left internal carotid artery is string like/severely narrowed with no significant change from prior study. ASSESSMENT: 60 years old W, who is [place], with a history of hypertension, prev ious TIAs, hyperlipidemia, fibromyalgia, who recently had a L carotid stent placed in [place] on 08/27 that was c/b LE DVT after femoral access and so was started on xarelto and discharged home on ASA/plavix/xarelto who now presented to the ED with two syncopal episodes and admitted for syncope and symptomatic anemia with course c/b L plunkett radiata and L parietal multiple non-hemorrhagic infarcts, now placed on ASA/plavix. PLAN: Syncope likely 2/2 acute on chronic, now symptomatic anemia: -2/2 symptomatic anemia: Pale, anemic i/s/o ASA/plavix BID/xarelto -Glucose was wnl -CT head was without acute pathology -EKG was stable from prior without acute ischemic changes, troponin was negative -f/u TTE for completion of syncope workup, pending read -Telemetry, will dc at this time -Is Druze so will not give blood transfusion -B12, folate wnl. Check MMA -Her retic index is appropriate -s/p venofer, continue PO iron -Now that DVT US found no DVT was started back on ASA/plavix and monitoring CBC daily. - I had consulted surgery for potential scoping for potential GI blood losses with goal to restart anticoagulation but now that she had a CVA and no clot was found and Hgb is stable, will plan on DAPT therapy instead. Severe MARK: likely driven by slow losses likely via GI tract, no evidence of RP bleed -s/p venofer x 3 doses, will now resume PO iron - I had consulted surgery for potential scoping for potential GI blood losses with goal to restart anticoagulation but now that she had a CVA and no clot was found and Hgb is stable, will plan on DAPT therapy instead. L plunkett radiata and L parietal non-hemorrhagic infarcts: -Developed acute worsening on subacute (per has had some difficulty expressing herself at home) confusion and word finding difficulty in a high risk vasculopath. I was very worried about potential CVA vs. encephalopathy and ordered for MRI brain, MRA brain and MRA jairo confirmed the multiple infarcts -For now H/H remains relatively stable and started her on ASA/plavix and monitoring CBC daily -DVT scan was negative for LE DVT that was diagnosed at [place] last month. Will plan to not resume NoAC -neurology consulted -called [facility] stroke [place] to which they declined transfer and instead recommended continued antiplatelet therapy with switch to at least plavix while evaluating for either DAPT + IVC filter or ASA + NoAC if bleeding has stopped. At this time however no DVT was seen, and so I placed her on DAPT and monitoring CBC closely. -PT/OT Hyperlipidemia -Continue statin Hypertension -hold meds for now. Is normotensive but weak, anemic with blood loss suspected and recently syncopized Fibromyalgia -Continue duloxetine DVT ppx: TEDs VS,Fishbone, I+O VS, Fishbone, I+O Laboratory Tests 09/27/20 05:31 Vital Signs Date Time Temp Pulse Resp B/P (MAP) Pulse Ox O2 Delivery O2 Flow Rate FiO2 09/27/20 08:00 97.8 85 16 154/66 (95) 96 Room Air I&O- Last 24 Hours up to 6 AM 09/27/20 06:00 Intake Total 2380 ml Balance 2380 ml EDIILA SAMUEL MD Sep 27, 2020 09:16
[2020-09-27] MEDS: PANTOPRAZOLE 40MG TAB (PROTONIX) PO SCH ×2 (14:35→20:45)
[2020-09-27 16:00] VITALS: BP 119/58
[2020-09-27 20:00] VITALS: BP 120/57
[2020-09-27] MEDS: traZODone 50 MG TAB PO SCH (20:45)
[2020-09-27] MEDS: ATORVASTATIN 20 MG TAB PO SCH (20:45)
[2020-09-28] VITALS: BP 134/60
[2020-09-28 04:00] VITALS: BP 126/57
[2020-09-28] MEDS ORDERED: CLOPIDOGREL 75 MG TAB PO SCH (07:35)
[2020-09-28] MEDS ORDERED: RIVAROXABAN 20 MG TAB (XARELTO) PO SCH (07:35)
[2020-09-28 08:00] VITALS: BP 137/63
[2020-09-28] MEDS: ASPIRIN 81 MG CHEW TABLET PO SCH (08:33)
[2020-09-28] MEDS: MULTIVITAMINS/MINERALS THERAP 1 TAB PO SCH ×2 (08:33→20:18)
[2020-09-28] MEDS: DULoxetine 30 MG CAP (CYMBALTA) PO SCH (08:34)
[2020-09-28] MEDS: FERROUS SULFATE 325MG TAB PO SCH (08:34)
[2020-09-28] MEDS: VITAMIN D 1,000 INTERNATIONAL UNITS TABLET PO SCH (08:34)
[2020-09-28] MEDS: TAMSULOSIN 0.4 MG CAP PO SCH (08:34)
[2020-09-28] MEDS: CLOPIDOGREL 75 MG TAB PO SCH (08:34)
[2020-09-28] MEDS: amLODIPine 5 MG TAB PO SCH (08:34)
[2020-09-28] MEDS: PANTOPRAZOLE 40MG TAB (PROTONIX) PO SCH ×2 (08:34→20:18)
[2020-09-28 12:00] VITALS: BP 143/63
--- NOTE | 2020-09-28 15:06 | IPNPDOC ---
Subjective Date Seen The patient was seen on 09/28/20. Subjective Chief Complaint/HPI No complaints this morning. Patient examined sitting in chair. Has worked with physical therapy. No dizziness or lightheadedness Objective Physical Examination General Exam: Positive: Alert, Cooperative, No Acute Distress, Other (Pale) Eye Exam: Positive: PERRLA, Conjunctiva & lids normal, EOMI; Negative: Sclera icteric Neck Exam: Positive: Supple; Negative: JVD, thyromegaly Chest Exam: Positive: Clear to auscultation, Normal air movement Heart Exam: Positive: Rate Normal, Regular Rhythm, Normal S1, Normal S2, Murmurs; Negative: Rubs Abdomen Exam: Positive: Normal bowel sounds, Soft; Negative: Tenderness, Hepatospenomegaly Extremity Exam: Negative: Clubbing, Cyanosis, Edema Assessment /Plan Assessment 60 years old W, who is Jewish, with chronic anemia, hypertension, previous TIAs, hyperlipidemia, fibromyalgia, carotid artery disease s/p left carotid endarterectomy who recently had a right carotid stent placement in [place] on 08/27 that was c/b LE DVT after femoral access and so was started on xarelto and discharged home on ASA/plavix/xarelto who presented to [facility] ED with two syncopal episodes and admitted for syncope and symptomatic anemia. Work up showed acute left sided infarction. MRI showed L plunkett radiata and L parietal multiple non-hemorrhagic infarcts. Cerebral infarction L plunkett radiata and L parietal non-hemorrhagic infarcts: Developed acute worsening on subacute (per has had some difficulty expressing herself at home) confusion and word finding difficulty called [facility] stroke [place] to which they declined transfer and instead recommended continued antiplatelet therapy with switch to at least plavix while evaluating for either DAPT + IVC filter or ASA + NoAC if bleeding has stopped. As No DVT now will not start AC and no IVC filter indicated. Continue aspirin Plavix and statin Syncope due to severe symptomatic anemia Likely due to GIB HB was 10.5 in july 2020 and 12.5 on mar 2020. No cardiac arrhythmia seen in telemetry Symptomatic anemia Is Jewish so will not give blood transfusion stool occult blood 1/2 samples positive likely due to GIB, was on ASA, Plavix and xarelto. now with Iron deficiency B12, folate wnl. Her retic index is appropriate, so no bone marrow suppression. s/p venofer, continue PO iron Severe MARK: likely driven by slow losses likely via GI tract, no evidence of RP bleed s/p venofer x 3 doses Hyperlipidemia Continue statin Hypertension Amlodipine Fibromyalgia Continue duloxetine H/O DVT after femoral access No dvt seen here in scan AC stopped due to severe symptomatic anemia. Peripheral arterial disease Status post left carotid endarterectomy and right carotid stenting Continue aspirin Plavix Plan/VTE VTE Prophylaxis Ordered?: Yes VS, I&O, 24H, Fishbone Vital Signs/I&O Vital Signs Date Time Temp Pulse Resp B/P (MAP) Pulse Ox O2 Delivery O2 Flow Rate FiO2 09/28/20 12:00 98.3 87 16 143/63 (89) 100 Room Air I&O- Last 24 Hours up to 6 AM 09/28/20 06:00 Intake Total 880 ml Output Total 450 ml Balance 430 ml Laboratory Data Microbiology Microbiology 09/27/20 Stool Occult Blood (ANSELMO) - Final, Complete MANISHA LUA MD Sep 28, 2020 15:05
[2020-09-28 16:00] VITALS: BP 139/63
[2020-09-28 20:00] VITALS: BP 120/59
[2020-09-28] MEDS: traZODone 50 MG TAB PO SCH (20:18)
[2020-09-28] MEDS: ATORVASTATIN 20 MG TAB PO SCH (20:18)
[2020-09-29] VITALS: BP 138/57
[2020-09-29 04:00] VITALS: BP 133/65
[2020-09-29 07:19] VITALS: BP 129/61
[2020-09-29 08:18] LABS: MEAN CORPUSCULAR HEMOGLOBIN 30.5 pg (27.0-33.0); MEAN CORPUSCULAR HGB CONC 29.4 g/dl (32.0-36.5); PLATELET COUNT, AUTOMATED 296 10^3/uL (150-450); RED BLOOD COUNT 1.97 10^6/uL (4.00-5.40); WHITE BLOOD COUNT 7.3 10^3/uL (4.0-10.0)
[2020-09-29 08:25] LABS: HEMATOCRIT 20.4 % (36.0-47.0); MEAN CORPUSCULAR VOLUME 103.6 fl (80.0-96.0)
[2020-09-29] MEDS: CLOPIDOGREL 75 MG TAB PO SCH (08:57)
[2020-09-29] MEDS: ASPIRIN 81 MG CHEW TABLET PO SCH (08:57)
[2020-09-29] MEDS: FERROUS SULFATE 325MG TAB PO SCH (08:57)
[2020-09-29] MEDS: TAMSULOSIN 0.4 MG CAP PO SCH (08:57)
[2020-09-29] MEDS: VITAMIN D 1,000 INTERNATIONAL UNITS TABLET PO SCH (08:57)
[2020-09-29] MEDS: MULTIVITAMINS/MINERALS THERAP 1 TAB PO SCH ×2 (08:57→20:41)
[2020-09-29] MEDS: amLODIPine 5 MG TAB PO SCH (08:58)
[2020-09-29] MEDS: PANTOPRAZOLE 40MG TAB (PROTONIX) PO SCH ×2 (08:58→20:41)
[2020-09-29] MEDS: DULoxetine 30 MG CAP (CYMBALTA) PO SCH (08:58)
[2020-09-29] MEDS ORDERED: SLF 3 ML SYR IV PRN (10:35)
[2020-09-29] MEDS: SLF 3 ML SYR IV SCH ×2 (13:21→22:20)
--- NOTE | 2020-09-29 14:24 | IPNPDOC ---
Subjective Date Seen The patient was seen on 09/29/20. Subjective Chief Complaint/HPI No complaints overnight, denies any dizziness or lightheadedness, however still has exertional dyspnea. She denies seeing any black tarry stools. She does say that her stools are normally black but they are formed. Denies noticing any bleeding from anywhere. She did have 2 vascular surgeries in the month of August have requested records from [facility]. Objective Physical Examination General Exam: Positive: Alert, Cooperative, No Acute Distress, Other (Pale) Eye Exam: Positive: PERRLA, Conjunctiva & lids normal, EOMI; Negative: Sclera icteric Neck Exam: Positive: Supple; Negative: JVD, thyromegaly Chest Exam: Positive: Clear to auscultation, Normal air movement Heart Exam: Positive: Rate Normal, Regular Rhythm, Normal S1, Normal S2, Murmurs; Negative: Rubs Abdomen Exam: Positive: Normal bowel sounds, Soft; Negative: Tenderness, Hepatospenomegaly Extremity Exam: Negative: Clubbing, Cyanosis, Edema Assessment /Plan Assessment 60 years old W, who is Protestant, with chronic anemia, hypertension, previous TIAs, hyperlipidemia, fibromyalgia, carotid artery disease s/p left carotid endarterectomy who recently had a right carotid stent placement in [place] on 08/27 that was c/b LE DVT after femoral access and so was started on xarelto and discharged home on ASA/plavix/xarelto who presented to [facility] ED with two syncopal episodes and admitted for syncope and symptomatic anemia. Work up showed acute left sided infarction. MRI showed L plunkett radiata and L parietal multiple non-hemorrhagic infarcts. Cerebral infarction L plunkett radiata and L parietal non-hemorrhagic infarcts: Developed acute worsening on subacute (per has had some difficulty expressing herself at home) confusion and word finding difficulty called [facility] stroke center to which they declined transfer and instead recommended continued antiplatelet therapy with switch to at least plavix while evaluating for either DAPT + IVC filter or ASA + NoAC if bleeding has stopped. As No DVT now will not start AC and no IVC filter indicated. Continue aspirin Plavix and statin Syncope due to severe symptomatic anemia Likely due to GIB HB was 10.5 in july 2020 and 12.5 on mar 2020. No cardiac arrhythmia seen in telemetry Symptomatic anemia Is Protestant so will not give blood transfusion stool occult blood 1/2 samples positive likely due to GIB, was on ASA, Plavix and xarelto. now with Iron deficiency B12, folate wnl. Her retic index is appropriate, so no bone marrow suppression. s/p venofer, continue PO iron Severe MARK: likely driven by slow losses likely via GI tract, no evidence of RP bleed s/p venofer x 3 doses Hyperlipidemia Continue statin Hypertension Amlodipine Fibromyalgia Continue duloxetine H/O DVT after femoral access No dvt seen here in scan AC stopped due to severe symptomatic anemia. Peripheral arterial disease Status post left carotid endarterectomy and right carotid stenting Continue aspirin Plavix Plan/VTE VTE Prophylaxis Ordered?: Yes VS, I&O, 24H, Fishbone Vital Signs/I&O Vital Signs Date Time Temp Pulse Resp B/P (MAP) Pulse Ox O2 Delivery O2 Flow Rate FiO2 09/29/20 08:58 86 129/61 09/29/20 07:19 97.8 18 98 Room Air I&O- Last 24 Hours up to 6 AM 09/29/20 06:00 Intake Total 1140 ml Output Total 700 ml Balance 440 ml Laboratory Data 24H LABS Laboratory Tests 2 09/29/20 08:01: Nucleated Red Blood Cells % (auto) 0.0 CBC/BMP Laboratory Tests 09/29/20 08:01 Microbiology Microbiology 09/27/20 Stool Occult Blood (ANSELMO) - Final, Complete MANISHA LUA MD Sep 29, 2020 14:24
[2020-09-29 15:38] VITALS: BP 118/56
[2020-09-29 20:00] VITALS: BP 132/68
[2020-09-29] MEDS: ATORVASTATIN 20 MG TAB PO SCH (20:41)
[2020-09-29] MEDS: traZODone 50 MG TAB PO SCH (20:41)
[2020-09-30 01:07] LABS: Methylmalonic Acid 108 nmol/L (0-378)
[2020-09-30 04:00] VITALS: BP 141/61
[2020-09-30] MEDS: SLF 3 ML SYR IV SCH ×2 (05:23→14:00)
[2020-09-30 08:00] VITALS: BP 138/57
[2020-09-30] MEDS: VITAMIN D 1,000 INTERNATIONAL UNITS TABLET PO SCH (09:47)
[2020-09-30] MEDS: FERROUS SULFATE 325MG TAB PO SCH (09:47)
[2020-09-30] MEDS: ASPIRIN 81 MG CHEW TABLET PO SCH (09:47)
[2020-09-30] MEDS: MULTIVITAMINS/MINERALS THERAP 1 TAB PO SCH (09:47)
[2020-09-30] MEDS: TAMSULOSIN 0.4 MG CAP PO SCH (09:47)
[2020-09-30 09:48] VITALS: BP 138/57
[2020-09-30] MEDS: amLODIPine 5 MG TAB PO SCH (09:48)
[2020-09-30] MEDS: PANTOPRAZOLE 40MG TAB (PROTONIX) PO SCH (09:48)
[2020-09-30] MEDS: CLOPIDOGREL 75 MG TAB PO SCH (09:48)
[2020-09-30] MEDS: DULoxetine 30 MG CAP (CYMBALTA) PO SCH (09:48)
[2020-09-30] MEDS ORDERED: PANT40TA29 PO (11:16)
--- NOTE | 2020-09-30 11:17 | DS.PDOC ---
Discharge Summary General Date of Admission Sep 22, 2020 at 12:45 Date of Discharge 09/30/20 Discharge Summary PROCEDURES PERFORMED DURING STAY: [None]. DISCHARGE DIAGNOSES: Left-sided cerebral infarction in the parietal lobe and plunkett radiata Symptomatic anemia with hemoglobin of 6.0 Suspected GI bleed with drop of hemoglobin from 10.5 to 5.7. Syncopal from above Iron deficient Secondary diagnosis Islam, hypertension, previous TIAs, hyperlipidemia, fibromyalgia, bilateral carotid artery disease s/p left carotid endarterectomy, right carotid surgery on August 2020, LE DVT, chronic left internal carotid artery occlusion. COMPLICATIONS/CHIEF COMPLAINT: Acute Anemia, Syncope. HOSPITAL COURSE: 60 years old W, who is Islam, with chronic anemia, hypertension, previous TIAs, hyperlipidemia, fibromyalgia, carotid artery disease s/p left carotid endarterectomy who recently had a right carotid stent placement in [place] on 08/27 that was c/b LE DVT after femoral access and so was started on xarelto and discharged home on ASA/plavix/xarelto who presented to [facility] ED with two syncopal episodes and admitted for syncope and symptomatic anemia. Work up showed acute left sided infarction. MRI showed L plunkett radiata and L parietal multiple non-hemorrhagic infarcts. Cerebral infarction L plunkett radiata and L parietal non-hemorrhagic infarcts: Developed acute worsening on subacute (per has had some difficulty expressing herself at home) confusion and word finding difficulty called [facility] stroke [place] to which they declined transfer and instead recommended continued antiplatelet therapy with switch to at least plavix while evaluating for either DAPT + IVC filter or ASA + NoAC if bleeding has stopped. As No DVT now will not start AC and no IVC filter indicated. Continue aspirin Plavix and statin Syncope due to severe symptomatic anemia Likely due to GIB HB was 10.5 in july 2020 and 12.5 on mar 2020. No cardiac arrhythmia seen in telemetry Symptomatic anemia Is Islam so will not give blood transfusion stool occult blood 1/2 samples positive likely due to GIB, was on ASA, Plavix and xarelto. now with Iron deficiency B12, folate wnl. Her retic index is appropriate, so no bone marrow suppression. s/p venofer, continue PO iron Severe MARK: likely driven by slow losses likely via GI tract, no evidence of RP bleed s/p venofer x 3 doses Hyperlipidemia Continue statin Hypertension Amlodipine Fibromyalgia Continue duloxetine H/O DVT after femoral access No dvt seen here in scan AC stopped due to severe symptomatic anemia. Peripheral arterial disease Status post left carotid endarterectomy and right carotid stenting Continue aspirin Plavix DISCHARGE MEDICATIONS: Please see below. ALLERGIES: Please see below. PHYSICAL EXAMINATION ON DISCHARGE: VITAL SIGNS: Please see below. General Exam: Positive: Alert, Cooperative, No Acute Distress, Other (Pale) Eye Exam: Positive: PERRLA, Conjunctiva & lids normal, EOMI; Negative: Sclera icteric Neck Exam: Positive: Supple; Negative: JVD, thyromegaly Chest Exam: Positive: Clear to auscultation, Normal air movement Heart Exam: Positive: Rate Normal, Regular Rhythm, Normal S1, Normal S2, Murmurs; Negative: Rubs Abdomen Exam: Positive: Normal bowel sounds, Soft; Negative: Tenderness, Hepatosplenomegaly Extremity Exam: Negative: Clubbing, Cyanosis, Edema LABORATORY DATA: Please see below. IMAGING: LE venous doppler US: Right deep veins: Unremarkable. The common femoral, femoral, proximal profunda femoral and popliteal veins are patent without thrombus. Normal Doppler waveforms. Normal compressibility and/or augmentation response. Right superficial veins: Saphenofemoral junction is patent without thrombus. Left deep veins: Unremarkable. The common femoral, femoral, proximal profunda femoral and popliteal veins are patent without thrombus. Normal Doppler waveforms. Normal compressibility and/or augmentation response. Left superficial veins: Saphenofemoral junction is patent without thrombus. Soft tissues: Unremarkable. IMPRESSION: No evidence of deep vein thrombosis. CT A/P with IV contrast: Liver: Normal. No mass. Gallbladder and bile ducts: Normal. No calcified stones. No ductal dilation. Pancreas: Normal. No ductal dilation. Spleen: Normal. No splenomegaly. Adrenal glands: Normal. No mass. Kidneys and ureters: Multiple nonobstructing calculus in the left kidney with the largest measuring 3 mm at the lower pole. Stomach and bowel: Unremarkable. No obstruction. No mucosal thickening. Appendix: No evidence of appendicitis. Intraperitoneal space: Unremarkable. No free air. No significant fluid collection. Vasculature: Unremarkable. No abdominal aortic aneurysm. Lymph nodes: Unremarkable. No enlarged lymph nodes. Urinary bladder: Unremarkable as visualized. Reproductive: Unremarkable as visualized. Bones/joints: Unremarkable. No acute fracture. Soft tissues: There is some fat stranding in the right lateral lower abdominal wall and in the anterior right thigh. No fluid collections. IMPRESSION: No acute abdominal or pelvic abnormality. Fat stranding in the right lateral lower abdominal wall and in the anterior right thigh. No fluid collections. Findings may suggest inflammation/infection. Neck MRA: FINDINGS: Right common carotid artery: No stenosis. No dissection or occlusion. Right internal carotid artery: There is approximately 62% stenosis of the right internal carotid artery. Right external carotid artery: No stenosis. No dissection or occlusion of the origin. Right vertebral artery: No stenosis. No dissection or occlusion. Left common carotid artery: No stenosis. No dissection or occlusion. Left internal carotid artery: The left internal carotid artery not visualized in the neck. Left external carotid artery: No stenosis. No dissection or occlusion of the origin. Left vertebral artery: No stenosis. No dissection or occlusion. Other findings: Suboptimal examination secondary to motion artifact. IMPRESSION: Suboptimal examination secondary to motion artifact. Right: Approximately 62% stenosis of the right internal carotid artery. Vertebral artery is patent. Left: Left internal carotid artery not visualized in the neck and is likely occluded with no significant change from prior study. Vertebral artery is patent. Brain MRI: Brain: Multiple acute infarcts in the left plunkett radiata and left parietal lobe. Cerebral ventricles: Normal. No ventriculomegaly. Bones/joints: Unremarkable. Paranasal sinuses: Normal as visualized. No acute sinusitis. Mastoid air cells: Normal as visualized. No mastoid effusion. Orbital cavity: Unremarkable. Soft tissues: Unremarkable. IMPRESSION: Multiple acute infarcts in the left plunkett radiata and left parietal lobe. No hemorrhage. Brain MRA: ANTERIOR CIRCULATION: Right internal carotid artery: Intracranial segment is patent with no significant stenosis. No aneurysm. Right middle cerebral artery: No occlusion or significant stenosis. No aneurysm. Right anterior cerebral artery: No occlusion or significant stenosis. No aneurysm. Left internal carotid artery: String like left internal carotid artery. Left middle cerebral artery: Left middle cerebral artery is normal in caliber. Left anterior cerebral artery: No occlusion or significant stenosis. No aneurysm. POSTERIOR CIRCULATION: Right vertebral artery: No occlusion or significant stenosis. No aneurysm. Left vertebral artery: No occlusion or significant stenosis. No aneurysm. Basilar artery: No occlusion or significant stenosis. No aneurysm. Right posterior cerebral artery: No occlusion or significant stenosis. No aneurysm. Left posterior cerebral artery: No occlusion or significant stenosis. No aneurysm. IMPRESSION: Left internal carotid artery is string like/severely narrowed with no significant change from prior study. Echo 1. Normal left ventricle internal dimensions and wall thickness. No regional LV wall motion abnormalities. Hyperdynamic LV systolic function. LVEF 80% by visual assessment. Normal LV diastolic function. 2. Mild aortic valve sclerosis of a 3-cuspid aortic valve. Moderate aortic regurgitation. No aortic stenosis. 3. Mild mitral annular calcification. No mitral regurgitation. 4. Suggestive of mild-moderate elevation of estimated right ventricle systolic pressure. Mild tricuspid regurgitation. Normal right ventricle size and systolic function. 5. No pericardial effusion. ACTIVITY: [As tolerated]. DIET: As tolerated DISCHARGE PLAN: Home DISPOSITION: . DISCHARGE INSTRUCTIONS: PMD in 1 week Neurology in 2 to 3 weeks DISCHARGE CONDITION: [Stable]. TIME SPENT ON DISCHARGE: 35 minutes. Vital Signs/I&Os Vital Signs Date Time Temp Pulse Resp B/P (MAP) Pulse Ox O2 Delivery O2 Flow Rate FiO2 09/30/20 09:48 96 138/57 09/30/20 08:00 98.0 18 97 Room Air I&O- Last 24 Hours up to 6 AM 09/30/20 06:00 Intake Total 780 ml Output Total 700 ml Balance 80 ml Microbiology Microbiology 09/27/20 Stool Occult Blood (ANSELMO) - Final, Complete Discharge Medications Scheduled Amlodipine Besylate (Amlodipine Besylate) 5 Mg Tab, 5 MG PO DAILY, (Reported) Aspirin (Aspirin EC) 81 Mg Tab, 81 MG PO QHS, (Reported) Atorvastatin Calcium (Atorvastatin Calcium) 20 Mg Tablet, 20 MG PO QHS, (Reported) Cholecalciferol (Vitamin D3) (Vitamin D3) 1,000 Unit Tablet, 1,000 UNITS PO DAILY, (Reported) Clopidogrel Bisulfate (Clopidogrel) 75 Mg Tab, 75 MG PO QHS, (Reported) Duloxetine Hcl (Duloxetine HCl) 30 Mg Capsule.dr, 30 MG PO DAILY, (Reported) Ferrous Sulfate (Ferrous Sulfate) 325 Mg Tab, 325 MG PO DAILY, (Reported) Lisinopril (Lisinopril) 40 Mg Tab, 40 MG PO QHS, (Reported) Multivitamins (Thera M Plus Tablet) 1 Tab Tab, 1 TAB PO BID, (Reported) Pantoprazole Sodium (Pantoprazole Sodium) 40 Mg Tablet.dr, 40 MG PO BID Trazodone HCl (Trazodone HCl) 150 Mg Tablet, 150 MG PO QHS, (Reported) Allergies Coded Allergies: No Known Allergies (Unverified , 12/11/14) MANISHA LUA MD Sep 30, 2020 10:16
== END 2020-09-30 16:40 | disposition home health service (06) | DRG 253 ==
LOC: EDBD 08:51 → M ED 08:51 → M ED INP 12:45 → ENRESERV 13:55 → M MSPAV 14:45 → M PCU 09-24 19:50
PROVIDERS: ADMIT Internal Medicine; ATTEND Internal Medicine Nephrology
DX: K92.2 Gastrointestinal hemorrhage, unspecified (principal); I63.59 Cerebral infarction due to unspecified occlusion or stenosis of other cerebral artery; I65.23 Occlusion and stenosis of bilateral carotid arteries; D50.0 Iron deficiency anemia secondary to blood loss (chronic); R55 Syncope and collapse; I10 Essential (primary) hypertension; E78.5 Hyperlipidemia, unspecified; F80.1 Expressive language disorder; M79.7 Fibromyalgia; R33.9 Retention of urine, unspecified; F41.9 Anxiety disorder, unspecified; R29.810 Facial weakness; F32.9 Major depressive disorder, single episode, unspecified; K21.9 Gastro-esophageal reflux disease without esophagitis; I73.9 Peripheral vascular disease, unspecified; M50.30 Other cervical disc degeneration, unspecified cervical region; M19.90 Unspecified osteoarthritis, unspecified site; Z95.820 Peripheral vascular angioplasty status with implants and grafts; Z86.73 Personal history of transient ischemic attack (TIA), and cerebral infarction without residual deficits; Z20.822 Contact with and (suspected) exposure to COVID-19; Z79.82 Long term (current) use of aspirin; Z79.02 Long term (current) use of antithrombotics/antiplatelets; Z79.01 Long term (current) use of anticoagulants; Z79.899 Other long term (current) drug therapy

== ENCOUNTER 2020-10-04 16:00 | Inpatient (IN) | payer BC ==
[~2020-10-04] VITALS: Ht 152.4 cm; Wt 62.3 kg
[~2020-10-04 16:00] MED LIST changes: +PANT40TA29 PO; +XARE15TA PO; +XARE20TA PO
--- NOTE | 2020-10-04 16:53 | REP ---
INDICATION: confusion. COMPARISON: 09/23/2020. TECHNIQUE: CT brain performed in the axial plane. Coronal reconstruction images are performed. FINDINGS: There is mild atrophy. There is no midline shift or mass effect. Badillo-white differentiation is well maintained. There are chronic periventricular small vessel ischemic changes. There is no acute intracranial hemorrhage or extra-axial fluid collection. Bone window examination is unremarkable. The visualized mastoid air cells and paranasal sinuses are clear. IMPRESSION: Stable chronic changes. No acute intracranial hemorrhage, midline shift or mass effect. <Electronically signed by Joseph Badillo > 10/04/20 [id number]
--- NOTE | 2020-10-04 17:34 | REP ---
INDICATION: Altered Mental Status. COMPARISON: 09/22/2020. TECHNIQUE: Single portable AP view of the chest was performed. FINDINGS: There is no acute infiltrate or pulmonary edema. Lungs are clear. The heart is not significantly enlarged. The mediastinal silhouette is unremarkable. The visualized osseous structures are intact. IMPRESSION: No acute pulmonary disease. <Electronically signed by Joseph Badillo > 10/04/20 [id number]
[2020-10-04 17:40] LABS: VENOUS BASE EXCESS 2.2 (-2.0-2.0); VENOUS HCO3 26.3 MEQ/L (23.0-27.0); VENOUS O2 SATURATION 77.3 % (60.0-80.0); VENOUS PARTIAL PRESSURE CO2 38.3 mmHg (38.0-50.0); VENOUS PARTIAL PRESSURE O2 42.7 mmHg (30.0-50.0); VENOUS PH 7.454 UNITS (7.330-7.430); VENOUS STANDARD HCO3 26.2 MEQ/L; VENOUS TOTAL CO2 27.4 MEQ/L (24.0-28.0)
[2020-10-04 17:48] LABS: BASO % 0.5 % (0.0-1.0); EOS % 0.1 % (0.0-3.0); HEMATOCRIT 22.2 % (36.0-47.0); LYMPH # 0.7 10^3/uL (1.5-5.0); LYMPH % 9.6 % (24.0-44.0); MEAN CORPUSCULAR HEMOGLOBIN 29.5 pg (27.0-33.0); MEAN CORPUSCULAR HGB CONC 29.7 g/dl (32.0-36.5); MEAN CORPUSCULAR VOLUME 99.1 fl (80.0-96.0); MONO # 0.4 10^3/uL (0.0-0.8); MONO % 5.3 % (2.0-8.0); NEUTROPHILS # 6.3 10^3/uL (1.5-8.5); NEUTROPHILS % 84.1 % (36.0-66.0); PLATELET COUNT, AUTOMATED 497 10^3/uL (150-450); RED BLOOD COUNT 2.24 10^6/uL (4.00-5.40); WHITE BLOOD COUNT 7.5 10^3/uL (4.0-10.0)
[2020-10-04 17:56] LABS: HEMOGLOBIN 6.6 g/dl (12.0-15.5)
[2020-10-04] MEDS ORDERED: ACETAMINOPHEN 325 MG TAB PO ONE (18:10)
[2020-10-04 18:26] LABS: ACETAMINOPHEN LEVEL 3.8 UG/ML (10.0-30.0); ALT/SGPT 25 U/L (12-78); BILIRUBIN,DIRECT < 0.1 MG/DL (0.0-0.2); BILIRUBIN,TOTAL 0.2 MG/DL (0.2-1.0); BLOOD UREA NITROGEN 7 MG/DL (7-18); CALCIUM LEVEL 9.1 MG/DL (8.8-10.2); CARBON DIOXIDE LEVEL 29 MEQ/L (21-32); CHLORIDE LEVEL 104 MEQ/L (98-107); CK-MB VALUE MASS < 1.0 NG/ML (<3.6); CPK CREATINE PHOSPHOKINASE 64 U/L (26-192); CREATININE FOR GFR 0.72 MG/DL (0.55-1.30); ETHYL ALCOHOL (ETHANOL) < 0.003 % (0.000-0.010); GLOMERULAR FILTRATION RATE > 60.0 (>45); GLUCOSE, FASTING 120 MG/DL (70-100); MB/CK RELATIVE INDEX 1.56 (< OR =4); POTASSIUM SERUM 4.7 MEQ/L (3.5-5.1); SALICYLATE LEVEL < 1.7 MG/DL (5.0-30.0); SODIUM LEVEL 139 MEQ/L (136-145); TOTAL PROTEIN 6.4 GM/DL (6.4-8.2); TROPONIN I < 0.02 NG/ML (< 0.10)
[2020-10-04] MEDS ORDERED: PANT-23 PO (19:17)
[2020-10-04] MEDS ORDERED: HOME MED LIST COMPLETE! XX SCH (19:20)
[2020-10-04 19:28] LABS: AMPHETAMINES LEVEL URINE NEGATIVE (NEGATIVE); BARBITURATES URINE NEGATIVE (NEGATIVE); BENZODIAZEPINES URINE NEGATIVE (NEGATIVE); CANNABINOIDS URINE NEGATIVE (NEGATIVE); COCAINE METABOLITE URINE NEGATIVE (NEGATIVE); METHADONE URINE NEGATIVE (NEGATIVE); OPIATES URINE NEGATIVE (NEGATIVE); PHENCYCLIDINE URINE NEGATIVE (NEGATIVE)
[2020-10-04] MEDS ORDERED: ASPIRIN 325 MG TAB PO ONE (19:35)
--- NOTE | 2020-10-04 20:02 | ECGEPIP ---
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
[2020-10-04] MEDS ORDERED: CLOPIDOGREL 75 MG TAB PO SCH (21:00)
[2020-10-04 23:10] LABS: RSV AMPLIFICATION NEGATIVE (NEGATIVE)
[2020-10-04] MEDS ORDERED: MOM 30ML SUSPENSION UDC PO PRN (23:20)
[2020-10-04] MEDS ORDERED: ACETAMINOPHEN TAB 650MG DOSE (2X325MG) PO PRN (23:20)
--- NOTE | 2020-10-04 23:20 | HPEPDOC ---
[facility] Medical History & Physical Date of Admission Oct 04, 2020 Date of Service: Oct 04, 2020 History and Physical CHIEF COMPLAINT: Weakness HISTORY OF PRESENT ILLNESS: 1-year-old female Judaism medical history of CVA recently, carotid artery disease status post bilateral endarterectomy as well as left-sided st enting, left lower extremity DVT who was recently admitted to [facility] on September 22 due to syncope and weakness thought to be secondary to symptomatic anemia during that admission she had a CVA. She was being anticoagulated at that time on aspirin and Plavix and Xarelto. Repeat ultrasound imaging at that time showed DVT had resolved and so she was continued on Xarelto and there was no need for IVC filter at that time. Since there is no bleeding she was resumed on aspirin and Plavix. Today she is not complaining of any bleeding she denies black stools or blood in stools or throwing up blood. She does say that she's been feeling progressively weaker since leaving the hospital she takes iron pills once daily and she reiterated that she does not want any blood product transfusions as she is Oriental orthodox. She also complains of right lower extremity pain and swelling I asked the emergency department to perform a right lower extremity duplex which revealed a right common femoral vein DVT. I discussed the results with vascular surgeon home service demonstrator Dr. Vizcarra who recommended admission and he will place an IVC filter tomorrow. On review of systems patient denies any chest pain or palpitations she denies any shortness of breath denies fevers or chills or nausea or vomiting. Timing of placement of the left carotid stent is unclear, patient states it was 5 years ago and she appears to be sure. Although I was under the impression this was recent by Dr Gillespie in [place] on 08/27. Chart review showed that the DVT was a complication she had while there after femoral access for the procedure. PAST MEDICAL/SURGICAL HISTORY: CVA Anemia Bilateral endarterectomy due to carotic artery disease with left-sided stenting Hypertension Anxiety and depression GERD Degenerative takes disease cervical region Fibromyalgia History arthritis Skin graft SOCIAL HISTORY: Reiterated that she is a Judaism and does not accept any blood transfusions Denies alcohol use Denies tobacco use Denies illicit drug use FAMILY HISTORY: History of CVA in both parents ALLERGIES: Please see below. REVIEW OF SYSTEMS: 10 point review of systems complete all negative otherwise stated in HPI HOME MEDICATIONS: Please see below. PHYSICAL EXAMINATION: Constitutional: Awake and alert, in no apparent distress ENT: Sclera are pale. Mucosa is moist. Respiratory: Lungs CTA bilaterally. No respiratory distress Cardiovascular: RRR S1 and S2 are normal, no murmur Gastrointestinal: Abdomen is soft, non distended, non tender, BS present. Musculoskeletal: Right lower extremity is more swollen, Elliot sign is positive. Neurologic: No focal neurological deficit. Mental Status: A&O x3, normal affect Skin: Endarterectomy scars LABORATORY DATA: See below. IMAGING: Right LE duplex, final read pending, prelim positive for DVT MICROBIOLOGY: Please see below. ASSESSMENT weakness due to Symptomatic anemia Right lower extremity deep venous thrombosis Bilateral endarterectomy due to carotic artery disease with left-sided stenting Hypertension Recent CVA PLAN Trend HH q6h. Protonix IV twice a day. Sucralfate TID. Consulted with Dr Vizcarra vacular surgeon who will place IVC filter tomorrow, patient NPO tonight Aspirin and Plavix will be held for tonight, likely may be resumed tomorrow after the IVC filters placed and her hemoglobin is monitored for several hours. Will continue oral iron for now increased to twice daily but may need IV iron arranged tomorrow. Obtain records from [facility] to establish accurate timeline of events and timing of stent placement. Started hypercoagulability workup testing. Test stool for occult blood to find out if she needs scopes Hold anti-coagulants for now given active GI bleed, DVT prophylaxis with SCDs/TEDs only. Will continue home medications for chronic problems as appropriate once med rec is complete. A Yousef Hospitalist Vital Signs Vital Signs Date Time Temp Pulse Resp B/P (MAP) Pulse Ox O2 Delivery O2 Flow Rate FiO2 10/04/20 18:46 113/59 (77) 10/04/20 18:45 102 97 10/04/20 16:01 97.3 17 Room Air Laboratory Data Labs 24H Laboratory Tests 2 10/04/20 17:19: Immature Granulocyte % (Auto) 0.4, Neutrophils (%) (Auto) 84.1H, Lymphocytes (%) (Auto) 9.6L, Monocytes (%) (Auto) 5.3, Eosinophils (%) (Auto) 0.1, Basophils (%) (Auto) 0.5, Neutrophils # (Auto) 6.3, Lymphocytes # (Auto) 0.7L, Monocytes # (Auto) 0.4, Eosinophils # (Auto) 0.0, Basophils # (Auto) 0.0, Nucleated Red Blood Cells % (auto) 0.0, Urine Color YELLOW, Urine Appearance CLEAR, Urine pH 8.0, Urine Specific [place] 1.011, Urine Protein NEGATIVE, Urine Glucose (UA) NEGATIVE, Urine Ketones TRACEH, Urine Blood NEGATIVE, Urine Nitrite NEGATIVE, Urine Bilirubin NEGATIVE, Urine Urobilinogen 0.2, Urine Leukocyte Esterase 1+H, Urine WBC (Auto) 4H, Urine RBC (Auto) 2, Urine Hyaline Casts (Auto) 0, Urine Bacteria (Auto) NEGATIVE, Urine Squamous Epithelial Cells 0, Urine Sperm (Auto) , Blood Gas Bicarbonate Standard 26.2, Venous Blood pH 7.454H, Venous Blood Partial Pressure CO2 38.3, Venous Blood Partial Pressure O2 42.7, Venous Blood Total Carbon Dioxide 27.4, Venous Blood HCO3 26.3, Venous Blood Oxygen Saturation 77.3, Venous Blood Base Excess 2.2H, Anion Gap 6L, Glomerular Filtration Rate > 60.0, Lactic Acid Level 1.1, Calcium Level 9.1, Total B ilirubin 0.2, Direct Bilirubin < 0.1, Aspartate Amino Transf (AST/SGOT) 45H, Alanine Aminotransferase (ALT/SGPT) 25, Alkaline Phosphatase 91, Ammonia 22, Total Creatine Kinase 64, Creatine Kinase MB < 1.0, Creatine Kinase MB Relative Index 1.56, Troponin I < 0.02, Total Protein 6.4, Albumin 3.0L, Albumin/Globulin Ratio 0.9L, Thyroid Stimulating Hormone (TSH) 2.200, Salicylates Level < 1.7L, Urine Opiates Screen NEGATIVE, Urine Methadone Screen NEGATIVE, Acetaminophen Level 3.8L, Urine Barbiturates Screen NEGATIVE, Urine Phencyclidine Screen NEGATIVE, Urine Amphetamines Screen NEGATIVE, Urine Benzodiazepines Screen NEGATIVE, Urine Cocaine Metabolite Screen NEGATIVE, Urine Cannabinoids Screen NEGATIVE, Ethyl Alcohol Level < 0.003 10/04/20 22:23: CBC/BMP Laboratory Tests 10/04/20 17:19 Microbiology Microbiology 10/04/20 Urine Culture, Received Pending Home Medications Scheduled Amlodipine Besylate (Amlodipine Besylate) 5 Mg Tab, 5 MG PO DAILY Aspirin (Aspirin EC) 81 Mg Tab, 81 MG PO QHS Atorvastatin Calcium (Atorvastatin Calcium) 20 Mg Tablet, 20 MG PO QHS Cholecalciferol (Vitamin D3) (Vitamin D3) 1,000 Unit Tablet, 2,000 UNITS PO DAILY Clopidogrel Bisulfate (Clopidogrel) 75 Mg Tab, 75 MG PO QHS Duloxetine Hcl (Duloxetine HCl) 30 Mg Capsule.dr, 30 MG PO DAILY Ferrous Sulfate (Ferrous Sulfate) 325 Mg Tab, 325 MG PO DAILY Lisinopril (Lisinopril) 40 Mg Tab, 40 MG PO QHS Multivitamins (Thera M Plus Tablet) 1 Tab Tab, 1 TAB PO BID Pantoprazole Sodium (Pantoprazole Sodium) 40 Mg Tablet.dr, 40 MG PO BID Trazodone HCl (Trazodone HCl) 150 Mg Tablet, 150 MG PO QHS Allergies Coded Allergies: No Known Allergies (Unverified , 12/11/14) KAREEN WILCOX MD Oct 04, 2020 23:20
--- NOTE | 2020-10-04 23:30 | REPVR ---
PROCEDURE INFORMATION: Exam: US Duplex Right Lower Extremity Veins, Limited Exam date and time: 10/04/2020 10:15 PM Age: 60 years old Clinical indication: Edema, localized; Lower extremity, right TECHNIQUE: Imaging protocol: Real-time Duplex ultrasound of the Right Lower Extremity with 2-D quinn scale, color Doppler flow and spectral waveform analysis with image documentation. Limited exam was focused on the right lower extremity veins. COMPARISON: US [facility] 09/24/2020 10:59 PM FINDINGS: Right deep veins: Hypoechoic, occlusive thrombus in the common femoral vein. The femoral, proximal profunda femoral, popliteal and visualized calf veins are patent without thrombus. Right superficial veins: Unremarkable. Saphenofemoral junction is patent without thrombus. Soft tissues: Subcutaneous edema. IMPRESSION: Hypoechoic, occlusive thrombus in the common femoral vein. Electronically signed by: Leighton Carrasco On 10/04/2020 23:30:02 PM
[2020-10-05] MEDS ORDERED: PANTOPRAZOLE 40MG VIAL (C9113 PER 1) IV SCH
[2020-10-05] MEDS: traZODone 50 MG TAB PO SCH ×2 (01:12→21:18)
[2020-10-05] MEDS: DOCUSATE SODIUM 100MG CAPSULE PO SCH ×3 (01:12→21:00)
[2020-10-05] MEDS: lisinopriL 40 MG TAB PO SCH ×2 (01:13→21:18)
[2020-10-05] MEDS: ATORVASTATIN 20 MG TAB PO SCH ×2 (01:13→21:19)
[2020-10-05] MEDS: FERROUS SULFATE 325MG TAB PO SCH ×3 (01:13→21:19)
[2020-10-05] MEDS: SUCRALFATE 1 GM TAB PO SCH ×4 (01:14→21:19)
[2020-10-05] MEDS: MULTIVITAMINS/MINERALS THERAP 1 TAB PO SCH ×3 (01:14→21:18)
[2020-10-05 01:18] LABS: INR 1.15; PROTHROMBIN TIME 15.2 SECONDS (12.7-14.5)
[2020-10-05 01:24] LABS: PARTIAL THROMBOPLASTIN TIME 31.2 SECONDS (25.9-37.0)
[2020-10-05 01:30] LABS: D-DIMER QUANT 1011.58 ng/ml (<500)
[2020-10-05 03:04] LABS: MEAN CORPUSCULAR HEMOGLOBIN 29.5 pg (27.0-33.0); MEAN CORPUSCULAR HGB CONC 30.1 g/dl (32.0-36.5); MEAN CORPUSCULAR VOLUME 97.9 fl (80.0-96.0); PLATELET COUNT, AUTOMATED 374 10^3/uL (150-450)
[2020-10-05 03:13] LABS: HEMATOCRIT 18.6 % (36.0-47.0); HEMOGLOBIN 5.6 g/dl (12.0-15.5)
[2020-10-05 03:50] LABS: ALBUMIN 2.5 GM/DL (3.2-5.2); ALT/SGPT 18 U/L (12-78); BILIRUBIN,TOTAL 0.2 MG/DL (0.2-1.0); BLOOD UREA NITROGEN 7 MG/DL (7-18); CALCIUM LEVEL 8.4 MG/DL (8.8-10.2); CARBON DIOXIDE LEVEL 28 MEQ/L (21-32); CHLORIDE LEVEL 107 MEQ/L (98-107); CREATININE FOR GFR 0.72 MG/DL (0.55-1.30); FERRITIN 77 NG/ML (8-252); GLOMERULAR FILTRATION RATE > 60.0 (>45); GLUCOSE, FASTING 95 MG/DL (70-100); IRON (FE) 14 UG/DL (50-170); MAGNESIUM LEVEL 2.1 MG/DL (1.8-2.4); PERCENT SATURATION 5.7 % (13.2-45.0); POTASSIUM SERUM 4.2 MEQ/L (3.5-5.1); SODIUM LEVEL 143 MEQ/L (136-145); TOTAL IRON BINDING CAPACITY 247 UG/DL (250-450); TOTAL PROTEIN 5.4 GM/DL (6.4-8.2)
[2020-10-05 08:00] VITALS: BP 118/58
[2020-10-05] MEDS: amLODIPine 5 MG TAB PO SCH (08:55)
[2020-10-05] MEDS: DULoxetine 30 MG CAP (CYMBALTA) PO SCH (08:55)
[2020-10-05 10:04] LABS: HEMATOCRIT 21.8 % (36.0-47.0)
[2020-10-05 10:11] LABS: HEMOGLOBIN 6.6 g/dl (12.0-15.5)
[2020-10-05] MEDS ORDERED: ISOVUE-300 61% 50ML VIAL As Ordered ONE (11:28)
[2020-10-05] MEDS ORDERED: LIDOCAINE 1% MDV 20ML VIAL As Ordered ONE (11:28)
[2020-10-05] MEDS ORDERED: MIDAZOLAM INJ 2MG/2ML VIAL (J2250 PER 1MG) As Ordered ONE (12:09)
[2020-10-05 12:30] VITALS: BP 118/58
--- NOTE | 2020-10-05 12:40 | CR.PDOC ---
General Date of Consultation: Oct 04, 2020 Consultation REASON FOR CONSULTATION/CHIEF COMPLAINT: IVC Filter placement 60 y/o female with history DVT, was on anticoagulation, however was taken off anticoagulation and placed on ASA/Plavix after IR procedure with stent placement. Patient subsequently developed a new DVT in right femoral vein. Patient is a Denominational and currently is anemic. Will place IVC filter as patient meets criteria. Vital Signs/I&O Vital Signs Date Time Temp Pulse Resp B/P (MAP) Pulse Ox O2 Delivery O2 Flow Rate FiO2 10/05/20 12:30 84 20 100 Nasal Cannula 2.0 10/05/20 11:20 98.6 10/05/20 08:55 118/58 Laboratory Data Labs 24H Laboratory Tests 2 10/04/20 17:19: Immature Granulocyte % (Auto) 0.4, Neutrophils (%) (Auto) 84.1H, Lymphocytes (%) (Auto) 9.6L, Monocytes (%) (Auto) 5.3, Eosinophils (%) (Auto) 0.1, Basophils (%) (Auto) 0.5, Neutrophils # (Auto) 6.3, Lymphocytes # (Auto) 0.7L, Monocytes # (Auto) 0.4, Eosinophils # (Auto) 0.0, Basophils # (Auto) 0.0, Nucleated Red Blood Cells % (auto) 0.0, Urine Color YELLOW, Urine Appearance CLEAR, Urine pH 8.0, Urine Specific [place] 1.011, Urine Protein NEGATIVE, Urine Glucose (UA) NEGATIVE, Urine Ketones TRACEH, Urine Blood NEGATIVE, Urine Nitrite NEGATIVE, Urine Bilirubin NEGATIVE, Urine Urobilinogen 0.2, Urine Leukocyte Esterase 1+H, Urine WBC (Auto) 4H, Urine RBC (Auto) 2, Urine Hyaline Casts (Auto) 0, Urine Bacteria (Auto) NEGATIVE, Urine Squamous Epithelial Cells 0, Urine Sperm (Auto) , Blood Gas Bicarbonate Standard 26.2, Venous Blood pH 7.454H, Venous Blood Partial Pressure CO2 38.3, Venous Blood Partial Pressure O2 42.7, Venous Blood Total Carbon Dioxide 27.4, Venous Blood HCO3 26.3, Venous Blood Oxygen Saturation 77.3, Venous Blood Base Excess 2.2H, Anion Gap 6L, Glomerular Filtration Rate > 60.0, Lactic Acid Level 1.1, Calcium Level 9.1, Total Bilirubin 0.2, Direct Bilirubin < 0.1, Aspartate Amino Transf (AST/SGOT) 45H, Alanine Aminotransferase (ALT/SGPT) 25, Alkaline Phosphatase 91, Ammonia 22, Total Creatine Kinase 64, Creatine Kinase MB < 1.0, Creatine Kinase MB Relative Index 1.56, Troponin I < 0.02, Total Protein 6.4, Albumin 3.0L, Albumin/Globulin Ratio 0.9L, Thyroid Stimulating Hormone (TSH) 2.200, Salicylates Level < 1.7L, Urine Opiates Screen NEGATIVE, Urine Methadone Screen NEGATIVE, Acetaminophen Level 3.8L, Urine Barbiturates Screen NEGATIVE, Urine Phencyclidine Screen NEGATIVE, Urine Amphetamines Screen NEGATIVE, Urine Benzodiazepines Screen NEGATIVE, Urine Cocaine Metabolite Screen NEGATIVE, Urine Cannabinoids Screen NEGATIVE, Ethyl Alcohol Level < 0.003 10/04/20 22:23: Coronavirus (COVID-19)(PCR) NEGATIVE, Influenza Type A (RT-PCR) NEGATIVE, Influenza Type B (RT-PCR) NEGATIVE, Respiratory Syncytial Virus (PCR) NEGATIVE 10/05/20 00:22: Prothrombin Time 15.2H, Prothromb Time International Ratio 1.15, Activated Partial Thromboplast Time 31.2, Fibrinogen 432, D-Dimer, Quantitative 1011.58H 10/05/20 03:00: Nucleated Red Blood Cells % (auto) 0.0, Anion Gap 8, Glomerular Filtration Rate > 60.0, Calcium Level 8.4L, Total Bilirubin 0.2, Aspartate Amino Transf (AST/SGOT) 15, Alanine Aminotransferase (ALT/SGPT) 18, Alkaline Phosphatase 77, Total Protein 5.4L, Albumin 2.5L, Albumin/Globulin Ratio 0.9L, Magnesium Level 2.1, Iron Level 14L, Total Iron Binding Capacity 247L, Transferrin % Saturation 5.7L, Ferritin 77 10/05/20 09:39: Ferritin 83 CBC/BMP Laboratory Tests 10/04/20 17:19 10/05/20 03:00 10/05/20 09:39 Microbiology Microbiology 10/04/20 Urine Culture, Received Pending Allergies Coded Allergies: No Known Allergies (Unverified , 12/11/14) Home Medications Scheduled Amlodipine Besylate (Amlodipine Besylate) 5 Mg Tab, 5 MG PO DAILY, (Reported) Aspirin (Aspirin EC) 81 Mg Tab, 81 MG PO QHS, (Reported) Atorvastatin Calcium (Atorvastatin Calcium) 20 Mg Tablet, 20 MG PO QHS, (Repor jonathan) Cholecalciferol (Vitamin D3) (Vitamin D3) 1,000 Unit Tablet, 2,000 UNITS PO DAILY, (Reported) Clopidogrel Bisulfate (Clopidogrel) 75 Mg Tab, 75 MG PO QHS, (Reported) Duloxetine Hcl (Duloxetine HCl) 30 Mg Capsule.dr, 30 MG PO DAILY, (Reported) Ferrous Sulfate (Ferrous Sulfate) 325 Mg Tab, 325 MG PO DAILY, (Reported) Lisinopril (Lisinopril) 40 Mg Tab, 40 MG PO QHS, (Reported) Multivitamins (Thera M Plus Tablet) 1 Tab Tab, 1 TAB PO BID, (Reported) Pantoprazole Sodium (Pantoprazole Sodium) 40 Mg Tablet.dr, 40 MG PO BID, (Reported) Trazodone HCl (Trazodone HCl) 150 Mg Tablet, 150 MG PO QHS, (Reported) GERRI ALCOCER MD Oct 05, 2020 12:40
--- NOTE | 2020-10-05 12:49 | ROOPDOC ---
[facility] Report Of Operation Report of Operation DATE OF PROCEDURE: 10/05/20 PREPROCEDURE DIAGNOSES: Right femoral vein DVT POSTPROCEDURE DIAGNOSES: Right femoral vein DVT PROCEDURE PERFORMED: IVC filter insertion SURGEON: Gerri Vizcarra MD ANESTHESIA: Local and sedation ESTIMATED BLOOD LOSS: Approximately 1mL COMPLICATIONS: None. FINDINGS: IVC filter in good position DESCRIPTION OF PROCEDURE: Patient was brought to the angio suite and placed on the angio table in supine position. After anesthesia was administered both groins were prepped and draped in standard surgical fashion. Under ultrasound guidance entry into the left common femoral vein was made with a micropuncture needle and over guidewire exchange a microsheath was inserted. A 0.035 inch guidewire was inserted and placed in the SVC. The micro sheath was then exchanged for the [employer] C[employer] IVC filter sheath system and the tip of the sheath was placed at the L1-L2 level. Venography was performed and revealed no thrombus in the IVC and location of both renal veins. The inner sheath was removed and the IVC filter was loaded onto the system. The IVC filter was deployed below the lowest renal vein and in good position. A completion venography confirmed good location and apposition of the IVC filter. The sheath was removed and direct manual pressure was held at the puncture site.. GERRI VIZCARRA MD Oct 05, 2020 12:49
[2020-10-05] MEDS: VITAMIN D 1,000 INTERNATIONAL UNITS TABLET PO SCH (13:49)
[2020-10-05] MEDS: CLOPIDOGREL 75 MG TAB PO SCH (13:49)
--- NOTE | 2020-10-05 15:35 | IPNPDOC ---
Text Note Date of Service The patient was seen on 10/05/20. NOTE S: Pt seen and evaluated at bedside this AM. Denies changes in sx. Denies chest pain, palpitations, SOB, cough, abd pain, n/v. Reports worsening urinary incontinence, kelly at night. No additional complaints or concerns. O: GEN: laying in bed, alert and awake, NAD HEENT: NC/AT, EOMI, nares patent, dry mucous membranes, scars on neck from endarterectomy CARDIO: normal heart sounds, RRR, 3/4 systolic murmur, no RG PULM: CTA b/l, no WRRR, no accessory muscles used ABD: hypoactive BS, soft, min RLQ abd pain w/ deep palpation, nondistended EXTREMITIES: 1+ pitting edema b/l LE IMAGING: Head CT (10/04/20) Stable chronic changes. No acute intracranial hemorrhage, midline shift or mass effect. CXR (10/04/20) No acute pulmonary disease RLE vascular u/s (10/04/20) Hypoechoic, occlusive thrombus in the common femoral vein. A/P: 60F [place] PMH Anemia, CVA on ASA and Plavix w/ weakness found to have H&H of 5.6 & 18.6 and RLE DVT on u/s, concerning for possible malignancy or hypercoagulability disease, pending IVC filter placement today and further w/u. #Weakness 2/2 anemia Monitor H&H Continue Iron supplement PT/OT eval pending #Hypercoagulability; RLE DVT Ddimer 1011.58 IVC filter placement w/ vascular surgery (Dr. Vizcarra) pending Protein C/S, Factor V Leiden, Antithrombin pending Factor 2 mutation pending Will order Chest CT w/out contrast #Possible GI bleed Fecal occult test pending Possible colonoscopy, pending results of fecal occult test On Protonix BID, Sucralfate TID. Hold ASA and Plavix #CAD s/p b/l endarterectomy w/ right stent placement On Atorvastatin #HTN- BP controlled On Lisinopril, Amlodipine, #Anxiety & Depression On Trazodone, Duloxetine #DVT Prophylaxis TEDs and sequentials Hold anticoagulants pending further w/u of anemia DISPO: home Activity as tolerated NPO diet, pending IR procedure GME ATTESTATION My faculty preceptor for this patient encounter was physically present during the encounter and was fully available. All aspects of the patient interview, examination, medical decision making process, and medical care plan development were reviewed and approved by the faculty preceptor. The faculty preceptor is aware and concurs with the plan as stated in the body of this note and will attest to such by his/her cosignature. ATTENDING NOTE I personally examined the patient and discussed the lab and imaging findings with the resident and I agree with the above findings, summary and plan as detailed by the resident physician. Briefly, Ms. Washington is well known to me and returned to the hospital with stable iron deficiency anemia but with a newly noted DVT. As previously had been planned, she finally received an IVC filter and for now our plan will remain to continue ASA/Plavix for high degree of vasculopathy with a recent stroke and no anticoagulation in an anemic Protestant with a Hgb of 6. Will resume PT/OT this morning for safe discharge planning. Of note, plan and risks were discussed by myself with the patient and her yesterday afternoon after IVC filter placement. VS,Fishbone, I+O VS, Fishbone, I+O Laboratory Tests 10/04/20 17:19 10/05/20 03:00 10/05/20 09:39 Vital Signs Date Time Temp Pulse Resp B/P (MAP) Pulse Ox O2 Delivery O2 Flow Rate FiO2 10/05/20 12:30 84 20 100 Nasal Cannula 2.0 10/05/20 12:30 97.8 118/58 (78) Hannah Cardoza DO Oct 05, 2020 15:34 EDILIA SAMUEL MD Oct 06, 2020 07:34
[2020-10-05 16:00] VITALS: BP 122/67
[2020-10-05 18:00] VITALS: BP 121/72
[2020-10-05 18:55] VITALS: BP 121/58
[2020-10-05 20:00] VITALS: BP 129/60
[2020-10-05] MEDS ORDERED: ASPIRIN 81MG ENTERIC TABLET PO SCH (21:00)
[2020-10-05] MEDS: PANTOPRAZOLE 40MG TAB (PROTONIX) PO SCH (21:19)
[2020-10-06] VITALS: BP 134/62
[2020-10-06 04:00] VITALS: BP 135/62
[2020-10-06] MEDS: SUCRALFATE 1 GM TAB PO SCH ×2 (05:13→14:00)
[2020-10-06 06:19] LABS: HEMATOCRIT 22.1 % (36.0-47.0); MEAN CORPUSCULAR HEMOGLOBIN 29.1 pg (27.0-33.0); MEAN CORPUSCULAR HGB CONC 29.9 g/dl (32.0-36.5); MEAN CORPUSCULAR VOLUME 97.4 fl (80.0-96.0); PLATELET COUNT, AUTOMATED 451 10^3/uL (150-450); RED BLOOD COUNT 2.27 10^6/uL (4.00-5.40); WHITE BLOOD COUNT 5.5 10^3/uL (4.0-10.0)
[2020-10-06 06:24] LABS: HEMOGLOBIN 6.6 g/dl (12.0-15.5)
[2020-10-06 06:36] LABS: BLOOD UREA NITROGEN 6 MG/DL (7-18); CALCIUM LEVEL 8.7 MG/DL (8.8-10.2); CARBON DIOXIDE LEVEL 29 MEQ/L (21-32); CHLORIDE LEVEL 107 MEQ/L (98-107); CREATININE FOR GFR 0.67 MG/DL (0.55-1.30); GLOMERULAR FILTRATION RATE > 60.0 (>45); GLUCOSE, FASTING 92 MG/DL (70-100); SODIUM LEVEL 141 MEQ/L (136-145)
[2020-10-06 07:40] VITALS: BP 136/64
[2020-10-06] MEDS: DOCUSATE SODIUM 100MG CAPSULE PO SCH (08:47)
[2020-10-06 08:48] VITALS: BP 136/64
[2020-10-06] MEDS: CLOPIDOGREL 75 MG TAB PO SCH (08:48)
[2020-10-06] MEDS: VITAMIN D 1,000 INTERNATIONAL UNITS TABLET PO SCH (08:48)
[2020-10-06] MEDS: DULoxetine 30 MG CAP (CYMBALTA) PO SCH (08:48)
[2020-10-06] MEDS: amLODIPine 5 MG TAB PO SCH (08:48)
[2020-10-06] MEDS: MULTIVITAMINS/MINERALS THERAP 1 TAB PO SCH (08:48)
[2020-10-06] MEDS: PANTOPRAZOLE 40MG TAB (PROTONIX) PO SCH (08:48)
[2020-10-06] MEDS: FERROUS SULFATE 325MG TAB PO SCH (08:48)
[2020-10-06] MEDS ORDERED: ISOVUE-370 76% 100ML VIAL As Ordered ONE ×2 (09:12→10:40)
[2020-10-06] MEDS ORDERED: SLF 3 ML SYR IV PRN (09:40)
--- NOTE | 2020-10-06 11:08 | IPNPDOC ---
Text Note Date of Service The patient was seen on 10/06/20. NOTE S: Pt seen and evaluated at bedside this AM. Denies changes in sx. Reports con tinued soreness in RLE. Denies chest pain, palpitations, SOB, cough, abd pain. No additional complaints or concerns. O: GEN: laying in bed, alert and awake, NAD HEENT: NC/AT, EOMI, nares patent, dry mucous membranes, scars on neck from endarterectomy CARDIO: normal heart sounds, RRR, 3/4 systolic murmur, no RG PULM: CTA b/l, no WRR, no accessory muscles used ABD: hypoactive BS, soft, nontender, nondistended SKIN: left inguinal surgical site bandage intact and clean w/out bleeding or surrounding signs of infxn EXTREMITIES: RLE warm and min swelling w/out skin changes, no edema IMAGING: Head CT (10/04/20) Stable chronic changes. No acute intracranial hemorrhage, midline shift or mass effect. CXR (10/04/20) No acute pulmonary disease RLE vascular u/s (10/04/20) Hypoechoic, occlusive thrombus in the common femoral vein. A/P: 60F Restorationist PMH Anemia, CVA on ASA and Plavix was found to have RLE DV T s/p IVC filter 10/05 concerning for possible malignancy or hypercoagulability disease pending chest CT, w/ improved H&H. #Weakness 2/2 anemia- improved H&H 6.6 & 22.1 (baseline) Continue Iron supplement Monitor labs PT/OT eval pending #Hypercoagulability; RLE DVT Ddimer 1011.58 IVC filter placement w/ vascular surgery (Dr. Vizcarra) 10/05 w/out complications Protein C/S, Factor V Leiden, Antithrombin pending Factor [address] w/ contrast to w/u possible malignancy pending #Possible GI bleed Fecal occult test pending Possible colonoscopy, pending results of fecal occult test On Protonix BID, Sucralfate TID. On ASA and Plavix #Urinary incontinence- well controlled Adequately managed w/ purewick catheter at night #CAD s/p b/l endarterectomy w/ right stent placement On Atorvastatin #HTN- BP controlled On Lisinopril, Amlodipine #Anxiety & Depression On Trazodone, Duloxetine #DVT Prophylaxis TEDs and sequentials On ASA and Plavix DISPO: home Activity as tolerated Regular diet GME ATTESTATION My faculty preceptor for this patient encounter was physically present during the encounter and was fully available. All aspects of the patient interview, examination, medical decision making process, and medical care plan development were reviewed and approved by the faculty preceptor. The faculty preceptor is aware and concurs with the plan as stated in the body of this note and will attest to such by his/her cosignature. ATTENDING NOTE I have personally examined the patient and discussed her lab and imaging findings with the resident team and agree with the above summary and plan. We will likely discharge her home today after CT of the chest is complete. VS,Fishbone, I+O VS, Fishbone, I+O Laboratory Tests 10/06/20 05:49 Vital Signs Date Time Temp Pulse Resp B/P (MAP) Pulse Ox O2 Delivery O2 Flow Rate FiO2 10/06/20 08:48 73 136/64 10/06/20 07:40 97.7 16 98 Room Air 10/05/20 12:30 2.0 I&O- Last 24 Hours up to 6 AM 10/06/20 06:00 Intake Total 0 ml Output Total 520 ml Balance -520 ml Hannah Cardoza DO Oct 06, 2020 11:08 EDILIA SAMUEL MD Oct 06, 2020 11:31
--- NOTE | 2020-10-06 11:41 | REP ---
INDICATION: hypercoaguable r/o malignancy. COMPARISON: Chest CT with IV contrast dated 08/12/2018. TECHNIQUE: CT of the chest with IV contrast. FINDINGS: There are no lung masses or nodules. There are no infiltrates. There are small bilateral pleural effusions. These were not present on the comparison CT. There is no mediastinal, hilar or axillary lymphadenopathy. The visualized breast parenchyma is unremarkable. There are portions of the breast parenchyma excluded at the film margins. The thoracic aorta is unremarkable. Cardiac size is normal. There is no pericardial effusion. There are no emboli in the pulmonary trunk or central pulmonary arteries. There are no emboli in the pulmonary artery lobar segment branches on the right or the left. Upper abdomen: The hepatic parenchyma is homogeneous. The visualized portion of the gallbladder are unremarkable. The visualized areas of the pancreas and spleen are unremarkable. There is no adrenal mass on the right or the left. The visualized renal upper poles are unremarkable. There are no lytic, blastic or destructive skeletal changes. IMPRESSION: There are small bilateral pleural effusions. There are no lung nodules or masses. There is no lymphadenopathy. No pulmonary emboli are identified. The visualized upper abdominal contents are unremarkable. There are no lytic, blastic or destructive skeletal changes. <Electronically signed by Joseph Borjas > 10/06/20 [id number]
[2020-10-06] MEDS ORDERED: SLF 3 ML SYR IV SCH (14:00)
[2020-10-06 14:26] LABS: DRVV SCREEN 34.4 SEC
[2020-10-06 14:31] LABS: PTT LUPUS TYPE ANTICOAG SCREEN 0.9 (0-1.2)
--- NOTE | 2020-10-06 23:37 | DS.PDOC ---
Discharge Summary General Date of Admission Oct 04, 2020 at 16:01 Date of Discharge 10/06/20 Attending Physician: EDILIA SAMUEL MD Specialist/Consultants Involve: GERRI ALCOCER MD Discharge Summary PROCEDURES PERFORMED DURING STAY: IVC Filter placement ADMITTING DIAGNOSES: 1. Weakness 2/2 symptomatic anemia DISCHARGE DIAGNOSES: 1. Weakness 2/2 symptomatic anemia 2. RLE DVT COMPLICATIONS/CHIEF COMPLAINT: Acute Anemia. HISTORY OF PRESENT ILLNESS: 60F Jew PMH Anemia, recent CVA on ASA and Plavix, CAD s/p b/l endarterectomy and right-sided stenting presented w/ worsening weakness for the past few days. She was recently admitted to [facility] 09/22 for weakness 2/2 symptomatic anemia and was found to have LLE DVT and CVA during admission. She was put on ASA, Plavix, and Xarelto. DVT resolution confirmed on repeat u/s so Xarelto d/c. IVC filter placement no longer indicated, as per vascular surgery. She was d/c home on ASA and Plavix, w/out evidence of bleeding. She presented to [facility] ED 10/04 w/ progressively worsening weakness since hospital d/c 09/30. She did not want blood products or transfusions, as she is a [place]. Reported new onset RLE pain and swelling. Reported daily iron supplementation. Denied bleeding, hematemesis, hematochezia, black stools. Denied fevers/chills, chest pain, palpitations, SOB, n/v. Labs performed in ED significant for H&H 6.6 & 22.2, Ddimer 1011.58 Imaging performed in ED significant for RLE duplex u/s revealing right common femoral vein DVT. Vascular surgery (Dr. Alcocer) consulted and recommended admission w/ IVC filter placement 10/05. HOSPITAL COURSE: Pt's ASA and Plavix held on admission, pending IVC filter placement w/ vascular surgery (Dr. Alcocer) 10/05. Surgery performed w/out com plications and pt's ASA and Plavix resumed. Hypercoagulability w/u began and still pending upon d/c. Pt received Protonix, Sucralfate; fecal occult test performed to r/o possible GI bleed. Pt's anemia monitored w/ labs and H&H improved to her baseline (6.6 & 21.8) by 10/05. Pt reported improved strength and was seen and evaluated by PT who recommended home w/ services. Chest CT w/ contrast performed 10/06 for possible malignancy contributing to hypercoagulable state. Chest CT was negative and pt cleared for d/c. DISCHARGE MEDICATIONS: Please see below. ALLERGIES: Please see below. PHYSICAL EXAMINATION ON DISCHARGE: VITAL SIGNS: Please see below. GEN: laying in bed, alert and awake, NAD HEENT: NC/AT, EOMI, nares patent, dry mucous membranes, scars on neck from endarterectomy CARDIO: normal heart sounds, RRR, 3/4 systolic murmur, no RG PULM: CTA b/l, no WRR, no accessory muscles used ABD: hypoactive BS, soft, nontender, nondistended SKIN: left inguinal surgical site bandage intact and clean w/out bleeding or surrounding signs of infxn EXTREMITIES: RLE warm and min swelling w/out skin changes, no edema LABORATORY DATA: Please see below. IMAGING: Head CT (10/04/20) Stable chronic changes. No acute intracranial hemorrhage, midline shift or mass effect. CXR (10/04/20) No acute pulmonary disease RLE vascular u/s (10/04/20) Hypoechoic, occlusive thrombus in the common femoral vein. Chest CT (10/06/20) There are small bilateral pleural effusions. There are no lung nodules or masses. There is no lymphadenopathy. No pulmonary emboli are identified. The visualized upper abdominal contents are unremarkable. There are no lytic, blastic or destructive skeletal changes. PROGNOSIS: good ACTIVITY: As tolerated DIET: Regular DISCHARGE PLAN: F/u PCP, 7-10days DISPOSITION: 06 Home Health Service. DISCHARGE INSTRUCTIONS: 1. F/u PCP, 7-10days ITEMS TO FOLLOWUP ON ON OUTPATIENT: 1. Chronic anemia 2. Hypercoagulability w/u DISCHARGE CONDITION: Stable TIME SPENT ON DISCHARGE: 20 minutes. Vital Signs/I&Os Vital Signs Date Time Temp Pulse Resp B/P (MAP) Pulse Ox O2 Delivery O2 Flow Rate FiO2 10/06/20 08:48 73 136/64 10/06/20 07:40 97.7 16 98 Room Air 10/05/20 12:30 2.0 I&O- Last 24 Hours up to 6 AM 10/06/20 06:00 Intake Total 0 ml Output Total 520 ml Balance -520 ml Laboratory Data Labs 24H Laboratory Tests 2 10/06/20 05:49: Nucleated Red Blood Cells % (auto) 0.0, Anion Gap 5L, Glomerular Filtration Rate > 60.0, Calcium Level 8.7L CBC/BMP Laboratory Tests 10/06/20 05:49 Microbiology Microbiology 10/04/20 Urine Culture, Received Pending Discharge Medications Scheduled Amlodipine Besylate (Amlodipine Besylate) 5 Mg Tab, 5 MG PO DAILY, (Reported) Aspirin (Aspirin EC) 81 Mg Tab, 81 MG PO QHS, (Reported) Atorvastatin Calcium (Atorvastatin Calcium) 20 Mg Tablet, 20 MG PO QHS, (Reported) Cholecalciferol (Vitamin D3) (Vitamin D3) 1,000 Unit Tablet, 2,000 UNITS PO DAILY, (Reported) Clopidogrel Bisulfate (Clopidogrel) 75 Mg Tab, 75 MG PO QHS, (Reported) Duloxetine Hcl (Duloxetine HCl) 30 Mg Capsule.dr, 30 MG PO DAILY, (Reported) Ferrous Sulfate (Ferrous Sulfate) 325 Mg Tab, 325 MG PO DAILY, (Reported) Lisinopril (Lisinopril) 40 Mg Tab, 40 MG PO QHS, (Reported) Multivitamins (Thera M Plus Tablet) 1 Tab Tab, 1 TAB PO BID, (Reported) Pantoprazole Sodium (Pantoprazole Sodium) 40 Mg Tablet.dr, 40 MG PO BID, (Reported) Trazodone HCl (Trazodone HCl) 150 Mg Tablet, 150 MG PO QHS, (Reported) Allergies Coded Allergies: No Known Allergies (Unverified , 12/11/14) GME ATTESTATION My faculty preceptor for this patient encounter was physically present during the encounter and was fully available. All aspects of the patient interview, examination, medical decision making process, and medical care plan development were reviewed and approved by the faculty preceptor. The faculty preceptor is aware and concurs with the plan as stated in the body of this note and will attest to such by his/her cosignature. ATTENDING NOTE I personally examined Ms. Washington and discussed her findings and medical plan with the resident team and the patient. I agree with the excellent summary above of her hospital stay and plan. Briefly, she was admitted with a new DVT while on ASA/plavix for vasculopathy with a resent stroke, prior stents and unfortunately recent anemia i/s/o of DAPT+NoAC i/s/o a provoked DVT post carotid stent placement. NoaC had been stopped i/s/o of anemia in this Jew woman with a Hgb of 6 and the hgb was stable thereafter and prior DVT had resolved. She unfortunately returned with a new DVT and this time had an IVC filter placed by vascular surgery and she was otherwise continued on DAPT therapy without anticoagulation as Hgb remains to be 6. Hypercoagulability workup was sent at admission, while CT chest to r/o malignancy was negative. Of note, a recent CT A/P was also negative for cornelius masses or lymphadenopathy. She is now being disc harged home with close PCP follow up. Hannah Cardoza DO Oct 06, 2020 23:37 EDILIA SAMUEL MD Oct 07, 2020 08:40
== END 2020-10-06 17:01 | disposition home health service (06) | DRG 663 ==
LOC: M ED 16:00 → M ED INP 16:01 → M ICU 10-05 12:57 → M PCU 10-05 18:30
PROVIDERS: ADMIT Family Medicine; ATTEND Internal Medicine
PROC: 02HV3DZ Insertion of Intraluminal Device into Superior Vena Cava, Percutaneous Approach (ICD-10-PCS; principal; 2020-10-05 10:48)
DX: D64.9 Anemia, unspecified (principal); I82.411 Acute embolism and thrombosis of right femoral vein; I10 Essential (primary) hypertension; R53.1 Weakness; F41.9 Anxiety disorder, unspecified; F32.9 Major depressive disorder, single episode, unspecified; K21.9 Gastro-esophageal reflux disease without esophagitis; M50.30 Other cervical disc degeneration, unspecified cervical region; R32 Unspecified urinary incontinence; M79.7 Fibromyalgia; Z86.718 Personal history of other venous thrombosis and embolism; Z86.73 Personal history of transient ischemic attack (TIA), and cerebral infarction without residual deficits; Z79.82 Long term (current) use of aspirin; Z79.899 Other long term (current) drug therapy; Z79.02 Long term (current) use of antithrombotics/antiplatelets; Z20.822 Contact with and (suspected) exposure to COVID-19

== ENCOUNTER 2020-11-26 10:27 | Emergency (ER) | payer BC ==
[~2020-11-26] VITALS: Ht 149.9 cm; Wt 60.7 kg
[~2020-11-26 10:27] MED LIST changes: +PANT-23 PO
[2020-11-26] MEDS ORDERED: PANT40TA29 (10:41)
[2020-11-26 11:12] LABS: BASO % 0.6 % (0.0-1.0); EOS # 0.1 10^3/uL (0.0-0.5); EOS % 1.1 % (0.0-3.0); HEMATOCRIT 32.6 % (36.0-47.0); HEMOGLOBIN 10.3 g/dl (12.0-15.5); LYMPH # 1.2 10^3/uL (1.5-5.0); LYMPH % 18.6 % (24.0-44.0); MEAN CORPUSCULAR HEMOGLOBIN 29.6 pg (27.0-33.0); MEAN CORPUSCULAR HGB CONC 31.6 g/dl (32.0-36.5); MEAN CORPUSCULAR VOLUME 93.7 fl (80.0-96.0); MONO # 0.5 10^3/uL (0.0-0.8); MONO % 7.2 % (2.0-8.0); NEUTROPHILS # 4.6 10^3/uL (1.5-8.5); NEUTROPHILS % 72.2 % (36.0-66.0); PLATELET COUNT, AUTOMATED 276 10^3/uL (150-450); RED BLOOD COUNT 3.48 10^6/uL (4.00-5.40); WHITE BLOOD COUNT 6.4 10^3/uL (4.0-10.0)
--- NOTE | 2020-11-26 11:41 | REP ---
INDICATION: CHEST PAIN. COMPARISON: 10/04/2020 TECHNIQUE: Portable FINDINGS: The technique utilized in obtaining the radiograph has magnified the cardiac silhouette and accentuated the interstitial markings. The cardiomediastinal silhouette lung taylor are unchanged. Mild cardiomegaly accentuated by technique cannot be ruled out. Lung taylor are clear. The pleural angles are sharp. The osseous structures are stable and intact. IMPRESSION: There is no acute cardiopulmonary disease. <Electronically signed by Xu Hernandez > 11/26/20 [id number]
[2020-11-26 11:50] LABS: BLOOD UREA NITROGEN 13 MG/DL (7-18); CALCIUM LEVEL 9.1 MG/DL (8.8-10.2); CARBON DIOXIDE LEVEL 26 MEQ/L (21-32); CHLORIDE LEVEL 107 MEQ/L (98-107); CK-MB VALUE MASS < 1.0 NG/ML (<3.6); CPK CREATINE PHOSPHOKINASE 94 U/L (26-192); GLOMERULAR FILTRATION RATE > 60.0 (>45); GLUCOSE, FASTING 104 MG/DL (70-100); MB/CK RELATIVE INDEX 1.06 (< OR =4); POTASSIUM SERUM 5.9 MEQ/L (3.5-5.1); SODIUM LEVEL 139 MEQ/L (136-145); TROPONIN I < 0.02 NG/ML (< 0.10)
[2020-11-26 12:07] LABS: RSV AMPLIFICATION NEGATIVE (NEGATIVE)
[2020-11-26] MEDS ORDERED: ACETAMINOPHEN 325 MG TAB PO ONE (12:10)
[2020-11-26] MEDS ORDERED: ISOVUE-370 76% 100ML VIAL As Ordered ONE (12:12)
--- NOTE | 2020-11-26 12:55 | REP ---
INDICATION: SOB; chest pain; r/o PE. COMPARISON: 10/06/2020. TECHNIQUE: CT angiogram chest performed following the intravenous administration of 100 cc of Isovue 370. Sagittal and coronal reconstruction images are performed. FINDINGS: Lungs: Clear, no infiltrate or nodule. Mediastinum: No adenopathy. Pulmonary arteries: No evidence of pulmonary embolism. Cassie: No adenopathy. Axilla: No adenopathy. Pleura: No effusion. Heart: Not enlarged. Thoracic aorta: No aneurysm or dissection. Upper abdominal structures: Unremarkable. Visualized osseous structures: There are degenerative changes of the spine without compression deformity. IMPRESSION: No CT evidence of pulmonary embolism. No infiltrate seen. <Electronically signed by Joseph Badillo > 11/26/20 [id number]
[2020-11-26 14:30] VITALS: BP 169/77
--- NOTE | 2020-11-26 19:22 | ECGEPIP ---
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
== END 2020-11-26 14:37 | disposition home or self-care (01) ==
LOC: M ED 10:27
DX: R07.89 Other chest pain (principal); R51.9 Headache, unspecified; R06.02 Shortness of breath; I45.19 Other right bundle-branch block; F33.9 Major depressive disorder, recurrent, unspecified; F41.9 Anxiety disorder, unspecified; I25.2 Old myocardial infarction; K21.9 Gastro-esophageal reflux disease without esophagitis; M79.7 Fibromyalgia; M54.5 Low back pain; Z86.73 Personal history of transient ischemic attack (TIA), and cerebral infarction without residual deficits; Z79.899 Other long term (current) drug therapy; Z79.82 Long term (current) use of aspirin; Z79.01 Long term (current) use of anticoagulants
CPT/HCPCS: 36415; 71045; 71275; 80048; 82550; 82553; 84484; 85025; 87631; 93005; 93041; 94760; 99285; Q9967

== ENCOUNTER → 2021-04-15 | Outpatient (CLI) | payer BC, OTHER ==
[~2021-04-15] MED LIST changes: +CVS1CAP2 PO
== END ==
LOC: M LABSMTC 10:07
PROVIDERS: ATTEND Anesthesiology
DX: Z01.812 Encounter for preprocedural laboratory examination (principal); Z20.822 Contact with and (suspected) exposure to COVID-19

== ENCOUNTER 2021-04-20 10:46 | Day surgery (SDC) | payer BC, OTHER ==
[~2021-04-20] VITALS: Ht 152.4 cm; Wt 61.7 kg
[~2021-04-20 10:46] MED LIST changes: +NS 1,000 ML IV ONE
[2021-04-20] MEDS ORDERED: LIDOCAINE 2% MDV 20ML VIAL As Ordered ONE (12:48)
[2021-04-20] MEDS ORDERED: fentaNYL 100 MCG/2 ML INJECTION As Ordered ONE (12:48)
[2021-04-20] MEDS ORDERED: propofoL 200 MG/20 ML VIAL As Ordered ONE (12:48)
[2021-04-20 14:04] VITALS: BP 150/65
== END 2021-04-20 13:02 | disposition home or self-care (01) ==
LOC: M OPP 10:46
PROVIDERS: ATTEND Internal Medicine Gastroenterology
DX: K57.30 Diverticulosis of large intestine without perforation or abscess without bleeding (principal); K64.0 First degree hemorrhoids; D50.9 Iron deficiency anemia, unspecified; K31.89 Other diseases of stomach and duodenum; K22.89 Other specified disease of esophagus; K44.9 Diaphragmatic hernia without obstruction or gangrene; Z79.82 Long term (current) use of aspirin; Z79.899 Other long term (current) drug therapy; Z86.73 Personal history of transient ischemic attack (TIA), and cerebral infarction without residual deficits; Z86.718 Personal history of other venous thrombosis and embolism
CPT/HCPCS: 43239; 45378; 88305; J3010

== ENCOUNTER 2021-07-21 12:00 | Emergency (ER) | payer BC, OTHER ==
[~2021-07-21] VITALS: Ht 152.4 cm; Wt 59.1 kg
[~2021-07-21 12:00] MED LIST changes: -D31000TA2 PO; -NS 1,000 ML IV ONE; +VITA100093 PO
[2021-07-21 12:01] VITALS: BP 153/66
[2021-07-21] MEDS ORDERED: OMEP40CA5 (12:17)
== END 2021-07-21 16:12 | disposition home or self-care (01) ==
LOC: M ED 12:00
DX: S22.42XA Multiple fractures of ribs, left side, initial encounter for closed fracture (principal); W01.0XXA Fall on same level from slipping, tripping and stumbling without subsequent striking against object, initial encounter; Y92.009 Unspecified place in unspecified non-institutional (private) residence as the place of occurrence of the external cause; Y93.9 Activity, unspecified; Y99.9 Unspecified external cause status; Z79.899 Other long term (current) drug therapy

== ENCOUNTER → 2021-11-10 | Outpatient (CLI) | payer OTHER ==
[~2021-11-10] MED LIST changes: +OMEP40CA5
== END ==
LOC: M WHC 13:47
PROVIDERS: ATTEND Pediatrics
DX: Z12.31 Encounter for screening mammogram for malignant neoplasm of breast (principal); Z87.310 Personal history of (healed) osteoporosis fracture

== ENCOUNTER 2022-02-12 13:49 | Inpatient (IN) | payer OTHER ==
[~2022-02-12] VITALS: Ht 152.4 cm; Wt 65.0 kg
[~2022-02-12 13:49] MED LIST changes: +CLOPIDOGREL 75 MG TAB PO SCH; -OMEP40CA5; +OMEP40CA5 PO
[2022-02-12] MEDS ORDERED: ISOVUE-370 76% 100ML VIAL As Ordered ONE (14:00)
[2022-02-12 14:41] LABS: BASO % 0.6 % (0.0-1.0); EOS # 0.1 10^3/uL (0.0-0.5); EOS % 1.3 % (0.0-3.0); HEMOGLOBIN 13.6 g/dl (12.0-15.5); LYMPH # 1.7 10^3/uL (1.5-5.0); LYMPH % 27.6 % (24.0-44.0); MEAN CORPUSCULAR HGB CONC 33.2 g/dl (32.0-36.5); MEAN CORPUSCULAR VOLUME 93.4 fl (80.0-96.0); MONO # 0.4 10^3/uL (0.0-0.8); MONO % 6.9 % (2.0-8.0); NEUTROPHILS # 3.9 10^3/uL (1.5-8.5); NEUTROPHILS % 63.4 % (36.0-66.0); PLATELET COUNT, AUTOMATED 248 10^3/uL (150-450); RED BLOOD COUNT 4.39 10^6/uL (4.00-5.40); WHITE BLOOD COUNT 6.2 10^3/uL (4.0-10.0)
[2022-02-12 14:52] LABS: INR 0.9; PROTHROMBIN TIME 12.3 SECONDS (12.5-14.5)
[2022-02-12 14:53] LABS: PARTIAL THROMBOPLASTIN TIME 26.4 SECONDS (24.8-34.2)
[2022-02-12 15:02] LABS: BILIRUBIN,DIRECT < 0.1 MG/DL (<0.4)
[2022-02-12 15:13] LABS: RSV AMPLIFICATION NEGATIVE (NEGATIVE)
[2022-02-12 15:14] LABS: ALBUMIN 3.5 G/DL (3.2-5.2); ALKALINE PHOSPHATASE 95 U/L (46-116); ALT/SGPT 20 U/L (7.0-40); AST/SGOT 46 U/L (<34); BILIRUBIN,TOTAL 0.3 MG/DL (0.3-1.2); CK-MB VALUE MASS < 1.0 NG/ML (<3.6); CPK CREATINE PHOSPHOKINASE 91 U/L (34-145); MB/CK RELATIVE INDEX 1.09 (< OR =4); TOTAL PROTEIN 7.1 G/DL (5.7-8.2)
[2022-02-12 16:27] LABS: CHOLESTEROL LEVEL 155 MG/DL (<200); CHOLESTEROL RISK RATIO 2.76 (<5); LDL CHOLESTEROL 81.6 MG/DL (<100); NON-HDL-C 99 MG/DL; TRIGLYCERIDES LEVEL 87 MG/DL (<150)
[2022-02-12] MEDS ORDERED: ATOR40TA75 PO (16:27)
[2022-02-12] MEDS ORDERED: HOME MED LIST COMPLETE! XX SCH (16:30)
[2022-02-12 18:40] VITALS: BP 146/87
[2022-02-12] MEDS ORDERED: ENOXAPARIN 40MG/0.4ML SYRINGE (J1650 PER 10MG) SC ONE (19:00)
[2022-02-12] MEDS: ASPIRIN 81MG ENTERIC TABLET PO SCH (19:17)
[2022-02-12 20:00] VITALS: BP 151/66
[2022-02-12] MEDS: amLODIPine 5 MG TAB PO SCH (20:46)
[2022-02-12] MEDS: MULTIVITAMINS/MINERALS THERAP 1 TAB PO SCH (20:46)
[2022-02-12] MEDS ORDERED: traZODone 50 MG TAB PO SCH (21:00)
[2022-02-12] MEDS ORDERED: CLOPIDOGREL 75 MG TAB PO SCH (21:00)
[2022-02-12] MEDS ORDERED: ATORVASTATIN 20 MG TAB PO SCH (21:00)
[2022-02-13] VITALS: BP 117/57
[2022-02-13 04:00] VITALS: BP 125/57
[2022-02-13 05:42] LABS: BASO % 0.6 % (0.0-1.0); EOS # 0.1 10^3/uL (0.0-0.5); EOS % 1.8 % (0.0-3.0); HEMATOCRIT 38.5 % (36.0-47.0); HEMOGLOBIN 12.5 g/dl (12.0-15.5); LYMPH # 1.4 10^3/uL (1.5-5.0); LYMPH % 29.2 % (24.0-44.0); MEAN CORPUSCULAR HEMOGLOBIN 30.3 pg (27.0-33.0); MEAN CORPUSCULAR HGB CONC 32.5 g/dl (32.0-36.5); MEAN CORPUSCULAR VOLUME 93.2 fl (80.0-96.0); MONO # 0.4 10^3/uL (0.0-0.8); MONO % 8.8 % (2.0-8.0); NEUTROPHILS # 2.9 10^3/uL (1.5-8.5); NEUTROPHILS % 59.4 % (36.0-66.0); PLATELET COUNT, AUTOMATED 214 10^3/uL (150-450); RED BLOOD COUNT 4.13 10^6/uL (4.00-5.40); WHITE BLOOD COUNT 4.9 10^3/uL (4.0-10.0)
[2022-02-13 06:15] LABS: BLOOD UREA NITROGEN 12 MG/DL (9-23); CALCIUM LEVEL 8.8 MG/DL (8.3-10.6); CARBON DIOXIDE LEVEL 26 MMOL/L (20-31); CHLORIDE LEVEL 107 MMOL/L (98-107); CREATININE FOR GFR 0.91 MG/DL (0.55-1.30); GLOMERULAR FILTRATION RATE > 60.0 (>45); GLUCOSE, FASTING 89 MG/DL (74-106); POTASSIUM SERUM 4.1 MMOL/L (3.5-5.1); SODIUM LEVEL 144 MMOL/L (136-145)
[2022-02-13 08:00] VITALS: BP 136/63
[2022-02-13 08:48] VITALS: BP 136/63
[2022-02-13] MEDS: ASPIRIN 81MG ENTERIC TABLET PO SCH (08:48)
[2022-02-13] MEDS: amLODIPine 5 MG TAB PO SCH (08:48)
[2022-02-13] MEDS: MULTIVITAMINS/MINERALS THERAP 1 TAB PO SCH (08:48)
[2022-02-13] MEDS ORDERED: ATOR80TA59 PO (08:52)
[2022-02-13] MEDS ORDERED: ASPI81TAEC PO (08:55)
[2022-02-13] MEDS ORDERED: ENOXAPARIN 40MG/0.4ML SYRINGE (J1650 PER 10MG) SC SCH (09:00)
[2022-02-13] MEDS ORDERED: FERROUS SULFATE 325MG TAB PO SCH (09:00)
[2022-02-13] MEDS ORDERED: DULoxetine 30MG CAPSULE (CYMBALTA) PO SCH (09:00)
[2022-02-13] MEDS ORDERED: VITAMIN D 1,000 INTERNATIONAL UNITS TABLET PO SCH (09:00)
== END 2022-02-13 15:40 | disposition home or self-care (01) | DRG 861 ==
LOC: EDBD 13:49 → M ED 13:49 → M ED INP 15:38 → M PCU 18:37
PROVIDERS: ADMIT General Practice; ATTEND General Practice
PROC: B246ZZZ Ultrasonography of Right and Left Heart (ICD-10-PCS; principal; 2022-02-12)
DX: R53.1 Weakness (principal); I65.23 Occlusion and stenosis of bilateral carotid arteries; I10 Essential (primary) hypertension; D64.9 Anemia, unspecified; F41.9 Anxiety disorder, unspecified; F32.A Depression, unspecified; K21.9 Gastro-esophageal reflux disease without esophagitis; E78.5 Hyperlipidemia, unspecified; R29.810 Facial weakness; M54.9 Dorsalgia, unspecified; G89.29 Other chronic pain; M50.30 Other cervical disc degeneration, unspecified cervical region; M79.7 Fibromyalgia; Z86.718 Personal history of other venous thrombosis and embolism; Z95.828 Presence of other vascular implants and grafts; Z79.02 Long term (current) use of antithrombotics/antiplatelets; Z79.899 Other long term (current) drug therapy; Z86.73 Personal history of transient ischemic attack (TIA), and cerebral infarction without residual deficits

== ENCOUNTER → 2022-08-17 | Outpatient (CLI) | payer OTHER ==
[~2022-08-17] MED LIST changes: +ASPI81TAEC PO; +ATOR80TA59 PO; -CLOPIDOGREL 75 MG TAB PO SCH
== END ==
LOC: M WUC 13:57
PROVIDERS: ATTEND Physician Assistant
DX: M54.6 Pain in thoracic spine (principal); M54.50 Low back pain, unspecified

== ENCOUNTER 2022-12-07 12:55 | Emergency (ER) | payer BC ==
[~2022-12-07] VITALS: Ht 152.4 cm; Wt 64.6 kg
[2022-12-07] MEDS ORDERED: ALEN70TA82 PO (13:06)
[2022-12-07] MEDS: ACETAMINOPHEN TAB 650MG DOSE (2X325MG) PO ONE (14:19)
[2022-12-07 16:14] VITALS: BP 167/78; TEMP 97.3; O2SAT 97
== END 2022-12-07 16:40 | disposition home or self-care (01) ==
LOC: M ED 12:55
DX: S09.90XA Unspecified injury of head, initial encounter (principal); S80.02XA Contusion of left knee, initial encounter; W01.0XXA Fall on same level from slipping, tripping and stumbling without subsequent striking against object, initial encounter; Y92.009 Unspecified place in unspecified non-institutional (private) residence as the place of occurrence of the external cause; Y93.01 Activity, walking, marching and hiking; Y99.8 Other external cause status; J12.2 Parainfluenza virus pneumonia; Z86.73 Personal history of transient ischemic attack (TIA), and cerebral infarction without residual deficits; I65.29 Occlusion and stenosis of unspecified carotid artery; Z79.82 Long term (current) use of aspirin; Z79.899 Other long term (current) drug therapy

== ENCOUNTER → 2023-01-31 | Outpatient (CLI) | payer BC ==
[~2023-01-31] MED LIST changes: +ALEN70TA82 PO
== END ==
LOC: M WHC 09:24
PROVIDERS: ATTEND Pediatrics
DX: Z12.31 Encounter for screening mammogram for malignant neoplasm of breast (principal)

== ENCOUNTER → 2023-03-23 | Outpatient (CLI) | payer BC, OTHER | LOC: M WHC 11:10 | PROVIDERS: ATTEND Physician Assistant | DX: I65.23 Occlusion and stenosis of bilateral carotid arteries (principal); Z48.812 Encounter for surgical aftercare following surgery on the circulatory system ==

== ENCOUNTER 2023-03-31 22:16 | Emergency (ER) | payer OTHER ==
[~2023-03-31] VITALS: Ht 152.4 cm; Wt 65.4 kg
[2023-04-01 00:50] VITALS: BP 134/84; TEMP 97.2; O2SAT 98
== END 2023-04-01 01:12 | disposition home or self-care (01) ==
LOC: M ED 22:16
DX: S60.221A Contusion of right hand, initial encounter (principal); S80.01XA Contusion of right knee, initial encounter; Y92.9 Unspecified place or not applicable; Y93.01 Activity, walking, marching and hiking; Y99.9 Unspecified external cause status; W01.0XXA Fall on same level from slipping, tripping and stumbling without subsequent striking against object, initial encounter; M25.511 Pain in right shoulder; I10 Essential (primary) hypertension; F41.9 Anxiety disorder, unspecified; F32.A Depression, unspecified; K21.9 Gastro-esophageal reflux disease without esophagitis

== ENCOUNTER → 2023-04-06 | Outpatient (REF) | payer OTHER ==
[2023-04-06 16:41] LABS: BASO % 0.5 % (0.0-1.0); EOS # 0.1 10^3/uL (0.0-0.5); EOS % 1.2 % (0.0-3.0); LYMPH # 0.9 10^3/uL (1.5-5.0); MEAN CORPUSCULAR HEMOGLOBIN 30.2 pg (27.0-33.0); MEAN CORPUSCULAR HGB CONC 32.5 g/dl (32.0-36.5); MEAN CORPUSCULAR VOLUME 92.8 fl (80.0-96.0); MONO # 0.4 10^3/uL (0.0-0.8); MONO % 7.4 % (2.0-8.0); NEUTROPHILS # 4.5 10^3/uL (1.5-8.5); NEUTROPHILS % 75.7 % (36.0-66.0); PLATELET COUNT, AUTOMATED 274 10^3/uL (150-450); RED BLOOD COUNT 4.31 10^6/uL (4.00-5.40)
[2023-04-06 17:04] LABS: ALBUMIN 3.6 G/DL (3.2-5.2); ALKALINE PHOSPHATASE 109 U/L (46-116); ALT/SGPT 26 U/L (7.0-40); AST/SGOT 20 U/L (<34); BILIRUBIN,TOTAL 0.3 MG/DL (0.3-1.2); BLOOD UREA NITROGEN 14 MG/DL (9-23); CALCIUM LEVEL 9.5 MG/DL (8.3-10.6); CARBON DIOXIDE LEVEL 30 MMOL/L (20-31); CHLORIDE LEVEL 105 MMOL/L (98-107); CHOLESTEROL LEVEL 137 MG/DL (<200); CHOLESTEROL RISK RATIO 2.35 (<5); CREATININE FOR GFR 0.87 MG/DL (0.55-1.30); GLOMERULAR FILTRATION RATE > 60.0 (>45); GLUCOSE, FASTING 86 MG/DL (74-106); HDL CHOLESTEROL 58.1 MG/DL (>40); LDL CHOLESTEROL 63.7 MG/DL (<100); NON-HDL-C 78.9 MG/DL; POTASSIUM SERUM 4.3 MMOL/L (3.5-5.1); SODIUM LEVEL 142 MMOL/L (136-145); TOTAL PROTEIN 6.9 G/DL (5.7-8.2); TRIGLYCERIDES LEVEL 76 MG/DL (<150)
[2023-04-06 17:06] LABS: THYROID STIMULATING HORMONE 5.541 uIU/ML (0.55-4.78)
[2023-04-06 17:07] LABS: HEMOGLOBIN A1c 5.2 % (4.0-6.0)
== END ==
LOC: M LAB REF 16:20
PROVIDERS: ATTEND Pediatrics
DX: R73.03 Prediabetes (principal); I10 Essential (primary) hypertension

== ENCOUNTER → 2023-07-06 | Outpatient (REF) | payer OTHER ==
[~2023-07-06] MED LIST changes: +BUPR-597 PO; -BUPR300T92 PO
[2023-07-06 18:45] LABS: THYROID STIMULATING HORMONE 3.919 uIU/ML (0.55-4.78)
== END ==
LOC: M LAB REF 16:58
PROVIDERS: ATTEND Pediatrics
DX: R94.6 Abnormal results of thyroid function studies (principal)

== ENCOUNTER 2023-09-25 22:59 | Emergency (ER) | payer OTHER ==
[~2023-09-25] VITALS: Ht 152.4 cm; Wt 66.7 kg
[2023-09-25 23:00] VITALS: BP 176/76; TEMP 97.1; O2SAT 100
== END 2023-09-25 23:08 | disposition left against medical advice (07) ==
LOC: M ED 22:59
DX: Z53.21 Procedure and treatment not carried out due to patient leaving prior to being seen by health care provider (principal)

== ENCOUNTER → 2023-10-16 | Outpatient (CLI) | payer OTHER | LOC: M RAD 13:54 | PROVIDERS: ATTEND Physician Assistant | DX: I65.21 Occlusion and stenosis of right carotid artery (principal) ==

== ENCOUNTER → 2024-02-07 | Outpatient (CLI) | payer MEDICARE, OTHER | LOC: M RAD 15:37 | PROVIDERS: ATTEND Physician Assistant | DX: R05.9 Cough, unspecified (principal) ==

== ENCOUNTER → 2024-03-14 | Outpatient (REF) | payer MEDICARE ==
[2024-03-14 18:19] LABS: HEMOGLOBIN A1c 5.6 % (4.0-6.0)
[2024-03-14 18:20] LABS: BASO % 0.5 % (0.0-1.0); EOS # 0.1 10^3/uL (0.0-0.5); EOS % 0.9 % (0.0-3.0); HEMATOCRIT 43.7 % (36.0-47.0); LYMPH # 1.3 10^3/uL (1.5-5.0); LYMPH % 16.7 % (24.0-44.0); MEAN CORPUSCULAR HEMOGLOBIN 28.7 pg (27.0-33.0); MEAN CORPUSCULAR VOLUME 89.7 fl (80.0-96.0); MONO # 0.6 10^3/uL (0.0-0.8); MONO % 7.4 % (2.0-8.0); NEUTROPHILS # 5.7 10^3/uL (1.5-8.5); NEUTROPHILS % 74.2 % (36.0-66.0); PLATELET COUNT, AUTOMATED 289 10^3/uL (150-450); RED BLOOD COUNT 4.87 10^6/uL (4.00-5.40); WHITE BLOOD COUNT 7.7 10^3/uL (4.0-10.0)
[2024-03-14 18:35] LABS: TOTAL IRON BINDING CAPACITY 321 UG/DL (250-425)
[2024-03-14 18:36] LABS: ALKALINE PHOSPHATASE 121 U/L (35-104); ALT/SGPT 28 U/L (7.0-40); AST/SGOT 25 U/L (<34); BILIRUBIN,TOTAL 0.3 MG/DL (0.3-1.2); BLOOD UREA NITROGEN 14 MG/DL (9-23); CALCIUM LEVEL 10.8 MG/DL (8.3-10.6); CARBON DIOXIDE LEVEL 32 MMOL/L (20-31); CHLORIDE LEVEL 102 MMOL/L (98-107); CHOLESTEROL LEVEL 154 MG/DL (<200); CREATININE FOR GFR 0.95 MG/DL (0.55-1.30); GLOMERULAR FILTRATION RATE > 60.0 (>45); GLUCOSE, FASTING 120 MG/DL (74-106); HDL CHOLESTEROL 61.4 MG/DL (>40); IRON (FE) 87 UG/DL (50-170); LDL CHOLESTEROL 79.2 MG/DL (<100); NON-HDL-C 92.6 MG/DL; PERCENT SATURATION 27.1 % (13.2-45.0); POTASSIUM SERUM 4.7 MMOL/L (3.5-5.1); SODIUM LEVEL 143 MMOL/L (136-145); TOTAL PROTEIN 7.8 G/DL (5.7-8.2); TRIGLYCERIDES LEVEL 67 MG/DL (<150)
[2024-03-14 18:37] LABS: THYROID STIMULATING HORMONE 4.658 uIU/ML (0.55-4.78)
== END ==
LOC: M LAB REF 16:40
PROVIDERS: ATTEND Pediatrics
DX: K21.9 Gastro-esophageal reflux disease without esophagitis (principal); F32.9 Major depressive disorder, single episode, unspecified; R73.03 Prediabetes; I10 Essential (primary) hypertension; D64.9 Anemia, unspecified

== ENCOUNTER → 2024-04-21 | Outpatient (CLI) | payer MEDICARE | LOC: M RAD 07:27 | PROVIDERS: ATTEND Physician Assistant | DX: I65.23 Occlusion and stenosis of bilateral carotid arteries (principal) ==

== ENCOUNTER → 2024-05-05 | Outpatient (CLI) | payer MEDICARE ==
[2024-05-05 17:36] LABS: BLOOD UREA NITROGEN 13 MG/DL (9-23); GLOMERULAR FILTRATION RATE > 60.0 (>45)
== END ==
LOC: M WUC 11:59
PROVIDERS: ATTEND Physician Assistant
DX: I65.23 Occlusion and stenosis of bilateral carotid arteries (principal)

== ENCOUNTER → 2024-05-07 | Outpatient (CLI) | payer MEDICARE | LOC: M WHC 13:03 | PROVIDERS: ATTEND Pediatrics | DX: Z12.31 Encounter for screening mammogram for malignant neoplasm of breast (principal); M81.0 Age-related osteoporosis without current pathological fracture ==

== ENCOUNTER → 2024-05-12 | Outpatient (CLI) | payer MEDICARE ==
[~2024-05-12] MED LIST changes: +ISOVUE-370 76% 100ML VIAL As Ordered ONE
== END ==
LOC: M RAD 10:06
PROVIDERS: ATTEND Surgery Vascular Surgery
DX: I65.23 Occlusion and stenosis of bilateral carotid arteries (principal)
CPT/HCPCS: 70496; 70498; Q9967

== ENCOUNTER → 2024-06-27 | Outpatient (REF) | payer MEDICARE ==
[~2024-06-27] MED LIST changes: -BUPR-597 PO; +BUPR-766 PO; -ISOVUE-370 76% 100ML VIAL As Ordered ONE
== END ==
LOC: M LAB REF 21:05
PROVIDERS: ATTEND Physician Assistant
DX: B34.9 Viral infection, unspecified (principal)

== ENCOUNTER → 2024-10-06 | Outpatient (REF) | payer MEDICARE, OTHER ==
[~2024-10-06] MED LIST changes: +LAMO-18 PO; -LAMO25TA4 PO; +LISI40TA10 PO; -LISI40TA4 PO
[2024-10-06 16:24] LABS: APPEARANCE, URINE MANUAL CLEAR (CLEAR); COLOR, URINE MANUAL YELLOW (YELLOW); PH,URINE MAN 5.0 UNITS (5.0 - 7.0); SPECIFIC GRAVITY,URINE MANUAL 1.020 (1.002-1.035)
[2024-10-06 16:25] LABS: BILIRUBIN, URINE MANUAL NEGATIVE (NEGATIVE); BLOOD URINE MANUAL NEGATIVE (NEGATIVE); GLUCOSE, URINE (UA) MANUAL NEGATIVE (NEGATIVE); KETONE, URINE MANUAL NEGATIVE (NEGATIVE); LEUKOCYTE ESTERASE, URINE MAN NEGATIVE (NEGATIVE); NITRITE, URINE MANUAL NEGATIVE (NEGATIVE); PROTEIN, URINE MANUAL NEGATIVE (NEGATIVE); UROBILINOGEN, URINE MANUAL NORMAL (NORMAL)
== END ==
LOC: M SMT 15:18
PROVIDERS: ATTEND Physician Assistant
DX: R32 Unspecified urinary incontinence (principal)

== ENCOUNTER 2024-10-13 14:51 | Emergency (ER) | payer MEDICARE, OTHER ==
[~2024-10-13] VITALS: Ht 149.9 cm; Wt 65.3 kg
[2024-10-13 15:46] LABS: BASO # 0.0 10^3/uL (0.0-0.2); BASO % 0.4 % (0.0-1.0); EOS # 0.0 10^3/uL (0.0-0.5); EOS % 0.1 % (0.0-3.0); LYMPH # 1.1 10^3/uL (1.5-5.0); LYMPH % 14.1 % (24.0-44.0); MONO # 0.9 10^3/uL (0.0-0.8); MONO % 11.4 % (2.0-8.0); NEUTROPHILS # 5.8 10^3/uL (1.5-8.5); NEUTROPHILS % 73.9 % (36.0-66.0); PLATELET COUNT, AUTOMATED 224 10^3/uL (150-450)
[2024-10-13 16:15] LABS: CALCIUM LEVEL 9.3 MG/DL (8.3-10.6); CARBON DIOXIDE LEVEL 27 MMOL/L (20-31); CHLORIDE LEVEL 103 MMOL/L (98-107); CK-MB VALUE MASS < 1.0 NG/ML (<3.6); CPK CREATINE PHOSPHOKINASE 64 U/L (34-145); CREATININE FOR GFR 0.84 MG/DL (0.55-1.30); GLOMERULAR FILTRATION RATE 77.1 (>45); POTASSIUM SERUM 5.0 MMOL/L (3.5-5.1); SODIUM LEVEL 141 MMOL/L (136-145)
[2024-10-13 17:28] LABS: CK-MB VALUE MASS < 1.0 NG/ML (<3.6); CPK CREATINE PHOSPHOKINASE 58 U/L (34-145)
[2024-10-13] MEDS: PANTOPRAZOLE 40MG VIAL IV ONE (18:00)
[2024-10-13] MEDS: MAALOX 30 ML SUSP *UDC PO ONE (18:00)
[2024-10-13] MEDS: LIDOCAINE VISCOUS 2% SOLN 15 ML UDC PO ONE (18:00)
[2024-10-13 18:08] LABS: ALT/SGPT 24 U/L (7.0-40); AST/SGOT 42 U/L (<34)
[2024-10-13] MEDS ORDERED: ISOVUE-370 76% 100 ML VIAL As Ordered ONE (18:14)
[2024-10-13 19:15] VITALS: BP 144/54; TEMP 98.6; O2SAT 94
== END 2024-10-13 20:07 | disposition home or self-care (01) ==
LOC: M ED 14:51
DX: K20.90 Esophagitis, unspecified without bleeding (principal); R07.9 Chest pain, unspecified; I45.10 Unspecified right bundle-branch block; K21.9 Gastro-esophageal reflux disease without esophagitis; D64.9 Anemia, unspecified; I10 Essential (primary) hypertension; E78.5 Hyperlipidemia, unspecified; M79.7 Fibromyalgia; F41.9 Anxiety disorder, unspecified; F32.A Depression, unspecified; Z86.73 Personal history of transient ischemic attack (TIA), and cerebral infarction without residual deficits; Z79.1 Long term (current) use of non-steroidal anti-inflammatories (NSAID); Z79.899 Other long term (current) drug therapy; Z79.810 Long term (current) use of selective estrogen receptor modulators (SERMs)
CPT/HCPCS: 71045; 71275; 74177; 80048; 80076; 82550; 82553; 83690; 84484; 85025; 93005; 93041; 94760; 96374; 99285; J2470; Q9967

== ENCOUNTER 2024-10-16 09:43 | Emergency (ER) | payer MEDICARE ==
[~2024-10-16] VITALS: Ht 160 cm; Wt 69.5 kg
[2024-10-16 11:05] LABS: BASO # 0.0 10^3/uL (0.0-0.2); BASO % 0.1 % (0.0-1.0); EOS # 0.0 10^3/uL (0.0-0.5); EOS % 0.1 % (0.0-3.0); LYMPH # 0.6 10^3/uL (1.5-5.0); LYMPH % 4.4 % (24.0-44.0); MONO # 0.7 10^3/uL (0.0-0.8); MONO % 5.2 % (2.0-8.0); NEUTROPHILS # 12.8 10^3/uL (1.5-8.5); NEUTROPHILS % 89.9 % (36.0-66.0); PLATELET COUNT, AUTOMATED 262 10^3/uL (150-450)
[2024-10-16 11:28] LABS: ALT/SGPT 24.0 U/L (7.0-40); AST/SGOT 27.0 U/L (<34)
[2024-10-16] MEDS ORDERED: LAMO-18 (12:54)
[2024-10-16] MEDS ORDERED: ONDA-282 PO (13:56)
[2024-10-16] MEDS ORDERED: CARA1TAB6 PO (13:56)
[2024-10-16 14:15] VITALS: BP 184/80; TEMP 97; O2SAT 94
== END 2024-10-16 14:50 | disposition home or self-care (01) ==
LOC: M ED 09:43 → EDBD 09:43 → M ED 14:50
DX: K20.80 Other esophagitis without bleeding (principal); R11.2 Nausea with vomiting, unspecified; I10 Essential (primary) hypertension; K21.9 Gastro-esophageal reflux disease without esophagitis; E78.5 Hyperlipidemia, unspecified; F41.9 Anxiety disorder, unspecified; I45.10 Unspecified right bundle-branch block; I45.81 Long QT syndrome; Z86.73 Personal history of transient ischemic attack (TIA), and cerebral infarction without residual deficits; Z79.1 Long term (current) use of non-steroidal anti-inflammatories (NSAID); Z79.899 Other long term (current) drug therapy; Z79.810 Long term (current) use of selective estrogen receptor modulators (SERMs)

== ENCOUNTER → 2024-12-29 | Outpatient (REF) | payer MEDICARE, OTHER ==
[~2024-12-29] MED LIST changes: +CARA1TAB6 PO; +LAMO-18; +ONDA-282 PO
[2024-12-29 15:33] LABS: CREATININE, URINE 199.3 MG/DL; MALB URINE SIEMENS 6.0 MG/L; MAU/CREAT RATIO 3.0 MCG/MG (0.0-30.0)
[2024-12-29 17:09] LABS: BASO # 0.0 10^3/uL (0.0-0.2); BASO % 0.5 % (0.0-1.0); EOS # 0.1 10^3/uL (0.0-0.5); EOS % 0.6 % (0.0-3.0); LYMPH # 1.9 10^3/uL (1.5-5.0); LYMPH % 23.3 % (24.0-44.0); MONO # 0.5 10^3/uL (0.0-0.8); MONO % 6.6 % (2.0-8.0); NEUTROPHILS # 5.5 10^3/uL (1.5-8.5); NEUTROPHILS % 68.9 % (36.0-66.0); PLATELET COUNT, AUTOMATED 286 10^3/uL (150-450)
[2024-12-29 17:13] LABS: CALCIUM LEVEL 9.6 MG/DL (8.3-10.6); CARBON DIOXIDE LEVEL 31.0 MMOL/L (20-31); CHLORIDE LEVEL 103.0 MMOL/L (98-107); CHOLESTEROL LEVEL 139.0 MG/DL (<200); CHOLESTEROL RISK RATIO 2.6 (<5); CREATININE FOR GFR 0.78 MG/DL (0.55-1.30); GLOMERULAR FILTRATION RATE 84.2 (>45); IRON (FE) 100.0 UG/DL (50-170); LDL CHOLESTEROL 59.6 MG/DL (<100); NON-HDL-C 85.6 MG/DL; PERCENT SATURATION 34.4 % (13.2-45.0); POTASSIUM SERUM 3.7 MMOL/L (3.5-5.1); SODIUM LEVEL 145.0 MMOL/L (136-145); TRIGLYCERIDES LEVEL 130.0 MG/DL (<150)
[2024-12-29 17:51] LABS: ESTIMATED AVERAGE GLUCOSE 114.0 MG/DL (60-110)
== END ==
LOC: M LAB REF 14:21
PROVIDERS: ATTEND Pediatrics
DX: I10 Essential (primary) hypertension (principal); M81.0 Age-related osteoporosis without current pathological fracture; R73.03 Prediabetes; D64.9 Anemia, unspecified

== ENCOUNTER → 2025-02-10 | Outpatient (REF) | payer MEDICARE ==
[2025-02-10 17:16] LABS: CALCIUM LEVEL 9.4 MG/DL (8.3-10.6); CARBON DIOXIDE LEVEL 32.0 MMOL/L (20-31); CHLORIDE LEVEL 102.0 MMOL/L (98-107); CREATININE FOR GFR 0.82 MG/DL (0.55-1.30); GLOMERULAR FILTRATION RATE 78.8 (>45); POTASSIUM SERUM 3.6 MMOL/L (3.5-5.1); SODIUM LEVEL 144.0 MMOL/L (136-145)
== END ==
LOC: M LAB REF 16:26
PROVIDERS: ATTEND Pediatrics
DX: Z01.812 Encounter for preprocedural laboratory examination (principal)

== ENCOUNTER 2025-02-13 15:38 | Outpatient (CLI) | payer MEDICARE ==
[~2025-02-13] VITALS: Ht 154.9 cm; Wt 59.0 kg
[~2025-02-13 15:38] MED LIST changes: +ZOLEDRONIC ACID 5 MG in IV 1 EA IV ONE
[2025-02-13 16:00] VITALS: BP 136/64; O2SAT 96
[2025-02-13] MEDS: ZOLEDRONIC ACID 5 MG in IV 1 EA IV ONE (16:14)
[2025-02-13 17:00] VITALS: BP 122/60; O2SAT 99
== END 2025-02-13 17:00 | disposition home or self-care (01) ==
LOC: M INFU 15:38
PROVIDERS: ATTEND Pediatrics
DX: M81.0 Age-related osteoporosis without current pathological fracture (principal); K21.00 Gastro-esophageal reflux disease with esophagitis, without bleeding
CPT/HCPCS: 96365; J3489